=== PATIENT | female | born 1930 | race American Indian/Alaskan Native ===

== ENCOUNTER 2019-04-11 19:35 | Inpatient (IN) | payer MEDICARE ==
--- NOTE | 2019-04-11 20:17 | Event Note ---
ED Screening Note ED Screening Note: pmh copd heart failure htn hpld diverticulosis no strokes psh heart- ppm cc INOCENCIO wears home oxygen she ran out of oxygen earlier today and has been sob This initial assessment/diagnostic orders/clinical plan/treatment(s) is/are subject to change based on patients health status, clinical progression and re- assessment by fellow clinical providers in the ED. Further treatment and workup at subsequent clinical providers discretion. Patient/guardian urged not to elope from the ED as their condition may be serious if not clinically assessed and managed. 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
[2019-04-11 20:50] LABS: Basophils % (Auto) 0.9 % (0.0-1.8); Eosinophils # (Auto) 0.2 K/mm3 (0.0-0.4); Eosinophils % (Auto) 4.8 % (0.0-4.3); Hematocrit 26.9 % (30.3-42.9); Hemoglobin 8.8 gm/dl (10.1-14.3); Lymphocytes # (Auto) 0.5 K/mm3 (1.2-5.4); Lymphocytes % (Auto) 15.5 % (13.4-35.0); Mean Corpuscular HGB Conc 33 % (30-34); Mean Corpuscular Volume 93 fl (79-97); Monocytes # (Auto) 0.4 K/mm3 (0.0-0.8); Monocytes % (Auto) 11.8 % (0.0-7.3); Platelet Count 175 K/mm3 (140-440); Red Cell Distribution Width 17.5 % (13.2-15.2)
--- NOTE | 2019-04-11 21:08 | Emergency Department Report ---
HPI - General Chief Complaint: Dyspnea/Respdistress Time Seen by Provider: 04/11/19 20:14 - [facility] HPI: Room 17 The patient is an 88-year-old female presenting with chief complaint of shortness of breath and chest pain. Patient states her symptoms began last night with intermittent left sided chest pain described as a "hurt." Patient states the pain continued to be intermittent this morning but then resolved. Patient continues complaining of shortness of breath and diaphoresis with her chest pain. Patient denied nausea or vomiting. Patient was occasional cough that is nonproductive. Family states the patient was found to be hypoxic at home at 61% on 2 L nasal cannula. The patient states her last stress test occurred approximately 18 years ago and she's never had a cardiac catheterization Location: Left chest, lungs Duration: [See above] Quality: "Hurt" Severity: Currently 0/10 Modifying factors: [see above] Context: [see above] Mode of transportation: [not driving] ED Past Medical Hx - Past Medical History Previous Medical History?: Yes Hx Diabetes: Yes Hx Arthritis: Yes Hx COPD: Yes Additional medical history: heart failure - Surgical History Past Surgical History?: Yes Additional Surgical History: pacemaker, diverticulitis - Family History Family history: no significant - Social History Smoking Status: Former Smoker (none 30 years) Substance Use Type: None ED Review of Systems ROS: Stated complaint: INOCENCIO LOW OXYGEN LEVEL Other details as noted in HPI Constitutional: diaphoresis Eyes: denies: eye pain ENT: denies: throat pain Respiratory: shortness of breath Cardiovascular: chest pain Endocrine: no symptoms reported Gastrointestinal: denies: nausea, vomiting Genitourinary: denies: dysuria Musculoskeletal: denies: back pain Neurological: denies: headache Physical Exam - Physical Exam Vital Signs: Vital Signs 04/11/19 20:14 Temperature 98.3 F Pulse Rate 65 Respiratory 22 Rate Blood Pressure 179/89 O2 Sat by Pulse 96 Oximetry Physical Exam: GENERAL: The patient is well-developed well-nourished female lying on stretcher not appearing to be in acute distress. [] HEENT: Normocephalic. Atraumatic. Extraocular motions are intact. Patient has moist mucous membranes. NECK: Supple. Trachea midline CHEST/LUNGS: Occasional crackles left base. There is no respiratory distress noted. HEART/CARDIOVASCULAR: Regular. There is no tachycardia. There is no gallop rub or murmur. ABDOMEN: Abdomen is soft, nontender. Patient has normal bowel sounds. There is no abdominal distention. SKIN: There is no rash. There is no edema. There is no diaphoresis. NEURO: The patient is awake, alert, and oriented. The patient is cooperative. The patient has normal speech MUSCULOSKELETAL: There is no evidence of acute injury. ED Course Vital Signs 04/11/19 20:14 Temperature 98.3 F Pulse Rate 65 Respiratory 22 Rate Blood Pressure 179/89 O2 Sat by Pulse 96 Oximetry ED Medical Decision Making - Lab Data Result diagrams: 04/11/19 20:30 04/11/19 20:30 Laboratory Tests 04/11/19 04/11/19 04/11/19 20:30 20:30 20:30 WBC 3.6 L RBC 2.90 L Hgb 8.8 L Hct 26.9 L MCV 93 MCH 30 MCHC 33 RDW 17.5 H Plt Count 175 Lymph % (Auto) 15.5 [place] % (Auto) 11.8 H Eos % (Auto) 4.8 H Baso % (Auto) 0.9 Lymph # 0.5 L [place] # 0.4 Eos # 0.2 Baso # 0.0 Seg Neutrophils % 67.0 Seg Neutrophils # 2.4 Sodium 128 L Potassium 5.0 Chloride 85.4 L Carbon Dioxide 32 H Anion Gap 16 BUN 23 H Creatinine 1.0 Estimated GFR 52 BUN/Creatinine Ratio 23 Glucose 134 H Calcium 9.4 Total Bilirubin 0.30 AST 22 ALT 8 Alkaline Phosphatase 61 Troponin T NT-Pro-B Natriuret Pep 3556 H Total Protein 7.4 Albumin 3.9 Albumin/Globulin Ratio 1.1 04/11/19 22:06 WBC RBC Hgb Hct MCV MCH MCHC RDW Plt Count Lymph % (Auto) [place] % (Auto) Eos % (Auto) Baso % (Auto) Lymph # [place] # Eos # Baso # Seg Neutrophils % Seg Neutrophils # Sodium Potassium Chloride Carbon Dioxide Anion Gap BUN Creatinine Estimated GFR BUN/Creatinine Ratio Glucose Calcium Total Bilirubin AST ALT Alkaline Phosphatase Troponin T < 0.010 NT-Pro-B Natriuret Pep Total Protein Albumin Albumin/Globulin Ratio - EKG Data -: EKG Interpreted by Sc EKG shows normal: sinus rhythm Rate: normal - EKG Data When compared to previous EKG there are: previous EKG unavailable Interpretation: other (left bundle branch block) - Radiology Data Radiology results: report reviewed (chest x-ray, CT chest), image reviewed (chest x-ray, CT chest) interpreted by me: Chest x-ray-no focal infiltrates, no pneumothorax [facility] [address] [place] [address] Cat Scan Report Signed Patient: KESHIA BROWN MR#: [id number] : 1930 Acct:[id number] Age/Sex: 88 / F ADM Date: 04/11/19 Loc: ED Attending Dr: Ordering Physician: SHARDA PORTER MD Date of Service: 04/11/19 Procedure(s): CT angio chest Accession Number(s): [id number] cc: SHARDA PORTER MD PROCEDURE: CT ANGIO CHEST TECHNIQUE: Computerized tomographic angiography of the chest was performed after the IV injection of iodinated nonionic contrast including image processing. The image data was postprocessed using 2-dimensional multiplanar reformatted (MPR) and 3-dimensional (MIP and/or volume rendered) techniques. Automated exposure control, adjustment of mA and/or kV according to patient size, or iterative reconstruction dose optimization techniques were utilized. CT DOSE LENGTH PRODUCT: 543.3 mGycm HISTORY: shortness of breath, left chest pain COMPARISONS: None . FINDINGS: Pulmonary out flow tract, right and left main pulmonary arteries and the approximal branches: Clear, no filling defects seen to suggest pulmonary embolus. Pericardium: No evidence of pericardial effusion. Thoracic aorta: No evidence of aneurysmal dilatation or dissection. Coronary arteries: Partially calcified indicating atherosclerotic disease. Mediastinum and hilar regions: Non specific subcentimeter lymph nodes are visualized. No pathologically enlarged lymph nodes or masses are identified. Lung Baldwin: Small right pleural effusion is visualized. Moderate diffuse emphysematous changes are present. No focal infiltrates or masses are seen. Small amount of linear atelectasis seen in the lung bases. Upper abdomen: Multiple calcified gallstones incidentally noted dependently in the gallbladder. Small amount of ascites appears to be present in the right pericolonic gutter. This is only partially visualized. Mild diffuse body wall edema is visualized. Other: None. IMPRESSION: No evidence of pulmonary embolus. Atherosclerosis coronary arteries. Small right pleural effusion visualized. Moderate diffuse emphysematous changes are present. Cholelithiasis. Small amount of ascites partially visualized upper abdomen. Diffuse body wall edema is visualized. This document is electronically signed by Mulugeta Bosch MD., April 12 2019 01:40:39 AM ET Transcribed By: DFN Dictated By: MULUGETA BOSCH MD Electronically Authenticated By: MULUGETA BOSCH MD Signed Date/Time: 04/[birth year]/1941 DD/ TD/TT: 04/12/197 - Differential Diagnosis COPD exacerbation, CHF exacerbation ACS, pneumonia, bronchitis Critical care attestation.: If time is entered above; I have spent that time in minutes in the direct care of this critically ill patient, excluding procedure time. ED Disposition Clinical Impression: Chest pain, Shortness of breath, Hyponatremia Disposition: OP ADMIT IP TO THIS HOSP Is pt being admited?: Yes Does the pt Need Aspirin: Yes Condition: Fair Instructions: Chest Pain (ED) Time of Disposition: 00:54 (Dr Gates paged)
[2019-04-11 21:33] LABS: Albumin 3.9 g/dL (3.9-5); Calcium 9.4 mg/dL (8.4-10.2)
--- NOTE | 2019-04-11 21:47 | XRay Report ---
PROCEDURE: XR CHEST 1V AP TECHNIQUE: Chest radiograph single view. HISTORY: Dyspnea COMPARISONS: None . FINDINGS: Heart: Appears to be mildly enlarged. Mediastinum/Vessels: Normal. Lungs/Pleural space: Vertical linear lucency seen right lung base laterally. This may be a skinfold artifact. I cannot exclude a small pneumothorax. Recommend repositioning the patient and repeat the c hest x-ray.. Bony thorax: No acute osseous abnormality. Bones are diffusely demineralized suggesting osteoporosis. Life support devices: Dual-chamber pacemaker implanted in the left side of the chest. Cardiac leads v isualized in the right side of the heart.. IMPRESSION: Lucency right lung base laterally oriented vertically as described possibly representing skinfold artifact versus small pneumothorax. Suggest repositioning the patient and repeating the [address] x-ray. Mild cardiomegaly. Dual chamber pacemaker in place. Osteoporosis is suspected.. This document is electronically signed by Mulugeta Hyatt MD., Apr 11 2019 10:45:05 PM ET
--- NOTE | 2019-04-12 00:42 | Cat Scan Report ---
PROCEDURE: CT ANGIO CHEST TECHNIQUE: Computerized tomographic angiography of the chest was performed after the IV injection of iodinated nonionic contrast including image processing. The image data was postprocessed using 2-di mensional multiplanar reformatted (MPR) and 3-dimensional (MIP and/or volume rendered) techniques. Au tomated exposure control, adjustment of mA and/or kV according to patient size, or iterative reconstr uction dose optimization techniques were utilized. CT DOSE LENGTH PRODUCT: 543.3 mGycm HISTORY: shortness of breath, left chest pain COMPARISONS: None . FINDINGS: Pulmonary out flow tract, right and left main pulmonary arteries and the approximal branches: Clear, no filling defects seen to suggest pulmonary embolus. Pericardium: No evidence of pericardial effusion. Thoracic aorta: No evidence of aneurysmal dilatation or dissection. Coronary arteries: Partially calcified indicating atherosclerotic disease. Mediastinum and hilar regions: Non specific subcentimeter lymph nodes are visualized. No pathologica lly enlarged lymph nodes or masses are identified. Lung Baldwin: Small right pleural effusion is visualized. Moderate diffuse emphysematous changes are p resent. No focal infiltrates or masses are seen. Small amount of linear atelectasis seen in the lung bases. Upper abdomen: Multiple calcified gallstones incidentally noted dependently in the gallbladder. Smal l amount of ascites appears to be present in the right pericolonic gutter. This is only partially vis ualized. Mild diffuse body wall edema is visualized. Other: None. IMPRESSION: No evidence of pulmonary embolus. Atherosclerosis coronary arteries. Small right pleural effusion visualized. Moderate diffuse emphysematous changes are present. Cholelithiasis. Small amount of ascites partially visualized upper abdomen. Diffuse body wall edema is visualized. This document is electronically signed by Mulugeta Hyatt MD., April 12 2019 01:40:39 AM ET
[2019-04-12] MEDS ORDERED: ASPIRIN PO ONE (00:54)
[2019-04-12] MEDS ORDERED: TYLENOL PO PRN (01:39)
[2019-04-12 02:20] LABS: Basophils % (Auto) 0.6 % (0.0-1.8); Eosinophils # (Auto) 0.2 K/mm3 (0.0-0.4); Eosinophils % (Auto) 5.9 % (0.0-4.3); Hematocrit 26.3 % (30.3-42.9); Hemoglobin 8.6 gm/dl (10.1-14.3); Lymphocytes # (Auto) 0.8 K/mm3 (1.2-5.4); Mean Corpuscular HGB Conc 33 % (30-34); Mean Corpuscular Volume 92 fl (79-97); Monocytes # (Auto) 0.5 K/mm3 (0.0-0.8); Monocytes % (Auto) 12.9 % (0.0-7.3); Platelet Count 177 K/mm3 (140-440); Red Blood Count 2.88 M/mm3 (3.65-5.03); Red Cell Distribution Width 17.3 % (13.2-15.2)
[2019-04-12] MEDS: APRESOLINE IV PRN ×2 (03:02→21:07)
--- NOTE | 2019-04-12 03:21 | History and Physical Report ---
<PARDEEP ZAPIEN - Last Filed: 04/12/19 03:05> History of Present Illness Date of examination: 04/12/19 Date of admission: 04/12/2019 Chief complaint: Chest pain History of present illness: Patient is an 88-year-old female with PMHx of CHF, A. fib (on Eliquis), hypertension, DM type II, COPD (home O2 dependent) who presents to the ER with complaints of chest pain. Patient's niece at the bedside states that the patient went to see her supervisor dairy sanitation (Dr. Odonnell at [facility]) and her telecommunications clerk today, she was told that everything was fine. Patient's niece also reported that the patient did not use her oxygen all day, she only used it when she got home, she went to bed and woke up in 2 hours complaining of chest pain and shortness of breath. Patient states that the chest pain is located in the left substernal chest area, causing shortness of breath, she denies radiation, she states that she had similar pain before, she had a pacemaker inserted but she never had any stent placement or any other cardiac procedures. Patient's was evaluated in the ER, her EKG showed no STEMI, her cardiac enzymes was negative, BNP was 3556, she had lower extremity edema and mild shortness of breath on exertion, patient will be admitted for further evaluation of her chest pain. Past History Past Medical History: atrial fib, diabetes, hypertension, hyperlipidemia Past Surgical History: Other (pacemaker insertion) Social history: no significant social history, lives with family Family history: no significant family history Medications and Allergies Allergies Allergy/AdvReac Type Severity Reaction Status Date / Time No Known Allergies Allergy Unverified 04/11/19 19:59 Home Medications Medication Instructions Recorded Confirmed Last Taken Type Albuterol Sulfate [Proair 90 mcg IH PRN PRN 04/12/19 04/12/19 Unknown History Respiclick] Apixaban [Eliquis] 2.5 mg PO BID 04/12/19 04/12/19 Unknown History Cholecalciferol Vit D3 [Vitamin D3 1,000 unit PO QDAY 04/12/19 04/12/19 Unknown History 1,000 UNIT TAB] Dorzolamide HCl [Trusopt] 10 ml OU BID 04/12/19 04/12/19 Unknown History Furosemide [Lasix TAB] 80 mg PO BID 04/12/19 04/12/19 Unknown History Lisinopril [Zestril] 40 mg PO QDAY 04/12/19 04/12/19 Unknown History Pravastatin [Pravachol] 20 mg PO DAILY 04/12/19 04/12/19 Unknown History Tiotropium [place] [Spiriva] 18 mcg IH DAILY 04/12/19 04/12/19 Unknown History metFORMIN [Glucophage] 500 mg PO BID 04/12/19 04/12/19 Unknown History Active Meds: Active Medications Acetaminophen (Tylenol) 650 mg PO Q4H PRN PRN Reason: Pain MILD(1-3)/Fever >100.5/BASILIO Aspirin (Ecotrin) 325 mg PO QDAY TANK Hydralazine HCl (Apresoline) 10 mg IV Q6H PRN PRN Reason: FOR SBP > target Last Admin: 04/12/19 03:02 Dose: 10 mg Documented by: Ondansetron HCl (Zofran) 4 mg IV Q8H PRN PRN Reason: Nausea And Vomiting Sodium Chloride (Sodium Chloride Flush Syringe 10 Ml) 10 ml IV BID [facility] Review of Systems Cardiovascular: chest pain Respiratory: shortness of breath Exam - Constitutional Vitals: Temp Pulse Resp BP Pulse Ox 98.3 F 65 27 H 209/111 100 04/11/19 20:14 04/12/19 03:02 04/11/19 23:00 04/12/19 03:02 04/11/19 23:00 General appearance: Present: no acute distress - EENT Eyes: Present: EOM intact ENT: hearing intact - Neck Neck: Present: normal ROM - Respiratory Respiratory effort: normal Respiratory: bilateral: CTA - Cardiovascular Rhythm: regular Heart Sounds: Present: S1 & S2 - Extremities Extremities: no ischemia Peripheral Pulses: within normal limits - Abdominal General gastrointestinal: Present: soft, non-tender, non-distended Female genitourinary: Present: deferred - Rectal Rectal Exam: deferred - Integumentary Integumentary: Present: warm, dry - Musculoskeletal Musculoskeletal: strength equal bilaterally - Psychiatric Psychiatric: cooperative Results - Labs CBC & Chem 7: 04/12/19 02:07 04/11/19 20:30 Labs: Laboratory Last Values WBC 3.8 K/mm3 (4.5-11.0) L 04/12/19 02:07 RBC 2.88 M/mm3 (3.65-5.03) L 04/12/19 02:07 Hgb 8.6 gm/dl (10.1-14.3) L 04/12/19 02:07 Hct 26.3 % (30.3-42.9) L 04/12/19 02:07 MCV 92 fl (79-97) 04/12/19 02:07 MCH 30 pg (28-32) 04/12/19 02:07 MCHC 33 % (30-34) 04/12/19 02:07 RDW 17.3 % (13.2-15.2) H 04/12/19 02:07 Plt Count 177 K/mm3 (140-440) 04/12/19 02:07 Lymph % (Auto) 21.0 % (13.4-35.0) 04/12/19 02:07 [place] % (Auto) 12.9 % (0.0-7.3) H 04/12/19 02:07 Eos % (Auto) 5.9 % (0.0-4.3) H 04/12/19 02:07 Baso % (Auto) 0.6 % (0.0-1.8) 04/12/19 02:07 Lymph # 0.8 K/mm3 (1.2-5.4) L 04/12/19 02:07 [place] # 0.5 K/mm3 (0.0-0.8) 04/12/19 02:07 Eos # 0.2 K/mm3 (0.0-0.4) 04/12/19 02:07 Baso # 0.0 K/mm3 (0.0-0.1) 04/12/19 02:07 Seg Neutrophils % 59.6 % (40.0-70.0) 04/12/19 02:07 Seg Neutrophils # 2.3 K/mm3 (1.8-7.7) 04/12/19 02:07 Sodium 128 mmol/L (137-145) L 04/11/19 20:30 Potassium 5.0 mmol/L (3.6-5.0) 04/11/19 20:30 Chloride 85.4 mmol/L (98-107) L 04/11/19 20:30 Carbon Dioxide 32 mmol/L (22-30) H 04/11/19 20:30 16 mmol/L 04/11/19 20:30 BUN 23 mg/dL (7-17) H 04/11/19 20:30 1.0 mg/dL (0.7-1.2) 04/11/19 20:30 Estimated GFR 52 ml/min 04/11/19 20:30 23 % 04/11/19 20:30 Glucose 134 mg/dL (65-100) H 04/11/19 20:30 Calcium 9.4 mg/dL (8.4-10.2) 04/11/19 20:30 0.30 mg/dL (0.1-1.2) 04/11/19 20:30 AST 22 units/L (5-40) 04/11/19 20:30 ALT 8 units/L (7-56) 04/11/19 20:30 61 units/L (35-129) 04/11/19 20:30 < 0.010 ng/mL (0.00-0.029) 04/11/19 22:06 NT-Pro-B Natriuret Pep 3556 pg/mL (0-900) H 04/11/19 20:30 7.4 g/dL (6.3-8.2) 04/11/19 20:30 3.9 g/dL (3.9-5) 04/11/19 20:30 1.1 % 04/11/19 20:30 Assessment and Plan Assessment and plan: 1. Chest pain rule/out ACS 2. CHF (BNP 3556, echo unknown) 3. A. fib (on Eliquis) 4. Hypertension 5. Hyperlipidemia 6. DM type II 7. COPD (home O2 dependent) 8. History of pacemaker insertion Plan: Patient is admitted to admit for chest pain Consult cardiology for evaluation Continue cardiac enzymes every 6hr x2 Continue O2 at 2 L to keep sats at 93% Continue home meds Accu-Chek ACHS with insulin per sliding scale Continue Eliquis Out of bed to chair daily Further plan per cardiology recommendation Plan of care was d/w pt and niece, who voiced understanding Advance Directives: Yes VTE prophylaxis?: Chemical Plan of care discussed with patient/family: Yes <FRANCO BONILLA - Last Filed: 04/12/19 06:50> History of Present Illness Date of admission: 04/12/19 01:33 Medications and Allergies Active Meds: Active Medications Acetaminophen (Tylenol) 650 mg PO Q4H PRN PRN Reason: Pain MILD(1-3)/Fever >100.5/BASILIO Albuterol (Proventil) 2.5 mg IH Q6HRT PRN PRN Reason: Congestion Aspirin (Ecotrin) 325 mg PO QDAY [facility] Dextrose (D50w (25gm) Syringe) 50 ml IV PRN PRN PRN Reason: Hypoglycemia Furosemide (Lasix) 20 mg IV DAILY TANK Hydralazine HCl (Apresoline) 10 mg IV Q6H PRN PRN Reason: FOR SBP > target Last Admin: 04/12/19 03:02 Dose: 10 mg Documented by: Insulin Human Lispro (Humalog) 0 unit SUB-Q ACHS [facility]; Protocol Ondansetron HCl (Zofran) 4 mg IV Q8H PRN PRN Reason: Nausea And Vomiting Sodium Chloride (Sodium Chloride Flush Syringe 10 Ml) 10 ml IV BID [facility] Exam - Constitutional Vitals: Temp Pulse Resp BP Pulse Ox 98.3 F 65 21 209/111 100 04/11/19 20:14 04/12/19 03:02 04/12/19 03:00 04/12/19 03:02 04/12/19 03:00 Results - Labs CBC & Chem 7: 04/12/19 02:07 04/12/19 02:03 Labs: Laboratory Last Values WBC 3.8 K/mm3 (4.5-11.0) L 04/12/19 02:07 RBC 2.88 M/mm3 (3.65-5.03) L 04/12/19 02:07 Hgb 8.6 gm/dl (10.1-14.3) L 04/12/19 02:07 Hct 26.3 % (30.3-42.9) L 04/12/19 02:07 MCV 92 fl (79-97) 04/12/19 02:07 MCH 30 pg (28-32) 04/12/19 02:07 MCHC 33 % (30-34) 04/12/19 02:07 RDW 17.3 % (13.2-15.2) H 04/12/19 02:07 Plt Count 177 K/mm3 (140-440) 04/12/19 02:07 Lymph % (Auto) 21.0 % (13.4-35.0) 04/12/19 02:07 [place] % (Auto) 12.9 % (0.0-7.3) H 04/12/19 02:07 Eos % (Auto) 5.9 % (0.0-4.3) H 04/12/19 02:07 Baso % (Auto) 0.6 % (0.0-1.8) 04/12/19 02:07 Lymph # 0.8 K/mm3 (1.2-5.4) L 04/12/19 02:07 [place] # 0.5 K/mm3 (0.0-0.8) 04/12/19 02:07 Eos # 0.2 K/mm3 (0.0-0.4) 04/12/19 02:07 Baso # 0.0 K/mm3 (0.0-0.1) 04/12/19 02:07 Seg Neutrophils % 59.6 % (40.0-70.0) 04/12/19 02:07 Seg Neutrophils # 2.3 K/mm3 (1.8-7.7) 04/12/19 02:07 Sodium 128 mmol/L (137-145) L 04/12/19 02:03 Potassium 4.6 mmol/L (3.6-5.0) 04/12/19 02:03 Chloride 85.2 mmol/L (98-107) L 04/12/19 02:03 Carbon Dioxide 30 mmol/L (22-30) 04/12/19 02:03 17 mmol/L 04/12/19 02:03 BUN 24 mg/dL (7-17) H 04/12/19 02:03 1.1 mg/dL (0.7-1.2) 04/12/19 02:03 Estimated GFR 57 ml/min 04/12/19 02:03 22 % 04/12/19 02:03 Glucose 115 mg/dL (65-100) H 04/12/19 02:03 Calcium 9.2 mg/dL (8.4-10.2) 04/12/19 02:03 0.30 mg/dL (0.1-1.2) 04/11/19 20:30 AST 22 units/L (5-40) 04/11/19 20:30 ALT 8 units/L (7-56) 04/11/19 20:30 61 units/L (35-129) 04/11/19 20:30 < 0.010 ng/mL (0.00-0.029) 04/11/19 22:06 NT-Pro-B Natriuret Pep 3556 pg/mL (0-900) H 04/11/19 20:30 7.4 g/dL (6.3-8.2) 04/11/19 20:30 3.9 g/dL (3.9-5) 04/11/19 20:30 1.1 % 04/11/19 20:30 Triglycerides 49 mg/dL (2-149) 04/12/19 02:03 Cholesterol 152 mg/dL (50-199) 04/12/19 02:03 61 mg/dL (50-130) 04/12/19 02:03 84 mg/dL (40-59) H 04/12/19 02:03 1.80 % 04/12/19 02:03 Assessment and Plan Assessment and plan: I personally discussed the patient with the PLANT SENIOR MANAGER-C and I agree with the above assessment and plan
[2019-04-12] MEDS ORDERED: D50W (25GM) Syringe IV PRN (03:40)
[2019-04-12] MEDS ORDERED: PROVENTIL IH PRN (03:42)
[2019-04-12 03:48] LABS: Calcium 9.2 mg/dL (8.4-10.2); Chol/HDL Ratio 1.8 %
[2019-04-12] MEDS ORDERED: NON-FORMULARY (Albuterol Sulfate [Proair Respiclick] 90 MCG) IH PRN (08:02)
[2019-04-12] MEDS: HumaLOG SUB-Q SCH ×4 (08:46→21:07)
[2019-04-12] MEDS ORDERED: LASIX IV SCH ×2 (10:00→15:00)
[2019-04-12] MEDS ORDERED: DORZOLAMIDE HCL OU SCH (10:00)
[2019-04-12] MEDS ORDERED: SODIUM CHLORIDE FLUSH SYRINGE 10 ML IV SCH (10:00)
[2019-04-12] MEDS ORDERED: LASIX PO SCH (10:00)
[2019-04-12] MEDS: TYLENOL PO PRN ×2 (11:02→21:07)
[2019-04-12] MEDS: VITAMIN D3 PO SCH (11:03)
[2019-04-12] MEDS: ELIQUIS PO SCH ×2 (11:04→21:08)
[2019-04-12] MEDS: GLUCOPHAGE PO SCH ×2 (11:04→18:14)
[2019-04-12] MEDS: ZESTRIL PO SCH (11:04)
--- NOTE | 2019-04-12 14:08 | Event Note ---
Date: 04/12/19 Patient seen and evaluated ergonomics consultant Alejo as necessary Echocardiogram ordered
[2019-04-12] MEDS: SPIRIVA IH SCH (14:22)
--- NOTE | 2019-04-12 15:04 | Consultation ---
History of Present Illness Consult date: 04/12/19 Consult reason: congestive heart failure History of present illness: pt known to me, new pt in office recently relocated to [place] Prior history of HFpEF, admitted with persistent edema we tried to increase PO lasix as outpt, but it did not help will start IV regimen Echo ordered Afib, DDD pacemaker HTN Pulm HTN Type 2 DM COPD Plan IV diuresis Echocardiogram Cont eliquis for anticoagulation Past History Past Medical History: atrial fib, diabetes, hypertension, hyperlipidemia Past Surgical History: Other (pacemaker insertion) Social history: no significant social history, lives with family Family history: no significant family history Medications and Allergies Allergies Allergy/AdvReac Type Severity Reaction Status Date / Time No Known Allergies Allergy Unverified 04/11/19 19:59 Home Medications Medication Instructions Recorded Confirmed Last Taken Type Albuterol Sulfate [Proair 90 mcg IH PRN PRN 04/12/19 04/12/19 Unknown History Respiclick] Apixaban [Eliquis] 2.5 mg PO BID 04/12/19 04/12/19 Unknown History Cholecalciferol Vit D3 [Vitamin D3 1,000 unit PO QDAY 04/12/19 04/12/19 Unknown History 1,000 UNIT TAB] Dorzolamide HCl [Trusopt] 10 ml OU BID 04/12/19 04/12/19 Unknown History Furosemide [Lasix TAB] 80 mg PO BID 04/12/19 04/12/19 Unknown History Lisinopril [Zestril] 40 mg PO QDAY 04/12/19 04/12/19 Unknown History Pravastatin [Pravachol] 20 mg PO DAILY 04/12/19 04/12/19 Unknown History Tiotropium [place] [Spiriva] 18 mcg IH DAILY 04/12/19 04/12/19 Unknown History metFORMIN [Glucophage] 500 mg PO BID 04/12/19 04/12/19 Unknown History Active Meds: Active Medications Acetaminophen (Tylenol) 650 mg PO Q4H PRN PRN Reason: Pain MILD(1-3)/Fever >100.5/BASILIO Last Admin: 04/12/19 11:02 Dose: 650 mg Documented by: Albuterol (Proventil) 2.5 mg IH Q6HRT PRN PRN Reason: Congestion Apixaban (Eliquis) 2.5 mg PO BID [facility]; Protocol Last Admin: 04/12/19 11:04 Dose: 2.5 mg Documented by: Aspirin (Ecotrin) 325 mg PO QDAY [facility] Bumetanide (Bumex) 1 mg IV BID@0600,1800 [facility] Cholecalciferol (Vitamin D3) 1,000 unit PO QDAY [facility] Last Admin: 04/12/19 11:03 Dose: 1,000 unit Documented by: Dextrose (D50w (25gm) Syringe) 50 ml IV PRN PRN PRN Reason: Hypoglycemia Hydralazine HCl (Apresoline) 10 mg IV Q6H PRN PRN Reason: FOR SBP > target Last Admin: 04/12/19 03:02 Dose: 10 mg Documented by: Insulin Human Lispro (Humalog) 0 unit SUB-Q [facility]; Protocol Last Admin: 04/12/19 12:55 Dose: 1 unit Documented by: Lisinopril (Zestril) 40 mg PO QDAY [facility] Last Admin: 04/12/19 11:04 Dose: 40 mg Documented by: Metformin HCl (Glucophage) 500 mg PO BIDDIAB [facility] Last Admin: 04/12/19 11:04 Dose: 500 mg Documented by: Miscellaneous Medication (Dorzolamide Hcl [Trusopt]) 10 ml OU BID [facility] Ondansetron HCl (Zofran) 4 mg IV Q8H PRN PRN Reason: Nausea And Vomiting Potassium Chloride (K-Dur) 20 meq PO QDAY [facility] Pravastatin Sodium (Pravachol) 20 mg PO QHS [facility] Sodium Chloride (Sodium Chloride Flush Syringe 10 Ml) 10 ml IV BID [facility] Tiotropium [place] (Spiriva) 1 puff IH DAILY [facility] Last Admin: 04/12/19 14:22 Dose: Not Given Documented by: Review of Systems All systems: negative (stated in HPI) Physical Examination Vital Signs Temp Pulse Resp BP Pulse Ox 98.3 F 65 22 179/89 96 04/11/19 20:14 04/11/19 20:14 04/11/19 20:14 04/11/19 20:14 04/11/19 20:14 General appearance: no acute distress Neck: Positive: neck supple Cardiac: Positive: Reg Rate and Rhythm, S1/S2 Lungs: Positive: clear to auscultation Neuro: Positive: Grossly Intact Abdomen: Positive: Unremarkable Extremities: Present: +2 Edema Results 04/12/19 02:07 04/12/19 02:03 Cardiac Enzymes 04/11/19 Range/Units 20:30 AST 22 (5-40) units/L Lipids 04/12/19 Range/Units 02:03 Triglycerides 49 (2-149) mg/dL Cholesterol 152 (50-199) mg/dL HDL Cholesterol 84 H (40-59) mg/dL Cholesterol/HDL Ratio 1.80 % CBC 04/11/19 04/12/19 Range/Units 20:30 02:07 WBC 3.6 L 3.8 L (4.5-11.0) K/mm3 RBC 2.90 L 2.88 L (3.65-5.03) M/mm3 Hgb 8.8 L 8.6 L (10.1-14.3) gm/dl Hct 26.9 L 26.3 L (30.3-42.9) % Plt Count 175 177 (140-440) K/mm3 Lymph # 0.5 L 0.8 L (1.2-5.4) K/mm3 [place] # 0.4 0.5 (0.0-0.8) K/mm3 Eos # 0.2 0.2 (0.0-0.4) K/mm3 Baso # 0.0 0.0 (0.0-0.1) K/mm3 Comprehensive Metabolic Panel 04/11/19 04/12/19 Range/Units 20:30 02:03 Sodium 128 L 128 L (137-145) mmol/L Potassium 5.0 4.6 (3.6-5.0) mmol/L Chloride 85.4 L 85.2 L (98-107) mmol/L Carbon Dioxide 32 H 30 (22-30) mmol/L BUN 23 H 24 H (7-17) mg/dL Creatinine 1.0 1.1 (0.7-1.2) mg/dL Glucose 134 H 115 H (65-100) mg/dL Calcium 9.4 9.2 (8.4-10.2) mg/dL AST 22 (5-40) units/L ALT 8 (7-56) units/L Alkaline Phosphatase 61 (35-129) units/L Total Protein 7.4 (6.3-8.2) g/dL Albumin 3.9 (3.9-5) g/dL
[2019-04-12] MEDS: K-DUR PO SCH (18:14)
[2019-04-12] MEDS: BUMEX IV SCH (18:14)
[2019-04-12] MEDS: PRAVACHOL PO SCH (21:08)
[2019-04-12] MEDS: SODIUM CHLORIDE FLUSH SYRINGE 10 ML IV SCH (21:08)
[2019-04-13] MEDS: BUMEX IV SCH (05:13)
[2019-04-13] MEDS: TYLENOL PO PRN ×3 (05:24→20:59)
[2019-04-13] MEDS: HumaLOG SUB-Q SCH ×4 (07:55→22:39)
--- NOTE | 2019-04-13 08:41 | Consultation ---
History of Present Illness - Reason for Consult Consult date: 04/13/19 hyponatremia - History of Present Illness The patient is an 88 YO female with history significant for DM type 2, HTN, HFpEF, A. fib (on Eliquis), COPD on home O2 and /Anemia who presented to [facility] ER with complaints of chest pain. Patient was confused to give any history and there was no family member at the bedside. Patient woke from sleep and c/o chest pain and shortness of breath. The pain was located in the left substernal chest area without any radiation. She also reports lower extremity edema and CHAN. Patient was evaluated in the ER, her EKG showed no STEMI, her cardiac enzymes was negative and BNP was 3556. Patient was admitted for further evaluation of her chest pain. Initial BP was around 200/110s. Creatinine was 1 on admission but increased to 1.6 today. Patient received IV contrast 2 days ago. Past History Past Medical History: atrial fib, diabetes, hypertension, hyperlipidemia Past Surgical History: Other (pacemaker insertion) Social history: no significant social history, lives with family Family history: no significant family history Medications and Allergies Allergies Allergy/AdvReac Type Severity Reaction Status Date / Time No Known Allergies Allergy Unverified 04/11/19 19:59 Home Medications Medication Instructions Recorded Confirmed Last Taken Type Albuterol Sulfate [Proair 90 mcg IH PRN PRN 04/12/19 04/12/19 Unknown History Respiclick] Apixaban [Eliquis] 2.5 mg PO BID 04/12/19 04/12/19 Unknown History Cholecalciferol Vit D3 [Vitamin D3 1,000 unit PO QDAY 04/12/19 04/12/19 Unknown History 1,000 UNIT TAB] Dorzolamide HCl [Trusopt] 10 ml OU BID 04/12/19 04/12/19 Unknown History Furosemide [Lasix TAB] 80 mg PO BID 04/12/19 04/12/19 Unknown History Lisinopril [Zestril] 40 mg PO QDAY 04/12/19 04/12/19 Unknown History Pravastatin [Pravachol] 20 mg PO DAILY 04/12/19 04/12/19 Unknown History Tiotropium [place] [Spiriva] 18 mcg IH DAILY 04/12/19 04/12/19 Unknown History metFORMIN [Glucophage] 500 mg PO BID 04/12/19 04/12/19 Unknown History Active Meds: Active Medications Acetaminophen (Tylenol) 650 mg PO Q4H PRN PRN Reason: Pain MILD(1-3)/Fever >100.5/BASILIO Last Admin: 04/12/19 21:07 Dose: 650 mg Documented by: Acetaminophen (Tylenol) 1,000 mg PO Q6H PRN PRN Reason: Pain , Severe (7-10) Last Admin: 04/13/19 05:24 Dose: 1,000 mg Documented by: Albuterol (Proventil) 2.5 mg IH Q6HRT PRN PRN Reason: Congestion Apixaban (Eliquis) 2.5 mg PO BID [facility]; Protocol Last Admin: 04/12/19 21:08 Dose: 2.5 mg Documented by: Aspirin (Ecotrin) 325 mg PO QDAY [facility] Bumetanide (Bumex) 1 mg IV BID@0600,1800 [facility] Last Admin: 04/13/19 05:13 Dose: 1 mg Documented by: Cholecalciferol (Vitamin D3) 1,000 unit PO QDAY [facility] Last Admin: 04/12/19 11:03 Dose: 1,000 unit Documented by: Dextrose (D50w (25gm) Syringe) 50 ml IV PRN PRN PRN Reason: Hypoglycemia Hydralazine HCl (Apresoline) 10 mg IV Q6H PRN PRN Reason: FOR SBP > target Last Admin: 04/12/19 21:07 Dose: 10 mg Documented by: Insulin Human Lispro (Humalog) 0 unit SUB-Q [facility]; Protocol Last Admin: 04/12/19 21:07 Dose: 1 unit Documented by: Lisinopril (Zestril) 40 mg PO QDAY [facility] Last Admin: 04/12/19 11:04 Dose: 40 mg Documented by: Metformin HCl (Glucophage) 500 mg PO BIDDIAB [facility] Last Admin: 04/12/19 18:14 Dose: 500 mg Documented by: Miscellaneous Medication (Dorzolamide Hcl [Trusopt]) 10 ml OU BID [facility] Ondansetron HCl (Zofran) 4 mg IV Q8H PRN PRN Reason: Nausea And Vomiting Potassium Chloride (K-Dur) 20 meq PO QDAY [facility] Last Admin: 04/12/19 18:14 Dose: 20 meq Documented by: Pravastatin Sodium (Pravachol) 20 mg PO QHS [facility] Last Admin: 04/12/19 21:08 Dose: 20 mg Documented by: Sodium Chloride (Sodium Chloride Flush Syringe 10 Ml) 10 ml IV BID [facility] Last Admin: 04/12/19 21:08 Dose: 10 ml Documented by: Tiotropium [place] (Spiriva) 1 puff IH DAILY [facility] Last Admin: 04/12/19 14:22 Dose: Not Given Documented by: Review of Systems ROS unobtainable: due to mental status Exam - Vital Signs Vital signs: Vital Signs Temp Pulse Resp BP Pulse Ox 98.3 F 65 22 179/89 96 04/11/19 20:14 04/11/19 20:14 04/11/19 20:14 04/11/19 20:14 04/11/19 20:14 - General Appearance General appearance: well-developed, well-nourished, appears stated age, other (no distress) EENT: ATNC, PERRL, hearing intact Neck: Present: neck supple, trachea midline, JVD/HJR Respiratory: Rales Heart: regular, S1S2, no murmurs Gastrointestinal: Present: normoactive bowel sounds Integumentary: no rash, warm and dry Neurologic: no focal deficit, no asterixis, confused, disoriented Musculoskeletal: Present: other (1+ edema of both LEs noted) Psychiatric: cooperative Results - Lab Results 04/12/19 02:07 04/13/19 09:42 Most recent lab results Calcium 9.2 mg/dL (8.4-10.2) 04/12/19 02:03 - Image Kidney/bladder ultrasound: other Assessment and Plan 1. Acute kidney injury: JOSE likely from combination of contrast induced injury and vasomotor insult from BP fluctuation. Patient is on Lisinopril. Monitor renal function. Renal prognosis is guarded. Avoid nephrotoxic agents. Meds dosage based on GFR. 2. FEN: Volume overload, monitor. Monitor lytes. 3. HFpEF: Followed by Cards. 4. paroxysmal A.fib. 5. HTN: BP well controlled now. 6. Anemia: POA.
[2019-04-13 10:15] LABS: Calcium 9.4 mg/dL (8.4-10.2); Uric Acid 6.6 mg/dL (3.5-7.6)
[2019-04-13] MEDS: ECOTRIN PO SCH (10:41)
[2019-04-13] MEDS: ZESTRIL PO SCH (10:42)
[2019-04-13] MEDS: K-DUR PO SCH (10:42)
[2019-04-13] MEDS: GLUCOPHAGE PO SCH (10:42)
[2019-04-13] MEDS: ELIQUIS PO SCH ×2 (10:42→22:37)
[2019-04-13] MEDS: VITAMIN D3 PO SCH (10:42)
[2019-04-13 11:40] LABS: Creatinine,Urine 48.1 mg/dL (0.1-20.0)
[2019-04-13 11:41] LABS: Bacteria,Urine 2+ /HPF (Negative); Bilirubin,Urine NEG (Negative); Blood,Urine NEG (Negative); Color,Urine Yellow (Yellow); Mucus,Urine FEW /HPF; Protein,Urine <15 mg/dL mg/dL (Negative); RBC,Urine < 1.0 /HPF (0.0-6.0); Urobilinogen,Urine < 2.0 mg/dL (<2.0)
--- NOTE | 2019-04-13 12:04 | Progress Note ---
Subjective Date of service: 04/13/19 Interval history: Increasing BUN/CR, still with residual peripheral edema No chest pain, orthopnea, or SOB. Impression Prior history of HFpEF, admitted with persistent edema we tried to increase PO lasix as outpt, but it did not help will start IV regimen Echo ordered Afib, DDD pacemaker HTN Pulm HTN Type 2 DM COPD Plan Hold IV diuretics for now worsening pre-renal azotemia, hyponatremia Echocardiogram Cont eliquis for anticoagulation Objective Vital Signs Temp Pulse Pulse Resp BP Pulse Ox 04/13/19 11:44 65 99 04/13/19 10:45 20 04/13/19 10:00 65 04/13/19 08:48 98.4 F 65 16 131/59 100 04/13/19 04:14 97.8 F 65 18 116/59 100 04/12/19 23:27 98.0 F 65 19 115/52 100 04/12/19 22:00 65 04/12/19 19:10 97.7 F 66 18 168/79 100 04/12/19 17:03 98.3 F 65 16 166/76 100 04/12/19 13:44 22 94 04/12/19 13:14 98.2 F 65 16 152/67 100 - Physical Examination General: No Apparent Distress Neck: Positive: neck supple Cardiac: Positive: Reg Rate and Rhythm, S1/S2 Lungs: Positive: Normal Exam Neuro: Positive: Grossly Intact Abdomen: Positive: Unremarkable Extremities: Present: +2 Edema - Labs and Meds Comprehensive Metabolic Panel 04/13/19 Range/Units 09:42 Sodium 128 L (137-145) mmol/L Potassium 4.9 (3.6-5.0) mmol/L Chloride 86.1 L (98-107) mmol/L Carbon Dioxide 28 (22-30) mmol/L BUN 27 H (7-17) mg/dL Creatinine 1.6 H (0.7-1.2) mg/dL Glucose 113 H (65-100) mg/dL Calcium 9.4 (8.4-10.2) mg/dL
[2019-04-13] MEDS: SPIRIVA IH SCH (13:59)
--- NOTE | 2019-04-13 15:29 | Progress Note ---
Assessment and Plan - Patient Problems (1) Acute exacerbation of CHF (congestive heart failure) Current Visit: Yes Status: Acute Qualifiers: Heart failure type: combined systolic and diastolic Qualified Code(s): I50.43 - Acute on chronic combined systolic (congestive) and diastolic (congestive) heart failure Plan to address problem: COnt Lasix Check ECHO Cr High Use lasix judiciously (2) JOSE (acute kidney injury) Current Visit: Yes Status: Acute Plan to address problem: JOSE superimposed on CKD Nephrology consult requested Lasix to be used judiciously (3) Chest pain Current Visit: Yes Status: Acute Qualifiers: Chest pain type: unspecified Qualified Code(s): R07.9 - Chest pain, unspecified Plan to address problem: Atypical Troponins negative Stress test cancelled Patient of AHA AHA following For ECHO (4) Afib Current Visit: Yes Status: Chronic Qualifiers: Atrial fibrillation type: chronic Qualified Code(s): I48.2 - Chronic atrial fibrillation Plan to address problem: On Eliquis (5) HTN (hypertension) Current Visit: Yes Status: Chronic Qualifiers: Hypertension type: essential hypertension Qualified Code(s): I10 - Essential (primary) hypertension Plan to address problem: Cont antihypertensives (6) COPD (chronic obstructive pulmonary disease) Current Visit: Yes Status: Chronic Qualifiers: Chronic bronchitis type: unspecified Plan to address problem: On Duonebs prn (7) Pulmonary HTN Current Visit: Yes Status: Chronic (8) DVT prophylaxis Current Visit: Yes Status: Acute Plan to address problem: On Eliquis Subjective Date of service: 04/13/19 Principal diagnosis: SOB and CP Interval history: Chest pain resolved SOB present Objective - Constitutional Vitals: Vital Signs - 12hr 04/13/19 04/13/19 04/13/19 04:14 08:48 10:00 Temperature 97.8 F 98.4 F Pulse Rate 65 65 65 Pulse Rate [ Right Radial] Respiratory 18 16 Rate Blood Pressure 116/59 131/59 O2 Sat by Pulse 100 100 Oximetry 04/13/19 04/13/19 10:45 11:44 Temperature Pulse Rate Pulse Rate [ 65 Right Radial] Respiratory 20 Rate Blood Pressure O2 Sat by Pulse 99 Oximetry General appearance: Present: no acute distress, well-nourished - EENT Eyes: PERRL, EOM intact ENT: hearing intact, clear oral mucosa Ears: bilateral: normal - Neck Neck: supple, normal ROM - Respiratory Respiratory effort: normal Respiratory: bilateral: CTA - Breasts Breasts: normal - Cardiovascular Heart rate: 78 Rhythm: regular Heart Sounds: Present: S1 & S2. Absent: gallop, rub Extremities: no ischemia, pulses intact, No edema, normal color, Full ROM - Gastrointestinal General gastrointestinal: Present: soft, non-tender, non-distended, normal bowel sounds Rectal Exam: deferred - Genitourinary Female genitourinary: normal - Integumentary Integumentary: clear, warm, dry - Musculoskeletal Musculoskeletal: 1, strength equal bilaterally - Neurologic Neurologic: moves all extremities - Psychiatric Psychiatric: memory intact, appropriate mood/affect, intact judgment & insight - Allied health notes Allied health notes reviewed: nursing, case management - Labs CBC & Chem 7: 04/14/19 05:35 04/15/19 04:34 Labs: Abnormal lab results 04/12/19 04/12/19 04/13/19 Range/Units 16:01 21:03 09:42 Sodium 128 L (137-145) mmol/L Chloride 86.1 L (98-107) mmol/L BUN 27 H (7-17) mg/dL Creatinine 1.6 H (0.7-1.2) mg/dL Glucose 113 H (65-100) mg/dL POC Glucose 211 H 176 H (70-105) Magnesium 1.60 L (1.7-2.3) mg/dL Urine Creatinine (0.1-20.0) mg/dL 04/13/19 04/13/19 Range/Units 11:15 11:32 Sodium (137-145) mmol/L Chloride (98-107) mmol/L BUN (7-17) mg/dL Creatinine (0.7-1.2) mg/dL Glucose (65-100) mg/dL POC Glucose 157 H (70-105) Magnesium (1.7-2.3) mg/dL Urine Creatinine 48.1 H (0.1-20.0) mg/dL CTA chest IMPRESSION: No evidence of pulmonary embolus. Atherosclerosis coronary arteries. Small right pleural effusion visualized. Moderate diffuse emphysematous changes are present. Cholelithiasis. Small amount of ascites partially visualized upper abdomen. Diffuse body wall edema is visualized. This document is electronically signed by Mulugeta
[2019-04-13] MEDS: MAG-OX PO SCH ×2 (18:29→22:36)
[2019-04-13] MEDS: SODIUM CHLORIDE FLUSH SYRINGE 10 ML IV SCH ×2 (22:36→22:40)
[2019-04-13] MEDS: PRAVACHOL PO SCH (22:36)
[2019-04-14 06:12] LABS: Hematocrit 23.9 % (30.3-42.9); Hemoglobin 7.8 gm/dl (10.1-14.3); Mean Corpuscular HGB Conc 33 % (30-34); Mean Corpuscular Volume 92 fl (79-97); Platelet Count 179 K/mm3 (140-440); Red Blood Count 2.59 M/mm3 (3.65-5.03); Red Cell Distribution Width 18.1 % (13.2-15.2)
[2019-04-14 06:34] LABS: Calcium 9.4 mg/dL (8.4-10.2)
[2019-04-14 08:33] LABS: Myelocytes # (Manual) 0.1 K/mm3; Total Cells Counted 100
[2019-04-14] MEDS: HumaLOG SUB-Q SCH ×4 (08:33→22:17)
[2019-04-14 08:35] LABS: Anisocytosis 1+; Ovalocytes Rare; Platelet Estimate Consistent w Auto; Poikilocytosis 1+; Target Cells Few
[2019-04-14] MEDS: SPIRIVA IH SCH (10:01)
[2019-04-14] MEDS ORDERED: D50W (25GM) Syringe IV ONE (10:32)
[2019-04-14] MEDS ORDERED: PROVENTIL IH ONE (10:32)
[2019-04-14] MEDS ORDERED: HumuLIN R IV ONE (10:32)
--- NOTE | 2019-04-14 10:32 | Progress Note ---
Assessment and Plan 1. Acute kidney injury: JOSE likely from combination of contrast induced injury and vasomotor insult from BP fluctuation. Renal function continue to decline. Renal US pending. Monitor renal function. Renal prognosis is guarded. Avoid nephrotoxic agents. Meds dosage based on GFR. 2. FEN: Hyperkalemia, Insulin-Dextrose, Kayexalate, Albuterol and IV Calcium ordered. Hyponatremia, monitor. Volume overload, diuretics as needed. Monitor lytes. 3. HFpEF: Followed by Cards. 4. Paroxysmal A.fib. 5. HTN: BP controlled. 6. Anemia: POA. Subjective Date of service: 04/14/19 Interval history: Patient was seen and examined at the bedside. Doing ok. Objective - Vital Signs Vital signs: Vital Signs - 12hr 04/13/19 04/14/19 04/14/19 23:30 04:13 06:00 Temperature 98.9 F 98.2 F Pulse Rate 65 66 Pulse Rate [ 88 Right Radial] Respiratory 20 18 Rate Blood Pressure 162/70 144/76 O2 Sat by Pulse 99 100 96 Oximetry 04/14/19 04/14/19 08:27 10:06 Temperature 97.8 F Pulse Rate 66 Pulse Rate [ Right Radial] Respiratory 18 Rate Blood Pressure 149/71 O2 Sat by Pulse 100 99 Oximetry - General Appearance General appearance: well-developed, well-nourished, appears stated age, other (no distress) EENT: ATNC, PERRL, hearing intact, vision intact Neck: supple Respiratory: Present: Rales Cardiology: S1S2, no murmurs Gastrointestinal: normoactive bowel sounds, no tenderness, no distended Integumentary: no rash Neurologic: no focal deficit, no asterixis Musculoskeletal: other (1+ edema of both LEs noted) - Lab 04/14/19 05:35 04/16/19 05:46 Most recent lab results Calcium 9.4 mg/dL (8.4-10.2) 04/14/19 05:35 Phosphorus 4.10 mg/dL (2.5-4.5) 04/13/19 09:42 Magnesium 1.70 mg/dL (1.7-2.3) 04/14/19 05:35 48.1 mg/dL (0.1-20.0) H 04/13/19 11:15 13 mmol/L 04/13/19 11:15 Medications & Allergies - Medications Allergies/Adverse Reactions: Allergies No Known Allergies Allergy (Unverified 04/11/19 19:59) Home Medications: Home Medications Medication Instructions Recorded Confirmed Last Taken Type Albuterol Sulfate [Proair 90 mcg IH PRN PRN 04/12/19 04/12/19 Unknown History Respiclick] Apixaban [Eliquis] 2.5 mg PO BID 04/12/19 04/12/19 Unknown History Cholecalciferol Vit D3 [Vitamin D3 1,000 unit PO QDAY 04/12/19 04/12/19 Unknown History 1,000 UNIT TAB] Dorzolamide HCl [Trusopt] 10 ml OU BID 04/12/19 04/12/19 Unknown History Furosemide [Lasix TAB] 80 mg PO BID 04/12/19 04/12/19 Unknown History Lisinopril [Zestril] 40 mg PO QDAY 04/12/19 04/12/19 Unknown History Pravastatin [Pravachol] 20 mg PO DAILY 04/12/19 04/12/19 Unknown History Tiotropium [place] [Spiriva] 18 mcg IH DAILY 04/12/19 04/12/19 Unknown History metFORMIN [Glucophage] 500 mg PO BID 04/12/19 04/12/19 Unknown History Active Medications: Generic Name Dose Route Start Last Admin Trade Name Freq PRN Reason Stop Dose Admin Acetaminophen 650 mg 04/12/19 01:33 04/12/19 21:07 Tylenol PO 650 mg Q4H PRN Administration Pain MILD(1-3)/Fever >100.5/BASILIO Acetaminophen 1,000 mg 04/12/19 23:34 04/13/19 20:59 Tylenol PO 1,000 mg Q6H PRN Administration Pain , Severe (7-10) Albuterol 2.5 mg 04/12/19 03:42 Proventil IH Q6HRT PRN Congestion Apixaban 2.5 mg 04/12/19 10:00 04/13/19 22:37 Eliquis PO 2.5 mg BID [facility] Administration Protocol Aspirin 325 mg 04/13/19 10:00 04/13/19 10:41 Ecotrin PO 325 mg QDAY [facility] Administration Cholecalciferol 1,000 unit 04/12/19 10:00 04/13/19 10:42 Vitamin D3 PO 1,000 unit QDAY [facility] Administration Dextrose 50 ml 04/12/19 03:40 D50w (25gm) Syringe IV PRN PRN Hypoglycemia Hydralazine HCl 10 mg 04/12/19 01:39 04/12/19 21:07 Apresoline IV 10 mg Q6H PRN Administration FOR SBP > target Insulin Human Lispro 0 unit 04/12/19 07:30 04/14/19 08:33 Humalog SUB-Q Not Given [facility] Protocol Lisinopril 40 mg 04/12/19 10:00 04/13/19 10:42 Zestril PO 40 mg QDAY [facility] Administration Magnesium Oxide 400 mg 04/13/19 12:31 04/13/19 22:36 Mag-Ox PO 400 mg BID [facility] Administration Miscellaneous Medication 10 ml 04/12/19 10:00 Dorzolamide Hcl [Trusopt] OU BID [facility] Ondansetron HCl 4 mg 04/12/19 01:33 Zofran IV Q8H PRN Nausea And Vomiting Pravastatin Sodium 20 mg 04/12/19 22:00 04/13/19 22:36 Pravachol PO 20 mg QHS [facility] Administration Sodium Chloride 10 ml 04/12/19 10:00 04/13/19 22:40 Sodium Chloride Flush Syringe 10 Ml IV Not Given BID [facility] Tiotropium [place] 1 puff 04/12/19 10:00 04/14/19 10:01 Spiriva IH 1 puff DAILY [facility] Administration
[2019-04-14] MEDS ORDERED: KIONEX PO ONE (11:00)
[2019-04-14] MEDS ORDERED: CALCIUM GLUCONATE 2,000 MG in NACL 0.9% 100 ML IV ONE (11:00)
[2019-04-14] MEDS: ECOTRIN PO SCH (12:06)
[2019-04-14] MEDS: MAG-OX PO SCH ×2 (12:07→22:08)
[2019-04-14] MEDS: SODIUM CHLORIDE FLUSH SYRINGE 10 ML IV SCH ×3 (12:26→22:08)
[2019-04-14] MEDS: ELIQUIS PO SCH ×2 (12:47→22:08)
--- NOTE | 2019-04-14 12:59 | Progress Note ---
Assessment and Plan Severe Hyponatremia Acute renal failure Anemia Paroxysmal Afib on low dose eliquis Pacemaker present HTN Type 2 DM Echocardiogram for LVEF assessment. Subjective Date of service: 04/14/19 Interval history: Patient is resting in bed comfortably. Still noted with lower extremity edema. Objective Vital Signs Temp Pulse Pulse Resp BP Pulse Ox 04/14/19 10:06 99 04/14/19 10:00 80 04/14/19 08:27 97.8 F 66 18 149/71 100 04/14/19 06:00 88 96 04/14/19 04:13 98.2 F 66 18 144/76 100 04/13/19 23:30 98.9 F 65 20 162/70 99 04/13/19 22:00 68 04/13/19 19:58 98.4 F 66 18 157/79 100 04/13/19 16:55 98.1 F 65 24 177/96 100 - Physical Examination General: No Apparent Distress Neck: Positive: trachea midline Cardiac: Positive: Other (paced) Lungs: Positive: Decreased Breath Sounds Neuro: Positive: Weakness Extremities: Present: +2 Edema - Labs and Meds CBC 04/14/19 Range/Units 05:35 WBC 3.8 L (4.5-11.0) K/mm3 RBC 2.59 L (3.65-5.03) M/mm3 Hgb 7.8 L (10.1-14.3) gm/dl Hct 23.9 L (30.3-42.9) % Plt Count 179 (140-440) K/mm3 Comprehensive Metabolic Panel 04/14/19 Range/Units 05:35 Sodium 127 L (137-145) mmol/L Potassium 6.0 H D (3.6-5.0) mmol/L Chloride 86.1 L (98-107) mmol/L Carbon Dioxide 28 (22-30) mmol/L BUN 30 H (7-17) mg/dL Creatinine 2.3 H (0.7-1.2) mg/dL Glucose 95 (65-100) mg/dL Calcium 9.4 (8.4-10.2) mg/dL
[2019-04-14] MEDS: VITAMIN D3 PO SCH (14:00)
[2019-04-14] MEDS: ZESTRIL PO SCH (19:56)
[2019-04-14] MEDS: APRESOLINE IV PRN (22:08)
[2019-04-14] MEDS: PRAVACHOL PO SCH (22:08)
[2019-04-14] MEDS: TYLENOL PO PRN (22:20)
[2019-04-14] MEDS ORDERED: LASIX IV ONE (23:36)
[2019-04-15 05:10] LABS: Calcium 9.8 mg/dL (8.4-10.2)
[2019-04-15] MEDS: TYLENOL PO PRN ×3 (05:12→19:15)
--- NOTE | 2019-04-15 06:59 | Progress Note ---
Assessment and Plan - Patient Problems (1) Acute exacerbation of CHF (congestive heart failure) Current Visit: Yes Status: Acute Qualifiers: Heart failure type: combined systolic and diastolic Qualified Code(s): I50.43 - Acute on chronic combined systolic (congestive) and diastolic (congestive) heart failure Plan to address problem: COnt Lasix Check ECHO Cr High Use lasix judiciously (2) JOSE (acute kidney injury) Current Visit: Yes Status: Acute Plan to address problem: JOSE superimposed on CKD Nephrology consult requested Lasix to be used judiciously Cr 1.6 to 2.3 (3) Chest pain Current Visit: Yes Status: Acute Qualifiers: Chest pain type: unspecified Qualified Code(s): R07.9 - Chest pain, unspecified Plan to address problem: Atypical Troponins negative Stress test cancelled Patient of AHA AHA following For ECHO (4) Afib Current Visit: Yes Status: Chronic Qualifiers: Atrial fibrillation type: chronic Qualified Code(s): I48.2 - Chronic atrial fibrillation Plan to address problem: On Eliquis (5) HTN (hypertension) Current Visit: Yes Status: Chronic Qualifiers: Hypertension type: essential hypertension Qualified Code(s): I10 - Essential (primary) hypertension Plan to address problem: Cont antihypertensives (6) COPD (chronic obstructive pulmonary disease) Current Visit: Yes Status: Chronic Qualifiers: Chronic bronchitis type: unspecified Plan to address problem: On Duonebs prn (7) Pulmonary HTN Current Visit: Yes Status: Chronic Plan to address problem: Patient is not on any Revatio etc (8) DVT prophylaxis Current Visit: Yes Status: Acute Plan to address problem: On Eliquis Subjective Date of service: 04/14/19 Principal diagnosis: SOB and CP Interval history: Chest pain resolved SOB present Objective - Constitutional Vitals: Vital Signs - 12hr 04/14/19 04/14/19 04/14/19 20:00 20:56 20:57 Temperature 97.4 F L Pulse Rate 65 65 Pulse Rate [ Bilateral Throughout] Respiratory 20 Rate Respiratory Rate [Bilateral Throughout] Blood Pressure 189/93 O2 Sat by Pulse 100 100 100 Oximetry 04/14/19 04/14/19 04/14/19 22:00 23:01 23:33 Temperature Pulse Rate 65 Pulse Rate [ 68 Bilateral Throughout] Respiratory 22 Rate Respiratory 18 Rate [Bilateral Throughout] Blood Pressure O2 Sat by Pulse Oximetry 04/14/19 04/14/19 04/14/19 23:47 23:48 23:49 Temperature 97.3 F L Pulse Rate 66 65 Pulse Rate [ 69 Bilateral Throughout] Respiratory 18 Rate Respiratory 18 Rate [Bilateral Throughout] Blood Pressure 101/53 O2 Sat by Pulse 100 100 Oximetry 04/15/19 03:45 Temperature 98.4 F Pulse Rate 65 Pulse Rate [ Bilateral Throughout] Respiratory 18 Rate Respiratory Rate [Bilateral Throughout] Blood Pressure 121/49 O2 Sat by Pulse 100 Oximetry General appearance: Present: no acute distress, well-nourished - EENT Eyes: PERRL, EOM intact ENT: hearing intact, clear oral mucosa Ears: bilateral: normal - Neck Neck: supple, normal ROM - Respiratory Respiratory effort: normal Respiratory: bilateral: CTA - Breasts Breasts: normal - Cardiovascular Heart rate: 78 Rhythm: irregularly irregular Heart Sounds: Present: S1 & S2. Absent: gallop, rub Extremities: pulses intact, No edema, normal color, Full ROM - Gastrointestinal General gastrointestinal: Present: soft, non-tender, non-distended, normal bowel sounds - Genitourinary Female genitourinary: normal - Integumentary Integumentary: clear, warm, dry - Musculoskeletal Musculoskeletal: 1, strength equal bilaterally - Neurologic Neurologic: moves all extremities - Psychiatric Psychiatric: memory intact, appropriate mood/affect, intact judgment & insight - Labs CBC & Chem 7: 04/14/19 05:35 04/15/19 04:34 Labs: Abnormal lab results 04/14/19 04/14/19 04/14/19 Range/Units 05:35 12:51 16:31 Monocytes % (Manual) 8.0 H (0.0-7.3) % Lymphocytes # (Manual) 0.7 L (1.2-5.4) K/mm3 Sodium (137-145) mmol/L Potassium (3.6-5.0) mmol/L Chloride (98-107) mmol/L BUN (7-17) mg/dL Creatinine (0.7-1.2) mg/dL Glucose (65-100) mg/dL POC Glucose 238 H 55 L (70-105) 04/14/19 04/14/19 04/15/19 Range/Units 17:56 21:19 04:34 Monocytes % (Manual) (0.0-7.3) % Lymphocytes # (Manual) (1.2-5.4) K/mm3 Sodium 125 L (137-145) mmol/L Potassium 5.4 H (3.6-5.0) mmol/L Chloride 84.2 L (98-107) mmol/L BUN 35 H (7-17) mg/dL Creatinine 3.1 H (0.7-1.2) mg/dL Glucose 119 H (65-100) mg/dL POC Glucose 108 H 147 H (70-105) [facility] 04/14/19 04/15/19 17:26 04:34 Sodium 125 L Potassium 5.4 H Chloride 84.2 L Carbon Dioxide 29 BUN 35 H Creatinine 3.1 H Glucose 98 119 H Calcium 9.8
[2019-04-15] MEDS: HumaLOG SUB-Q SCH ×4 (08:00→23:01)
[2019-04-15] MEDS: ECOTRIN PO SCH (09:42)
[2019-04-15] MEDS: VITAMIN D3 PO SCH (09:42)
[2019-04-15] MEDS: ELIQUIS PO SCH ×2 (09:42→22:58)
[2019-04-15] MEDS: MAG-OX PO SCH ×2 (09:43→22:59)
[2019-04-15] MEDS: SODIUM CHLORIDE FLUSH SYRINGE 10 ML IV SCH ×2 (09:43→23:00)
--- NOTE | 2019-04-15 09:44 | Progress Note ---
Assessment and Plan 1. Acute kidney injury: JOSE likely from combination of contrast induced injury and vasomotor insult from BP fluctuation. Renal function continue to decline. Renal US negative for hydro. Monitor renal function. Renal prognosis is guarded. Avoid nephrotoxic agents. Meds dosage based on GFR. 2. FEN: Hyperkalemia, Kayexalate ordered. Hyponatremia, monitor. Volume overload, diuretics as needed. Monitor lytes. 3. HFpEF: Followed by Cards. 4. Paroxysmal A.fib. 5. HTN: BP controlled. 6. Anemia: POA. Subjective Date of service: 04/15/19 Principal diagnosis: SOB and CP Interval history: Patient was seen and examined at the bedside. Doing ok. Objective - Vital Signs Vital signs: Vital Signs - 12hr 04/14/19 04/14/19 04/14/19 22:00 23:01 23:33 Temperature Pulse Rate 65 Pulse Rate [ 68 Bilateral Throughout] Respiratory 22 Rate Respiratory 18 Rate [Bilateral Throughout] Blood Pressure O2 Sat by Pulse Oximetry 04/14/19 04/14/19 04/14/19 23:47 23:48 23:49 Temperature 97.3 F L Pulse Rate 66 65 Pulse Rate [ 69 Bilateral Throughout] Respiratory 18 Rate Respiratory 18 Rate [Bilateral Throughout] Blood Pressure 101/53 O2 Sat by Pulse 100 100 Oximetry 04/15/19 04/15/19 03:45 09:26 Temperature 98.4 F Pulse Rate 65 Pulse Rate [ Bilateral Throughout] Respiratory 18 Rate Respiratory Rate [Bilateral Throughout] Blood Pressure 121/49 O2 Sat by Pulse 100 93 Oximetry - General Appearance General appearance: well-developed, well-nourished, appears stated age, other (no distress) EENT: ATNC, PERRL, hearing intact Neck: supple Respiratory: Present: Rales Cardiology: S1S2, no murmurs Gastrointestinal: normoactive bowel sounds, no tenderness, no distended Integumentary: no rash Neurologic: no focal deficit, no asterixis Musculoskeletal: other (1+ edema of both LEs noted) Psychiatric: cooperative - Lab 04/14/19 05:35 04/16/19 05:46 Most recent lab results Calcium 9.8 mg/dL (8.4-10.2) 04/15/19 04:34 Phosphorus 4.10 mg/dL (2.5-4.5) 04/13/19 09:42 Magnesium 1.70 mg/dL (1.7-2.3) 04/14/19 05:35 48.1 mg/dL (0.1-20.0) H 04/13/19 11:15 13 mmol/L 04/13/19 11:15 Medications & Allergies - Medications Allergies/Adverse Reactions: Allergies No Known Allergies Allergy (Unverified 04/11/19 19:59) Home Medications: Home Medications Medication Instructions Recorded Confirmed Last Taken Type Albuterol Sulfate [Proair 90 mcg IH PRN PRN 04/12/19 04/12/19 Unknown History Respiclick] Apixaban [Eliquis] 2.5 mg PO BID 04/12/19 04/12/19 Unknown History Cholecalciferol Vit D3 [Vitamin D3 1,000 unit PO QDAY 04/12/19 04/12/19 Unknown History 1,000 UNIT TAB] Dorzolamide HCl [Trusopt] 10 ml OU BID 04/12/19 04/12/19 Unknown History Furosemide [Lasix TAB] 80 mg PO BID 04/12/19 04/12/19 Unknown History Lisinopril [Zestril] 40 mg PO QDAY 04/12/19 04/12/19 Unknown History Pravastatin [Pravachol] 20 mg PO DAILY 04/12/19 04/12/19 Unknown History Tiotropium [place] [Spiriva] 18 mcg IH DAILY 04/12/19 04/12/19 Unknown History metFORMIN [Glucophage] 500 mg PO BID 04/12/19 04/12/19 Unknown History Active Medications: Generic Name Dose Route Start Last Admin Trade Name Adq PRN Reason Stop Dose Admin Acetaminophen 650 mg 04/12/19 01:33 04/15/19 05:12 Tylenol PO 650 mg Q4H PRN Administration Pain MILD(1-3)/Fever >100.5/BASILIO Acetaminophen 1,000 mg 04/14/19 22:01 Tylenol PO Q6H PRN Pain , Severe (7-10) Albuterol 2.5 mg 04/12/19 03:42 04/14/19 23:33 Proventil IH 2.5 mg Q6HRT PRN Administration Congestion Apixaban 2.5 mg 04/12/19 10:00 04/15/19 09:42 Eliquis PO 2.5 mg BID TANK Administration Protocol Aspirin 325 mg 04/13/19 10:00 04/15/19 09:42 Ecotrin PO 325 mg QDAY TANK Administration Cholecalciferol 1,000 unit 04/12/19 10:00 04/15/19 09:42 Vitamin D3 PO 1,000 unit QDAY TANK Administration Dextrose 50 ml 04/12/19 03:40 D50w (25gm) Syringe IV PRN PRN Hypoglycemia Hydralazine HCl 10 mg 04/12/19 01:39 04/14/19 22:08 Apresoline IV 10 mg Q6H PRN Administration FOR SBP > target Insulin Human Lispro 0 unit 04/12/19 07:30 04/15/19 08:00 Humalog SUB-Q Not Given ACHS [facility] Protocol Magnesium Oxide 400 mg 04/13/19 12:31 04/15/19 09:43 Mag-Ox PO 400 mg BID TANK Administration Miscellaneous Medication 10 ml 04/12/19 10:00 Dorzolamide Hcl [Trusopt] OU BID TANK Ondansetron HCl 4 mg 04/12/19 01:33 Zofran IV Q8H PRN Nausea And Vomiting Pravastatin Sodium 20 mg 04/12/19 22:00 04/14/19 22:08 Pravachol PO 20 mg QHS TANK Administration Sodium Chloride 10 ml 04/12/19 10:00 04/15/19 09:43 Sodium Chloride Flush Syringe 10 Ml IV 10 ml BID TANK Administration Tiotropium [place] 1 puff 04/12/19 10:00 04/14/19 10:01 Spiriva IH Not Given DAILY [facility]
[2019-04-15] MEDS ORDERED: KIONEX PO NR (10:00)
[2019-04-15] MEDS ORDERED: LASIX PO SCH (10:00)
--- NOTE | 2019-04-15 11:13 | Progress Note ---
Assessment and Plan Severe Hyponatremia Heart failure with a preserved ejection fraction Acute renal failure Anemia Paroxysmal Afib on low dose eliquis Pacemaker present HTN Type 2 DM Echocardiogram done today, report is pending. Subjective Date of service: 04/15/19 Principal diagnosis: SOB and CP Interval history: Patient is resting in bed comfortably. She has no complaints. Echocardiogram completed this morning, results are pending. Objective Vital Signs Temp Pulse Pulse Pulse Resp Resp BP 04/15/19 09:26 04/15/19 03:45 98.4 F 65 18 121/49 04/14/19 23:49 65 04/14/19 23:48 97.3 F L 66 18 101/53 04/14/19 23:47 69 18 04/14/19 23:33 68 18 04/14/19 23:01 22 04/14/19 22:00 65 04/14/19 20:57 65 04/14/19 20:56 97.4 F L 65 20 189/93 04/14/19 20:00 04/14/19 17:50 98.3 F 65 80 18 190/88 Pulse Ox 04/15/19 09:26 93 04/15/19 03:45 100 04/14/19 23:49 100 04/14/19 23:48 100 04/14/19 23:47 04/14/19 23:33 04/14/19 23:01 04/14/19 22:00 04/14/19 20:57 100 04/14/19 20:56 100 04/14/19 20:00 100 04/14/19 17:50 99 - Physical Examination General: No Apparent Distress HEENT: Positive: PERRL Neck: Positive: trachea midline Cardiac: Positive: Other (paced) Lungs: Positive: Decreased Breath Sounds Neuro: Positive: Weakness Extremities: Present: +2 Edema - Labs and Meds Comprehensive Metabolic Panel 04/14/19 04/15/19 Range/Units 17:26 04:34 Sodium 125 L (137-145) mmol/L Potassium 5.4 H (3.6-5.0) mmol/L Chloride 84.2 L (98-107) mmol/L Carbon Dioxide 29 (22-30) mmol/L BUN 35 H (7-17) mg/dL Creatinine 3.1 H (0.7-1.2) mg/dL Glucose 98 119 H (65-100) mg/dL Calcium 9.8 (8.4-10.2) mg/dL
[2019-04-15] MEDS: SPIRIVA IH SCH (12:53)
[2019-04-15] MEDS ORDERED: LASIX IV ONE (14:00)
--- NOTE | 2019-04-15 14:46 | Progress Note ---
Assessment and Plan Assessment and plan: (1) Acute exacerbation of CHF (congestive heart failure) Patient was given lasix on admission. Lasix is held because her creatinine function is getting worse Echo was done and ejection fraction is 50-60% (2) JOSE (acute kidney injury) - Renal function is worsening and nephrology consulted, discussed with Dr. Davis - Considering dialysis. (3) Chest pain - Nephrology consult appreciated (4) Afib - On Eliquis (5) HTN (hypertension) - Cont antihypertensives (6) COPD (chronic obstructive pulmonary disease) - On Duonebs prn (7) Pulmonary HTN - continue to monitor (8) DVT prophylaxis - On Eliquis History Interval history: Patient was seen and divided this morning, patient states she is feeling good Hospitalist Physical - Physical exam Narrative exam: Not in cardiopulmonary distress. The patient appeared well nourished and normally developed. Vital signs as documented. Head exam is unremarkable. No scleral icterus . Neck is without jugular venous distension, thyromegaly, or carotid bruits. Lungs are clear to auscultation. Cardiac exam reveals regular rate and Rhythm. Abdominal exam reveals normal bowel sounds. Extremities are bilateral lower extremity edema. [employer]: Alert and oriented 3. No focal weakness. - Constitutional Vitals: Temp Pulse Resp BP Pulse Ox 98.4 F 65 18 121/49 93 04/15/19 03:45 04/15/19 10:00 04/15/19 03:45 04/15/19 03:45 04/15/19 09:26 General appearance: Present: no acute distress, well-nourished Results - Labs CBC & Chem 7: 04/14/19 05:35 04/16/19 05:46 Labs: Laboratory Last Values WBC 3.8 K/mm3 (4.5-11.0) L 04/14/19 05:35 RBC 2.59 M/mm3 (3.65-5.03) L 04/14/19 05:35 Hgb 7.8 gm/dl (10.1-14.3) L 04/14/19 05:35 Hct 23.9 % (30.3-42.9) L 04/14/19 05:35 MCV 92 fl (79-97) 04/14/19 05:35 MCH 30 pg (28-32) 04/14/19 05:35 MCHC 33 % (30-34) 04/14/19 05:35 RDW 18.1 % (13.2-15.2) H 04/14/19 05:35 Plt Count 179 K/mm3 (140-440) 04/14/19 05:35 Lymph % (Auto) 21.0 % (13.4-35.0) 04/12/19 02:07 Caroline % (Auto) Verify Rep 04/14/19 05:35 Eos % (Auto) 5.9 % (0.0-4.3) H 04/12/19 02:07 Baso % (Auto) 0.6 % (0.0-1.8) 04/12/19 02:07 Lymph # 0.8 K/mm3 (1.2-5.4) L 04/12/19 02:07 Caroline # 0.5 K/mm3 (0.0-0.8) 04/12/19 02:07 Eos # 0.2 K/mm3 (0.0-0.4) 04/12/19 02:07 Baso # 0.0 K/mm3 (0.0-0.1) 04/12/19 02:07 Add Manual Diff Complete 04/14/19 05:35 Total Counted 100 04/14/19 05:35 Seg Neutrophils % 59.6 % (40.0-70.0) 04/12/19 02:07 Seg Neuts % (Manual) 68.0 % (40.0-70.0) 04/14/19 05:35 0 % 04/14/19 05:35 18.0 % (13.4-35.0) 04/14/19 05:35 Reactive Lymphs % (Man) 0 % 04/14/19 05:35 8.0 % (0.0-7.3) H 04/14/19 05:35 3.0 % (0.0-4.3) 04/14/19 05:35 1.0 % (0.0-1.8) 04/14/19 05:35 0 % 04/14/19 05:35 2.0 % 04/14/19 05:35 0 % 04/14/19 05:35 0 % 04/14/19 05:35 Nucleated RBC % Not Reportable 04/14/19 05:35 Seg Neutrophils # 2.3 K/mm3 (1.8-7.7) 04/12/19 02:07 Seg Neutrophils # Man 2.6 K/mm3 (1.8-7.7) 04/14/19 05:35 Band Neutrophils # 0.0 K/mm3 04/14/19 05:35 0.7 K/mm3 (1.2-5.4) L 04/14/19 05:35 Abs React Lymphs (Man) 0.0 K/mm3 04/14/19 05:35 0.3 K/mm3 (0.0-0.8) 04/14/19 05:35 0.1 K/mm3 (0.0-0.4) 04/14/19 05:35 0.0 K/mm3 (0.0-0.1) 04/14/19 05:35 0.0 K/mm3 04/14/19 05:35 0.1 K/mm3 04/14/19 05:35 0.0 K/mm3 04/14/19 05:35 Blast Cells # 0.0 K/mm3 04/14/19 05:35 WBC Morphology Not Reportable 04/14/19 05:35 Hypersegmented Neuts Not Reportable 04/14/19 05:35 Hyposegmented Neuts Not Reportable 04/14/19 05:35 Hypogranular Neuts Not Reportable 04/14/19 05:35 Not Reportable 04/14/19 05:35 Not Reportable 04/14/19 05:35 Not Reportable 04/14/19 05:35 Not Reportable 04/14/19 05:35 Not Reportable 04/14/19 05:35 Not Reportable 04/14/19 05:35 Consistent w auto 04/14/19 05:35 Not Reportable 04/14/19 05:35 Plt Clumps, EDTA Not Reportable 04/14/19 05:35 Not Reportable 04/14/19 05:35 Not Reportable 04/14/19 05:35 Not Reportable 04/14/19 05:35 Plt Morphology Comment Not Reportable 04/14/19 05:35 RBC Morphology Not Reportable 04/14/19 05:35 Dimorphic RBCs Not Reportable 04/14/19 05:35 Not Reportable 04/14/19 05:35 Not Reportable 04/14/19 05:35 1+ 04/14/19 05:35 1+ 04/14/19 05:35 Not Reportable 04/14/19 05:35 Not Reportable 04/14/19 05:35 Not Reportable 04/14/19 05:35 Not Reportable 04/14/19 05:35 Not Reportable 04/14/19 05:35 Few 04/14/19 05:35 Not Reportable 04/14/19 05:35 Rare 04/14/19 05:35 Not Reportable 04/14/19 05:35 Not Reportable 04/14/19 05:35 Not Reportable 04/14/19 05:35 Not Reportable 04/14/19 05:35 Not Reportable 04/14/19 05:35 Not Reportable 04/14/19 05:35 Not Reportable 04/14/19 05:35 Acanthocytes (Spur) Not Reportable 04/14/19 05:35 Rouleaux Not Reportable 04/14/19 05:35 Not Reportable 04/14/19 05:35 Not Reportable 04/14/19 05:35 Not Reportable 04/14/19 05:35 Not Reportable 04/14/19 05:35 Hem Pathologist Commnt No 04/14/19 05:35 Sodium 125 mmol/L (137-145) L 04/15/19 04:34 Potassium 5.4 mmol/L (3.6-5.0) H 04/15/19 04:34 Chloride 84.2 mmol/L (98-107) L 04/15/19 04:34 Carbon Dioxide 29 mmol/L (22-30) 04/15/19 04:34 17 mmol/L 04/15/19 04:34 BUN 35 mg/dL (7-17) H 04/15/19 04:34 3.1 mg/dL (0.7-1.2) H 04/15/19 04:34 Estimated GFR 17 ml/min 04/15/19 04:34 11 % 04/15/19 04:34 Glucose 119 mg/dL (65-100) H 04/15/19 04:34 POC Glucose 136 (70-105) H 04/15/19 07:20 273 Mosm/kg 04/13/19 09:42 6.6 mg/dL (3.5-7.6) 04/13/19 09:42 Calcium 9.8 mg/dL (8.4-10.2) 04/15/19 04:34 Phosphorus 4.10 mg/dL (2.5-4.5) 04/13/19 09:42 Magnesium 1.70 mg/dL (1.7-2.3) 04/14/19 05:35 0.30 mg/dL (0.1-1.2) 04/11/19 20:30 AST 22 units/L (5-40) 04/11/19 20:30 ALT 8 units/L (7-56) 04/11/19 20:30 61 units/L (35-129) 04/11/19 20:30 0.026 ng/mL (0.00-0.029) 04/12/19 12:27 NT-Pro-B Natriuret Pep 3556 pg/mL (0-900) H 04/11/19 20:30 7.4 g/dL (6.3-8.2) 04/11/19 20:30 3.9 g/dL (3.9-5) 04/11/19 20:30 1.1 % 04/11/19 20:30 Triglycerides 49 mg/dL (2-149) 04/12/19 02:03 Cholesterol 152 mg/dL (50-199) 04/12/19 02:03 61 mg/dL (50-130) 04/12/19 02:03 84 mg/dL (40-59) H 04/12/19 02:03 1.80 % 04/12/19 02:03 TSH 1.290 mlU/mL (0.270-4.200) 04/13/19 09:42 Yellow (Yellow) 04/13/19 11:15 Cloudy (Clear) 04/13/19 11:15 5.0 (5.0-7.0) 04/13/19 11:15 Ur Specific [place] 1.014 (1.003-1.030) 04/13/19 11:15 <15 mg/dl mg/dL (Negative) 04/13/19 11:15 Neg mg/dL (Negative) 04/13/19 11:15 Neg mg/dL (Negative) 04/13/19 11:15 Neg (Negative) 04/13/19 11:15 Neg (Negative) 04/13/19 11:15 Neg (Negative) 04/13/19 11:15 < 2.0 mg/dL (<2.0) 04/13/19 11:15 Ur Leukocyte Esterase Neg (Negative) 04/13/19 11:15 1.0 /HPF (0.0-6.0) 04/13/19 11:15 < 1.0 /HPF (0.0-6.0) 04/13/19 11:15 U Epithel Cells (Auto) 3.0 /HPF (0-13.0) 04/13/19 11:15 2+ /HPF (Negative) 04/13/19 11:15 Few /HPF 04/13/19 11:15 235 Mosm/kg 04/12/19 17:38 48.1 mg/dL (0.1-20.0) H 04/13/19 11:15 13 mmol/L 04/13/19 11:15 Active Medications - Current Medications Current Medications: Generic Name Dose Route Start Last Admin Trade Name Freq PRN Reason Stop Dose Admin Acetaminophen 650 mg 04/12/19 01:33 04/15/19 05:12 Tylenol PO 650 mg Q4H PRN Administration Pain MILD(1-3)/Fever >100.5/BASILIO Acetaminophen 1,000 mg 04/14/19 22:01 Tylenol PO Q6H PRN Pain , Severe (7-10) Albuterol 2.5 mg 04/12/19 03:42 04/14/19 23:33 Proventil IH 2.5 mg Q6HRT PRN Administration Congestion Apixaban 2.5 mg 04/12/19 10:00 04/15/19 09:42 Eliquis PO 2.5 mg BID TANK Administration Protocol Aspirin 325 mg 04/13/19 10:00 04/15/19 09:42 Ecotrin PO 325 mg QDAY TANK Administration Cholecalciferol 1,000 unit 04/12/19 10:00 04/15/19 09:42 Vitamin D3 PO 1,000 unit QDAY TANK Administration Dextrose 50 ml 04/12/19 03:40 D50w (25gm) Syringe IV PRN PRN Hypoglycemia Hydralazine HCl 10 mg 04/12/19 01:39 04/14/19 22:08 Apresoline IV 10 mg Q6H PRN Administration FOR SBP > target Insulin Human Lispro 0 unit 04/12/19 07:30 04/15/19 12:50 Humalog SUB-Q 1 unit ACHS TANK Administration Protocol Magnesium Oxide 400 mg 04/13/19 12:31 04/15/19 09:43 Mag-Ox PO 400 mg BID TANK Administration Miscellaneous Medication 10 ml 04/12/19 10:00 Dorzolamide Hcl [Trusopt] OU BID TANK Ondansetron HCl 4 mg 04/12/19 01:33 Zofran IV Q8H PRN Nausea And Vomiting Pravastatin Sodium 20 mg 04/12/19 22:00 04/14/19 22:08 Pravachol PO 20 mg QHS TANK Administration Sodium Chloride 10 ml 04/12/19 10:00 04/15/19 09:43 Sodium Chloride Flush Syringe 10 Ml IV 10 ml BID TANK Administration Tiotropium [place] 1 puff 04/12/19 10:00 04/15/19 12:53 Spiriva IH Not Given DAILY TANK Nutrition/Malnutrition Assess - Dietary Evaluation Nutrition/Malnutrition Findings: Nutrition Notes Start: 04/12/19 15:58 Freq: Status: Active Protocol: Document 04/12/19 15:58 RM (Rec: 04/12/19 15:59 RM [id number]) Nutrition Notes Need for Assessment generated from: MD Order Initial or Follow up Brief Note Labs/Tests BG 115 Subjective/Other Information Consulted for DM diet education. Pt already familiar with diet. Nutrition Intervention Revisit per MD consult or patient Sign Off request:
[2019-04-15 22:48] LABS: Calcium 9.6 mg/dL (8.4-10.2)
[2019-04-15] MEDS: PRAVACHOL PO SCH (22:59)
[2019-04-15] MEDS: APRESOLINE IV PRN (22:59)
[2019-04-15] MEDS ORDERED: SODIUM CHLORIDE PO ONE (23:00)
--- NOTE | 2019-04-16 00:29 | Ultrasound Report ---
PROCEDURE: US RENAL BILAT TECHNIQUE: Real-time sonography in multiple planes of the kidneys, ureters and urinary bladder was p erformed with image documentation. HISTORY: Acute renal failure. COMPARISONS: None . FINDINGS: RIGHT kidney: Parenchymal echotexture is increased. There are no calculi or hydronephrosis.. Length: 10.9: x 3.7 x 4.6 cm. LEFT kidney: Parenchymal echotexture is increased. A small well-defined simple cyst measuring 1.5 cm is noted in the upper pole. There are no calculi or hydronephrosis.. Length: 9.8 x 4.9 x 4.8 cm. Bladder: Normal. No distention or wall thickening. IMPRESSION: Increased renal parenchymal echotexture is consistent with renal disease No obstructive uropathy.. This document is electronically signed by Gage Lackey MD., April 15 2019 10:17:57 PM ET
[2019-04-16] MEDS: TYLENOL PO PRN ×4 (02:25→21:53)
--- NOTE | 2019-04-16 09:40 | Progress Note ---
Assessment and Plan 1. Acute kidney injury: JOSE likely from combination of contrast induced injury and vasomotor insult from BP fluctuation. Renal US negative for hydro. Renal function appears to be plateaued. Monitor renal function. Renal prognosis is guarded. Avoid nephrotoxic agents. Meds dosage based on GFR. D/w her niece over the phone and explained that she may need hemodialysis. 2. FEN: Hyperkalemia, improved. Hyponatremia, monitor. Volume overload, diuretics as needed. Monitor lytes. 3. HFpEF: Followed by Cards. 4. Paroxysmal A.fib. 5. HTN: Monitor BP. 6. Anemia: POA. Subjective Date of service: 04/16/19 Principal diagnosis: SOB and CP Interval history: Patient was seen and examined at the bedside. Doing ok. Objective - Vital Signs Vital signs: Vital Signs - 12hr 04/15/19 04/15/19 04/15/19 22:00 22:59 23:44 Temperature 98.1 F Pulse Rate 65 88 65 Respiratory 22 18 Rate Blood Pressure 166/84 100/52 O2 Sat by Pulse 100 Oximetry 04/16/19 04/16/19 04/16/19 03:45 04:45 08:16 Temperature 98.0 F 97.9 F Pulse Rate 65 65 61 Respiratory 18 18 Rate Blood Pressure 145/70 141/66 O2 Sat by Pulse 100 100 Oximetry - General Appearance General appearance: well-developed, well-nourished, appears stated age, other (no distress) EENT: ATNC, PERRL, mucous membranes moist, hearing intact, vision intact Neck: JVD, supple Respiratory: Present: Rales Cardiology: regular, S1S2, no murmurs Gastrointestinal: normoactive bowel sounds, no tenderness, no distended Integumentary: no rash, warm and dry Neurologic: no focal deficit, no asterixis, confused Musculoskeletal: other (2+ edema of both LEs noted) Psychiatric: cooperative - Lab 04/14/19 05:35 04/16/19 05:46 Most recent lab results Calcium 9.0 mg/dL (8.4-10.2) 04/16/19 05:46 Phosphorus 4.10 mg/dL (2.5-4.5) 04/13/19 09:42 Magnesium 1.70 mg/dL (1.7-2.3) 04/14/19 05:35 48.1 mg/dL (0.1-20.0) H 04/13/19 11:15 13 mmol/L 04/13/19 11:15 Medications & Allergies - Medications Allergies/Adverse Reactions: Allergies No Known Allergies Allergy (Unverified 04/11/19 19:59) Home Medications: Home Medications Medication Instructions Recorded Confirmed Last Taken Type Albuterol Sulfate [Proair 90 mcg IH PRN PRN 04/12/19 04/12/19 Unknown History Respiclick] Apixaban [Eliquis] 2.5 mg PO BID 04/12/19 04/12/19 Unknown History Cholecalciferol Vit D3 [Vitamin D3 1,000 unit PO QDAY 04/12/19 04/12/19 Unknown History 1,000 UNIT TAB] Dorzolamide HCl [Trusopt] 10 ml OU BID 04/12/19 04/12/19 Unknown History Furosemide [Lasix TAB] 80 mg PO BID 04/12/19 04/12/19 Unknown History Lisinopril [Zestril] 40 mg PO QDAY 04/12/19 04/12/19 Unknown History Pravastatin [Pravachol] 20 mg PO DAILY 04/12/19 04/12/19 Unknown History Tiotropium [place] [Spiriva] 18 mcg IH DAILY 04/12/19 04/12/19 Unknown History metFORMIN [Glucophage] 500 mg PO BID 04/12/19 04/12/19 Unknown History Active Medications: Generic Name Dose Route Start Last Admin Trade Name Freq PRN Reason Stop Dose Admin Acetaminophen 650 mg 04/12/19 01:33 04/15/19 15:05 Tylenol PO 650 mg Q4H PRN Administration Pain MILD(1-3)/Fever >100.5/BASILIO Acetaminophen 1,000 mg 04/14/19 22:01 04/16/19 02:25 Tylenol PO 1,000 mg Q6H PRN Administration Pain , Severe (7-10) Albuterol 2.5 mg 04/12/19 03:42 04/14/19 23:33 Proventil IH 2.5 mg Q6HRT PRN Administration Congestion Apixaban 2.5 mg 04/12/19 10:00 04/15/19 22:58 Eliquis PO 2.5 mg BID TANK Administration Protocol Aspirin 325 mg 04/13/19 10:00 04/15/19 09:42 Ecotrin PO 325 mg QDAY TANK Administration Cholecalciferol 1,000 unit 04/12/19 10:00 04/15/19 09:42 Vitamin D3 PO 1,000 unit QDAY TANK Administration Dextrose 50 ml 04/12/19 03:40 D50w (25gm) Syringe IV PRN PRN Hypoglycemia Hydralazine HCl 10 mg 04/12/19 01:39 04/15/19 22:59 Apresoline IV 10 mg Q6H PRN Administration FOR SBP > target Insulin Human Lispro 0 unit 04/12/19 07:30 04/15/19 23:01 Humalog SUB-Q Not Given ACHS [facility] Protocol Magnesium Oxide 400 mg 04/13/19 12:31 04/15/19 22:59 Mag-Ox PO 400 mg BID TANK Administration Miscellaneous Medication 10 ml 04/12/19 10:00 Dorzolamide Hcl [Trusopt] OU BID TANK Ondansetron HCl 4 mg 04/12/19 01:33 Zofran IV Q8H PRN Nausea And Vomiting Pravastatin Sodium 20 mg 04/12/19 22:00 04/15/19 22:59 Pravachol PO 20 mg QHS TANK Administration Sodium Chloride 10 ml 04/12/19 10:00 04/15/19 23:00 Sodium Chloride Flush Syringe 10 Ml IV 10 ml BID TANK Administration Tiotropium [place] 1 puff 04/12/19 10:00 04/15/19 12:53 Spiriva IH Not Given DAILY [facility]
[2019-04-16] MEDS: HumaLOG SUB-Q SCH ×4 (09:57→21:54)
[2019-04-16] MEDS: MAG-OX PO SCH ×2 (09:59→21:42)
[2019-04-16] MEDS: VITAMIN D3 PO SCH (09:59)
[2019-04-16] MEDS: ELIQUIS PO SCH ×2 (09:59→21:42)
[2019-04-16] MEDS: SODIUM CHLORIDE FLUSH SYRINGE 10 ML IV SCH ×2 (10:01→21:42)
[2019-04-16] MEDS: SPIRIVA IH SCH (10:07)
[2019-04-16] MEDS ORDERED: LASIX IV NR (10:30)
--- NOTE | 2019-04-16 10:32 | Progress Note ---
Assessment and Plan Severe Hyponatremia Heart failure with a preserved ejection fraction Acute renal failure Anemia Paroxysmal Afib on low dose eliquis Pacemaker present HTN Type 2 DM Echocardiogram shows normal left ventricular systolic function, ejection fraction 60%. There is enlargement of the right heart chambers, moderate to severe pulmonary hypertension with a pulmonary artery systolic pressure of 66, suggests cor pulmonale. Conservative cardiac management. Subjective Date of service: 04/16/19 Principal diagnosis: SOB and CP Interval history: Patient is resting in bed comfortably. She reports her breathing is better. Still with lower extremity edema. Renal function continues to decline. Objective Vital Signs Temp Pulse Pulse Resp Resp BP BP 04/16/19 10:11 65 16 04/16/19 10:08 65 16 04/16/19 08:16 97.9 F 61 18 141/66 04/16/19 04:45 98.0 F 65 18 145/70 04/16/19 03:45 65 04/15/19 23:44 98.1 F 65 18 100/52 04/15/19 22:59 88 166/84 04/15/19 22:00 65 22 04/15/19 20:06 04/15/19 19:34 97.8 F 65 18 166/84 04/15/19 16:37 65 04/15/19 16:17 66 167/76 Pulse Ox 04/16/19 10:11 96 04/16/19 10:08 04/16/19 08:16 100 04/16/19 04:45 100 04/16/19 03:45 04/15/19 23:44 100 04/15/19 22:59 04/15/19 22:00 04/15/19 20:06 100 04/15/19 19:34 100 04/15/19 16:37 04/15/19 16:17 - Physical Examination General: No Apparent Distress HEENT: Positive: PERRL Neck: Positive: trachea midline Cardiac: Positive: Other (paced) Lungs: Positive: Decreased Breath Sounds Neuro: Positive: Weakness Extremities: Present: +2 Edema - Labs and Meds Comprehensive Metabolic Panel 04/15/19 04/16/19 Range/Units 22:23 05:46 Sodium 125 L 126 L (137-145) mmol/L Potassium 4.9 4.6 (3.6-5.0) mmol/L Chloride 82.2 L 82.1 L (98-107) mmol/L Carbon Dioxide 28 29 (22-30) mmol/L BUN 43 H 43 H (7-17) mg/dL Creatinine 4.1 H 4.2 H (0.7-1.2) mg/dL Glucose 107 H 136 H (65-100) mg/dL Calcium 9.6 9.0 (8.4-10.2) mg/dL
[2019-04-16] MEDS: ECOTRIN PO SCH (13:43)
--- NOTE | 2019-04-16 15:35 | Progress Note ---
Assessment and Plan Assessment and plan: (1) Acute exacerbation of diastolic CHF Patient was given lasix on admission. Lasix is held because her creatinine function is getting worse Echo was done and ejection fraction is 50-60% (2) JOSE (acute kidney injury) - Renal function is worsening and nephrology consulted, discussed with Dr. Davis - Cr jumped to 4.2 - Considering dialysis. Hyponatremia - Slight improvement - Continue to monitor (3) Chest pain - Nephrology consult appreciated (4) Afib - On Eliquis (5) HTN (hypertension) - Cont antihypertensives (6) COPD (chronic obstructive pulmonary disease) - On Duonebs prn (7) Pulmonary HTN - continue to monitor (8) DVT prophylaxis - On Eliquis History Interval history: Patient was seen and divided this morning, patient didn't have any complaints. Hospitalist Physical - Physical exam Narrative exam: Not in cardiopulmonary distress. The patient appeared well nourished and normally developed. Vital signs as documented. Head exam is unremarkable. No scleral icterus . Neck is without jugular venous distension, thyromegaly, or carotid bruits. Lungs are clear to auscultation. Cardiac exam reveals regular rate and Rhythm. Abdominal exam reveals normal bowel sounds. Extremities are bilateral lower extremity edema. PARK RANGER: Alert and oriented 3. No focal weakness. - Constitutional Vitals: Temp Pulse Resp BP Pulse Ox 97.9 F 65 18 166/78 100 04/16/19 11:18 04/16/19 11:18 04/16/19 11:18 04/16/19 11:18 04/16/19 11:18 General appearance: Present: no acute distress, well-nourished Results - Labs CBC & Chem 7: 04/14/19 05:35 04/16/19 05:46 Labs: Laboratory Last Values WBC 3.8 K/mm3 (4.5-11.0) L 04/14/19 05:35 RBC 2.59 M/mm3 (3.65-5.03) L 04/14/19 05:35 Hgb 7.8 gm/dl (10.1-14.3) L 04/14/19 05:35 Hct 23.9 % (30.3-42.9) L 04/14/19 05:35 MCV 92 fl (79-97) 04/14/19 05:35 MCH 30 pg (28-32) 04/14/19 05:35 MCHC 33 % (30-34) 04/14/19 05:35 RDW 18.1 % (13.2-15.2) H 04/14/19 05:35 Plt Count 179 K/mm3 (140-440) 04/14/19 05:35 Lymph % (Auto) 21.0 % (13.4-35.0) 04/12/19 02:07 Pike % (Auto) Deputy Fire Chief 04/14/19 05:35 Eos % (Auto) 5.9 % (0.0-4.3) H 04/12/19 02:07 Baso % (Auto) 0.6 % (0.0-1.8) 04/12/19 02:07 Lymph # 0.8 K/mm3 (1.2-5.4) L 04/12/19 02:07 Pike # 0.5 K/mm3 (0.0-0.8) 04/12/19 02:07 Eos # 0.2 K/mm3 (0.0-0.4) 04/12/19 02:07 Baso # 0.0 K/mm3 (0.0-0.1) 04/12/19 02:07 Add Manual Diff Complete 04/14/19 05:35 Total Counted 100 04/14/19 05:35 Seg Neutrophils % 59.6 % (40.0-70.0) 04/12/19 02:07 Seg Neuts % (Manual) 68.0 % (40.0-70.0) 04/14/19 05:35 0 % 04/14/19 05:35 18.0 % (13.4-35.0) 04/14/19 05:35 Reactive Lymphs % (Man) 0 % 04/14/19 05:35 8.0 % (0.0-7.3) H 04/14/19 05:35 3.0 % (0.0-4.3) 04/14/19 05:35 1.0 % (0.0-1.8) 04/14/19 05:35 0 % 04/14/19 05:35 2.0 % 04/14/19 05:35 0 % 04/14/19 05:35 0 % 04/14/19 05:35 Nucleated RBC % Not Reportable 04/14/19 05:35 Seg Neutrophils # 2.3 K/mm3 (1.8-7.7) 04/12/19 02:07 Seg Neutrophils # Man 2.6 K/mm3 (1.8-7.7) 04/14/19 05:35 Band Neutrophils # 0.0 K/mm3 04/14/19 05:35 0.7 K/mm3 (1.2-5.4) L 04/14/19 05:35 Abs React Lymphs (Man) 0.0 K/mm3 04/14/19 05:35 0.3 K/mm3 (0.0-0.8) 04/14/19 05:35 0.1 K/mm3 (0.0-0.4) 04/14/19 05:35 0.0 K/mm3 (0.0-0.1) 04/14/19 05:35 0.0 K/mm3 04/14/19 05:35 0.1 K/mm3 04/14/19 05:35 0.0 K/mm3 04/14/19 05:35 Blast Cells # 0.0 K/mm3 04/14/19 05:35 WBC Morphology Not Reportable 04/14/19 05:35 Hypersegmented Neuts Not Reportable 04/14/19 05:35 Hyposegmented Neuts Not Reportable 04/14/19 05:35 Hypogranular Neuts Not Reportable 04/14/19 05:35 Not Reportable 04/14/19 05:35 Not Reportable 04/14/19 05:35 Not Reportable 04/14/19 05:35 Not Reportable 04/14/19 05:35 Not Reportable 04/14/19 05:35 Not Reportable 04/14/19 05:35 Consistent w auto 04/14/19 05:35 Not Reportable 04/14/19 05:35 Plt Clumps, EDTA Not Reportable 04/14/19 05:35 Not Reportable 04/14/19 05:35 Not Reportable 04/14/19 05:35 Not Reportable 04/14/19 05:35 Plt Morphology Comment Not Reportable 04/14/19 05:35 RBC Morphology Not Reportable 04/14/19 05:35 Dimorphic RBCs Not Reportable 04/14/19 05:35 Not Reportable 04/14/19 05:35 Not Reportable 04/14/19 05:35 1+ 04/14/19 05:35 1+ 04/14/19 05:35 Not Reportable 04/14/19 05:35 Not Reportable 04/14/19 05:35 Not Reportable 04/14/19 05:35 Not Reportable 04/14/19 05:35 Not Reportable 04/14/19 05:35 Few 04/14/19 05:35 Not Reportable 04/14/19 05:35 Rare 04/14/19 05:35 Not Reportable 04/14/19 05:35 Not Reportable 04/14/19 05:35 Not Reportable 04/14/19 05:35 Not Reportable 04/14/19 05:35 Not Reportable 04/14/19 05:35 Not Reportable 04/14/19 05:35 Not Reportable 04/14/19 05:35 Acanthocytes (Spur) Not Reportable 04/14/19 05:35 Rouleaux Not Reportable 04/14/19 05:35 Not Reportable 04/14/19 05:35 Not Reportable 04/14/19 05:35 Not Reportable 04/14/19 05:35 Not Reportable 04/14/19 05:35 Hem Pathologist Commnt No 04/14/19 05:35 Sodium 126 mmol/L (137-145) L 04/16/19 05:46 Potassium 4.6 mmol/L (3.6-5.0) 04/16/19 05:46 Chloride 82.1 mmol/L (98-107) L 04/16/19 05:46 Carbon Dioxide 29 mmol/L (22-30) 04/16/19 05:46 20 mmol/L 04/16/19 05:46 BUN 43 mg/dL (7-17) H 04/16/19 05:46 4.2 mg/dL (0.7-1.2) H 04/16/19 05:46 Estimated GFR 12 ml/min 04/16/19 05:46 10 % 04/16/19 05:46 Glucose 136 mg/dL (65-100) H 04/16/19 05:46 POC Glucose 206 (70-105) H 04/16/19 11:28 273 Mosm/kg 04/13/19 09:42 6.6 mg/dL (3.5-7.6) 04/13/19 09:42 Calcium 9.0 mg/dL (8.4-10.2) 04/16/19 05:46 Phosphorus 4.10 mg/dL (2.5-4.5) 04/13/19 09:42 Magnesium 1.70 mg/dL (1.7-2.3) 04/14/19 05:35 0.30 mg/dL (0.1-1.2) 04/11/19 20:30 AST 22 units/L (5-40) 04/11/19 20:30 ALT 8 units/L (7-56) 04/11/19 20:30 61 units/L (35-129) 04/11/19 20:30 0.026 ng/mL (0.00-0.029) 04/12/19 12:27 NT-Pro-B Natriuret Pep 3556 pg/mL (0-900) H 04/11/19 20:30 7.4 g/dL (6.3-8.2) 04/11/19 20:30 3.9 g/dL (3.9-5) 04/11/19 20:30 1.1 % 04/11/19 20:30 Triglycerides 49 mg/dL (2-149) 04/12/19 02:03 Cholesterol 152 mg/dL (50-199) 04/12/19 02:03 61 mg/dL (50-130) 04/12/19 02:03 84 mg/dL (40-59) H 04/12/19 02:03 1.80 % 04/12/19 02:03 TSH 1.290 mlU/mL (0.270-4.200) 04/13/19 09:42 Yellow (Yellow) 04/13/19 11:15 Cloudy (Clear) 04/13/19 11:15 5.0 (5.0-7.0) 04/13/19 11:15 Ur Specific [place] 1.014 (1.003-1.030) 04/13/19 11:15 <15 mg/dl mg/dL (Negative) 04/13/19 11:15 Neg mg/dL (Negative) 04/13/19 11:15 Neg mg/dL (Negative) 04/13/19 11:15 Neg (Negative) 04/13/19 11:15 Neg (Negative) 04/13/19 11:15 Neg (Negative) 04/13/19 11:15 < 2.0 mg/dL (<2.0) 04/13/19 11:15 Ur Leukocyte Esterase Neg (Negative) 04/13/19 11:15 1.0 /HPF (0.0-6.0) 04/13/19 11:15 < 1.0 /HPF (0.0-6.0) 04/13/19 11:15 U Epithel Cells (Auto) 3.0 /HPF (0-13.0) 04/13/19 11:15 2+ /HPF (Negative) 04/13/19 11:15 Few /HPF 04/13/19 11:15 235 Mosm/kg 04/12/19 17:38 48.1 mg/dL (0.1-20.0) H 04/13/19 11:15 13 mmol/L 04/13/19 11:15 Active Medications - Current Medications Current Medications: Generic Name Dose Route Start Last Admin Trade Name Freq PRN Reason Stop Dose Admin Acetaminophen 650 mg 04/12/19 01:33 04/16/19 09:59 Tylenol PO 650 mg Q4H PRN Administration Pain MILD(1-3)/Fever >100.5/BASILIO Acetaminophen 1,000 mg 04/14/19 22:01 04/16/19 02:25 Tylenol PO 1,000 mg Q6H PRN Administration Pain , Severe (7-10) Albuterol 2.5 mg 04/12/19 03:42 04/14/19 23:33 Proventil IH 2.5 mg Q6HRT PRN Administration Congestion Apixaban 2.5 mg 04/12/19 10:00 04/16/19 09:59 Eliquis PO 2.5 mg BID TANK Administration Protocol Aspirin 325 mg 04/13/19 10:00 04/16/19 13:43 Ecotrin PO 325 mg QDAY TANK Administration Cholecalciferol 1,000 unit 04/12/19 10:00 04/16/19 09:59 Vitamin D3 PO 1,000 unit QDAY TANK Administration Dextrose 50 ml 04/12/19 03:40 D50w (25gm) Syringe IV PRN PRN Hypoglycemia Hydralazine HCl 10 mg 04/12/19 01:39 06/04/19 22:59 Apresoline IV 10 mg Q6H PRN Administration FOR SBP > target Insulin Human Lispro 0 unit 04/12/19 07:30 04/16/19 13:44 Humalog SUB-Q 2 unit ACHS TANK Administration Protocol Magnesium Oxide 400 mg 04/13/19 12:31 04/16/19 09:59 Mag-Ox PO 400 mg BID TANK Administration Miscellaneous Medication 10 ml 04/12/19 10:00 Dorzolamide Hcl [Trusopt] OU BID TANK Ondansetron HCl 4 mg 04/12/19 01:33 Zofran IV Q8H PRN Nausea And Vomiting Pravastatin Sodium 20 mg 04/12/19 22:00 04/15/19 22:59 Pravachol PO 20 mg QHS TANK Administration Sodium Chloride 10 ml 04/12/19 10:00 04/16/19 10:01 Sodium Chloride Flush Syringe 10 Ml IV 10 ml BID TANK Administration Tiotropium [place] 1 puff 04/12/19 10:00 04/16/19 10:07 Spiriva IH 1 puff DAILY TANK Administration Nutrition/Malnutrition Assess - Dietary Evaluation Nutrition/Malnutrition Findings: Nutrition Notes Start: 04/12/19 15:58 Freq: Status: Active Protocol: Document 04/12/19 15:58 RM (Rec: 04/12/19 15:59 RM [id number]) Nutrition Notes Need for Assessment generated from: MD Order Initial or Follow up Brief Note Labs/Tests BG 115 Subjective/Other Information Consulted for DM diet education. Pt already familiar with diet. Nutrition Intervention Revisit per MD consult or patient Sign Off request:
[2019-04-16] MEDS ORDERED: SODIUM CHLORIDE PO ONE ×2 (21:35→23:32)
[2019-04-16] MEDS: PRAVACHOL PO SCH (21:42)
[2019-04-16] MEDS: ZOFRAN IV PRN (22:07)
[2019-04-17] MEDS: APRESOLINE IV PRN ×2 (05:22→10:33)
[2019-04-17 06:35] LABS: Calcium 8.8 mg/dL (8.4-10.2)
[2019-04-17] MEDS: HumaLOG SUB-Q SCH ×4 (09:35→21:35)
--- NOTE | 2019-04-17 09:44 | Progress Note ---
Assessment and Plan 1. Acute kidney injury: JOSE likely from combination of contrast induced injury and vasomotor insult from BP fluctuation. Renal US negative for hydro. Renal function continue to decline. Likely uremic symptoms. Monitor renal function. Renal prognosis is guarded. Avoid nephrotoxic agents. Meds dosage based on GFR. D/w her niece at the bedside and explained that the patient need hemodialysis due to worsening renal function and uremic symptoms. The indications, benefits and risks involved in hemodialysis were explained. She voived understanding and gave verbal consent. 2. FEN: Hyperkalemia, improved. Hyponatremia, monitor. Volume overload, UF with HD. Monitor lytes. 3. HFpEF: Followed by Cards. 4. Paroxysmal A.fib. 5. HTN: Monitor BP. 6. Anemia: POA. Epogen today. Subjective Date of service: 04/17/19 Principal diagnosis: SOB and CP Interval history: Patient was seen and examined at the bedside. Niece at the bedside. N & V last night. Decreased appetite and sleeping more. Objective - Vital Signs Vital signs: Vital Signs - 12hr 04/17/19 04/17/19 04/17/19 00:44 01:17 03:31 Temperature 97.7 F 97.6 F Pulse Rate 65 65 65 Respiratory 18 24 Rate Blood Pressure 152/75 180/97 O2 Sat by Pulse 100 100 Oximetry 04/17/19 05:22 Temperature Pulse Rate 65 Respiratory Rate Blood Pressure 180/97 O2 Sat by Pulse Oximetry - General Appearance General appearance: well-developed, appears stated age, other (not in distress) EENT: ATNC, PERRL, hearing intact Neck: supple Respiratory: Present: Rales Cardiology: regular, S1S2, no murmurs Gastrointestinal: normoactive bowel sounds, no tenderness, no distended Integumentary: no rash, warm and dry Neurologic: no focal deficit, no asterixis, confused, disoriented Musculoskeletal: other (2+ edema of both LEs noted) - Lab 04/14/19 05:35 04/17/19 05:42 Most recent lab results Calcium 8.8 mg/dL (8.4-10.2) 04/17/19 05:42 Phosphorus 4.10 mg/dL (2.5-4.5) 04/13/19 09:42 Magnesium 1.70 mg/dL (1.7-2.3) 04/14/19 05:35 48.1 mg/dL (0.1-20.0) H 04/13/19 11:15 13 mmol/L 04/13/19 11:15 Medications & Allergies - Medications Allergies/Adverse Reactions: Allergies No Known Allergies Allergy (Unverified 04/11/19 19:59) Home Medications: Home Medications Medication Instructions Recorded Confirmed Last Taken Type Albuterol Sulfate [Proair 90 mcg IH PRN PRN 04/12/19 04/12/19 Unknown History Respiclick] Apixaban [Eliquis] 2.5 mg PO BID 04/12/19 04/12/19 Unknown History Cholecalciferol Vit D3 [Vitamin D3 1,000 unit PO QDAY 04/12/19 04/12/19 Unknown History 1,000 UNIT TAB] Dorzolamide HCl [Trusopt] 10 ml OU BID 04/12/19 04/12/19 Unknown History Furosemide [Lasix TAB] 80 mg PO BID 04/12/19 04/12/19 Unknown History Lisinopril [Zestril] 40 mg PO QDAY 04/12/19 04/12/19 Unknown History Pravastatin [Pravachol] 20 mg PO DAILY 04/12/19 04/12/19 Unknown History Tiotropium [place] [Spiriva] 18 mcg IH DAILY 04/12/19 04/12/19 Unknown History metFORMIN [Glucophage] 500 mg PO BID 04/12/19 04/12/19 Unknown History Active Medications: Generic Name Dose Route Start Last Admin Trade Name Freq PRN Reason Stop Dose Admin Acetaminophen 650 mg 04/12/19 01:33 04/16/19 15:50 Tylenol PO 650 mg Q4H PRN Administration Pain MILD(1-3)/Fever >100.5/BASILIO Acetaminophen 1,000 mg 04/14/19 22:01 04/16/19 21:53 Tylenol PO 1,000 mg Q6H PRN Administration Pain , Severe (7-10) Albuterol 2.5 mg 04/12/19 03:42 04/14/19 23:33 Proventil IH 2.5 mg Q6HRT PRN Administration Congestion Apixaban 2.5 mg 04/12/19 10:00 04/16/19 21:42 Eliquis PO 2.5 mg BID TANK Administration Protocol Aspirin 325 mg 04/13/19 10:00 04/16/19 13:43 Ecotrin PO 325 mg QDAY TANK Administration Cholecalciferol 1,000 unit 04/12/19 10:00 04/16/19 09:59 Vitamin D3 PO 1,000 unit QDAY TANK Administration Dextrose 50 ml 04/12/19 03:40 D50w (25gm) Syringe IV PRN PRN Hypoglycemia Hydralazine HCl 10 mg 04/12/19 01:39 04/17/19 05:22 Apresoline IV 10 mg Q6H PRN Administration FOR SBP > target Insulin Human Lispro 0 unit 04/12/19 07:30 04/17/19 09:35 Humalog SUB-Q Not Given ACHS [facility] Protocol Magnesium Oxide 400 mg 04/13/19 12:31 04/16/19 21:42 Mag-Ox PO 400 mg BID TANK Administration Miscellaneous Medication 10 ml 04/12/19 10:00 Dorzolamide Hcl [Trusopt] OU BID TANK Ondansetron HCl 4 mg 04/12/19 01:33 04/16/19 22:07 Zofran IV 4 mg Q8H PRN Administration Nausea And Vomiting Pravastatin Sodium 20 mg 04/12/19 22:00 04/16/19 21:42 Pravachol PO 20 mg QHS TANK Administration Sodium Chloride 10 ml 04/12/19 10:00 04/16/19 21:42 Sodium Chloride Flush Syringe 10 Ml IV 10 ml BID TANK Administration Tiotropium [place] 1 puff 04/12/19 10:00 04/16/19 10:07 Spiriva IH 1 puff DAILY TANK Administration
[2019-04-17] MEDS: MAG-OX PO SCH ×2 (10:33→21:15)
[2019-04-17] MEDS: VITAMIN D3 PO SCH (10:33)
[2019-04-17] MEDS: SODIUM CHLORIDE FLUSH SYRINGE 10 ML IV SCH ×2 (10:37→21:15)
[2019-04-17] MEDS ORDERED: NACL 0.9% 100 ML IV PRN (11:00)
--- NOTE | 2019-04-17 11:18 | Progress Note ---
Assessment and Plan Severe Hyponatremia Heart failure with a preserved ejection fraction Acute renal failure Anemia Paroxysmal Afib on low dose eliquis Pacemaker present HTN Type 2 DM Echocardiogram shows normal left ventricular systolic function, ejection fraction 60%. There is enlargement of the right heart chambers, moderate to severe pulmonary hypertension with a pulmonary artery systolic pressure of 66, suggests cor pulmonale. Conservative cardiac management. Subjective Date of service: 04/17/19 Principal diagnosis: SOB and CP Interval history: Patient is resting in bed comfortably. Family member is at the bedside. Renal function continues to decline. Now with plans to initiate dialysis. Objective Vital Signs Temp Pulse Resp BP Pulse Ox 04/17/19 05:22 65 180/97 04/17/19 03:31 97.6 F 65 24 180/97 100 04/17/19 01:17 65 04/17/19 00:44 97.7 F 65 18 152/75 100 04/16/19 20:17 97 04/16/19 20:15 65 04/16/19 19:54 65 91 04/16/19 19:46 97.5 F L 65 20 84/44 85 04/16/19 17:08 98.0 F 65 18 165/83 100 04/16/19 11:18 97.9 F 65 18 166/78 100 - Physical Examination General: No Apparent Distress HEENT: Positive: PERRL Neck: Positive: trachea midline Cardiac: Positive: Other (paced) Neuro: Positive: Weakness Extremities: Present: +2 Edema - Labs and Meds Comprehensive Metabolic Panel 04/17/19 Range/Units 05:42 Sodium 128 L (137-145) mmol/L Potassium 4.1 (3.6-5.0) mmol/L Chloride 83.9 L (98-107) mmol/L Carbon Dioxide 26 (22-30) mmol/L BUN 46 H (7-17) mg/dL Creatinine 4.6 H (0.7-1.2) mg/dL Glucose 78 (65-100) mg/dL Calcium 8.8 (8.4-10.2) mg/dL
--- NOTE | 2019-04-17 12:28 | Consultation ---
History of Present Illness - Reason for Consult Consult date: 04/17/19 HD dependence - History of Present Illness 88 year old female with history significant for DM type 2, HTN, HFpEF, A. fib (on Eliquis), COPD on home O2 and /Anemia who presented to [facility] ER with complaints of chest pain. Patient was confused to give any history and there was no family member at the bedside. Patient woke from sleep and c/o chest pain and shortness of breath. The pain was located in the left substernal chest area without any radiation. She also reports lower extremity edema and CHAN. Patient was evaluated in the ER, her EKG showed no STEMI, her cardiac enzymes was negative and BNP was 3556. Patient was admitted for further evaluation of her chest pain. Initial BP was around 200/110s. Creatinine was 1 on admission but increased to 1.6 today. Patient received IV contrast 2 days ago. Nephrology was consulted and her Creatinine continued to rise and now she required HD. Vascular was then consulted. Past History Past Medical History: atrial fib, diabetes, hypertension, hyperlipidemia Past Surgical History: Other (pacemaker insertion) Social history: no significant social history, lives with family Family history: no significant family history Medications and Allergies Allergies Allergy/AdvReac Type Severity Reaction Status Date / Time No Known Allergies Allergy Unverified 04/11/19 19:59 Home Medications Medication Instructions Recorded Confirmed Last Taken Type Albuterol Sulfate [Proair 90 mcg IH PRN PRN 04/12/19 04/12/19 Unknown History Respiclick] Apixaban [Eliquis] 2.5 mg PO BID 04/12/19 04/12/19 Unknown History Cholecalciferol Vit D3 [Vitamin D3 1,000 unit PO QDAY 04/12/19 04/12/19 Unknown History 1,000 UNIT TAB] Dorzolamide HCl [Trusopt] 10 ml OU BID 04/12/19 04/12/19 Unknown History Furosemide [Lasix TAB] 80 mg PO BID 04/12/19 04/12/19 Unknown History Lisinopril [Zestril] 40 mg PO QDAY 04/12/19 04/12/19 Unknown History Pravastatin [Pravachol] 20 mg PO DAILY 04/12/19 04/12/19 Unknown History Tiotropium Leedey [Spiriva] 18 mcg IH DAILY 04/12/19 04/12/19 Unknown History metFORMIN [Glucophage] 500 mg PO BID 04/12/19 04/12/19 Unknown History Active Meds: Active Medications Acetaminophen (Tylenol) 650 mg PO Q4H PRN PRN Reason: Pain MILD(1-3)/Fever >100.5/BASILIO Last Admin: 04/16/19 15:50 Dose: 650 mg Documented by: Acetaminophen (Tylenol) 1,000 mg PO Q6H PRN PRN Reason: Pain , Severe (7-10) Last Admin: 04/16/19 21:53 Dose: 1,000 mg Documented by: Albuterol (Proventil) 2.5 mg IH Q6HRT PRN PRN Reason: Congestion Last Admin: 04/14/19 23:33 Dose: 2.5 mg Documented by: Apixaban (Eliquis) 2.5 mg PO BID [facility]; Protocol Aspirin (Ecotrin) 325 mg PO QDAY [facility] Last Admin: 04/16/19 13:43 Dose: 325 mg Documented by: Cholecalciferol (Vitamin D3) 1,000 unit PO QDAY [facility] Last Admin: 04/17/19 10:33 Dose: 1,000 unit Documented by: Dextrose (D50w (25gm) Syringe) 50 ml IV PRN PRN PRN Reason: Hypoglycemia Epoetin Misael (Procrit) 20,000 unit SUB-Q MARGOT PRN PRN Reason: hemodialysis Hydralazine HCl (Apresoline) 10 mg IV Q6H PRN PRN Reason: FOR SBP > target Last Admin: 04/17/19 10:33 Dose: 10 mg Documented by: Sodium Chloride (Nacl 0.9%) 100 mls @ 999 mls/hr IV MARGOT PRN PRN Reason: Hypotension Insulin Human Lispro (Humalog) 0 unit SUB-Q ACHS [facility]; Protocol Last Admin: 04/17/19 09:35 Dose: Not Given Documented by: Magnesium Oxide (Mag-Ox) 400 mg PO BID [facility] Last Admin: 04/17/19 10:33 Dose: 400 mg Documented by: Miscellaneous Medication (Dorzolamide Hcl [Trusopt]) 10 ml OU BID [facility] Ondansetron HCl (Zofran) 4 mg IV Q8H PRN PRN Reason: Nausea And Vomiting Last Admin: 04/16/19 22:07 Dose: 4 mg Documented by: Pravastatin Sodium (Pravachol) 20 mg PO QHS [facility] Last Admin: 04/16/19 21:42 Dose: 20 mg Documented by: Sodium Chloride (Sodium Chloride Flush Syringe 10 Ml) 10 ml IV BID [facility] Last Admin: 04/17/19 10:37 Dose: 10 ml Documented by: Tiotropium Leedey (Spiriva) 1 puff IH DAILY [facility] Last Admin: 04/16/19 10:07 Dose: 1 puff Documented by: Review of Systems ROS unobtainable: due to mental status (tired) Exam - Constitutional Vitals: Temp Pulse Resp BP Pulse Ox 97.6 F 65 24 180/97 100 04/17/19 03:31 04/17/19 05:22 04/17/19 03:31 04/17/19 05:22 04/17/19 03:31 General appearance: Present: no acute distress - EENT ENT: hearing intact, other (did not open eyes during conversation) - Neck Neck: Present: supple - Respiratory Respiratory effort: normal - Psychiatric Psychiatric: cooperative Results - Labs CBC & Chem 7: 04/14/19 05:35 04/17/19 05:42 Labs: Abnormal lab results 04/16/19 04/16/19 04/16/19 Range/Units 11:28 17:11 21:29 Sodium (137-145) mmol/L Chloride (98-107) mmol/L BUN (7-17) mg/dL Creatinine (0.7-1.2) mg/dL POC Glucose 206 H 137 H 155 H (70-105) 04/17/19 04/17/19 Range/Units 05:42 08:43 Sodium 128 L (137-145) mmol/L Chloride 83.9 L (98-107) mmol/L BUN 46 H (7-17) mg/dL Creatinine 4.6 H (0.7-1.2) mg/dL POC Glucose 117 H (70-105) Assessment and Plan 88 year old female with acute renal failure who progressed to requiring hemodialysis. NPO except meds with sips of water. Holding Eliquis today. Restarted Eliquis tomorrow. Plan for permcath today. May place pressure dressing which can be removed tomorrow. R/B/A discussed with POA and patient.
[2019-04-17] MEDS ORDERED: XYLOCAINE 2% INFILTRATI ONE ×2 (12:55→13:34)
[2019-04-17] MEDS ORDERED: SUBLIMAZE ONE (12:55)
[2019-04-17] MEDS ORDERED: HEPARIN/NS 5000 UNIT/500ML(CATH LAB) 500 ML IR ONE (12:55)
[2019-04-17] MEDS ORDERED: HEPARIN 10,000 UNITS/10 ML ONE (12:55)
[2019-04-17] MEDS ORDERED: VERSED ONE (12:55)
[2019-04-17] MEDS ORDERED: NACL 0.9% 500 ML 500 ML ONE (13:17)
--- NOTE | 2019-04-17 13:57 | Operative Report ---
Operative Report Operative Report: EXAM: 1. Ultrasound-guided puncture of the right internal jugular vein 2. Fluoroscopic-guided placement of a right internal jugular tunneled cuffed hemodialysis catheter. DATE: 04/17/19 INDICATION: Acute renal failure requiring hemodialysis MEDICATIONS: Please see nursing report for full details. DEVICES: 23 cm tip to cuff 15 Fr dual lumen hemodialysis catheter POSTAGE MACHINE OPERATOR: YAMILET GUTIERREZ MD CONTRAST: None PROCEDURE: The risks, benefits, and alternatives were discussed and informed consent was obtained. The patient was transported to the angiography suite in satisfactory/stable condition and was transported onto the angiography table. The patient's right internal jugular vein was assessed with ultrasound and determined to be patent prior to procedure. The patient was prepped and draped in a sterile fashion. The puncture site was anesthetized. Under sonographic guidance, the right internal jugular vein was punctured with a 21-gauge micropuncture needle and a 0.018 inch wire was advanced into the inferior vena cava. The micropuncture needle was exchanged for a transitional dilator and the wire was retracted into the right atrium to daniela intravascular distance. The wire and inner dilator were removed. 0.035 inch wire was advanced through the transitional dilator into the inferior vena cava. A suitable exit site was identified on the patient's chest inferior and lateral to the venotomy. The site was anesthetized with local anesthetic and the track was anesthetized. Dermatotomy was made. The PermCath was attached to the tunneling device and tunneled between the dermatotomy to the venotomy. Over the 0.035 inch wire, serial dilatation was performed with ultimate placement of a peel-away sheath. The catheter was advanced through the peel- away sheath after the wire was removed and positioned centrally under fluoroscopic guidance. The peel-away sheath was removed. 4-0 Vicryl suture was used to close the venotomy and Dermabond was then applied. 2-0 Ethilon suture was used to secure the catheter at the dermatotomy. The catheter was charged with heparin 1000 units/mL space. Sterile dressing applied. The patient was transferred from the angiography suite back to the floor in stable condition. FINDINGS: 1. Excellent flow was obtained through the dialysis catheter with 20 mL syringes. 2. The catheter tip is in the right atrium. IMPRESSION: 1. Successful ultrasound and fluoroscopically guided placement of a right internal jugular tunneled cuffed hemodialysis catheter.
[2019-04-17] MEDS: ECOTRIN PO SCH (16:16)
[2019-04-17] MEDS: SPIRIVA IH SCH (16:16)
[2019-04-17 17:09] LABS: Hepatitis C Virus Antibody Non-Reactive (NonReactive)
--- NOTE | 2019-04-17 17:13 | Progress Note ---
Assessment and Plan Assessment and plan: (1) Acute exacerbation of diastolic CHF Patient was given lasix on admission. Lasix is held because her creatinine function is getting worse Echo was done and ejection fraction is 50-60% (2) JOSE (acute kidney injury) - Renal function is worsening and nephrology consulted, discussed with Dr. Davis - Cr jumped to 4.2 - Patient will have dialysis Hyponatremia - Slight improvement - Continue to monitor (3) Chest pain - Nephrology consult appreciated (4) Afib - On Eliquis (5) HTN (hypertension) - Cont antihypertensives (6) COPD (chronic obstructive pulmonary disease) - On Duonebs prn (7) Pulmonary HTN - continue to monitor (8) DVT prophylaxis - On Eliquis History Interval history: Patient was seen and divided this morning, patient didn't have any complaints. Discussed with her niece and the patient. Hospitalist Physical - Physical exam Narrative exam: Not in cardiopulmonary distress. The patient appeared well nourished and normally developed. Vital signs as documented. Head exam is unremarkable. No scleral icterus . Neck is without jugular venous distension, thyromegaly, or carotid bruits. Lungs are clear to auscultation. Cardiac exam reveals regular rate and Rhythm. Abdominal exam reveals normal bowel sounds. Extremities are bilateral lower extremity edema. SLIVER CUTTER: Alert and oriented 3. No focal weakness. - Constitutional Vitals: Temp Pulse Resp BP Pulse Ox 97.6 F 65 24 180/97 100 04/17/19 03:31 04/17/19 10:12 04/17/19 03:31 04/17/19 05:22 04/17/19 03:31 General appearance: Present: no acute distress Results - Labs CBC & Chem 7: 04/14/19 05:35 04/17/19 05:42 Labs: Laboratory Last Values WBC 3.8 K/mm3 (4.5-11.0) L 04/14/19 05:35 RBC 2.59 M/mm3 (3.65-5.03) L 04/14/19 05:35 Hgb 7.8 gm/dl (10.1-14.3) L 04/14/19 05:35 Hct 23.9 % (30.3-42.9) L 04/14/19 05:35 MCV 92 fl (79-97) 04/14/19 05:35 MCH 30 pg (28-32) 04/14/19 05:35 MCHC 33 % (30-34) 04/14/19 05:35 RDW 18.1 % (13.2-15.2) H 04/14/19 05:35 Plt Count 179 K/mm3 (140-440) 04/14/19 05:35 Lymph % (Auto) 21.0 % (13.4-35.0) 04/12/19 02:07 Gregg % (Auto) Harness Brusher 04/14/19 05:35 Eos % (Auto) 5.9 % (0.0-4.3) H 04/12/19 02:07 Baso % (Auto) 0.6 % (0.0-1.8) 04/12/19 02:07 Lymph # 0.8 K/mm3 (1.2-5.4) L 04/12/19 02:07 Gregg # 0.5 K/mm3 (0.0-0.8) 04/12/19 02:07 Eos # 0.2 K/mm3 (0.0-0.4) 04/12/19 02:07 Baso # 0.0 K/mm3 (0.0-0.1) 04/12/19 02:07 Add Manual Diff Complete 04/14/19 05:35 Total Counted 100 04/14/19 05:35 Seg Neutrophils % 59.6 % (40.0-70.0) 04/12/19 02:07 Seg Neuts % (Manual) 68.0 % (40.0-70.0) 04/14/19 05:35 0 % 04/14/19 05:35 18.0 % (13.4-35.0) 04/14/19 05:35 Reactive Lymphs % (Man) 0 % 04/14/19 05:35 8.0 % (0.0-7.3) H 04/14/19 05:35 3.0 % (0.0-4.3) 04/14/19 05:35 1.0 % (0.0-1.8) 04/14/19 05:35 0 % 04/14/19 05:35 2.0 % 04/14/19 05:35 0 % 04/14/19 05:35 0 % 04/14/19 05:35 Nucleated RBC % Not Reportable 04/14/19 05:35 Seg Neutrophils # 2.3 K/mm3 (1.8-7.7) 04/12/19 02:07 Seg Neutrophils # Man 2.6 K/mm3 (1.8-7.7) 04/14/19 05:35 Band Neutrophils # 0.0 K/mm3 04/14/19 05:35 0.7 K/mm3 (1.2-5.4) L 04/14/19 05:35 Abs React Lymphs (Man) 0.0 K/mm3 04/14/19 05:35 0.3 K/mm3 (0.0-0.8) 04/14/19 05:35 0.1 K/mm3 (0.0-0.4) 04/14/19 05:35 0.0 K/mm3 (0.0-0.1) 04/14/19 05:35 0.0 K/mm3 04/14/19 05:35 0.1 K/mm3 04/14/19 05:35 0.0 K/mm3 04/14/19 05:35 Blast Cells # 0.0 K/mm3 04/14/19 05:35 WBC Morphology Not Reportable 04/14/19 05:35 Hypersegmented Neuts Not Reportable 04/14/19 05:35 Hyposegmented Neuts Not Reportable 04/14/19 05:35 Hypogranular Neuts Not Reportable 04/14/19 05:35 Not Reportable 04/14/19 05:35 Not Reportable 04/14/19 05:35 Not Reportable 04/14/19 05:35 Not Reportable 04/14/19 05:35 Not Reportable 04/14/19 05:35 Not Reportable 04/14/19 05:35 Consistent w auto 04/14/19 05:35 Not Reportable 04/14/19 05:35 Plt Clumps, EDTA Not Reportable 04/14/19 05:35 Not Reportable 04/14/19 05:35 Not Reportable 04/14/19 05:35 Not Reportable 04/14/19 05:35 Plt Morphology Comment Not Reportable 04/14/19 05:35 RBC Morphology Not Reportable 04/14/19 05:35 Dimorphic RBCs Not Reportable 04/14/19 05:35 Not Reportable 04/14/19 05:35 Not Reportable 04/14/19 05:35 1+ 04/14/19 05:35 1+ 04/14/19 05:35 Not Reportable 04/14/19 05:35 Not Reportable 04/14/19 05:35 Not Reportable 04/14/19 05:35 Not Reportable 04/14/19 05:35 Not Reportable 04/14/19 05:35 Few 04/14/19 05:35 Not Reportable 04/14/19 05:35 Rare 04/14/19 05:35 Not Reportable 04/14/19 05:35 Not Reportable 04/14/19 05:35 Not Reportable 04/14/19 05:35 Not Reportable 04/14/19 05:35 Not Reportable 04/14/19 05:35 Not Reportable 04/14/19 05:35 Not Reportable 04/14/19 05:35 Acanthocytes (Spur) Not Reportable 04/14/19 05:35 Rouleaux Not Reportable 04/14/19 05:35 Not Reportable 04/14/19 05:35 Not Reportable 04/14/19 05:35 Not Reportable 04/14/19 05:35 Not Reportable 04/14/19 05:35 Hem Pathologist Commnt No 04/14/19 05:35 Sodium 128 mmol/L (137-145) L 04/17/19 05:42 Potassium 4.1 mmol/L (3.6-5.0) 04/17/19 05:42 Chloride 83.9 mmol/L (98-107) L 04/17/19 05:42 Carbon Dioxide 26 mmol/L (22-30) 04/17/19 05:42 22 mmol/L 04/17/19 05:42 BUN 46 mg/dL (7-17) H 04/17/19 05:42 4.6 mg/dL (0.7-1.2) H 04/17/19 05:42 Estimated GFR 11 ml/min 04/17/19 05:42 10 % 04/17/19 05:42 Glucose 78 mg/dL (65-100) 04/17/19 05:42 POC Glucose 105 (70-105) 04/17/19 12:39 273 Mosm/kg 04/13/19 09:42 6.6 mg/dL (3.5-7.6) 04/13/19 09:42 Calcium 8.8 mg/dL (8.4-10.2) 04/17/19 05:42 Phosphorus 4.10 mg/dL (2.5-4.5) 04/13/19 09:42 Magnesium 1.70 mg/dL (1.7-2.3) 04/14/19 05:35 0.30 mg/dL (0.1-1.2) 04/11/19 20:30 AST 22 units/L (5-40) 04/11/19 20:30 ALT 8 units/L (7-56) 04/11/19 20:30 61 units/L (35-129) 04/11/19 20:30 0.026 ng/mL (0.00-0.029) 04/12/19 12:27 NT-Pro-B Natriuret Pep 3556 pg/mL (0-900) H 04/11/19 20:30 7.4 g/dL (6.3-8.2) 04/11/19 20:30 3.9 g/dL (3.9-5) 04/11/19 20:30 1.1 % 04/11/19 20:30 Triglycerides 49 mg/dL (2-149) 04/12/19 02:03 Cholesterol 152 mg/dL (50-199) 04/12/19 02:03 61 mg/dL (50-130) 04/12/19 02:03 84 mg/dL (40-59) H 04/12/19 02:03 1.80 % 04/12/19 02:03 TSH 1.290 mlU/mL (0.270-4.200) 04/13/19 09:42 Yellow (Yellow) 04/13/19 11:15 Cloudy (Clear) 04/13/19 11:15 5.0 (5.0-7.0) 04/13/19 11:15 Ur Specific [place] 1.014 (1.003-1.030) 04/13/19 11:15 <15 mg/dl mg/dL (Negative) 04/13/19 11:15 Neg mg/dL (Negative) 04/13/19 11:15 Neg mg/dL (Negative) 04/13/19 11:15 Neg (Negative) 04/13/19 11:15 Neg (Negative) 04/13/19 11:15 Neg (Negative) 04/13/19 11:15 < 2.0 mg/dL (<2.0) 04/13/19 11:15 Ur Leukocyte Esterase Neg (Negative) 04/13/19 11:15 1.0 /HPF (0.0-6.0) 04/13/19 11:15 < 1.0 /HPF (0.0-6.0) 04/13/19 11:15 U Epithel Cells (Auto) 3.0 /HPF (0-13.0) 04/13/19 11:15 2+ /HPF (Negative) 04/13/19 11:15 Few /HPF 04/13/19 11:15 235 Mosm/kg 04/12/19 17:38 48.1 mg/dL (0.1-20.0) H 04/13/19 11:15 13 mmol/L 04/13/19 11:15 Hepatitis A IgM Ab Non-reactive (NonReactive) 04/17/19 16:31 Hep B Core IgM Ab Non-reactive (NonReactive) 04/17/19 16:31 Non-reactive (NonReactive) 04/17/19 16:31 Active Medications - Current Medications Current Medications: Generic Name Dose Route Start Last Admin Trade Name Freq PRN Reason Stop Dose Admin Acetaminophen 650 mg 04/12/19 01:33 04/16/19 15:50 Tylenol PO 650 mg Q4H PRN Administration Pain MILD(1-3)/Fever >100.5/BASILIO Acetaminophen 1,000 mg 04/14/19 22:01 04/16/19 21:53 Tylenol PO 1,000 mg Q6H PRN Administration Pain , Severe (7-10) Albuterol 2.5 mg 04/12/19 03:42 04/14/19 23:33 Proventil IH 2.5 mg Q6HRT PRN Administration Congestion Apixaban 2.5 mg 04/19/19 10:00 Eliquis PO BID [facility] Protocol Aspirin 325 mg 04/13/19 10:00 04/17/19 16:16 Ecotrin PO Not Given QDAY TANK Cholecalciferol 1,000 unit 04/12/19 10:00 04/17/19 10:33 Vitamin D3 PO 1,000 unit QDAY [facility] Administration Dextrose 50 ml 04/12/19 03:40 D50w (25gm) Syringe IV PRN PRN Hypoglycemia Epoetin Misael 20,000 unit 04/17/19 11:00 Procrit SUB-Q MARGOT PRN hemodialysis Hydralazine HCl 10 mg 04/12/19 01:39 04/17/19 10:33 Apresoline IV 10 mg Q6H PRN Administration FOR SBP > target Sodium Chloride 100 mls @ 999 mls/hr 04/17/19 11:00 Nacl 0.9% IV MARGOT PRN Hypotension Insulin Human Lispro 0 unit 04/12/19 07:30 04/17/19 16:16 Humalog SUB-Q Not Given ACHS [facility] Protocol Magnesium Oxide 400 mg 04/13/19 12:31 04/17/19 10:33 Mag-Ox PO 400 mg BID [facility] Administration Miscellaneous Medication 10 ml 04/12/19 10:00 Dorzolamide Hcl [Trusopt] OU BID [facility] Ondansetron HCl 4 mg 04/12/19 01:33 04/16/19 22:07 Zofran IV 4 mg Q8H PRN Administration Nausea And Vomiting Pravastatin Sodium 20 mg 04/12/19 22:00 04/16/19 21:42 Pravachol PO 20 mg QHS [facility] Administration Sodium Chloride 10 ml 04/12/19 10:00 04/17/19 10:37 Sodium Chloride Flush Syringe 10 Ml IV 10 ml BID [facility] Administration Tiotropium [place] 1 puff 04/12/19 10:00 04/17/19 16:16 Spiriva IH Not Given DAILY [facility] Nutrition/Malnutrition Assess - Dietary Evaluation Nutrition/Malnutrition Findings: Nutrition Notes Start: 04/12/19 15:58 Freq: Status: Active Protocol: Document 04/12/19 15:58 RM (Rec: 04/12/19 15:59 RM [id number]) Nutrition Notes Need for Assessment generated from: MD Order Initial or Follow up Brief Note Labs/Tests BG 115 Subjective/Other Information Consulted for DM diet education. Pt already familiar with diet. Nutrition Intervention Revisit per MD consult or patient Sign Off request:
[2019-04-17] MEDS ORDERED: NACL 0.9 (PRIMING MACHINE ONLY DIALYSIS) MC ONE (17:30)
[2019-04-17] MEDS: PROCRIT SUB-Q PRN (17:35)
[2019-04-17 17:52] LABS: Hepatitis B Surface Antigen Non-Reactive (Negative)
[2019-04-17] MEDS: TYLENOL PO PRN (21:14)
[2019-04-17] MEDS: PRAVACHOL PO SCH (21:15)
[2019-04-18] MEDS: ZOFRAN IV PRN (01:34)
[2019-04-18] MEDS: TYLENOL PO PRN ×2 (02:49→23:29)
[2019-04-18 06:37] LABS: Hematocrit 25.1 % (30.3-42.9); Hemoglobin 8.1 gm/dl (10.1-14.3); Mean Corpuscular HGB Conc 32 % (30-34); Mean Corpuscular Volume 93 fl (79-97); Platelet Count 187 K/mm3 (140-440); Red Cell Distribution Width 18.4 % (13.2-15.2)
[2019-04-18 07:24] LABS: Calcium 8.5 mg/dL (8.4-10.2)
[2019-04-18 09:23] LABS: Anisocytosis 1+; Poikilocytosis 1+; Total Cells Counted 100
[2019-04-18 09:24] LABS: Ovalocytes Rare; Platelet Estimate Consistent w Auto; Target Cells Few
[2019-04-18] MEDS ORDERED: ELIQUIS PO SCH (10:00)
--- NOTE | 2019-04-18 10:06 | Progress Note ---
Assessment and Plan Severe Hyponatremia Heart failure with a preserved ejection fraction Acute renal failure Anemia Paroxysmal Afib on low dose eliquis Pacemaker present HTN Type 2 DM Echocardiogram shows normal left ventricular systolic function, ejection fraction 60%. There is enlargement of the right heart chambers, moderate to severe pulmonary hypertension with a pulmonary artery systolic pressure of 66, suggests cor pulmonale. Recommendations: Conservative cardiac management. No new recommendations. Subjective Date of service: 04/18/19 Principal diagnosis: SOB and CP Interval history: Patient denies chest pain or shortness of breath No interval changes cardiac guardado Objective Vital Signs Temp Pulse Resp BP Pulse Ox 04/18/19 08:09 98.0 F 65 18 99/43 100 04/18/19 04:25 97.7 F 04/18/19 04:24 65 18 138/58 100 04/18/19 02:49 18 04/17/19 23:44 98.2 F 65 18 136/62 100 04/17/19 20:45 68 04/17/19 20:10 98.3 F 04/17/19 20:09 68 20 131/57 98 04/17/19 18:15 99 04/17/19 18:00 98.0 F 64 18 140/67 04/17/19 17:45 65 131/65 04/17/19 17:30 64 130/65 04/17/19 17:15 64 111/56 04/17/19 17:00 65 123/61 04/17/19 16:45 65 130/60 04/17/19 16:30 64 116/60 04/17/19 16:15 64 121/62 04/17/19 16:00 65 122/66 04/17/19 15:45 64 117/57 04/17/19 15:30 64 116/61 04/17/19 15:15 65 128/65 04/17/19 15:00 65 132/68 04/17/19 14:45 98.0 F 65 18 126/56 04/17/19 10:12 65 - Physical Examination General: No Apparent Distress HEENT: Positive: PERRL Neck: Positive: trachea midline Cardiac: Positive: Reg Rate and Rhythm Lungs: Positive: Normal Exam Neuro: Positive: Weakness Abdomen: Positive: Unremarkable Extremities: Present: +2 Edema - Labs and Meds CBC 04/18/19 Range/Units 05:50 WBC 4.3 L (4.5-11.0) K/mm3 RBC 2.70 L (3.65-5.03) M/mm3 Hgb 8.1 L (10.1-14.3) gm/dl Hct 25.1 L (30.3-42.9) % Plt Count 187 (140-440) K/mm3 Comprehensive Metabolic Panel 04/18/19 Range/Units 05:50 Sodium 137 D (137-145) mmol/L Potassium 4.7 (3.6-5.0) mmol/L Chloride 92.4 L (98-107) mmol/L Carbon Dioxide 25 (22-30) mmol/L BUN 26 H (7-17) mg/dL Creatinine 3.0 H (0.7-1.2) mg/dL Glucose 153 H (65-100) mg/dL Calcium 8.5 (8.4-10.2) mg/dL
[2019-04-18] MEDS: SPIRIVA IH SCH (10:44)
[2019-04-18] MEDS ORDERED: NACL 0.9% 100 ML IV PRN ×2 (11:00)
[2019-04-18] MEDS ORDERED: NACL 0.9 (PRIMING MACHINE ONLY DIALYSIS) MC ONE (12:31)
[2019-04-18] MEDS: PROCRIT SUB-Q PRN (13:00)
--- NOTE | 2019-04-18 14:05 | Progress Note ---
Assessment and Plan 1. Acute kidney injury: JOSE likely from combination of contrast induced injury and vasomotor insult from BP fluctuation. Renal US negative for hydro. Patient was started on hemodialysis yesterday due to significant decline in renal function continue and uremic symptoms. Patient tolerated procedure well. Monitor renal function. Renal prognosis is guarded. Avoid nephrotoxic agents. Next HD today. 2. FEN: Hyperkalemia, improved. Hyponatremia, improved. Volume overload, UF with HD. Monitor lytes. 3. HFpEF: Followed by Cards. 4. Paroxysmal A.fib. 5. HTN: Monitor BP. 6. Anemia: POA. Epogen with HD. Subjective Date of service: 04/18/19 Principal diagnosis: SOB and CP Interval history: Patient was seen and examined at the bedside. Doing ok. Objective - Vital Signs Vital signs: Vital Signs - 12hr 04/18/19 04/18/19 04/18/19 02:49 04:24 04:25 Temperature 97.7 F Pulse Rate 65 Respiratory 18 18 Rate Blood Pressure 138/58 O2 Sat by Pulse 100 Oximetry 04/18/19 04/18/19 04/18/19 08:09 10:00 10:15 Temperature 98.0 F 98.2 F Pulse Rate 65 65 66 Respiratory 18 18 Rate Blood Pressure 99/43 94/57 O2 Sat by Pulse 100 Oximetry 04/18/19 04/18/19 04/18/19 10:30 10:45 11:00 Temperature Pulse Rate 64 64 64 Respiratory Rate Blood Pressure 90/47 95/46 109/60 O2 Sat by Pulse Oximetry 04/18/19 04/18/19 04/18/19 11:15 11:30 11:45 Temperature Pulse Rate 64 64 65 Respiratory Rate Blood Pressure 128/64 126/64 140/70 O2 Sat by Pulse Oximetry 04/18/19 04/18/19 04/18/19 12:00 12:15 12:30 Temperature Pulse Rate 65 64 64 Respiratory Rate Blood Pressure 136/66 143/71 156/74 O2 Sat by Pulse Oximetry - General Appearance General appearance: well-developed, appears stated age, other (not in distress, R IJ tunnel catheter) EENT: ATNC, PERRL, hearing intact, vision intact Neck: supple Respiratory: Present: Rales Cardiology: regular, S1S2, no murmurs Gastrointestinal: normoactive bowel sounds, no tenderness, no distended Integumentary: no rash, warm and dry Neurologic: no focal deficit, no asterixis, confused, disoriented Musculoskeletal: other (2+ edema of both LEs noted) Psychiatric: cooperative - Lab 04/18/19 05:50 04/20/19 05:21 Most recent lab results Calcium 8.5 mg/dL (8.4-10.2) 04/18/19 05:50 Phosphorus 4.10 mg/dL (2.5-4.5) 04/13/19 09:42 Magnesium 2.30 mg/dL (1.7-2.3) 04/18/19 05:50 48.1 mg/dL (0.1-20.0) H 04/13/19 11:15 13 mmol/L 04/13/19 11:15 Medications & Allergies - Medications Allergies/Adverse Reactions: Allergies No Known Allergies Allergy (Unverified 04/11/19 19:59) Home Medications: Home Medications Medication Instructions Recorded Confirmed Last Taken Type Albuterol Sulfate [Proair 90 mcg IH PRN PRN 04/12/19 04/12/19 Unknown History Respiclick] Apixaban [Eliquis] 2.5 mg PO BID 04/12/19 04/12/19 Unknown History Cholecalciferol Vit D3 [Vitamin D3 1,000 unit PO QDAY 04/12/19 04/12/19 Unknown History 1,000 UNIT TAB] Dorzolamide HCl [Trusopt] 10 ml OU BID 04/12/19 04/12/19 Unknown History Furosemide [Lasix TAB] 80 mg PO BID 04/12/19 04/12/19 Unknown History Lisinopril [Zestril] 40 mg PO QDAY 04/12/19 04/12/19 Unknown History Pravastatin [Pravachol] 20 mg PO DAILY 04/12/19 04/12/19 Unknown History Tiotropium [place] [Spiriva] 18 mcg IH DAILY 04/12/19 04/12/19 Unknown History metFORMIN [Glucophage] 500 mg PO BID 04/12/19 04/12/19 Unknown History Active Medications: Generic Name Dose Route Start Last Admin Trade Name Freq PRN Reason Stop Dose Admin Acetaminophen 650 mg 04/12/19 01:33 04/16/19 15:50 Tylenol PO 650 mg Q4H PRN Administration Pain MILD(1-3)/Fever >100.5/BASILIO Acetaminophen 1,000 mg 04/14/19 22:01 04/18/19 02:49 Tylenol PO 1,000 mg Q6H PRN Administration Pain , Severe (7-10) Albuterol 2.5 mg 04/12/19 03:42 04/14/19 23:33 Proventil IH 2.5 mg Q6HRT PRN Administration Congestion Apixaban 2.5 mg 04/19/19 10:00 Eliquis PO BID [facility] Protocol Aspirin 325 mg 04/13/19 10:00 04/17/19 16:16 Ecotrin PO Not Given QDAY [facility] Cholecalciferol 1,000 unit 04/12/19 10:00 04/17/19 10:33 Vitamin D3 PO 1,000 unit QDAY [facility] Administration Dextrose 50 ml 04/12/19 03:40 D50w (25gm) Syringe IV PRN PRN Hypoglycemia Epoetin Misael 20,000 unit 04/17/19 11:00 04/17/19 17:35 Procrit SUB-Q 20,000 unit MARGOT PRN Administration hemodialysis Hydralazine HCl 10 mg 04/12/19 01:39 04/17/19 10:33 Apresoline IV 10 mg Q6H PRN Administration FOR SBP > target Sodium Chloride 100 mls @ 999 mls/hr 04/18/19 11:00 Nacl 0.9% IV MARGOT PRN Hypotension Insulin Human Lispro 0 unit 04/12/19 07:30 04/17/19 21:35 Humalog SUB-Q 5 unit ACHS [facility] Administration Protocol Miscellaneous Medication 10 ml 04/12/19 10:00 Dorzolamide Hcl [Trusopt] OU BID [facility] Ondansetron HCl 4 mg 04/12/19 01:33 04/18/19 01:34 Zofran IV 4 mg Q8H PRN Administration Nausea And Vomiting Pravastatin Sodium 20 mg 04/12/19 22:00 04/17/19 21:15 Pravachol PO 20 mg QHS [facility] Administration Sodium Chloride 10 ml 04/12/19 10:00 04/17/19 21:15 Sodium Chloride Flush Syringe 10 Ml IV 10 ml BID [facility] Administration Tiotropium [place] 1 puff 04/12/19 10:00 04/18/19 10:44 Spiriva IH Not Given DAILY [facility]
[2019-04-18] MEDS: HumaLOG SUB-Q SCH ×3 (14:47→16:54)
--- NOTE | 2019-04-18 16:29 | Progress Note ---
Assessment and Plan Assessment and plan: (1) Acute exacerbation of diastolic CHF Patient was given lasix on admission. Lasix is held because her creatinine function is getting worse Echo was done and ejection fraction is 50-60%, moderate to severe pulmonary hypertension Cardiology recommended conservative cardiac management (2) JOSE (acute kidney injury) - Renal function is worsening and nephrology consulted, discussed with Dr. Davis -Patient started on hemodialysis Hyponatremia - Resolved (3) Chest pain - Cardiology consulted and recommended conservative cardiac management (4) Afib - On Eliquis (5) HTN (hypertension) - Cont antihypertensives (6) COPD (chronic obstructive pulmonary disease) - On Duonebs prn (7) Pulmonary HTN - continue to monitor (8) DVT prophylaxis - On Eliquis History Interval history: Patient was seen and divided this morning, patient didn't have any complaints. Discussed with her niece and the patient. Hospitalist Physical - Physical exam Narrative exam: Not in cardiopulmonary distress. The patient appeared well nourished and normally developed. Vital signs as documented. Head exam is unremarkable. No scleral icterus . Neck is without jugular venous distension, thyromegaly, or carotid bruits. Lungs are clear to auscultation. Cardiac exam reveals regular rate and Rhythm. Abdominal exam reveals normal bowel sounds. Extremities are bilateral lower extremity edema. METHODS TIME ANALYST: Alert and oriented 3. No focal weakness. - Constitutional Vitals: Temp Pulse Resp BP Pulse Ox 98.9 F 65 20 125/53 93 04/18/19 14:59 04/18/19 14:59 04/18/19 14:59 04/18/19 14:59 04/18/19 14:59 General appearance: Present: no acute distress Results - Labs CBC & Chem 7: 04/18/19 05:50 04/18/19 05:50 Labs: Laboratory Last Values WBC 4.3 K/mm3 (4.5-11.0) L 04/18/19 05:50 RBC 2.70 M/mm3 (3.65-5.03) L 04/18/19 05:50 Hgb 8.1 gm/dl (10.1-14.3) L 04/18/19 05:50 Hct 25.1 % (30.3-42.9) L 04/18/19 05:50 MCV 93 fl (79-97) 04/18/19 05:50 MCH 30 pg (28-32) 04/18/19 05:50 MCHC 32 % (30-34) 04/18/19 05:50 RDW 18.4 % (13.2-15.2) H 04/18/19 05:50 Plt Count 187 K/mm3 (140-440) 04/18/19 05:50 Lymph % (Auto) 21.0 % (13.4-35.0) 04/12/19 02:07 Bradley % (Auto) Commercial Coordinator 04/18/19 05:50 Eos % (Auto) 5.9 % (0.0-4.3) H 04/12/19 02:07 Baso % (Auto) 0.6 % (0.0-1.8) 04/12/19 02:07 Lymph # 0.8 K/mm3 (1.2-5.4) L 04/12/19 02:07 Bradley # 0.5 K/mm3 (0.0-0.8) 04/12/19 02:07 Eos # 0.2 K/mm3 (0.0-0.4) 04/12/19 02:07 Baso # 0.0 K/mm3 (0.0-0.1) 04/12/19 02:07 Add Manual Diff Complete 04/18/19 05:50 Total Counted 100 04/18/19 05:50 Seg Neutrophils % 59.6 % (40.0-70.0) 04/12/19 02:07 Seg Neuts % (Manual) 80.0 % (40.0-70.0) H 04/18/19 05:50 0 % 04/18/19 05:50 10.0 % (13.4-35.0) L 04/18/19 05:50 Reactive Lymphs % (Man) 0 % 04/18/19 05:50 8.0 % (0.0-7.3) H 04/18/19 05:50 1.0 % (0.0-4.3) 04/18/19 05:50 1.0 % (0.0-1.8) 04/18/19 05:50 0 % 04/18/19 05:50 0 % 04/18/19 05:50 0 % 04/18/19 05:50 0 % 04/18/19 05:50 Nucleated RBC % Not Reportable 04/18/19 05:50 Seg Neutrophils # 2.3 K/mm3 (1.8-7.7) 04/12/19 02:07 Seg Neutrophils # Man 3.4 K/mm3 (1.8-7.7) 04/18/19 05:50 Band Neutrophils # 0.0 K/mm3 04/18/19 05:50 0.4 K/mm3 (1.2-5.4) L 04/18/19 05:50 Abs React Lymphs (Man) 0.0 K/mm3 04/18/19 05:50 0.3 K/mm3 (0.0-0.8) 04/18/19 05:50 0.0 K/mm3 (0.0-0.4) 04/18/19 05:50 0.0 K/mm3 (0.0-0.1) 04/18/19 05:50 0.0 K/mm3 04/18/19 05:50 0.0 K/mm3 04/18/19 05:50 0.0 K/mm3 04/18/19 05:50 Blast Cells # 0.0 K/mm3 04/18/19 05:50 WBC Morphology Not Reportable 04/18/19 05:50 Hypersegmented Neuts Not Reportable 04/18/19 05:50 Hyposegmented Neuts Not Reportable 04/18/19 05:50 Hypogranular Neuts Not Reportable 04/18/19 05:50 Not Reportable 04/18/19 05:50 Not Reportable 04/18/19 05:50 Not Reportable 04/18/19 05:50 Not Reportable 04/18/19 05:50 Not Reportable 04/18/19 05:50 Not Reportable 04/18/19 05:50 Consistent w auto 04/18/19 05:50 Not Reportable 04/18/19 05:50 Plt Clumps, EDTA Not Reportable 04/18/19 05:50 Not Reportable 04/18/19 05:50 Not Reportable 04/18/19 05:50 Not Reportable 04/18/19 05:50 Plt Morphology Comment Not Reportable 04/18/19 05:50 RBC Morphology Not Reportable 04/18/19 05:50 Dimorphic RBCs Not Reportable 04/18/19 05:50 Not Reportable 04/18/19 05:50 Not Reportable 04/18/19 05:50 1+ 04/18/19 05:50 1+ 04/18/19 05:50 Not Reportable 04/18/19 05:50 Not Reportable 04/18/19 05:50 Not Reportable 04/18/19 05:50 Not Reportable 04/18/19 05:50 Not Reportable 04/18/19 05:50 Few 04/18/19 05:50 Not Reportable 04/18/19 05:50 Rare 04/18/19 05:50 Not Reportable 04/18/19 05:50 Not Reportable 04/18/19 05:50 Not Reportable 04/18/19 05:50 Not Reportable 04/18/19 05:50 Not Reportable 04/18/19 05:50 Not Reportable 04/18/19 05:50 Not Reportable 04/18/19 05:50 Acanthocytes (Spur) Not Reportable 04/18/19 05:50 Rouleaux Not Reportable 04/18/19 05:50 Not Reportable 04/18/19 05:50 Not Reportable 04/18/19 05:50 Not Reportable 04/18/19 05:50 Not Reportable 04/18/19 05:50 Hem Pathologist Commnt No 04/18/19 05:50 Sodium 137 mmol/L (137-145) D 04/18/19 05:50 Potassium 4.7 mmol/L (3.6-5.0) 04/18/19 05:50 Chloride 92.4 mmol/L (98-107) L 04/18/19 05:50 Carbon Dioxide 25 mmol/L (22-30) 04/18/19 05:50 24 mmol/L 04/18/19 05:50 BUN 26 mg/dL (7-17) H 04/18/19 05:50 3.0 mg/dL (0.7-1.2) H 04/18/19 05:50 Estimated GFR 18 ml/min 04/18/19 05:50 9 % 04/18/19 05:50 Glucose 153 mg/dL (65-100) H 04/18/19 05:50 POC Glucose 156 (70-105) H 04/18/19 08:16 273 Mosm/kg 04/13/19 09:42 6.6 mg/dL (3.5-7.6) 04/13/19 09:42 Calcium 8.5 mg/dL (8.4-10.2) 04/18/19 05:50 Phosphorus 4.10 mg/dL (2.5-4.5) 04/13/19 09:42 Magnesium 2.30 mg/dL (1.7-2.3) 04/18/19 05:50 0.30 mg/dL (0.1-1.2) 04/11/19 20:30 AST 22 units/L (5-40) 04/11/19 20:30 ALT 8 units/L (7-56) 04/11/19 20:30 61 units/L (35-129) 04/11/19 20:30 0.026 ng/mL (0.00-0.029) 04/12/19 12:27 NT-Pro-B Natriuret Pep 3556 pg/mL (0-900) H 04/11/19 20:30 7.4 g/dL (6.3-8.2) 04/11/19 20:30 3.9 g/dL (3.9-5) 04/11/19 20:30 1.1 % 04/11/19 20:30 Triglycerides 49 mg/dL (2-149) 04/12/19 02:03 Cholesterol 152 mg/dL (50-199) 04/12/19 02:03 61 mg/dL (50-130) 04/12/19 02:03 84 mg/dL (40-59) H 04/12/19 02:03 1.80 % 04/12/19 02:03 TSH 1.290 mlU/mL (0.270-4.200) 04/13/19 09:42 Yellow (Yellow) 04/13/19 11:15 Cloudy (Clear) 04/13/19 11:15 5.0 (5.0-7.0) 04/13/19 11:15 Ur Specific [place] 1.014 (1.003-1.030) 04/13/19 11:15 <15 mg/dl mg/dL (Negative) 04/13/19 11:15 Neg mg/dL (Negative) 04/13/19 11:15 Neg mg/dL (Negative) 04/13/19 11:15 Neg (Negative) 04/13/19 11:15 Neg (Negative) 04/13/19 11:15 Neg (Negative) 04/13/19 11:15 < 2.0 mg/dL (<2.0) 04/13/19 11:15 Ur Leukocyte Esterase Neg (Negative) 04/13/19 11:15 1.0 /HPF (0.0-6.0) 04/13/19 11:15 < 1.0 /HPF (0.0-6.0) 04/13/19 11:15 U Epithel Cells (Auto) 3.0 /HPF (0-13.0) 04/13/19 11:15 2+ /HPF (Negative) 04/13/19 11:15 Few /HPF 04/13/19 11:15 235 Mosm/kg 04/12/19 17:38 48.1 mg/dL (0.1-20.0) H 04/13/19 11:15 13 mmol/L 04/13/19 11:15 Hepatitis A IgM Ab Non-reactive (NonReactive) 04/17/19 16:31 Hep Bs Antigen Non-reactive (Negative) 04/17/19 16:31 Hep B Core IgM Ab Non-reactive (NonReactive) 04/17/19 16:31 Non-reactive (NonReactive) 04/17/19 16:31 Active Medications - Current Medications Current Medications: Generic Name Dose Route Start Last Admin Trade Name Freq PRN Reason Stop Dose Admin Acetaminophen 650 mg 04/12/19 01:33 04/16/19 15:50 Tylenol PO 650 mg Q4H PRN Administration Pain MILD(1-3)/Fever >100.5/BASILIO Acetaminophen 1,000 mg 04/14/19 22:01 04/18/19 02:49 Tylenol PO 1,000 mg Q6H PRN Administration Pain , Severe (7-10) Albuterol 2.5 mg 04/12/19 03:42 04/14/19 23:33 Proventil IH 2.5 mg Q6HRT PRN Administration Congestion Apixaban 2.5 mg 04/19/19 10:00 Eliquis PO BID [facility] Protocol Aspirin 325 mg 04/13/19 10:00 04/17/19 16:16 Ecotrin PO Not Given QDAY [facility] Cholecalciferol 1,000 unit 04/12/19 10:00 04/17/19 10:33 Vitamin D3 PO 1,000 unit QDAY [facility] Administration Dextrose 50 ml 04/12/19 03:40 D50w (25gm) Syringe IV PRN PRN Hypoglycemia Epoetin [place] 20,000 unit 04/17/19 11:00 04/17/19 17:35 Procrit SUB-Q 20,000 unit MARGOT PRN Administration hemodialysis Hydralazine HCl 10 mg 04/12/19 01:39 04/17/19 10:33 Apresoline IV 10 mg Q6H PRN Administration FOR SBP > target Sodium Chloride 100 mls @ 999 mls/hr 04/18/19 11:00 Nacl 0.9% IV MARGOT PRN Hypotension Insulin Human Lispro 0 unit 04/12/19 07:30 04/18/19 14:47 Humalog SUB-Q Not Given ACHS [facility] Protocol Miscellaneous Medication 10 ml 04/12/19 10:00 Dorzolamide Hcl [Trusopt] OU BID [facility] Ondansetron HCl 4 mg 04/12/19 01:33 04/18/19 01:34 Zofran IV 4 mg Q8H PRN Administration Nausea And Vomiting Pravastatin Sodium 20 mg 04/12/19 22:00 04/17/19 21:15 Pravachol PO 20 mg QHS [facility] Administration Sodium Chloride 10 ml 04/12/19 10:00 04/17/19 21:15 Sodium Chloride Flush Syringe 10 Ml IV 10 ml BID [facility] Administration Tiotropium [place] 1 puff 04/12/19 10:00 04/18/19 10:44 Spiriva IH Not Given DAILY [facility] Nutrition/Malnutrition Assess - Dietary Evaluation Nutrition/Malnutrition Findings: Nutrition Notes Start: 04/12/19 15:58 Freq: Status: Active Protocol: Document 04/12/19 15:58 RM (Rec: 04/12/19 15:59 RM [id number]) Nutrition Notes Need for Assessment generated from: MD Order Initial or Follow up Brief Note Labs/Tests BG 115 Subjective/Other Information Consulted for DM diet education. Pt already familiar with diet. Nutrition Intervention Revisit per MD consult or patient Sign Off request:
[2019-04-18] MEDS: ECOTRIN PO SCH (16:51)
[2019-04-18] MEDS: VITAMIN D3 PO SCH (16:52)
[2019-04-18] MEDS: SODIUM CHLORIDE FLUSH SYRINGE 10 ML IV SCH (16:53)
[2019-04-19 06:09] LABS: Calcium 8.8 mg/dL (8.4-10.2)
[2019-04-19] MEDS: PRAVACHOL PO SCH ×2 (06:26→22:17)
[2019-04-19] MEDS: HumaLOG SUB-Q SCH ×5 (06:26→22:18)
[2019-04-19] MEDS: SODIUM CHLORIDE FLUSH SYRINGE 10 ML IV SCH ×3 (06:27→22:18)
[2019-04-19] MEDS: ELIQUIS PO SCH ×2 (09:33→22:17)
[2019-04-19] MEDS: VITAMIN D3 PO SCH (09:33)
[2019-04-19] MEDS: ECOTRIN PO SCH (09:33)
[2019-04-19] MEDS: TYLENOL PO PRN ×3 (10:09→23:47)
--- NOTE | 2019-04-19 10:18 | Progress Note ---
Assessment and Plan Assessment and plan: Patient is an 88-year-old female with PMHx of CHF, A. fib (on Eliquis), hypertension, DM type II, COPD (home O2 dependent) who presents to the ER with complaints of chest pain. Patient's niece at the bedside states that the patient went to see her final tester (Dr. Odonnell at [facility]) and her biomass technician today, she was told that everything was fine. Patient's niece also reported that the patient did not use her oxygen all day, she only used it when she got home, she went to bed and woke up in 2 hours complaining of chest pain and shortness of breath. Patient states that the chest pain is located in the left substernal chest area, causing shortness of breath, she denies radiation, she states that she had similar pain before, she had a pacemaker inserted but she never had any stent placement or any other cardiac procedures. Patient's was evaluated in the ER, her EKG showed no STEMI, her cardiac enzymes was negative, BNP was 3556, she had lower extremity edema and mild shortness of breath on exertion (1) Acute exacerbation of diastolic CHF Patient was given lasix on admission, but discontinued with worsening of renal function Patient is on dialysis Echo was done and ejection fraction is 50-60%, moderate to severe pulmonary hypertension Cardiology recommended conservative cardiac management (2) JOSE (acute kidney injury) - Renal function is worsening and nephrology consulted, discussed with Dr. Davis - Patient started on hemodialysis - F/u with nephrology Hyponatremia - Resolved (3) Chest pain - Cardiology consulted and recommended conservative cardiac management - resolved (4) Afib - On Eliquis (5) HTN (hypertension) - Cont antihypertensives (6) COPD (chronic obstructive pulmonary disease) - On Duonebs prn (7) Pulmonary HTN - continue to monitor (8) DVT prophylaxis - On Eliquis Disposition; continue inpatient care. will follow recommendation from Nephrology. History Interval history: Patient was seen and evaluated this morning, she was not happy about the transfer to [facility] unit. Hospitalist Physical - Physical exam Narrative exam: Not in cardiopulmonary distress. The patient appeared well nourished and normally developed. Vital signs as documented. Head exam is unremarkable. No scleral icterus . Neck is without jugular venous distension, thyromegaly, or carotid bruits. Lungs are clear to auscultation. Cardiac exam reveals regular rate and Rhythm. Abdominal exam reveals normal bowel sounds. Extremities are bilateral lower extremity edema. 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 No focal weakness. - Constitutional Vitals: Temp Pulse Resp BP Pulse Ox 99.1 F 65 20 146/66 100 04/19/19 07:30 04/19/19 07:30 04/19/19 07:30 04/19/19 07:30 04/19/19 07:30 General appearance: Present: no acute distress Results - Labs CBC & Chem 7: 04/18/19 05:50 04/19/19 05:16 Labs: Laboratory Last Values WBC 4.3 K/mm3 (4.5-11.0) L 04/18/19 05:50 RBC 2.70 M/mm3 (3.65-5.03) L 04/18/19 05:50 Hgb 8.1 gm/dl (10.1-14.3) L 04/18/19 05:50 Hct 25.1 % (30.3-42.9) L 04/18/19 05:50 MCV 93 fl (79-97) 04/18/19 05:50 MCH 30 pg (28-32) 04/18/19 05:50 MCHC 32 % (30-34) 04/18/19 05:50 RDW 18.4 % (13.2-15.2) H 04/18/19 05:50 Plt Count 187 K/mm3 (140-440) 04/18/19 05:50 Lymph % (Auto) 21.0 % (13.4-35.0) 04/12/19 02:07 [place] % (Auto) Customer Associate 04/18/19 05:50 Eos % (Auto) 5.9 % (0.0-4.3) H 04/12/19 02:07 Baso % (Auto) 0.6 % (0.0-1.8) 04/12/19 02:07 Lymph # 0.8 K/mm3 (1.2-5.4) L 04/12/19 02:07 [place] # 0.5 K/mm3 (0.0-0.8) 04/12/19 02:07 Eos # 0.2 K/mm3 (0.0-0.4) 04/12/19 02:07 Baso # 0.0 K/mm3 (0.0-0.1) 04/12/19 02:07 Add Manual Diff Complete 04/18/19 05:50 Total Counted 100 04/18/19 05:50 Seg Neutrophils % 59.6 % (40.0-70.0) 04/12/19 02:07 Seg Neuts % (Manual) 80.0 % (40.0-70.0) H 04/18/19 05:50 0 % 04/18/19 05:50 10.0 % (13.4-35.0) L 04/18/19 05:50 Reactive Lymphs % (Man) 0 % 04/18/19 05:50 8.0 % (0.0-7.3) H 04/18/19 05:50 1.0 % (0.0-4.3) 04/18/19 05:50 1.0 % (0.0-1.8) 04/18/19 05:50 0 % 04/18/19 05:50 0 % 04/18/19 05:50 0 % 04/18/19 05:50 0 % 04/18/19 05:50 Nucleated RBC % Not Reportable 04/18/19 05:50 Seg Neutrophils # 2.3 K/mm3 (1.8-7.7) 04/12/19 02:07 Seg Neutrophils # Man 3.4 K/mm3 (1.8-7.7) 04/18/19 05:50 Band Neutrophils # 0.0 K/mm3 04/18/19 05:50 0.4 K/mm3 (1.2-5.4) L 04/18/19 05:50 Abs React Lymphs (Man) 0.0 K/mm3 04/18/19 05:50 0.3 K/mm3 (0.0-0.8) 04/18/19 05:50 0.0 K/mm3 (0.0-0.4) 04/18/19 05:50 0.0 K/mm3 (0.0-0.1) 04/18/19 05:50 0.0 K/mm3 04/18/19 05:50 0.0 K/mm3 04/18/19 05:50 0.0 K/mm3 04/18/19 05:50 Blast Cells # 0.0 K/mm3 04/18/19 05:50 WBC Morphology Not Reportable 04/18/19 05:50 Hypersegmented Neuts Not Reportable 04/18/19 05:50 Hyposegmented Neuts Not Reportable 04/18/19 05:50 Hypogranular Neuts Not Reportable 04/18/19 05:50 Not Reportable 04/18/19 05:50 Not Reportable 04/18/19 05:50 Not Reportable 04/18/19 05:50 Not Reportable 04/18/19 05:50 Not Reportable 04/18/19 05:50 Not Reportable 04/18/19 05:50 Consistent w auto 04/18/19 05:50 Not Reportable 04/18/19 05:50 Plt Clumps, EDTA Not Reportable 04/18/19 05:50 Not Reportable 04/18/19 05:50 Not Reportable 04/18/19 05:50 Not Reportable 04/18/19 05:50 Plt Morphology Comment Not Reportable 04/18/19 05:50 RBC Morphology Not Reportable 04/18/19 05:50 Dimorphic RBCs Not Reportable 04/18/19 05:50 Not Reportable 04/18/19 05:50 Not Reportable 04/18/19 05:50 1+ 04/18/19 05:50 1+ 04/18/19 05:50 Not Reportable 04/18/19 05:50 Not Reportable 04/18/19 05:50 Not Reportable 04/18/19 05:50 Not Reportable 04/18/19 05:50 Not Reportable 04/18/19 05:50 Few 04/18/19 05:50 Not Reportable 04/18/19 05:50 Rare 04/18/19 05:50 Not Reportable 04/18/19 05:50 Not Reportable 04/18/19 05:50 Not Reportable 04/18/19 05:50 Not Reportable 04/18/19 05:50 Not Reportable 04/18/19 05:50 Not Reportable 04/18/19 05:50 Not Reportable 04/18/19 05:50 Acanthocytes (Spur) Not Reportable 04/18/19 05:50 Rouleaux Not Reportable 04/18/19 05:50 Not Reportable 04/18/19 05:50 Not Reportable 04/18/19 05:50 Not Reportable 04/18/19 05:50 Not Reportable 04/18/19 05:50 Hem Pathologist Commnt No 04/18/19 05:50 Sodium 135 mmol/L (137-145) L 04/19/19 05:16 Potassium 3.9 mmol/L (3.6-5.0) 04/19/19 05:16 Chloride 94.9 mmol/L (98-107) L 04/19/19 05:16 Carbon Dioxide 27 mmol/L (22-30) 04/19/19 05:16 17 mmol/L 04/19/19 05:16 BUN 15 mg/dL (7-17) 04/19/19 05:16 2.3 mg/dL (0.7-1.2) H 04/19/19 05:16 Estimated GFR 24 ml/min 04/19/19 05:16 7 % 04/19/19 05:16 Glucose 89 mg/dL (65-100) 04/19/19 05:16 POC Glucose 85 (70-105) 04/19/19 07:27 273 Mosm/kg 04/13/19 09:42 6.6 mg/dL (3.5-7.6) 04/13/19 09:42 Calcium 8.8 mg/dL (8.4-10.2) 04/19/19 05:16 Phosphorus 4.10 mg/dL (2.5-4.5) 04/13/19 09:42 Magnesium 2.30 mg/dL (1.7-2.3) 04/18/19 05:50 0.30 mg/dL (0.1-1.2) 04/11/19 20:30 AST 22 units/L (5-40) 04/11/19 20:30 ALT 8 units/L (7-56) 04/11/19 20:30 61 units/L (35-129) 04/11/19 20:30 0.026 ng/mL (0.00-0.029) 04/12/19 12:27 NT-Pro-B Natriuret Pep 3556 pg/mL (0-900) H 04/11/19 20:30 7.4 g/dL (6.3-8.2) 04/11/19 20:30 3.9 g/dL (3.9-5) 04/11/19 20:30 1.1 % 04/11/19 20:30 Triglycerides 49 mg/dL (2-149) 04/12/19 02:03 Cholesterol 152 mg/dL (50-199) 04/12/19 02:03 61 mg/dL (50-130) 04/12/19 02:03 84 mg/dL (40-59) H 04/12/19 02:03 1.80 % 04/12/19 02:03 TSH 1.290 mlU/mL (0.270-4.200) 04/13/19 09:42 Yellow (Yellow) 04/13/19 11:15 Cloudy (Clear) 04/13/19 11:15 5.0 (5.0-7.0) 04/13/19 11:15 Ur Specific [place] 1.014 (1.003-1.030) 04/13/19 11:15 <15 mg/dl mg/dL (Negative) 04/13/19 11:15 Neg mg/dL (Negative) 04/13/19 11:15 Neg mg/dL (Negative) 04/13/19 11:15 Neg (Negative) 04/13/19 11:15 Neg (Negative) 04/13/19 11:15 Neg (Negative) 04/13/19 11:15 < 2.0 mg/dL (<2.0) 04/13/19 11:15 Ur Leukocyte Esterase Neg (Negative) 04/13/19 11:15 1.0 /HPF (0.0-6.0) 04/13/19 11:15 < 1.0 /HPF (0.0-6.0) 04/13/19 11:15 U Epithel Cells (Auto) 3.0 /HPF (0-13.0) 04/13/19 11:15 2+ /HPF (Negative) 04/13/19 11:15 Few /HPF 04/13/19 11:15 235 Mosm/kg 04/12/19 17:38 48.1 mg/dL (0.1-20.0) H 04/13/19 11:15 13 mmol/L 04/13/19 11:15 Hepatitis A IgM Ab Non-reactive (NonReactive) 04/17/19 16:31 Hep Bs Antigen Non-reactive (Negative) 04/17/19 16:31 Hep B Core IgM Ab Non-reactive (NonReactive) 04/17/19 16:31 Non-reactive (NonReactive) 04/17/19 16:31 Active Medications - Current Medications Current Medications: Generic Name Dose Route Start Last Admin Trade Name Freq PRN Reason Stop Dose Admin Acetaminophen 650 mg 04/12/19 01:33 04/16/19 15:50 Tylenol PO 650 mg Q4H PRN Administration Pain MILD(1-3)/Fever >100.5/BASILIO Acetaminophen 1,000 mg 04/14/19 22:01 04/19/19 10:09 Tylenol PO 1,000 mg Q6H PRN Administration Pain , Severe (7-10) Albuterol 2.5 mg 04/12/19 03:42 04/14/19 23:33 Proventil IH 2.5 mg Q6HRT PRN Administration Congestion Apixaban 2.5 mg 04/19/19 10:00 04/19/19 09:33 Eliquis PO 2.5 mg BID [facility] Administration Protocol Aspirin 325 mg 04/13/19 10:00 04/19/19 09:33 Ecotrin PO 325 mg QDAY TANK Administration Cholecalciferol 1,000 unit 04/12/19 10:00 04/19/19 09:33 Vitamin D3 PO 1,000 unit QDAY TANK Administration Dextrose 50 ml 04/12/19 03:40 D50w (25gm) Syringe IV PRN PRN Hypoglycemia Epoetin Misael 20,000 unit 04/17/19 11:00 04/18/19 13:00 Procrit SUB-Q 20,000 unit MARGOT PRN Administration hemodialysis Hydralazine HCl 10 mg 04/12/19 01:39 04/17/19 10:33 Apresoline IV 10 mg Q6H PRN Administration FOR SBP > target Sodium Chloride 100 mls @ 999 mls/hr 04/18/19 11:00 Nacl 0.9% IV MAROGT PRN Hypotension Insulin Human Lispro 0 unit 04/12/19 07:30 04/19/19 07:26 Humalog SUB-Q Not Given ACHS [facility] Protocol Miscellaneous Medication 10 ml 04/12/19 10:00 Dorzolamide Hcl [Trusopt] OU BID TANK Ondansetron HCl 4 mg 04/12/19 01:33 04/18/19 01:34 Zofran IV 4 mg Q8H PRN Administration Nausea And Vomiting Pravastatin Sodium 20 mg 04/12/19 22:00 04/19/19 06:26 Pravachol PO Not Given QHS TANK Sodium Chloride 10 ml 04/12/19 10:00 04/19/19 09:34 Sodium Chloride Flush Syringe 10 Ml IV 10 ml BID TANK Administration Tiotropium [place] 1 puff 04/12/19 10:00 04/18/19 10:44 Spiriva IH Not Given DAILY TANK Nutrition/Malnutrition Assess - Dietary Evaluation Nutrition/Malnutrition Findings: Nutrition Notes Start: 04/12/19 15:58 Freq: Status: Active Protocol: Document 04/18/19 16:24 RM (Rec: 04/18/19 16:32 RM [id number]) Nutrition Notes Need for Assessment generated from: LOS Initial or Follow up Assessment Current Diagnosis Acute Kidney Injury,COPD, Diabetes,Hypertension,Heart Failure Current Diet Renal Labs/Tests Reviewed Pertinent Medications Reviewed Height 5 ft 4 in Weight 67.8 kg [place] Body Weight (kg) 54.54 BMI 25.6 Subjective/Other Information Screened for LOS. Pt and pt nurse in room at time of visit. Pt stated that her appetite is poor. However nurse stated that pt has been eating 50 to 100% of her meals . #1 Nutrition Diagnosis Inadequate oral intake Etiology decreased appetite As Evidenced by Signs and Symptoms pt nurse statement that pt eats 50 to 100% of her meals. Is patient on ventilator? No Is Patient Ambulatory and/or Out of Bed No REE-([facility]-confined to bed) 1319.232 Calculation Used for Recommendations [facility] Additional Notes Protein Needs: 68-88g (1-1.3g/ kg) Fluid Needs: 1 ml/kcal Nutrition Intervention Change Diet Order: Continue current Add Supplement/Snack (indicate name/kcal Glucerna 1 daily /protein ) Provides kCal: 220 Provides Protein (gm) 10 Goal #1 Meet at least 75% of calorie and protein needs via PO and ONS intakes Anticipated Discharge Needs: Unable to determine at this time Follow-Up By: 04/23/19 Additional Comments Follow for PO and ONS intakes
[2019-04-19] MEDS: SPIRIVA IH SCH (11:57)
--- NOTE | 2019-04-19 12:08 | Progress Note ---
Assessment and Plan - Patient Problems (1) Shortness of breath Current Visit: Yes Status: Acute Plan to address problem: Shortness of breath has improved. She has a history of heart failure with preserved ejection fraction, currently well compensated. Echocardiogram on this presentation mostly showed evidence of cor pulmonale with dilated right heart chambers and severe pulmonary hypertension with pulmonary artery systolic pressure of 66. Left ventricular chamber size and systolic function were normal with ejection fraction of 60-65%. Subjective Date of service: 04/19/19 Principal diagnosis: SOB and CP Interval history: Patient is comfortable, no new cardiac complaints. Objective Vital Signs Temp Pulse Pulse Resp BP BP Pulse Ox 04/19/19 10:00 64 100 04/19/19 07:30 99.1 F 65 20 146/66 100 04/19/19 03:02 98.0 F 66 18 124/69 94 04/19/19 03:00 65 124/69 96 04/18/19 19:59 98.3 F 65 18 127/56 95 04/18/19 19:44 97 04/18/19 14:59 98.9 F 65 20 125/53 93 04/18/19 13:30 98.4 F 65 18 147/82 04/18/19 13:15 66 150/70 04/18/19 13:00 65 152/71 04/18/19 12:45 65 147/69 04/18/19 12:30 64 156/74 04/18/19 12:15 64 143/71 - Physical Examination General: No Apparent Distress HEENT: Positive: PERRL Neck: Positive: trachea midline Cardiac: Positive: Reg Rate and Rhythm Lungs: Positive: Decreased Breath Sounds Neuro: Positive: Grossly Intact Abdomen: Positive: Soft Skin: Positive: Clear Extremities: Absent: edema - Labs and Meds Comprehensive Metabolic Panel 04/19/19 Range/Units 05:16 Sodium 135 L (137-145) mmol/L Potassium 3.9 (3.6-5.0) mmol/L Chloride 94.9 L (98-107) mmol/L Carbon Dioxide 27 (22-30) mmol/L BUN 15 (7-17) mg/dL Creatinine 2.3 H (0.7-1.2) mg/dL Glucose 89 (65-100) mg/dL Calcium 8.8 (8.4-10.2) mg/dL
[2019-04-19] MEDS ORDERED: NACL 0.9% 100 ML IV PRN (12:30)
--- NOTE | 2019-04-19 16:21 | Progress Note ---
Assessment and Plan 1. Acute kidney injury: JOSE likely from combination of contrast induced injury and vasomotor insult from BP fluctuation. Renal US negative for hydro. Patient was started on hemodialysis on 04/17/2019 due to significant decline in renal function continue and uremic symptoms. Last dialyzed yesterday. Monitor renal function. Renal prognosis is guarded. Avoid nephrotoxic agents. 2. FEN: Hyperkalemia, improved. Hyponatremia, improved. Volume overload, Isolated UF today. Monitor lytes. 3. HFpEF: Followed by Cards. 4. Paroxysmal A.fib. 5. HTN: Monitor BP. 6. Anemia: POA. Epogen with HD. Subjective Date of service: 04/19/19 Principal diagnosis: SOB and CP Interval history: Patient was seen and examined at the bedside. Doing ok. Objective - Vital Signs Vital signs: Vital Signs - 12hr 04/19/19 04/19/19 04/19/19 07:30 10:00 13:00 Temperature 99.1 F 99.1 F Pulse Rate 65 65 Pulse Rate [ 64 Right Radial] Respiratory 20 20 Rate Blood Pressure 146/66 144/72 O2 Sat by Pulse 100 100 Oximetry 04/19/19 04/19/19 04/19/19 13:10 13:30 13:45 Temperature Pulse Rate 65 65 65 Pulse Rate [ Right Radial] Respiratory Rate Blood Pressure 132/72 128/68 110/57 O2 Sat by Pulse Oximetry 04/19/19 04/19/19 04/19/19 14:00 14:15 14:30 Temperature Pulse Rate 65 65 65 Pulse Rate [ Right Radial] Respiratory Rate Blood Pressure 112/62 162/90 167/90 O2 Sat by Pulse Oximetry - General Appearance General appearance: well-developed, well-nourished, appears stated age, other (no distress, R IJ tunnel catheter) EENT: ATNC, PERRL, hearing intact, vision intact Neck: supple Respiratory: Present: Clear to Ascultation Cardiology: S1S2, no murmurs Gastrointestinal: normoactive bowel sounds, no tenderness, no distended Integumentary: no rash, warm and dry Neurologic: no focal deficit, no asterixis, confused, disoriented Musculoskeletal: other (1+ edema of both LEs noted) Psychiatric: cooperative - Lab 04/18/19 05:50 04/20/19 05:21 Most recent lab results Calcium 8.8 mg/dL (8.4-10.2) 04/19/19 05:16 Phosphorus 4.10 mg/dL (2.5-4.5) 04/13/19 09:42 Magnesium 2.30 mg/dL (1.7-2.3) 04/18/19 05:50 48.1 mg/dL (0.1-20.0) H 04/13/19 11:15 13 mmol/L 04/13/19 11:15 Medications & Allergies - Medications Allergies/Adverse Reactions: Allergies No Known Allergies Allergy (Unverified 04/11/19 19:59) Home Medications: Home Medications Medication Instructions Recorded Confirmed Last Taken Type Albuterol Sulfate [Proair 90 mcg IH PRN PRN 04/12/19 04/12/19 Unknown History Respiclick] Apixaban [Eliquis] 2.5 mg PO BID 04/12/19 04/12/19 Unknown History Cholecalciferol Vit D3 [Vitamin D3 1,000 unit PO QDAY 04/12/19 04/12/19 Unknown History 1,000 UNIT TAB] Dorzolamide HCl [Trusopt] 10 ml OU BID 04/12/19 04/12/19 Unknown History Furosemide [Lasix TAB] 80 mg PO BID 04/12/19 04/12/19 Unknown History Lisinopril [Zestril] 40 mg PO QDAY 04/12/19 04/12/19 Unknown History Pravastatin [Pravachol] 20 mg PO DAILY 04/12/19 04/12/19 Unknown History Tiotropium [place] [Spiriva] 18 mcg IH DAILY 04/12/19 04/12/19 Unknown History metFORMIN [Glucophage] 500 mg PO BID 04/12/19 04/12/19 Unknown History Active Medications: Generic Name Dose Route Start Last Admin Trade Name Freq PRN Reason Stop Dose Admin Acetaminophen 650 mg 04/12/19 01:33 04/16/19 15:50 Tylenol PO 650 mg Q4H PRN Administration Pain MILD(1-3)/Fever >100.5/BASILIO Acetaminophen 1,000 mg 04/14/19 22:01 04/19/19 10:09 Tylenol PO 1,000 mg Q6H PRN Administration Pain , Severe (7-10) Albuterol 2.5 mg 04/12/19 03:42 04/14/19 23:33 Proventil IH 2.5 mg Q6HRT PRN Administration Congestion Apixaban 2.5 mg 04/19/19 10:00 04/19/19 09:33 Eliquis PO 2.5 mg BID TANK Administration Protocol Aspirin 325 mg 04/13/19 10:00 04/19/19 09:33 Ecotrin PO 325 mg QDAY TANK Administration Cholecalciferol 1,000 unit 04/12/19 10:00 04/19/19 09:33 Vitamin D3 PO 1,000 unit QDAY TANK Administration Dextrose 50 ml 04/12/19 03:40 D50w (25gm) Syringe IV PRN PRN Hypoglycemia Epoetin [place] 20,000 unit 04/17/19 11:00 04/18/19 13:00 Procrit SUB-Q 20,000 unit MARGOT PRN Administration hemodialysis Hydralazine HCl 10 mg 04/12/19 01:39 04/17/19 10:33 Apresoline IV 10 mg Q6H PRN Administration FOR SBP > target Sodium Chloride 100 mls @ 999 mls/hr 04/18/19 11:00 Nacl 0.9% IV MARGOT PRN Hypotension Sodium Chloride 100 mls @ 999 mls/hr 04/19/19 12:30 Nacl 0.9% IV MARGOT PRN Hypotension Insulin Human Lispro 0 unit 04/12/19 07:30 04/19/19 11:33 Humalog SUB-Q 1 unit ACHS [facility] Administration Protocol Miscellaneous Medication 10 ml 04/12/19 10:00 Dorzolamide Hcl [Trusopt] OU BID TANK Ondansetron HCl 4 mg 04/12/19 01:33 04/18/19 01:34 Zofran IV 4 mg Q8H PRN Administration Nausea And Vomiting Pravastatin Sodium 20 mg 04/12/19 22:00 04/19/19 06:26 Pravachol PO Not Given QHS TANK Sodium Chloride 10 ml 04/12/19 10:00 04/19/19 09:34 Sodium Chloride Flush Syringe 10 Ml IV 10 ml BID TANK Administration Tiotropium [place] 1 puff 04/12/19 10:00 04/19/19 11:57 Spiriva IH Not Given DAILY [facility]
[2019-04-19] MEDS: ZOFRAN IV PRN (23:47)
[2019-04-20 05:57] LABS: Calcium 8.8 mg/dL (8.4-10.2)
--- NOTE | 2019-04-20 07:30 | Progress Note ---
Assessment and Plan Assessment and plan: Patient is an 88-year-old female with PMHx of CHF, A. fib (on Eliquis), hypertension, DM type II, COPD (home O2 dependent) who presents to the ER with complaints of chest pain. Patient's niece at the bedside states that the patient went to see her craft demonstrator (Dr. 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 Patient's niece also reported that the patient did not use her oxygen all day, she only used it when she got home, she went to bed and woke up in 2 hours complaining of chest pain and shortness of breath. Patient states that the chest pain is located in the left substernal chest area, causing shortness of breath, she denies radiation, she states that she had similar pain before, she had a pacemaker inserted but she never had any stent placement or any other cardiac procedures. 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 Davis - Patient started on hemodialysis - F/u with nephrology Hyponatremia - Resolved Chest pain - Cardiology consulted and recommended conservative cardiac management - resolved Afib - On Eliquis HTN (hypertension) - Cont antihypertensives COPD (chronic obstructive pulmonary disease) - On Duonebs prn Pulmonary HTN - continue to monitor DVT prophylaxis - On Eliquis Disposition; continue inpatient care. will follow recommendation from Nephrology. History Interval history: Review of systems Constitutional: No fevers, no malaise, no joint pains CVS: No chest pain, no orthopnea, no dyspnea on exertion, no pedal edema GI: No abdominal pain, no diarrhea, no vomiting, no constipation Respiratory: No shortness of breath, no wheezing, no coughing Hospitalist Physical - Physical exam Narrative exam: General.: Appears well, no distress, nontoxic HEENT: Moist mucous membranes, extraocular muscles intact, no lymphadenopathy Neck: supple Cardiac: S1-S2 heard Lungs: clear to auscultation bilaterally Abdomen: soft , nontender, nondistended, bowel sounds positive Extremities: no edema clubbing or cyanosis Skin: no rash or lesions Neurologic: no gross focal deficits Psych: calm, and cooperative - Constitutional Vitals: Temp Pulse Resp BP Pulse Ox 97.4 F L 65 17 164/75 100 04/20/19 01:47 04/20/19 01:47 04/20/19 01:47 04/20/19 01:47 04/20/19 01:47 General appearance: Present: no acute distress Results - Labs CBC & Chem 7: 04/21/19 03:53 04/22/19 05:43 Labs: Laboratory Last Values WBC 4.3 K/mm3 (4.5-11.0) L 04/18/19 05:50 RBC 2.70 M/mm3 (3.65-5.03) L 04/18/19 05:50 Hgb 8.1 gm/dl (10.1-14.3) L 04/18/19 05:50 Hct 25.1 % (30.3-42.9) L 04/18/19 05:50 MCV 93 fl (79-97) 04/18/19 05:50 MCH 30 pg (28-32) 04/18/19 05:50 MCHC 32 % (30-34) 04/18/19 05:50 RDW 18.4 % (13.2-15.2) H 04/18/19 05:50 Plt Count 187 K/mm3 (140-440) 04/18/19 05:50 Lymph % (Auto) 21.0 % (13.4-35.0) 04/12/19 02:07 [place] % (Auto) Regional Sales Engineer 04/18/19 05:50 Eos % (Auto) 5.9 % (0.0-4.3) H 04/12/19 02:07 Baso % (Auto) 0.6 % (0.0-1.8) 04/12/19 02:07 Lymph # 0.8 K/mm3 (1.2-5.4) L 04/12/19 02:07 [place] # 0.5 K/mm3 (0.0-0.8) 04/12/19 02:07 Eos # 0.2 K/mm3 (0.0-0.4) 04/12/19 02:07 Baso # 0.0 K/mm3 (0.0-0.1) 04/12/19 02:07 Add Manual Diff Complete 04/18/19 05:50 Total Counted 100 04/18/19 05:50 Seg Neutrophils % 59.6 % (40.0-70.0) 04/12/19 02:07 Seg Neuts % (Manual) 80.0 % (40.0-70.0) H 04/18/19 05:50 0 % 04/18/19 05:50 10.0 % (13.4-35.0) L 04/18/19 05:50 Reactive Lymphs % (Man) 0 % 04/18/19 05:50 8.0 % (0.0-7.3) H 04/18/19 05:50 1.0 % (0.0-4.3) 04/18/19 05:50 1.0 % (0.0-1.8) 04/18/19 05:50 0 % 04/18/19 05:50 0 % 04/18/19 05:50 0 % 04/18/19 05:50 0 % 04/18/19 05:50 Nucleated RBC % Not Reportable 04/18/19 05:50 Seg Neutrophils # 2.3 K/mm3 (1.8-7.7) 04/12/19 02:07 Seg Neutrophils # Man 3.4 K/mm3 (1.8-7.7) 04/18/19 05:50 Band Neutrophils # 0.0 K/mm3 04/18/19 05:50 0.4 K/mm3 (1.2-5.4) L 04/18/19 05:50 Abs React Lymphs (Man) 0.0 K/mm3 04/18/19 05:50 0.3 K/mm3 (0.0-0.8) 04/18/19 05:50 0.0 K/mm3 (0.0-0.4) 04/18/19 05:50 0.0 K/mm3 (0.0-0.1) 04/18/19 05:50 0.0 K/mm3 04/18/19 05:50 0.0 K/mm3 04/18/19 05:50 0.0 K/mm3 04/18/19 05:50 Blast Cells # 0.0 K/mm3 04/18/19 05:50 WBC Morphology Not Reportable 04/18/19 05:50 Hypersegmented Neuts Not Reportable 04/18/19 05:50 Hyposegmented Neuts Not Reportable 04/18/19 05:50 Hypogranular Neuts Not Reportable 04/18/19 05:50 Not Reportable 04/18/19 05:50 Not Reportable 04/18/19 05:50 Not Reportable 04/18/19 05:50 Not Reportable 04/18/19 05:50 Not Reportable 04/18/19 05:50 Not Reportable 04/18/19 05:50 Consistent w auto 04/18/19 05:50 Not Reportable 04/18/19 05:50 Plt Clumps, EDTA Not Reportable 04/18/19 05:50 Not Reportable 04/18/19 05:50 Not Reportable 04/18/19 05:50 Not Reportable 04/18/19 05:50 Plt Morphology Comment Not Reportable 04/18/19 05:50 RBC Morphology Not Reportable 04/18/19 05:50 Dimorphic RBCs Not Reportable 04/18/19 05:50 Not Reportable 04/18/19 05:50 Not Reportable 04/18/19 05:50 1+ 04/18/19 05:50 1+ 04/18/19 05:50 Not Reportable 04/18/19 05:50 Not Reportable 04/18/19 05:50 Not Reportable 04/18/19 05:50 Not Reportable 04/18/19 05:50 Not Reportable 04/18/19 05:50 Few 04/18/19 05:50 Not Reportable 04/18/19 05:50 Rare 04/18/19 05:50 Not Reportable 04/18/19 05:50 Not Reportable 04/18/19 05:50 Not Reportable 04/18/19 05:50 Not Reportable 04/18/19 05:50 Not Reportable 04/18/19 05:50 Not Reportable 04/18/19 05:50 Not Reportable 04/18/19 05:50 Acanthocytes (Spur) Not Reportable 04/18/19 05:50 Rouleaux Not Reportable 04/18/19 05:50 Not Reportable 04/18/19 05:50 Not Reportable 04/18/19 05:50 Not Reportable 04/18/19 05:50 Not Reportable 04/18/19 05:50 Hem Pathologist Commnt No 04/18/19 05:50 Sodium 132 mmol/L (137-145) L 04/20/19 05:21 Potassium 4.0 mmol/L (3.6-5.0) 04/20/19 05:21 Chloride 90.0 mmol/L (98-107) L 04/20/19 05:21 Carbon Dioxide 27 mmol/L (22-30) 04/20/19 05:21 19 mmol/L 04/20/19 05:21 BUN 22 mg/dL (7-17) H 04/20/19 05:21 2.5 mg/dL (0.7-1.2) H 04/20/19 05:21 Estimated GFR 22 ml/min 04/20/19 05:21 9 % 04/20/19 05:21 Glucose 153 mg/dL (65-100) H 04/20/19 05:21 POC Glucose 257 (70-105) H 04/19/19 21:33 273 Mosm/kg 04/13/19 09:42 6.6 mg/dL (3.5-7.6) 04/13/19 09:42 Calcium 8.8 mg/dL (8.4-10.2) 04/20/19 05:21 Phosphorus 4.10 mg/dL (2.5-4.5) 04/13/19 09:42 Magnesium 2.30 mg/dL (1.7-2.3) 04/18/19 05:50 0.30 mg/dL (0.1-1.2) 04/11/19 20:30 AST 22 units/L (5-40) 04/11/19 20:30 ALT 8 units/L (7-56) 04/11/19 20:30 61 units/L (35-129) 04/11/19 20:30 0.026 ng/mL (0.00-0.029) 04/12/19 12:27 NT-Pro-B Natriuret Pep 3556 pg/mL (0-900) H 04/11/19 20:30 7.4 g/dL (6.3-8.2) 04/11/19 20:30 3.9 g/dL (3.9-5) 04/11/19 20:30 1.1 % 04/11/19 20:30 Triglycerides 49 mg/dL (2-149) 04/12/19 02:03 Cholesterol 152 mg/dL (50-199) 04/12/19 02:03 61 mg/dL (50-130) 04/12/19 02:03 84 mg/dL (40-59) H 04/12/19 02:03 1.80 % 04/12/19 02:03 TSH 1.290 mlU/mL (0.270-4.200) 04/13/19 09:42 Yellow (Yellow) 04/13/19 11:15 Cloudy (Clear) 04/13/19 11:15 5.0 (5.0-7.0) 04/13/19 11:15 Ur Specific [place] 1.014 (1.003-1.030) 04/13/19 11:15 <15 mg/dl mg/dL (Negative) 04/13/19 11:15 Neg mg/dL (Negative) 04/13/19 11:15 Neg mg/dL (Negative) 04/13/19 11:15 Neg (Negative) 04/13/19 11:15 Neg (Negative) 04/13/19 11:15 Neg (Negative) 04/13/19 11:15 < 2.0 mg/dL (<2.0) 04/13/19 11:15 Ur Leukocyte Esterase Neg (Negative) 04/13/19 11:15 1.0 /HPF (0.0-6.0) 04/13/19 11:15 < 1.0 /HPF (0.0-6.0) 04/13/19 11:15 U Epithel Cells (Auto) 3.0 /HPF (0-13.0) 04/13/19 11:15 2+ /HPF (Negative) 04/13/19 11:15 Few /HPF 04/13/19 11:15 235 Mosm/kg 04/12/19 17:38 48.1 mg/dL (0.1-20.0) H 04/13/19 11:15 13 mmol/L 04/13/19 11:15 Hepatitis A IgM Ab Non-reactive (NonReactive) 04/17/19 16:31 Hep Bs Antigen Non-reactive (Negative) 04/17/19 16:31 Hep B Core IgM Ab Non-reactive (NonReactive) 04/17/19 16:31 Non-reactive (NonReactive) 04/17/19 16:31 Active Medications - Current Medications Current Medications: Generic Name Dose Route Start Last Admin Trade Name Freq PRN Reason Stop Dose Admin Acetaminophen 650 mg 04/12/19 01:33 04/16/19 15:50 Tylenol PO 650 mg Q4H PRN Administration Pain MILD(1-3)/Fever >100.5/BASILIO Acetaminophen 1,000 mg 04/14/19 22:01 04/19/19 23:47 Tylenol PO 1,000 mg Q6H PRN Administration Pain , Severe (7-10) Albuterol 2.5 mg 04/12/19 03:42 04/14/19 23:33 Proventil IH 2.5 mg Q6HRT PRN Administration Congestion Apixaban 2.5 mg 04/19/19 10:00 04/19/19 22:17 Eliquis PO 2.5 mg BID TANK Administration Protocol Aspirin 325 mg 04/13/19 10:00 04/19/19 09:33 Ecotrin PO 325 mg QDAY TANK Administration Cholecalciferol 1,000 unit 04/12/19 10:00 04/19/19 09:33 Vitamin D3 PO 1,000 unit QDAY TANK Administration Dextrose 50 ml 04/12/19 03:40 D50w (25gm) Syringe IV PRN PRN Hypoglycemia Epoetin Misael 20,000 unit 04/17/19 11:00 04/18/19 13:00 Procrit SUB-Q 20,000 unit MARGOT PRN Administration hemodialysis Hydralazine HCl 10 mg 04/12/19 01:39 04/17/19 10:33 Apresoline IV 10 mg Q6H PRN Administration FOR SBP > target Sodium Chloride 100 mls @ 999 mls/hr 04/18/19 11:00 Nacl 0.9% IV MARGOT PRN Hypotension Sodium Chloride 100 mls @ 999 mls/hr 04/19/19 12:30 Nacl 0.9% IV MARGOT PRN Hypotension Insulin Human Lispro 0 unit 04/12/19 07:30 06/08/19 22:18 Humalog SUB-Q 3 unit ACHS TANK Administration Protocol Miscellaneous Medication 10 ml 04/12/19 10:00 Dorzolamide Hcl [Trusopt] OU BID TANK Ondansetron HCl 4 mg 04/12/19 01:33 04/19/19 23:47 Zofran IV 4 mg Q8H PRN Administration Nausea And Vomiting Pravastatin Sodium 20 mg 04/12/19 22:00 04/19/19 22:17 Pravachol PO 20 mg QHS TANK Administration Sodium Chloride 10 ml 04/12/19 10:00 04/19/19 22:18 Sodium Chloride Flush Syringe 10 Ml IV 10 ml BID TANK Administration Tiotropium [place] 1 puff 04/12/19 10:00 04/19/19 11:57 Spiriva IH Not Given DAILY [facility] Nutrition/Malnutrition Assess - Dietary Evaluation Nutrition/Malnutrition Findings: Nutrition Notes Start: 04/12/19 15:58 Freq: Status: Active Protocol: Document 04/18/19 16:24 RM (Rec: 04/18/19 16:32 RM [id number]) Nutrition Notes Need for Assessment generated from: LOS Initial or Follow up Assessment Current Diagnosis Acute Kidney Injury,COPD, Diabetes,Hypertension,Heart Failure Current Diet Renal Labs/Tests Reviewed Pertinent Medications Reviewed Height 5 ft 4 in Weight 67.8 kg [employer] Body Weight (kg) 54.54 BMI 25.6 Subjective/Other Information Screened for LOS. Pt and pt nurse in room at time of visit. Pt stated that her appetite is poor. However nurse stated that pt has been eating 50 to 100% of her meals . #1 Nutrition Diagnosis Inadequate oral intake Etiology decreased appetite As Evidenced by Signs and Symptoms pt nurse statement that pt eats 50 to 100% of her meals. Is patient on ventilator? No Is Patient Ambulatory and/or Out of Bed No REE-([facility]-confined to bed) 1647.263 Calculation Used for Recommendations [facility] Additional Notes Protein Needs: 68-88g (1-1.3g/ kg) Fluid Needs: 1 ml/kcal Nutrition Intervention Change Diet Order: Continue current Add Supplement/Snack (indicate name/kcal Glucerna 1 daily /protein ) Provides kCal: 220 Provides Protein (gm) 10 Goal #1 Meet at least 75% of calorie and protein needs via PO and ONS intakes Anticipated Discharge Needs: Unable to determine at this time Follow-Up By: 04/23/19 Additional Comments Follow for PO and ONS intakes
[2019-04-20] MEDS: HumaLOG SUB-Q SCH ×4 (07:37→21:53)
[2019-04-20] MEDS: SPIRIVA IH SCH (09:28)
[2019-04-20] MEDS: SODIUM CHLORIDE FLUSH SYRINGE 10 ML IV SCH ×2 (09:40→21:53)
[2019-04-20] MEDS: ECOTRIN PO SCH (09:40)
[2019-04-20] MEDS: VITAMIN D3 PO SCH (09:40)
[2019-04-20] MEDS: ELIQUIS PO SCH ×2 (09:40→21:58)
--- NOTE | 2019-04-20 12:36 | Progress Note ---
Assessment and Plan 1. Acute kidney injury: JOSE likely from combination of contrast induced injury and vasomotor insult from BP fluctuation. Renal US negative for hydro. Patient was started on hemodialysis on 04/17/2019 due to significant decline in renal function continue and uremic symptoms. Last dialyzed 2 days ago and received Isolated UF yesterday. Monitor renal function. Renal prognosis is guarded. Avoid nephrotoxic agents. 2. FEN: Hyperkalemia, improved. Hyponatremia, improved. Volume overload, UF with HD. Monitor lytes. 3. HFpEF: Followed by Cards. 4. Paroxysmal A.fib. 5. HTN: Monitor BP. 6. Anemia: POA. Epogen with HD. Subjective Date of service: 04/20/19 Principal diagnosis: SOB and CP Interval history: Patient was seen and examined at the bedside. Doing ok. Objective - Vital Signs Vital signs: Vital Signs - 12hr 04/20/19 04/20/19 04/20/19 00:47 01:47 01:48 Temperature 97.4 F L Pulse Rate 65 65 Pulse Rate [ From Monitor] Respiratory 18 17 Rate Blood Pressure 164/75 Blood Pressure [Left] O2 Sat by Pulse 100 100 Oximetry 04/20/19 04/20/19 04/20/19 07:44 08:38 09:44 Temperature 97.7 F Pulse Rate Pulse Rate [ From Monitor] Respiratory Rate Blood Pressure 206/87 Blood Pressure 171/74 119/53 [Left] O2 Sat by Pulse Oximetry 04/20/19 04/20/19 09:49 10:00 Temperature Pulse Rate Pulse Rate [ 65 From Monitor] Respiratory Rate Blood Pressure Blood Pressure [Left] O2 Sat by Pulse 97 97 Oximetry - General Appearance General appearance: well-developed, well-nourished, appears stated age, other (no distress, R IJ tunnel catheter) EENT: ATNC, PERRL, hearing intact, vision intact Neck: supple Respiratory: Present: Clear to Ascultation Cardiology: regular, S1S2, no murmurs Gastrointestinal: normoactive bowel sounds, no tenderness, no distended Integumentary: no rash, warm and dry Neurologic: no focal deficit, no asterixis, confused, disoriented Musculoskeletal: other (1+ edema of both LEs noted) - Lab 04/18/19 05:50 04/20/19 05:21 Most recent lab results Calcium 8.8 mg/dL (8.4-10.2) 04/20/19 05:21 Phosphorus 4.10 mg/dL (2.5-4.5) 04/13/19 09:42 Magnesium 2.30 mg/dL (1.7-2.3) 04/18/19 05:50 48.1 mg/dL (0.1-20.0) H 04/13/19 11:15 13 mmol/L 04/13/19 11:15 Medications & Allergies - Medications Allergies/Adverse Reactions: Allergies No Known Allergies Allergy (Unverified 04/11/19 19:59) Home Medications: Home Medications Medication Instructions Recorded Confirmed Last Taken Type Albuterol Sulfate [Proair 90 mcg IH PRN PRN 04/12/19 04/12/19 Unknown History Respiclick] Apixaban [Eliquis] 2.5 mg PO BID 04/12/19 04/12/19 Unknown History Cholecalciferol Vit D3 [Vitamin D3 1,000 unit PO QDAY 04/12/19 04/12/19 Unknown History 1,000 UNIT TAB] Dorzolamide HCl [Trusopt] 10 ml OU BID 04/12/19 04/12/19 Unknown History Furosemide [Lasix TAB] 80 mg PO BID 04/12/19 04/12/19 Unknown History Lisinopril [Zestril] 40 mg PO QDAY 04/12/19 04/12/19 Unknown History Pravastatin [Pravachol] 20 mg PO DAILY 04/12/19 04/12/19 Unknown History Tiotropium [place] [Spiriva] 18 mcg IH DAILY 04/12/19 04/12/19 Unknown History metFORMIN [Glucophage] 500 mg PO BID 04/12/19 04/12/19 Unknown History Active Medications: Generic Name Dose Route Start Last Admin Trade Name Freq PRN Reason Stop Dose Admin Acetaminophen 650 mg 04/12/19 01:33 04/16/19 15:50 Tylenol PO 650 mg Q4H PRN Administration Pain MILD(1-3)/Fever >100.5/BASILIO Acetaminophen 1,000 mg 04/14/19 22:01 04/19/19 23:47 Tylenol PO 1,000 mg Q6H PRN Administration Pain , Severe (7-10) Albuterol 2.5 mg 04/12/19 03:42 04/14/19 23:33 Proventil IH 2.5 mg Q6HRT PRN Administration Congestion Apixaban 2.5 mg 04/19/19 10:00 04/20/19 09:40 Eliquis PO 2.5 mg BID TANK Administration Protocol Aspirin 325 mg 04/13/19 10:00 04/20/19 09:40 Ecotrin PO 325 mg QDAY TANK Administration Cholecalciferol 1,000 unit 04/12/19 10:00 04/20/19 09:40 Vitamin D3 PO 1,000 unit QDAY TANK Administration Dextrose 50 ml 04/12/19 03:40 D50w (25gm) Syringe IV PRN PRN Hypoglycemia Epoetin [place] 20,000 unit 04/17/19 11:00 04/18/19 13:00 Procrit SUB-Q 20,000 unit MARGOT PRN Administration hemodialysis Hydralazine HCl 10 mg 04/12/19 01:39 04/17/19 10:33 Apresoline IV 10 mg Q6H PRN Administration FOR SBP > target Sodium Chloride 100 mls @ 999 mls/hr 04/18/19 11:00 Nacl 0.9% IV MARGOT PRN Hypotension Sodium Chloride 100 mls @ 999 mls/hr 04/19/19 12:30 Nacl 0.9% IV MARGOT PRN Hypotension Insulin Human Lispro 0 unit 04/12/19 07:30 04/20/19 11:30 Humalog SUB-Q 2 unit ACHS TANK Administration Protocol Miscellaneous Medication 10 ml 04/12/19 10:00 Dorzolamide Hcl [Trusopt] OU BID TANK Ondansetron HCl 4 mg 04/12/19 01:33 04/19/19 23:47 Zofran IV 4 mg Q8H PRN Administration Nausea And Vomiting Pravastatin Sodium 20 mg 04/12/19 22:00 04/19/19 22:17 Pravachol PO 20 mg QHS TANK Administration Sodium Chloride 10 ml 04/12/19 10:00 04/20/19 09:40 Sodium Chloride Flush Syringe 10 Ml IV 10 ml BID TANK Administration Tiotropium [place] 1 puff 04/12/19 10:00 04/20/19 09:28 Spiriva IH 1 puff DAILY TANK Administration
--- NOTE | 2019-04-20 12:39 | Progress Note ---
Assessment and Plan - Patient Problems (1) Shortness of breath Current Visit: Yes Status: Acute Plan to address problem: Shortness of breath has improved. She has a history of heart failure with preserved ejection fraction, currently well compensated. Echocardiogram on this presentation mostly showed evidence of cor pulmonale with dilated right heart chambers and severe pulmonary hypertension with pulmonary artery systolic pressure of 66. Left ventricular chamber size and systolic function were normal with ejection fraction of 60-65%. Subjective Date of service: 04/20/19 Principal diagnosis: SOB and CP Interval history: Patient is comfortable, no new cardiac complaints. Objective Vital Signs Temp Pulse Pulse Pulse Resp BP BP 04/20/19 10:00 65 04/20/19 09:49 04/20/19 09:44 119/53 04/20/19 08:38 171/74 04/20/19 07:44 97.7 F 206/87 04/20/19 01:48 65 04/20/19 01:47 97.4 F L 65 17 164/75 04/20/19 00:47 18 04/19/19 23:47 18 04/19/19 22:00 64 04/19/19 20:07 97.6 F 64 16 171/79 04/19/19 15:30 99.1 F 65 20 161/91 04/19/19 15:00 65 176/96 04/19/19 14:45 65 176/96 04/19/19 14:30 65 167/90 04/19/19 14:15 65 162/90 04/19/19 14:00 65 112/62 04/19/19 13:45 65 110/57 04/19/19 13:30 65 128/68 04/19/19 13:10 65 132/72 04/19/19 13:00 99.1 F 65 20 144/72 Pulse Ox 04/20/19 10:00 97 04/20/19 09:49 97 04/20/19 09:44 04/20/19 08:38 04/20/19 07:44 04/20/19 01:48 100 04/20/19 01:47 100 04/20/19 00:47 04/19/19 23:47 04/19/19 22:00 100 04/19/19 20:07 91 04/19/19 15:30 04/19/19 15:00 04/19/19 14:45 04/19/19 14:30 04/19/19 14:15 04/19/19 14:00 04/19/19 13:45 04/19/19 13:30 04/19/19 13:10 04/19/19 13:00 - Physical Examination General: No Apparent Distress HEENT: Positive: PERRL Neck: Positive: trachea midline Cardiac: Positive: Reg Rate and Rhythm Lungs: Positive: Decreased Breath Sounds Neuro: Positive: Grossly Intact Abdomen: Positive: Soft Skin: Positive: Clear Extremities: Absent: edema - Labs and Meds Comprehensive Metabolic Panel 04/20/19 Range/Units 05:21 Sodium 132 L (137-145) mmol/L Potassium 4.0 (3.6-5.0) mmol/L Chloride 90.0 L (98-107) mmol/L Carbon Dioxide 27 (22-30) mmol/L BUN 22 H (7-17) mg/dL Creatinine 2.5 H (0.7-1.2) mg/dL Glucose 153 H (65-100) mg/dL Calcium 8.8 (8.4-10.2) mg/dL
[2019-04-20] MEDS: TYLENOL PO PRN ×2 (14:53→22:04)
[2019-04-20] MEDS: PRAVACHOL PO SCH (21:52)
[2019-04-20] MEDS: LANTUS SUB-Q SCH (21:58)
[2019-04-21 05:11] LABS: Hematocrit 24.5 % (30.3-42.9); Hemoglobin 8.1 gm/dl (10.1-14.3); Mean Corpuscular HGB Conc 33 % (30-34); Mean Corpuscular Volume 93 fl (79-97); Platelet Count 161 K/mm3 (140-440); Red Blood Count 2.65 M/mm3 (3.65-5.03); Red Cell Distribution Width 18.2 % (13.2-15.2)
[2019-04-21 05:16] LABS: Calcium 9.1 mg/dL (8.4-10.2)
[2019-04-21 06:00] LABS: Total Cells Counted 100
[2019-04-21 06:01] LABS: RBC Morphology Normal
[2019-04-21] MEDS: SPIRIVA IH SCH ×2 (08:29→09:23)
[2019-04-21] MEDS: ELIQUIS PO SCH ×2 (09:44→22:49)
[2019-04-21] MEDS: SODIUM CHLORIDE FLUSH SYRINGE 10 ML IV SCH ×2 (09:45→22:51)
[2019-04-21] MEDS: ECOTRIN PO SCH (09:45)
[2019-04-21] MEDS: HumaLOG SUB-Q SCH ×4 (09:45→22:51)
[2019-04-21] MEDS: VITAMIN D3 PO SCH (09:45)
--- NOTE | 2019-04-21 09:52 | Progress Note ---
Assessment and Plan Severe Hyponatremia Heart failure with a preserved ejection fraction Acute renal failure initiated on dialysis this admission Anemia Paroxysmal Afib on low dose eliquis Pacemaker present HTN Type 2 DM Echocardiogram shows normal left ventricular systolic function, ejection fraction 60%. There is enlargement of the right heart chambers, moderate to severe pulmonary hypertension with a pulmonary artery systolic pressure of 66, suggests cor pulmonale. Conservative cardiac management. Subjective Date of service: 04/21/19 Principal diagnosis: SOB and CP Interval history: Patient is resting in bed comfortably. She has no complaints. Objective Vital Signs Temp Pulse Pulse Pulse Resp Resp BP 04/21/19 08:32 04/21/19 08:31 65 18 04/21/19 08:29 65 18 04/21/19 02:46 98.6 F 61 16 170/83 04/20/19 23:04 18 04/20/19 22:04 18 04/20/19 22:02 04/20/19 22:00 93 H 04/20/19 20:45 97.4 F L 65 18 04/20/19 20:20 97.4 F L 18 145/72 04/20/19 16:31 98.3 F 65 166/76 04/20/19 10:00 65 BP Pulse Ox 04/21/19 08:32 95 04/21/19 08:31 04/21/19 08:29 04/21/19 02:46 100 04/20/19 23:04 04/20/19 22:04 04/20/19 22:02 100 04/20/19 22:00 97 04/20/19 20:45 145/72 99 04/20/19 20:20 04/20/19 16:31 96 04/20/19 10:00 97 - Physical Examination General: No Apparent Distress HEENT: Positive: PERRL Neck: Positive: trachea midline Cardiac: Positive: Other (paced) Neuro: Positive: Grossly Intact Extremities: Absent: edema - Labs and Meds CBC 04/21/19 Range/Units 03:53 WBC 4.0 L (4.5-11.0) K/mm3 RBC 2.65 L (3.65-5.03) M/mm3 Hgb 8.1 L (10.1-14.3) gm/dl Hct 24.5 L (30.3-42.9) % Plt Count 161 (140-440) K/mm3 Comprehensive Metabolic Panel 04/21/19 Range/Units 03:53 Sodium 132 L (137-145) mmol/L Potassium 4.6 (3.6-5.0) mmol/L Chloride 94.1 L (98-107) mmol/L Carbon Dioxide 28 (22-30) mmol/L BUN 26 H (7-17) mg/dL Creatinine 2.5 H (0.7-1.2) mg/dL Glucose 79 (65-100) mg/dL Calcium 9.1 (8.4-10.2) mg/dL
[2019-04-21] MEDS: TYLENOL PO PRN (11:14)
--- NOTE | 2019-04-21 12:15 | Progress Note ---
Assessment and Plan 1. Acute kidney injury: JOSE likely from combination of contrast induced injury and vasomotor insult from BP fluctuation. Renal US negative for hydro. Patient was started on hemodialysis on 04/17/2019 due to significant decline in renal function continue and uremic symptoms. Last dialyzed on 04/18/19 and received Isolated UF 2 days ago. Monitor renal function. Renal prognosis is guarded. Avoid nephrotoxic agents. 2. FEN: Hyperkalemia, improved. Hyponatremia, monitor. Volume overload, Lasix. Monitor lytes. 3. HFpEF: Followed by Cards. 4. Paroxysmal A.fib. 5. HTN: Monitor BP. 6. Anemia: POA. Subjective Date of service: 04/21/19 Principal diagnosis: SOB and CP Interval history: Patient was seen and examined at the bedside. Doing ok. Objective - Vital Signs Vital signs: Vital Signs - 12hr 04/21/19 04/21/19 04/21/19 02:46 08:29 08:31 Temperature 98.6 F Pulse Rate 61 Pulse Rate [ 65 65 Anterior Bilateral] Pulse Rate [ From Monitor] Respiratory 16 Rate Respiratory 18 18 Rate [Anterior Bilateral] Blood Pressure 170/83 O2 Sat by Pulse 100 Oximetry 04/21/19 04/21/19 08:32 10:00 Temperature Pulse Rate Pulse Rate [ Anterior Bilateral] Pulse Rate [ 61 From Monitor] Respiratory Rate Respiratory Rate [Anterior Bilateral] Blood Pressure O2 Sat by Pulse 95 95 Oximetry - General Appearance General appearance: well-developed, well-nourished, appears stated age, other (no distress, R IJ tunnel catheter) EENT: ATNC, PERRL, mucous membranes moist, hearing intact, vision intact Neck: supple Respiratory: Present: Clear to Ascultation Cardiology: regular, S1S2, no murmurs Gastrointestinal: normoactive bowel sounds, no tenderness, no distended Integumentary: no rash, warm and dry Neurologic: no focal deficit, no asterixis, confused, disoriented Musculoskeletal: other (1 to 2+ edema of both LEs noted) - Lab 04/21/19 03:53 04/21/19 03:53 Most recent lab results Calcium 9.1 mg/dL (8.4-10.2) 04/21/19 03:53 Phosphorus 4.10 mg/dL (2.5-4.5) 04/13/19 09:42 Magnesium 2.30 mg/dL (1.7-2.3) 04/18/19 05:50 48.1 mg/dL (0.1-20.0) H 04/13/19 11:15 13 mmol/L 04/13/19 11:15 Medications & Allergies - Medications Allergies/Adverse Reactions: Allergies No Known Allergies Allergy (Unverified 04/11/19 19:59) Home Medications: Home Medications Medication Instructions Recorded Confirmed Last Taken Type Albuterol Sulfate [Proair 90 mcg IH PRN PRN 04/12/19 04/12/19 Unknown History Respiclick] Apixaban [Eliquis] 2.5 mg PO BID 04/12/19 04/12/19 Unknown History Cholecalciferol Vit D3 [Vitamin D3 1,000 unit PO QDAY 04/12/19 04/12/19 Unknown History 1,000 UNIT TAB] Dorzolamide HCl [Trusopt] 10 ml OU BID 04/12/19 04/12/19 Unknown History Furosemide [Lasix TAB] 80 mg PO BID 04/12/19 04/12/19 Unknown History Lisinopril [Zestril] 40 mg PO QDAY 04/12/19 04/12/19 Unknown History Pravastatin [Pravachol] 20 mg PO DAILY 04/12/19 04/12/19 Unknown History Tiotropium [place] [Spiriva] 18 mcg IH DAILY 04/12/19 04/12/19 Unknown History metFORMIN [Glucophage] 500 mg PO BID 04/12/19 04/12/19 Unknown History Active Medications: Generic Name Dose Route Start Last Admin Trade Name Freq PRN Reason Stop Dose Admin Acetaminophen 650 mg 04/12/19 01:33 04/16/19 15:50 Tylenol PO 650 mg Q4H PRN Administration Pain MILD(1-3)/Fever >100.5/BASILIO Acetaminophen 1,000 mg 04/14/19 22:01 04/21/19 11:14 Tylenol PO 1,000 mg Q6H PRN Administration Pain , Severe (7-10) Albuterol 2.5 mg 04/12/19 03:42 04/14/19 23:33 Proventil IH 2.5 mg Q6HRT PRN Administration Congestion Apixaban 2.5 mg 04/19/19 10:00 04/21/19 09:44 Eliquis PO 2.5 mg BID TANK Administration Protocol Aspirin 325 mg 04/13/19 10:00 04/21/19 09:45 Ecotrin PO 325 mg QDAY TANK Administration Cholecalciferol 1,000 unit 04/12/19 10:00 04/21/19 09:45 Vitamin D3 PO 1,000 unit QDAY TANK Administration Dextrose 50 ml 04/12/19 03:40 D50w (25gm) Syringe IV PRN PRN Hypoglycemia Epoetin Misael 20,000 unit 04/17/19 11:00 04/18/19 13:00 Procrit SUB-Q 20,000 unit MARGOT PRN Administration hemodialysis Hydralazine HCl 10 mg 04/12/19 01:39 04/17/19 10:33 Apresoline IV 10 mg Q6H PRN Administration FOR SBP > target Sodium Chloride 100 mls @ 999 mls/hr 04/18/19 11:00 Nacl 0.9% IV MARGOT PRN Hypotension Sodium Chloride 100 mls @ 999 mls/hr 04/19/19 12:30 Nacl 0.9% IV MARGOT PRN Hypotension Insulin Glargine 5 units 04/20/19 22:00 04/20/19 21:58 Lantus SUB-Q 5 units QHS [facility] Administration Insulin Human Lispro 0 unit 04/12/19 07:30 04/21/19 09:45 Humalog SUB-Q Not Given ACHS [facility] Protocol Miscellaneous Medication 10 ml 04/12/19 10:00 Dorzolamide Hcl [Trusopt] OU BID [facility] Ondansetron HCl 4 mg 04/12/19 01:33 04/19/19 23:47 Zofran IV 4 mg Q8H PRN Administration Nausea And Vomiting Pravastatin Sodium 20 mg 04/12/19 22:00 04/20/19 21:52 Pravachol PO 20 mg QHS [facility] Administration Sodium Chloride 10 ml 04/12/19 10:00 04/21/19 09:45 Sodium Chloride Flush Syringe 10 Ml IV 10 ml BID [facility] Administration Tiotropium [place] 1 puff 04/12/19 10:00 04/21/19 09:23 Spiriva IH Not Given DAILY [facility]
--- NOTE | 2019-04-21 14:13 | Progress Note ---
Assessment and Plan Assessment and plan: Patient is an 88-year-old female with PMHx of CHF, A. fib (on Eliquis), hypertension, DM type II, COPD (home O2 dependent) who presents to the ER with complaints of chest pain. Patient's niece at the bedside states that the patient went to see her magisterial district judge (Dr. Odonnell at [facility]) and her parts sales advisor today, she was told that everything was fine. Patient's niece also reported that the patient did not use her oxygen all day, she only used it when she got home, she went to bed and woke up in 2 hours complaining of chest pain and shortness of breath. Patient states that the chest pain is located in the left substernal chest area, causing shortness of breath, she denies radiation, she states that she had similar pain before, she had a pacemaker inserted but she never had any stent placement or any other cardiac procedures. 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 Davis - Patient started on hemodialysis - F/u with nephrology , italo on hold Hyponatremia - Resolved Chest pain - Cardiology consulted and recommended conservative cardiac management - resolved Afib - On Eliquis HTN (hypertension) - Cont antihypertensives, italo on hold, started norvasc COPD (chronic obstructive pulmonary disease) - On Duonebs prn Pulmonary HTN - continue to monitor DVT prophylaxis - On Eliquis tentative dc tomorrow if cr remains stable History Interval history: Review of systems Constitutional: No fevers, no malaise, no joint pains CVS: No chest pain, no orthopnea, no dyspnea on exertion, no pedal edema GI: No abdominal pain, no diarrhea, no vomiting, no constipation Respiratory: No shortness of breath, no wheezing, no coughing Hospitalist Physical - Physical exam Narrative exam: General.: Appears well, no distress, nontoxic HEENT: Moist mucous membranes, extraocular muscles intact, no lymphadenopathy Neck: supple Cardiac: S1-S2 heard Lungs: clear to auscultation bilaterally Abdomen: soft , nontender, nondistended, bowel sounds positive Extremities: no edema clubbing or cyanosis Skin: no rash or lesions Neurologic: no gross focal deficits Psych: calm, and cooperative - Constitutional Vitals: Temp Pulse Resp BP Pulse Ox 98.6 F 61 18 170/83 95 04/21/19 02:46 04/21/19 10:00 04/21/19 08:31 04/21/19 02:46 04/21/19 10:00 General appearance: Present: no acute distress Results - Labs CBC & Chem 7: 04/21/19 03:53 04/22/19 05:43 Labs: Laboratory Last Values WBC 4.0 K/mm3 (4.5-11.0) L 04/21/19 03:53 RBC 2.65 M/mm3 (3.65-5.03) L 04/21/19 03:53 Hgb 8.1 gm/dl (10.1-14.3) L 04/21/19 03:53 Hct 24.5 % (30.3-42.9) L 04/21/19 03:53 MCV 93 fl (79-97) 04/21/19 03:53 MCH 30 pg (28-32) 04/21/19 03:53 MCHC 33 % (30-34) 04/21/19 03:53 RDW 18.2 % (13.2-15.2) H 04/21/19 03:53 Plt Count 161 K/mm3 (140-440) 04/21/19 03:53 Lymph % (Auto) 21.0 % (13.4-35.0) 04/12/19 02:07 [place] % (Auto) Communications Media Professor 04/21/19 03:53 Eos % (Auto) 5.9 % (0.0-4.3) H 04/12/19 02:07 Baso % (Auto) 0.6 % (0.0-1.8) 04/12/19 02:07 Lymph # 0.8 K/mm3 (1.2-5.4) L 04/12/19 02:07 [place] # 0.5 K/mm3 (0.0-0.8) 04/12/19 02:07 Eos # 0.2 K/mm3 (0.0-0.4) 04/12/19 02:07 Baso # 0.0 K/mm3 (0.0-0.1) 04/12/19 02:07 Add Manual Diff Complete 04/21/19 03:53 Total Counted 100 04/21/19 03:53 Seg Neutrophils % 59.6 % (40.0-70.0) 04/12/19 02:07 Seg Neuts % (Manual) 47.0 % (40.0-70.0) 04/21/19 03:53 0 % 04/21/19 03:53 21.0 % (13.4-35.0) 04/21/19 03:53 Reactive Lymphs % (Man) 0 % 04/21/19 03:53 23.0 % (0.0-7.3) H 04/21/19 03:53 8.0 % (0.0-4.3) H 04/21/19 03:53 1.0 % (0.0-1.8) 04/21/19 03:53 0 % 04/21/19 03:53 0 % 04/21/19 03:53 0 % 04/21/19 03:53 0 % 04/21/19 03:53 Nucleated RBC % Not Reportable 04/21/19 03:53 Seg Neutrophils # 2.3 K/mm3 (1.8-7.7) 04/12/19 02:07 Seg Neutrophils # Man 1.9 K/mm3 (1.8-7.7) 04/21/19 03:53 Band Neutrophils # 0.0 K/mm3 04/21/19 03:53 0.8 K/mm3 (1.2-5.4) L 04/21/19 03:53 Abs React Lymphs (Man) 0.0 K/mm3 04/21/19 03:53 0.9 K/mm3 (0.0-0.8) H 04/21/19 03:53 0.3 K/mm3 (0.0-0.4) 04/21/19 03:53 0.0 K/mm3 (0.0-0.1) 04/21/19 03:53 0.0 K/mm3 04/21/19 03:53 0.0 K/mm3 04/21/19 03:53 0.0 K/mm3 04/21/19 03:53 Blast Cells # 0.0 K/mm3 04/21/19 03:53 WBC Morphology Not Reportable 04/21/19 03:53 Hypersegmented Neuts Not Reportable 04/21/19 03:53 Hyposegmented Neuts Not Reportable 04/21/19 03:53 Hypogranular Neuts Not Reportable 04/21/19 03:53 Not Reportable 04/21/19 03:53 Not Reportable 04/21/19 03:53 Not Reportable 04/21/19 03:53 Not Reportable 04/21/19 03:53 Not Reportable 04/21/19 03:53 Not Reportable 04/21/19 03:53 Not Reportable 04/21/19 03:53 Not Reportable 04/21/19 03:53 Plt Clumps, EDTA Not Reportable 04/21/19 03:53 Not Reportable 04/21/19 03:53 Not Reportable 04/21/19 03:53 Not Reportable 04/21/19 03:53 Plt Morphology Comment Not Reportable 04/21/19 03:53 RBC Morphology Normal 04/21/19 03:53 Dimorphic RBCs Not Reportable 04/21/19 03:53 Not Reportable 04/21/19 03:53 Not Reportable 04/21/19 03:53 Not Reportable 04/21/19 03:53 Not Reportable 04/21/19 03:53 Not Reportable 04/21/19 03:53 Not Reportable 04/21/19 03:53 Not Reportable 04/21/19 03:53 Not Reportable 04/21/19 03:53 Not Reportable 04/21/19 03:53 Not Reportable 04/21/19 03:53 Not Reportable 04/21/19 03:53 Not Reportable 04/21/19 03:53 Not Reportable 04/21/19 03:53 Not Reportable 04/21/19 03:53 Not Reportable 04/21/19 03:53 Not Reportable 04/21/19 03:53 Not Reportable 04/21/19 03:53 Not Reportable 04/21/19 03:53 Not Reportable 04/21/19 03:53 Acanthocytes (Spur) Not Reportable 04/21/19 03:53 Rouleaux Not Reportable 04/21/19 03:53 Not Reportable 04/21/19 03:53 Not Reportable 04/21/19 03:53 Not Reportable 04/21/19 03:53 Not Reportable 04/21/19 03:53 Hem Pathologist Commnt No 04/21/19 03:53 Sodium 132 mmol/L (137-145) L 04/21/19 03:53 Potassium 4.6 mmol/L (3.6-5.0) 04/21/19 03:53 Chloride 94.1 mmol/L (98-107) L 04/21/19 03:53 Carbon Dioxide 28 mmol/L (22-30) 04/21/19 03:53 15 mmol/L 04/21/19 03:53 BUN 26 mg/dL (7-17) H 04/21/19 03:53 2.5 mg/dL (0.7-1.2) H 04/21/19 03:53 Estimated GFR 22 ml/min 04/21/19 03:53 10 % 04/21/19 03:53 Glucose 79 mg/dL (65-100) 04/21/19 03:53 POC Glucose 158 (70-105) H 04/21/19 11:26 273 Mosm/kg 04/13/19 09:42 6.6 mg/dL (3.5-7.6) 04/13/19 09:42 Calcium 9.1 mg/dL (8.4-10.2) 04/21/19 03:53 Phosphorus 4.10 mg/dL (2.5-4.5) 04/13/19 09:42 Magnesium 2.30 mg/dL (1.7-2.3) 04/18/19 05:50 0.30 mg/dL (0.1-1.2) 04/11/19 20:30 AST 22 units/L (5-40) 04/11/19 20:30 ALT 8 units/L (7-56) 04/11/19 20:30 61 units/L (35-129) 04/11/19 20:30 0.026 ng/mL (0.00-0.029) 04/12/19 12:27 NT-Pro-B Natriuret Pep 3556 pg/mL (0-900) H 04/11/19 20:30 7.4 g/dL (6.3-8.2) 04/11/19 20:30 3.9 g/dL (3.9-5) 04/11/19 20:30 1.1 % 04/11/19 20:30 Triglycerides 49 mg/dL (2-149) 04/12/19 02:03 Cholesterol 152 mg/dL (50-199) 04/12/19 02:03 61 mg/dL (50-130) 04/12/19 02:03 84 mg/dL (40-59) H 04/12/19 02:03 1.80 % 04/12/19 02:03 TSH 1.290 mlU/mL (0.270-4.200) 04/13/19 09:42 Yellow (Yellow) 04/13/19 11:15 Cloudy (Clear) 04/13/19 11:15 5.0 (5.0-7.0) 04/13/19 11:15 Ur Specific [place] 1.014 (1.003-1.030) 04/13/19 11:15 <15 mg/dl mg/dL (Negative) 04/13/19 11:15 Neg mg/dL (Negative) 04/13/19 11:15 Neg mg/dL (Negative) 04/13/19 11:15 Neg (Negative) 04/13/19 11:15 Neg (Negative) 04/13/19 11:15 Neg (Negative) 04/13/19 11:15 < 2.0 mg/dL (<2.0) 04/13/19 11:15 Ur Leukocyte Esterase Neg (Negative) 04/13/19 11:15 1.0 /HPF (0.0-6.0) 04/13/19 11:15 < 1.0 /HPF (0.0-6.0) 04/13/19 11:15 U Epithel Cells (Auto) 3.0 /HPF (0-13.0) 04/13/19 11:15 2+ /HPF (Negative) 04/13/19 11:15 Few /HPF 04/13/19 11:15 235 Mosm/kg 04/12/19 17:38 48.1 mg/dL (0.1-20.0) H 04/13/19 11:15 13 mmol/L 04/13/19 11:15 Hepatitis A IgM Ab Non-reactive (NonReactive) 04/17/19 16:31 Hep Bs Antigen Non-reactive (Negative) 04/17/19 16:31 Hep B Core IgM Ab Non-reactive (NonReactive) 04/17/19 16:31 Non-reactive (NonReactive) 04/17/19 16:31 Active Medications - Current Medications Current Medications: Generic Name Dose Route Start Last Admin Trade Name Freq PRN Reason Stop Dose Admin Acetaminophen 650 mg 04/12/19 01:33 04/16/19 15:50 Tylenol PO 650 mg Q4H PRN Administration Pain MILD(1-3)/Fever >100.5/BASILIO Acetaminophen 1,000 mg 04/14/19 22:01 04/21/19 11:14 Tylenol PO 1,000 mg Q6H PRN Administration Pain , Severe (7-10) Albuterol 2.5 mg 04/12/19 03:42 04/14/19 23:33 Proventil IH 2.5 mg Q6HRT PRN Administration Congestion Apixaban 2.5 mg 04/19/19 10:00 04/21/19 09:44 Eliquis PO 2.5 mg BID TANK Administration Protocol Aspirin 325 mg 04/13/19 10:00 04/21/19 09:45 Ecotrin PO 325 mg QDAY [facility] Administration Cholecalciferol 1,000 unit 04/12/19 10:00 04/21/19 09:45 Vitamin D3 PO 1,000 unit QDAY [facility] Administration Dextrose 50 ml 04/12/19 03:40 D50w (25gm) Syringe IV PRN PRN Hypoglycemia Epoetin [place] 20,000 unit 04/17/19 11:00 04/18/19 13:00 Procrit SUB-Q 20,000 unit MARGOT PRN Administration hemodialysis Hydralazine HCl 10 mg 04/12/19 01:39 04/17/19 10:33 Apresoline IV 10 mg Q6H PRN Administration FOR SBP > target Sodium Chloride 100 mls @ 999 mls/hr 04/18/19 11:00 Nacl 0.9% IV MARGOT PRN Hypotension Sodium Chloride 100 mls @ 999 mls/hr 04/19/19 12:30 Nacl 0.9% IV MARGOT PRN Hypotension Insulin Glargine 5 units 04/20/19 22:00 04/20/19 21:58 Lantus SUB-Q 5 units QHS [facility] Administration Insulin Human Lispro 0 unit 04/12/19 07:30 04/21/19 09:45 Humalog SUB-Q Not Given ACHS [facility] Protocol Miscellaneous Medication 10 ml 04/12/19 10:00 Dorzolamide Hcl [Trusopt] OU BID [facility] Ondansetron HCl 4 mg 04/12/19 01:33 04/19/19 23:47 Zofran IV 4 mg Q8H PRN Administration Nausea And Vomiting Pravastatin Sodium 20 mg 04/12/19 22:00 04/20/19 21:52 Pravachol PO 20 mg QHS [facility] Administration Sodium Chloride 10 ml 04/12/19 10:00 04/21/19 09:45 Sodium Chloride Flush Syringe 10 Ml IV 10 ml BID [facility] Administration Tiotropium [place] 1 puff 04/12/19 10:00 04/21/19 09:23 Spiriva IH Not Given DAILY [facility] Nutrition/Malnutrition Assess - Dietary Evaluation Nutrition/Malnutrition Findings: Nutrition Notes Start: 04/12/19 15:58 Freq: Status: Active Protocol: Document 04/18/19 16:24 RM (Rec: 04/18/19 16:32 RM [id number]) Nutrition Notes Need for Assessment generated from: LOS Initial or Follow up Assessment Current Diagnosis Acute Kidney Injury,COPD, Diabetes,Hypertension,Heart Failure Current Diet Renal Labs/Tests Reviewed Pertinent Medications Reviewed Height 5 ft 4 in Weight 67.8 kg Elizabeth Body Weight (kg) 54.54 BMI 25.6 Subjective/Other Information Screened for LOS. Pt and pt nurse in room at time of visit. Pt stated that her appetite is poor. However nurse stated that pt has been eating 50 to 100% of her meals . #1 Nutrition Diagnosis Inadequate oral intake Etiology decreased appetite As Evidenced by Signs and Symptoms pt nurse statement that pt eats 50 to 100% of her meals. Is patient on ventilator? No Is Patient Ambulatory and/or Out of Bed No REE-([facility]-confined to bed) 5414.296 Calculation Used for Recommendations [facility] Additional Notes Protein Needs: 68-88g (1-1.3g/ kg) Fluid Needs: 1 ml/kcal Nutrition Intervention Change Diet Order: Continue current Add Supplement/Snack (indicate name/kcal Glucerna 1 daily /protein ) Provides kCal: 220 Provides Protein (gm) 10 Goal #1 Meet at least 75% of calorie and protein needs via PO and ONS intakes Anticipated Discharge Needs: Unable to determine at this time Follow-Up By: 04/23/19 Additional Comments Follow for PO and ONS intakes
[2019-04-21] MEDS ORDERED: ZESTRIL PO SCH (15:00)
[2019-04-21] MEDS: NORVASC PO SCH (16:32)
[2019-04-21] MEDS: PRAVACHOL PO SCH (22:49)
[2019-04-21] MEDS: LANTUS SUB-Q SCH (22:50)
[2019-04-21] MEDS: LASIX IV SCH (22:54)
[2019-04-22 06:28] LABS: Calcium 8.5 mg/dL (8.4-10.2)
[2019-04-22] MEDS: LASIX IV SCH ×2 (06:36→17:40)
[2019-04-22] MEDS: SPIRIVA IH SCH ×2 (07:30→09:04)
[2019-04-22] MEDS: HumaLOG SUB-Q SCH ×3 (08:27→17:41)
[2019-04-22] MEDS: VITAMIN D3 PO SCH (09:54)
[2019-04-22] MEDS: SODIUM CHLORIDE FLUSH SYRINGE 10 ML IV SCH (09:54)
[2019-04-22] MEDS: ECOTRIN PO SCH (09:54)
[2019-04-22] MEDS: ELIQUIS PO SCH (09:54)
[2019-04-22] MEDS: NORVASC PO SCH (09:55)
--- NOTE | 2019-04-22 10:49 | Progress Note ---
Assessment and Plan 1. Acute kidney injury: JOSE likely from combination of contrast induced injury and vasomotor insult from BP fluctuation. Renal US negative for hydro. Patient was started on hemodialysis on 04/17/2019 due to significant decline in renal function continue and uremic symptoms. Last dialyzed on 04/18/19 and received Isolated UF 3 days ago. Partial renal recovery based on the creatinine level. Monitor renal function. Renal prognosis is guarded. Avoid nephrotoxic agents. Hemodialysis catheter to be removed prior to discharge, d/w Vascular. 2. FEN: Hyperkalemia, improved. Hyponatremia, monitor. Volume overload, Lasix. Monitor lytes. 3. HFpEF: Followed by Cards. 4. Paroxysmal A.fib. 5. HTN: Monitor BP. 6. Anemia: POA. D/w her niece regarding follow up with me in 1 week. Subjective Date of service: 04/22/19 Principal diagnosis: SOB and CP Interval history: Patient was seen and examined at the bedside. Doing ok. Niece at the bedside. Objective - Vital Signs Vital signs: Vital Signs - 12hr 04/22/19 04/22/19 04/22/19 02:57 07:23 07:29 Temperature 97.5 F L 97.7 F Pulse Rate 66 65 Pulse Rate [ Anterior Bilateral] Respiratory 18 18 Rate Respiratory Rate [Anterior Bilateral] Blood Pressure 92/49 98/49 O2 Sat by Pulse 100 100 96 Oximetry 04/22/19 04/22/19 04/22/19 07:30 07:33 09:55 Temperature Pulse Rate 65 Pulse Rate [ 65 65 Anterior Bilateral] Respiratory Rate Respiratory 16 16 Rate [Anterior Bilateral] Blood Pressure 100/50 O2 Sat by Pulse Oximetry - General Appearance General appearance: well-developed, appears stated age, other (not in distress, R IJ tunnel catheter) EENT: ATNC, PERRL Neck: supple Respiratory: Present: Clear to Ascultation Cardiology: regular, S1S2, no murmurs Gastrointestinal: normoactive bowel sounds, no tenderness, no distended Integumentary: no rash, warm and dry Neurologic: no focal deficit, no asterixis, confused, disoriented Musculoskeletal: other (1 to 2+ edema of both LEs noted) - Lab 04/21/19 03:53 04/22/19 05:43 Most recent lab results Calcium 8.5 mg/dL (8.4-10.2) 04/22/19 05:43 Phosphorus 4.10 mg/dL (2.5-4.5) 04/13/19 09:42 Magnesium 2.30 mg/dL (1.7-2.3) 04/18/19 05:50 48.1 mg/dL (0.1-20.0) H 04/13/19 11:15 13 mmol/L 04/13/19 11:15 Medications & Allergies - Medications Allergies/Adverse Reactions: Allergies No Known Allergies Allergy (Unverified 04/11/19 19:59) Home Medications: Home Medications Medication Instructions Recorded Confirmed Last Taken Type Albuterol Sulfate [Proair 90 mcg IH PRN PRN 04/12/19 04/12/19 Unknown History Respiclick] Apixaban [Eliquis] 2.5 mg PO BID 04/12/19 04/12/19 Unknown History Cholecalciferol Vit D3 [Vitamin D3 1,000 unit PO QDAY 04/12/19 04/12/19 Unknown History 1,000 UNIT TAB] Dorzolamide HCl [Trusopt] 10 ml OU BID 04/12/19 04/12/19 Unknown History Pravastatin [Pravachol] 20 mg PO DAILY 04/12/19 04/12/19 Unknown History Tiotropium [place] [Spiriva] 18 mcg IH DAILY 04/12/19 04/12/19 Unknown History Furosemide [Lasix TAB] 40 mg PO BID #60 tablet 04/22/19 Unknown Rx QUEtiapine [SEROquel] 25 mg PO QHS #30 tablet 04/22/19 Unknown Rx amLODIPine [Norvasc] 10 mg PO QDAY #30 tablet 04/22/19 Unknown Rx Active Medications: Generic Name Dose Route Start Last Admin Trade Name Freq PRN Reason Stop Dose Admin Acetaminophen 650 mg 04/12/19 01:33 04/16/19 15:50 Tylenol PO 650 mg Q4H PRN Administration Pain MILD(1-3)/Fever >100.5/BASILIO Acetaminophen 1,000 mg 04/14/19 22:01 04/21/19 11:14 Tylenol PO 1,000 mg Q6H PRN Administration Pain , Severe (7-10) Albuterol 2.5 mg 04/12/19 03:42 04/14/19 23:33 Proventil IH 2.5 mg Q6HRT PRN Administration Congestion Amlodipine Besylate 10 mg 04/21/19 15:00 04/22/19 09:55 Norvasc PO 10 mg QDAY [facility] Administration Apixaban 2.5 mg 04/19/19 10:00 04/22/19 09:54 Eliquis PO 2.5 mg BID [facility] Administration Protocol Aspirin 325 mg 04/13/19 10:00 04/22/19 09:54 Ecotrin PO 325 mg QDAY [facility] Administration Cholecalciferol 1,000 unit 04/12/19 10:00 04/22/19 09:54 Vitamin D3 PO 1,000 unit QDAY [facility] Administration Dextrose 50 ml 04/12/19 03:40 D50w (25gm) Syringe IV PRN PRN Hypoglycemia Epoetin [place] 20,000 unit 04/17/19 11:00 04/18/19 13:00 Procrit SUB-Q 20,000 unit MARGOT PRN Administration hemodialysis Furosemide 40 mg 04/21/19 22:00 04/22/19 06:36 Lasix IV 40 mg 0600,1800 TANK Administration Hydralazine HCl 10 mg 04/12/19 01:39 04/17/19 10:33 Apresoline IV 10 mg Q6H PRN Administration FOR SBP > target Sodium Chloride 100 mls @ 999 mls/hr 04/19/19 12:30 Nacl 0.9% IV MARGOT PRN Hypotension Insulin Glargine 5 units 04/20/19 22:00 04/21/19 22:50 Lantus SUB-Q 5 units QHS [facility] Administration Insulin Human Lispro 0 unit 04/12/19 07:30 04/22/19 08:27 Humalog SUB-Q 1 unit ACHS [facility] Administration Protocol Miscellaneous Medication 10 ml 04/12/19 10:00 Dorzolamide Hcl [Trusopt] OU BID [facility] Ondansetron HCl 4 mg 04/12/19 01:33 04/19/19 23:47 Zofran IV 4 mg Q8H PRN Administration Nausea And Vomiting Pravastatin Sodium 20 mg 04/12/19 22:00 04/21/19 22:49 Pravachol PO 20 mg QHS [facility] Administration Quetiapine Fumarate 50 mg 04/21/19 22:00 04/21/19 22:50 Seroquel PO 50 mg QHS [facility] Administration Sodium Chloride 10 ml 04/12/19 10:00 04/22/19 09:54 Sodium Chloride Flush Syringe 10 Ml IV 10 ml BID [facility] Administration Tiotropium [place] 1 puff 04/12/19 10:00 04/22/19 09:04 Spiriva IH Not Given DAILY [facility]
--- NOTE | 2019-04-22 11:24 | Progress Note ---
Assessment and Plan Severe Hyponatremia Heart failure with a preserved ejection fraction Acute renal failure initiated on dialysis this admission Anemia Paroxysmal Afib on low dose eliquis Pacemaker present HTN Type 2 DM Echocardiogram shows normal left ventricular systolic function, ejection fraction 60%. There is enlargement of the right heart chambers, moderate to severe pulmonary hypertension with a pulmonary artery systolic pressure of 66, suggests cor pulmonale. Conservative cardiac management. Subjective Date of service: 04/22/19 Principal diagnosis: SOB and CP Interval history: Patient is resting in bed comfortably. Objective Vital Signs Temp Pulse Pulse Pulse Resp Resp BP 04/22/19 10:00 65 16 04/22/19 09:55 65 100/50 04/22/19 07:33 65 16 04/22/19 07:30 65 16 04/22/19 07:29 04/22/19 07:23 97.7 F 65 18 98/49 04/22/19 02:57 97.5 F L 66 18 92/49 04/21/19 22:00 66 04/21/19 20:05 99.2 F 66 18 101/56 04/21/19 16:32 66 137/60 04/21/19 13:25 97.5 F L 66 20 137/60 Pulse Ox 04/22/19 10:00 96 04/22/19 09:55 04/22/19 07:33 04/22/19 07:30 04/22/19 07:29 96 04/22/19 07:23 100 04/22/19 02:57 100 04/21/19 22:00 96 04/21/19 20:05 96 04/21/19 16:32 04/21/19 13:25 100 - Physical Examination General: No Apparent Distress HEENT: Positive: PERRL Neck: Positive: trachea midline Cardiac: Positive: Other (paced) Neuro: Positive: Grossly Intact Extremities: Absent: edema - Labs and Meds Comprehensive Metabolic Panel 04/22/19 Range/Units 05:43 Sodium 130 L (137-145) mmol/L Potassium 3.7 (3.6-5.0) mmol/L Chloride 91.9 L (98-107) mmol/L Carbon Dioxide 26 (22-30) mmol/L BUN 34 H (7-17) mg/dL Creatinine 2.4 H (0.7-1.2) mg/dL Glucose 160 H (65-100) mg/dL Calcium 8.5 (8.4-10.2) mg/dL
--- NOTE | 2019-04-22 11:41 | Discharge Summary ---
Providers - Providers Date of Admission: 04/12/19 01:33 Attending physician: RIDDHI MAGANA MD 04/12/19 Consult to Cardiac Rehabilitation [CONS] Routine Reason For Exam: Phase I 04/12/19 03:40 Consult to Dietitian/Nutrition [CONS] Routine Physician Instructions: Reason For Exam: Reason for Consult: Diet education 04/12/19 03:45 Consult to Physician [CONS] Routine Comment: Consulting Provider: CATHY ODONNELL Physician Instructions: Pt's known to you Reason For Exam: chest pain, SOB 04/12/19 14:14 Consult to Physician [CONS] Routine Comment: Consulting Provider: ANDREZ PRABHAKAR Physician Instructions: Reason For Exam: hyponatremia 04/17/19 10:10 Consult to Interventional Radiology [CONS] Routine Consulting Provider: YAMILET ELLISON Reason For Exam: Tunnel Hemodialysis catheter placement. Place consult to:: Dr. Ellison Notified:: Valerie CASTILLO Comment:: Dr. Arenas is aware of consultation per note 04/17/19 @ 1227 04/20/19 16:58 Physical Therapy Evaluation and Treat [CONS] Stat Comment: Reason For Exam: preparation for d/c home. gait strengthening Mode of Transport?: Walker Weight bearing status?: Full wt bearing Assistive devices?: Yes: uses rollator at home 04/20/19 17:02 Occupational Therapy Evaluate and Treat [CONS] Stat Comment: Reason For Exam: needs training for return of independent ADL's Primary care physician: ROSIE HOPKINS DO Hospitalization Condition: Fair Hospital course: Patient is an 88-year-old female with PMHx of CHF, A. fib (on Eliquis), hypertension, DM type II, COPD (home O2 dependent) who presents to the ER with complaints of chest pain. Patient's niece at the bedside states that the patient went to see her ship unloader (Dr. Odonnell at [facility]) and her mobile battery technician today, she was told that everything was fine. Patient's niece also reported that the patient did not use her oxygen all day, she only used it when she got home, she went to bed and woke up in 2 hours complaining of chest pain and shortness of breath. Patient states that the chest pain is located in the left substernal chest area, causing shortness of breath, she denies radiation, she states that she had similar pain before, she had a pacemaker inserted but she never had any stent placement or any other cardiac procedures. Patient's was evaluated in the ER, her EKG showed no STEMI, her cardiac enzymes was negative, BNP was 3556, she had lower extremity edema and mild shortness of breath on exertion Acute exacerbation of diastolic CHF with cor pulmonanale Patient was given lasix on admission, but discontinued with worsening of renal function she was rx with dialysis Echo was done and ejection fraction is 50-60%, moderate to severe pulmonary hypertension Cardiology recommended conservative cardiac management JOSE (acute kidney injury) -she was rx HD and had renal recovery, HD cath was removed Hyponatremia - Resolved Chest pain - Cardiology consulted and recommended conservative cardiac management - resolved Afib - On Eliquis HTN (hypertension) - Cont antihypertensives, started norvasc COPD (chronic obstructive pulmonary disease) - On Duonebs prn Pulmonary HTN - continue to monitor DVT prophylaxis - On Eliquis Disposition: [id number]/TX-06 HOME [facility] Time spent for discharge: 33 mins Core Measure Documentation - Palliative Care Palliative Care/ Comfort Measures: Not Applicable - Core Measures Any of the following diagnoses?: none Exam - Constitutional Vitals: Temp Pulse Resp BP Pulse Ox 97.7 F 65 16 100/50 96 04/22/19 07:23 04/22/19 10:00 04/22/19 10:00 04/22/19 09:55 04/22/19 10:00 General appearance: Present: no acute distress, well-nourished - EENT Eyes: Present: PERRL ENT: hearing intact, clear oral mucosa - Neck Neck: Present: supple, normal ROM - Respiratory Respiratory effort: normal Respiratory: bilateral: CTA - Cardiovascular Heart Sounds: Present: S1 & S2. Absent: rub, click - Extremities Extremities: pulses symmetrical, No edema Peripheral Pulses: within normal limits - Abdominal General gastrointestinal: Present: soft, non-tender, non-distended, normal bowel sounds Female genitourinary: Present: normal - Integumentary Integumentary: Present: clear, warm, dry - Musculoskeletal Musculoskeletal: gait normal, strength equal bilaterally - Psychiatric Psychiatric: no intact judgment & insight, cooperative - Neurologic Neurologic: CNII-XII intact, moves all extremities Plan Follow up with: ROSIE HOPKINS DO [Primary Care Provider] - 3-5 Days Prescriptions: QUEtiapine [SEROquel] 25 mg PO QHS #30 tablet Furosemide [Lasix TAB] 40 mg PO BID #60 tablet amLODIPine [Norvasc] 10 mg PO QDAY #30 tablet
[2019-04-22 14:11] VITALS: BP 98/46
--- NOTE | 2019-04-22 14:58 | Operative Report ---
Operative Report Operative Report: Exam: Tunneled hemodialysis catheter removal Clinical indication: Catheter no longer needed Date: 04/22/2019 Procedure: Following an explanation of the risks, benefits and alternatives; informed consent was obtained. The procedure was performed at bedside in the patient's room. The patient's right neck and chest wall were draped sterilely. The suture the catheter was cut. The catheter would not removed easily and 1% lidocaine was used for anesthesia along the tunnel tract. The catheter cuff was then dissected free and the catheter removed intact. Hemostasis was achieved using manual compression and a sterile compression dressing was applied. The patient tolerated the procedure well. There were no immediate post procedure consultations. Impression: Removal of right IJ tunneled hemodialysis catheter at bedside. Pressure dressing applied for hemostasis following manual compression.
== END 2019-04-22 17:55 | disposition home health service (06) | DRG 286 ==
LOC: ED 19:35 → 4A 04-12 01:33 → 2B-ACE 04-18 17:47
PROVIDERS: ADMIT Internal Medicine; ATTEND Internal Medicine
PROC: 0JH63XZ Insertion of Tunneled Vascular Access Device into Chest Subcutaneous Tissue and Fascia, Percutaneous Approach (ICD-10-PCS; principal; 2019-04-17)
PROC: B2141ZZ Fluoroscopy of Right Heart using Low Osmolar Contrast (ICD-10-PCS; 2019-04-17)
PROC: 02H633Z Insertion of Infusion Device into Right Atrium, Percutaneous Approach (ICD-10-PCS; 2019-04-17)
PROC: B543ZZA Ultrasonography of Right Jugular Veins, Guidance (ICD-10-PCS; 2019-04-17)
PROC: 5A1D70Z Performance of Urinary Filtration, Intermittent, Less than 6 Hours Per Day (ICD-10-PCS; 2019-04-17)
PROC: 5A1D70Z Performance of Urinary Filtration, Intermittent, Less than 6 Hours Per Day (ICD-10-PCS; 2019-04-18)
PROC: 5A1D70Z Performance of Urinary Filtration, Intermittent, Less than 6 Hours Per Day (ICD-10-PCS; 2019-04-19)
PROC: 0JPV3XZ Removal of Tunneled Vascular Access Device from Upper Extremity Subcutaneous Tissue and Fascia, Percutaneous Approach (ICD-10-PCS; 2019-04-22)
PROC: 05PYX3Z Removal of Infusion Device from Upper Vein, External Approach (ICD-10-PCS; 2019-04-22)
DX: I13.0 Hypertensive heart and chronic kidney disease with heart failure and stage 1 through stage 4 chronic kidney disease, or unspecified chronic kidney disease (principal); I50.43 Acute on chronic combined systolic (congestive) and diastolic (congestive) heart failure; N17.9 Acute kidney failure, unspecified; E87.1 Hypo-osmolality and hyponatremia; J44.9 Chronic obstructive pulmonary disease, unspecified; I27.20 Pulmonary hypertension, unspecified; M19.90 Unspecified osteoarthritis, unspecified site; I48.0 Paroxysmal atrial fibrillation; D64.9 Anemia, unspecified; E87.5 Hyperkalemia; E11.22 Type 2 diabetes mellitus with diabetic chronic kidney disease; N18.9 Chronic kidney disease, unspecified; Z79.01 Long term (current) use of anticoagulants; Z99.81 Dependence on supplemental oxygen; Z95.0 Presence of cardiac pacemaker; Z79.899 Other long term (current) drug therapy
CPT/HCPCS: 36415; 36558; 71045; 71275; 76770; 77001; 80048; 80053; 80061; 80074; 81001; 82570; 82947; 82962; 83735; 83880; 83930; 83935; 84100; 84300; 84443; 84484; 84550; 85007; 85025; 93005; 93010; 93306; 94640; 94760; 96374; G0378; A9270-GY; C1750; J0360; J0610; J0885; J1644; J1815; J1940; J2250; J2405; J3010; J7030; J7040; J7050; Q9967

== ENCOUNTER 2019-05-03 13:55 | Inpatient (IN) | payer MEDICARE ==
--- NOTE | 2019-05-03 14:17 | Emergency Department Report ---
Blank Doc - Documentation Documentation: 88 y/o female wit PMH of CHF and COPD on oxygen c/o of weight gain and restles sness. Worried of fluid build up Plan labs and ekg
[2019-05-03 14:39] LABS: Eosinophils # (Auto) 0.2 K/mm3 (0.0-0.4); Eosinophils % (Auto) 3.8 % (0.0-4.3); Hematocrit 25.1 % (30.3-42.9); Lymphocytes # (Auto) 0.6 K/mm3 (1.2-5.4); Lymphocytes % (Auto) 14.8 % (13.4-35.0); Mean Corpuscular HGB Conc 32 % (30-34); Mean Corpuscular Volume 94 fl (79-97); Monocytes # (Auto) 0.6 K/mm3 (0.0-0.8); Monocytes % (Auto) 15.1 % (0.0-7.3); Platelet Count 220 K/mm3 (140-440); Red Blood Count 2.68 M/mm3 (3.65-5.03); Red Cell Distribution Width 18.6 % (13.2-15.2)
[2019-05-03 15:05] LABS: Albumin 3.8 g/dL (3.9-5); Calcium 9.8 mg/dL (8.4-10.2)
[2019-05-03] MEDS ORDERED: DUONEB *Not for PRN Use IH ONE (16:20)
--- NOTE | 2019-05-03 16:29 | XRay Report ---
PROCEDURE: XR CHEST 1V AP TECHNIQUE: Chest radiograph, AP portable upright view. HISTORY: sob COMPARISONS: Chest x-ray April 11, 2019. FINDINGS: Stable cardiomegaly. Aortic calcifications. Cardiac device is intact. There is no effusion. There is no pneumothorax. There is no consolidation. There are no suspicious osseous lesions. IMPRESSION: * No acute cardiopulmonary findings. This document is electronically signed by Reid Mahan MD., May 03 2019 04:27:16 PM ET
--- NOTE | 2019-05-03 16:32 | Emergency Department Report ---
ED Shortness of Breath HPI - General Chief Complaint: Dyspnea/Respdistress Stated Complaint: INOCENCIO Time Seen by Provider: 05/03/19 14:16 Source: patient, old records reviewed Mode of arrival: Wheelchair Limitations: No Limitations - History of Present Illness Initial Comments: 88-year-old female with past medical history of CHF, arthritis, COPD, diabetes, hypertension, pacemaker placement presents to Hospital pain subsequent to breath and cough since yesterday. He sneezed anything dyspnea with exertion. She walks with a walker at her baseline. She has a frequent dry cough with fever. She has worsening bilateral lower extremity edema since discharge on April 22 she was recently admitted April 12 until the for screening shortness of breath. Patient also has had a 7 pound weight gain in a day. As per medical record patient is on home oxygen. She presents satting 95% and greater on room air. Patient presents with her niece. Apparently they called the risk and insurance manager yesterday he was advised to increase her Lasix from 80 mg twice a day to 160 mg twice a day for 3 days. She started this dosing yesterday afternoon. She is also on ELiquis. During admission on 04/11/[address] angiogram chest showed no evidence of pulmonary embolus. Atherosclerosis of the coronary arteries. Small right pleural effusion. Moderate diffuse emphysematous changes. Cholelithiasis. Small amount of ascites in the upper abdomen. Diffuse body while edema. - Related Data Home Medications Medication Instructions Recorded Confirmed Last Taken Albuterol Sulfate [Proair 90 mcg IH PRN PRN 04/12/19 04/12/19 Unknown Respiclick] Apixaban [Eliquis] 2.5 mg PO BID 04/12/19 04/12/19 Unknown Cholecalciferol Vit D3 [Vitamin D3 1,000 unit PO QDAY 04/12/19 04/12/19 Unknown 1,000 UNIT TAB] Dorzolamide HCl [Trusopt] 10 ml OU BID 04/12/19 04/12/19 Unknown Pravastatin [Pravachol] 20 mg PO DAILY 04/12/19 04/12/19 Unknown Tiotropium Loraine [Spiriva] 18 mcg IH DAILY 04/12/19 04/12/19 Unknown Previous Rx's Medication Instructions Recorded Last Taken Type Furosemide [Lasix TAB] 40 mg PO BID #60 tablet 04/22/19 Unknown Rx QUEtiapine [SEROquel] 25 mg PO QHS #30 tablet 04/22/19 Unknown Rx amLODIPine [Norvasc] 10 mg PO QDAY #30 tablet 04/22/19 Unknown Rx Allergies Allergy/AdvReac Type Severity Reaction Status Date / Time No Known Allergies Allergy Verified 05/03/19 13:57 ED Review of Systems ROS: Stated complaint: INOCENCIO Other details as noted in HPI Comment: All other systems reviewed and negative ED Past Medical Hx - Past Medical History Hx Hypertension: Yes Hx Congestive Heart Failure: Yes Hx Diabetes: Yes Hx Arthritis: Yes Hx COPD: Yes Additional medical history: heart failure - Surgical History Hx Pacemaker: Yes Additional Surgical History: pacemaker, diverticulitis - Social History Smoking Status: Former Smoker Substance Use Type: Prescribed - Medications Home Medications: Home Medications Medication Instructions Recorded Confirmed Last Taken Type Albuterol Sulfate [Proair 90 mcg IH PRN PRN 04/12/19 04/12/19 Unknown History Respiclick] Apixaban [Eliquis] 2.5 mg PO BID 04/12/19 04/12/19 Unknown History Cholecalciferol Vit D3 [Vitamin D3 1,000 unit PO QDAY 04/12/19 04/12/19 Unknown History 1,000 UNIT TAB] Dorzolamide HCl [Trusopt] 10 ml OU BID 04/12/19 04/12/19 Unknown History Pravastatin [Pravachol] 20 mg PO DAILY 04/12/19 04/12/19 Unknown History Tiotropium Loraine [Spiriva] 18 mcg IH DAILY 04/12/19 04/12/19 Unknown History Furosemide [Lasix TAB] 40 mg PO BID #60 tablet 04/22/19 Unknown Rx QUEtiapine [SEROquel] 25 mg PO QHS #30 tablet 04/22/19 Unknown Rx amLODIPine [Norvasc] 10 mg PO QDAY #30 tablet 04/22/19 Unknown Rx ED Physical Exam - General Limitations: No Limitations - Other Other exam information: General: No limitations, patient is alert in no acute distress Head exam: Atraumatic, normocephalic Eyes exam: Normal appearance ENT: Moist mucous membrane, normal oropharynx Neck exam: Normal inspection, full range of motion, no meningismus nontender Respiratory exam: Clear to auscultation bilateral, no wheezes, rales, crackles, frequent dry cough Cardiovascular: Normal rate and rhythm Abdomen: Soft, nondistended, and nontender, with normal bowel sounds, no rebound, or guarding Extremity: One to 2+ pitting lower extremity edema equal bilaterally without calf tenderness Back: Normal Inspection, full range of motion, no tenderness Neurologic: Alert, oriented x3, cranial nerves intact, no motor or sensory deficit Psychiatric: normal affect, normal mood Skin: Warm, dry, intact ED Course Vital Signs 05/03/19 05/03/19 05/03/19 14:15 14:55 14:56 Temperature 98.1 F 98.1 F Pulse Rate 65 65 Pulse Rate [ Anterior Bilateral Throughout] Respiratory 18 16 16 Rate Respiratory Rate [Anterior Bilateral Throughout] Blood Pressure 118/50 Blood Pressure 140/68 [Left] O2 Sat by Pulse 98 96 96 Oximetry 05/03/19 05/03/19 05/03/19 15:00 16:16 16:46 Temperature Pulse Rate 68 65 65 Pulse Rate [ Anterior Bilateral Throughout] Respiratory 22 16 21 Rate Respiratory Rate [Anterior Bilateral Throughout] Blood Pressure 140/68 126/60 126/60 Blood Pressure [Left] O2 Sat by Pulse 93 95 94 Oximetry 05/03/19 05/03/19 16:48 17:00 Temperature Pulse Rate Pulse Rate [ 65 72 Anterior Bilateral Throughout] Respiratory Rate Respiratory 22 20 Rate [Anterior Bilateral Throughout] Blood Pressure Blood Pressure [Left] O2 Sat by Pulse Oximetry - Consultations Consultation #1: 05/03/19 17:15 case d/w DR jessica stiles ED Medical Decision Making - Lab Data Result diagrams: 05/03/19 14:23 05/03/19 14:23 Lab Results 05/03/19 05/03/19 05/03/19 Range/Units 14:23 14:23 14:23 WBC 4.2 L (4.5-11.0) K/mm3 RBC 2.68 L (3.65-5.03) M/mm3 Hgb 8.0 L (10.1-14.3) gm/dl Hct 25.1 L (30.3-42.9) % MCV 94 (79-97) fl MCH 30 (28-32) pg MCHC 32 (30-34) % RDW 18.6 H (13.2-15.2) % Plt Count 220 (140-440) K/mm3 Lymph % (Auto) 14.8 (13.4-35.0) % [place] % (Auto) 15.1 H (0.0-7.3) % Eos % (Auto) 3.8 (0.0-4.3) % Baso % (Auto) 1.0 (0.0-1.8) % Lymph # 0.6 L (1.2-5.4) K/mm3 [place] # 0.6 (0.0-0.8) K/mm3 Eos # 0.2 (0.0-0.4) K/mm3 Baso # 0.0 (0.0-0.1) K/mm3 Seg Neutrophils % 65.3 (40.0-70.0) % Seg Neutrophils # 2.8 (1.8-7.7) K/mm3 Sodium 136 L (137-145) mmol/L Potassium 5.0 (3.6-5.0) mmol/L Chloride 93.7 L (98-107) mmol/L Carbon Dioxide 29 (22-30) mmol/L Anion Gap 18 mmol/L BUN 33 H (7-17) mg/dL Creatinine 1.6 H (0.7-1.2) mg/dL Estimated GFR 37 ml/min BUN/Creatinine Ratio 21 % Glucose 115 H (65-100) mg/dL POC Glucose (70-105) Calcium 9.8 (8.4-10.2) mg/dL Total Bilirubin 0.40 (0.1-1.2) mg/dL AST 24 (5-40) units/L ALT 10 (7-56) units/L Alkaline Phosphatase 76 (35-129) units/L Troponin T 0.026 (0.00-0.029) ng/mL NT-Pro-B Natriuret Pep 2770 H (0-900) pg/mL Total Protein 7.4 (6.3-8.2) g/dL Albumin 3.8 L (3.9-5) g/dL Albumin/Globulin Ratio 1.1 % Urine Color (Yellow) Urine Turbidity (Clear) Urine pH (5.0-7.0) Ur Specific [place] (1.003-1.030) Urine Protein (Negative) mg/dL Urine Glucose (UA) (Negative) mg/dL Urine Ketones (Negative) mg/dL Urine Blood (Negative) Urine Nitrite (Negative) Urine Bilirubin (Negative) Urine Urobilinogen (<2.0) mg/dL Ur Leukocyte Esterase (Negative) Urine WBC (Auto) (0.0-6.0) /HPF Urine RBC (Auto) (0.0-6.0) /HPF U Epithel Cells (Auto) (0-13.0) /HPF Urine Mucus /HPF 05/03/19 05/03/19 Range/Units 16:00 16:01 WBC (4.5-11.0) K/mm3 RBC (3.65-5.03) M/mm3 Hgb (10.1-14.3) gm/dl Hct (30.3-42.9) % MCV (79-97) fl MCH (28-32) pg MCHC (30-34) % RDW (13.2-15.2) % Plt Count (140-440) K/mm3 Lymph % (Auto) (13.4-35.0) % [place] % (Auto) (0.0-7.3) % Eos % (Auto) (0.0-4.3) % Baso % (Auto) (0.0-1.8) % Lymph # (1.2-5.4) K/mm3 [place] # (0.0-0.8) K/mm3 Eos # (0.0-0.4) K/mm3 Baso # (0.0-0.1) K/mm3 Seg Neutrophils % (40.0-70.0) % Seg Neutrophils # (1.8-7.7) K/mm3 Sodium (137-145) mmol/L Potassium (3.6-5.0) mmol/L Chloride (98-107) mmol/L Carbon Dioxide (22-30) mmol/L Anion Gap mmol/L BUN (7-17) mg/dL Creatinine (0.7-1.2) mg/dL Estimated GFR ml/min BUN/Creatinine Ratio % Glucose (65-100) mg/dL POC Glucose 127 H (70-105) Calcium (8.4-10.2) mg/dL Total Bilirubin (0.1-1.2) mg/dL AST (5-40) units/L ALT (7-56) units/L Alkaline Phosphatase (35-129) units/L Troponin T (0.00-0.029) ng/mL NT-Pro-B Natriuret Pep (0-900) pg/mL Total Protein (6.3-8.2) g/dL Albumin (3.9-5) g/dL Albumin/Globulin Ratio % Urine Color Straw (Yellow) Urine Turbidity Clear (Clear) Urine pH 7.0 (5.0-7.0) Ur Specific [place] 1.008 (1.003-1.030) Urine Protein <15 mg/dl (Negative) mg/dL Urine Glucose (UA) Neg (Negative) mg/dL Urine Ketones Neg (Negative) mg/dL Urine Blood Neg (Negative) Urine Nitrite Neg (Negative) Urine Bilirubin Neg (Negative) Urine Urobilinogen < 2.0 (<2.0) mg/dL Ur Leukocyte Esterase Tr (Negative) Urine WBC (Auto) 2.0 (0.0-6.0) /HPF Urine RBC (Auto) 1.0 (0.0-6.0) /HPF U Epithel Cells (Auto) 1.0 (0-13.0) /HPF Urine Mucus Few /HPF - EKG Data -: EKG Interpreted by Me (ventricular paced rate 65) EKG shows normal: ST-T waves (no ST elevation IA) - EKG Data When compared to previous EKG there are: no significant change (compared to 04/11) - Radiology Data Radiology results: report reviewed PROCEDURE: XR CHEST 1V AP TECHNIQUE: Chest radiograph, AP portable upright view. HISTORY: sob COMPARISONS: Chest x-ray April 11, 2019. FINDINGS: Stable cardiomegaly. Aortic calcifications. Cardiac device is intact. There is no eff usion. There is no pneumothorax. There is no consolidation. There are no suspicious osseous lesions. IMPRESSION: * No acute cardiopulmonary findings. - Medical Decision Making cxr remarkable for patient exhibiting signs of worsening right heart failure given increased weight, worsening edema, and worsening dyspnea on exertion. Patient failed outpatient Lasix sufficient diuresis. Case discussed with cardiology. Patient be admitted for further monitoring. Patient did see a DuoNeb in the ED for COPD - Differential Diagnosis COPD, IA, CHF Critical Care Time: No Critical care attestation.: If time is entered above; I have spent that time in minutes in the direct care of this critically ill patient, excluding procedure time. ED Disposition Clinical Impression: CHF exacerbation, COPD (chronic obstructive pulmonary disease), Chronic anticoagulation, Failure of outpatient treatment, Pulmonary HTN, Chronic renal insufficiency Disposition: OP ADMIT IP TO THIS HOSP Is pt being admited?: Yes Condition: Stable Time of Disposition: 17:15 (DR hurtado/hosp)
[2019-05-03 16:39] LABS: Bilirubin,Urine NEG (Negative); Blood,Urine NEG (Negative); Color,Urine Straw (Yellow); Mucus,Urine FEW /HPF; Protein,Urine <15 mg/dL mg/dL (Negative); Urobilinogen,Urine < 2.0 mg/dL (<2.0)
[2019-05-03] MEDS ORDERED: TESSALON PERLES PO ONE (16:54)
[2019-05-03] MEDS ORDERED: ZOFRAN IV PRN (19:14)
[2019-05-03] MEDS ORDERED: DILAUDID IV PRN (19:14)
[2019-05-03] MEDS ORDERED: IBUPROFEN PO PRN (19:14)
[2019-05-03] MEDS ORDERED: SODIUM CHLORIDE FLUSH SYRINGE 10 ML IV PRN (19:14)
[2019-05-03] MEDS: K-DUR PO SCH (19:35)
[2019-05-03] MEDS ORDERED: PROVENTIL IH PRN (20:55)
--- NOTE | 2019-05-03 21:00 | History and Physical Report ---
History of Present Illness Date of examination: 05/03/19 Date of admission: 05/03/2019 Chief complaint: Increase bilateral extremity edema, shortness of breath History of present illness: 88-year-old -[place] female with history of CHF, pacemaker in situ, A. fib on Eliquis, COPD on home O2, DM, HTN, chronic anemia, arthritis who presents to start him see ED with complaints of shortness of breath and cough for the past few days. Patient is a poor historian. Her niece is at the bedside and has assisted in history taking. According to patient's needs patient has been experiencing increase bilateral lower extremity edema and has gained 7 pounds in 1 day. She has a nonproductive cough with increase shortness of breath at rest and with activity. At baseline patient is on home O2. Patient was advised yesterday by Dr. Odonnell (structured cabling technician) to increase by mouth Lasix from 80 mg BID to 160 mg BID for x 3days. Even with increase in po Lasix, she continued to experience increased shortness of breath, cough and bilateral lower extremity edema that she started coming for further evaluation. Past History Past Medical History: atrial fib (on Eliquis), anemia (chronic), COPD, diabetes, heart failure (pacemaker in situ), hypertension Past Surgical History: Other (s/p pacemaker, diverticulitis) Social history: lives with family, other (former smoker,) Family history: no significant family history Medications and Allergies Allergies Allergy/AdvReac Type Severity Reaction Status Date / Time No Known Allergies Allergy Verified 05/03/19 13:57 Home Medications Medication Instructions Recorded Confirmed Last Taken Type Albuterol Sulfate [Proair 90 mcg IH PRN PRN 04/12/19 05/03/19 Unknown History Respiclick] Apixaban [Eliquis] 2.5 mg PO BID 04/12/19 05/03/19 Unknown History Cholecalciferol Vit D3 [Vitamin D3 1,000 unit PO QDAY 04/12/19 05/03/19 Unknown History 1,000 UNIT TAB] Pravastatin [Pravachol] 20 mg PO DAILY 04/12/19 05/03/19 Unknown History Tiotropium [place] [Spiriva] 18 mcg IH DAILY 04/12/19 05/03/19 Unknown History QUEtiapine [SEROquel] 25 mg PO QHS #30 tablet 04/22/19 05/03/19 Unknown Rx amLODIPine [Norvasc] 10 mg PO QDAY #30 tablet 04/22/19 05/03/19 Unknown Rx Furosemide [Lasix TAB] 80 mg PO BID 05/03/19 05/03/19 Unknown History Insulin Glargine [Lantus] 10 unit SUB-Q QHS 05/03/19 05/03/19 Unknown History Iron Carb,Gl/FA/B12/C/Docusate 1 each PO QDAY 05/03/19 05/03/19 Unknown History [Ferralet 90 Dual-Iron Tablet] Propylene Glycol [Systane Complete] 10 ml OP BID 05/03/19 05/03/19 Unknown History Active Meds: Active Medications Acetaminophen (Tylenol) 650 mg PO Q4H PRN PRN Reason: Pain MILD(1-3)/Fever >100.5/BASILIO Albuterol (Proventil) 2.5 mg IH Q4HRT PRN PRN Reason: Shortness Of Breath Albuterol/Ipratropium (Duoneb *Not For Prn Use*) 1 ampul IH TIDRT [facility] Amlodipine Besylate (Norvasc) 10 mg PO QDAY [facility] Apixaban (Eliquis) 2.5 mg PO BID [facility]; Protocol Budesonide (Pulmicort) 0.5 mg IH Q12HRT [facility] Cholecalciferol (Vitamin D3) 1,000 unit PO QDAY [facility] Docusate Sodium (Colace) 100 mg PO BID [facility] Famotidine (Pepcid) 20 mg PO BID [facility] Ferrous Sulfate (Feosol) 325 mg PO QDAY [facility] Furosemide (Lasix) 40 mg IV 0600,1800 [facility] Guaifenesin (Mucinex Er) 600 mg PO BID [facility] Hydromorphone HCl (Dilaudid) 0.5 mg IV Q3H PRN PRN Reason: Pain , Severe (7-10) Ibuprofen (Ibuprofen) 600 mg PO Q6H PRN PRN Reason: Pain, Mild (1-3) Ondansetron HCl (Zofran) 4 mg IV Q8H PRN PRN Reason: Nausea And Vomiting Oxycodone/Acetaminophen (Percocet 5/325) 1 tab PO Q6H PRN PRN Reason: Pain, Moderate (4-6) Potassium Chloride (K-Dur) 20 meq PO Q12H [facility] Last Admin: 05/03/19 19:35 Dose: 20 meq Documented by: Pravastatin Sodium (Pravachol) 20 mg PO DAILY [facility] Quetiapine Fumarate (Seroquel) 25 mg PO QHS [facility] Sodium Chloride (Sodium Chloride Flush Syringe 10 Ml) 10 ml IV BID [facility] Sodium Chloride (Sodium Chloride Flush Syringe 10 Ml) 10 ml IV PRN PRN PRN Reason: LINE FLUSH Review of Systems All systems: negative (reviewed and no additional remarkable complaints except as noted below) Cardiovascular: edema, shortness of breath, dyspnea on exertion, leg edema Respiratory: cough, shortness of breath, dyspnea on exertion Exam - Physical Exam Narrative exam: Physical exam General appearance: Present: No acute distress, awake, oriented to self and place, older adult -Burmese female - EENT Eyes: Present: PERRL, EOM intact ENT: Hard of hearing, poor dentition - Neck Neck: Present: supple, normal ROM - Respiratory Respiratory effort: Non-labored Respiratory: bilateral: diminished (bases) - Cardiovascular Heart rate: 65 (bpm) Rhythm: V-paced Heart Sounds: Present: S1 & S2. Absent: rub, click - Extremities Extremities: no ischemia, pulses intact, abnormal (bilateral lower extremity pitting 3+ edema) - Peripheral Assessment Peripheral Pulses: within normal limits - Abdominal General gastrointestinal: soft, non-tender, normal bowel sounds - Integumentary Integumentary: Present: warm, dry - Musculoskeletal Musculoskeletal: generalized weakness - Psychiatric Psychiatric: cooperative - Constitutional Vitals: Temp Pulse Resp BP Pulse Ox 98.1 F 65 22 144/59 96 05/03/19 14:55 05/03/19 18:31 05/03/19 18:31 05/03/19 18:31 05/03/19 18:31 Results - Labs CBC & Chem 7: 05/03/19 14:23 05/03/19 14:23 Labs: Laboratory Last Values WBC 4.2 K/mm3 (4.5-11.0) L 05/03/19 14:23 RBC 2.68 M/mm3 (3.65-5.03) L 05/03/19 14:23 Hgb 8.0 gm/dl (10.1-14.3) L 05/03/19 14:23 Hct 25.1 % (30.3-42.9) L 05/03/19 14:23 MCV 94 fl (79-97) 05/03/19 14:23 MCH 30 pg (28-32) 05/03/19 14:23 MCHC 32 % (30-34) 05/03/19 14:23 RDW 18.6 % (13.2-15.2) H 05/03/19 14:23 Plt Count 220 K/mm3 (140-440) 05/03/19 14:23 Lymph % (Auto) 14.8 % (13.4-35.0) 05/03/19 14:23 [place] % (Auto) 15.1 % (0.0-7.3) H 05/03/19 14:23 Eos % (Auto) 3.8 % (0.0-4.3) 05/03/19 14:23 Baso % (Auto) 1.0 % (0.0-1.8) 05/03/19 14:23 Lymph # 0.6 K/mm3 (1.2-5.4) L 05/03/19 14:23 [place] # 0.6 K/mm3 (0.0-0.8) 05/03/19 14:23 Eos # 0.2 K/mm3 (0.0-0.4) 05/03/19 14:23 Baso # 0.0 K/mm3 (0.0-0.1) 05/03/19 14:23 Seg Neutrophils % 65.3 % (40.0-70.0) 05/03/19 14:23 Seg Neutrophils # 2.8 K/mm3 (1.8-7.7) 05/03/19 14:23 Sodium 136 mmol/L (137-145) L 05/03/19 14:23 Potassium 5.0 mmol/L (3.6-5.0) 05/03/19 14:23 Chloride 93.7 mmol/L (98-107) L 05/03/19 14:23 Carbon Dioxide 29 mmol/L (22-30) 05/03/19 14:23 18 mmol/L 05/03/19 14:23 BUN 33 mg/dL (7-17) H 05/03/19 14:23 1.6 mg/dL (0.7-1.2) H 05/03/19 14:23 Estimated GFR 37 ml/min 05/03/19 14:23 21 % 05/03/19 14:23 Glucose 115 mg/dL (65-100) H 05/03/19 14:23 POC Glucose 127 (70-105) H 05/03/19 16:01 7.7 % (4-6) H 05/03/19 19:23 Calcium 9.8 mg/dL (8.4-10.2) 05/03/19 14:23 0.40 mg/dL (0.1-1.2) 05/03/19 14:23 AST 24 units/L (5-40) 05/03/19 14:23 ALT 10 units/L (7-56) 05/03/19 14:23 76 units/L (35-129) 05/03/19 14:23 0.021 ng/mL (0.00-0.029) 05/03/19 17:13 NT-Pro-B Natriuret Pep 2770 pg/mL (0-900) H 05/03/19 14:23 7.4 g/dL (6.3-8.2) 05/03/19 14:23 3.8 g/dL (3.9-5) L 05/03/19 14:23 1.1 % 05/03/19 14:23 Straw (Yellow) 05/03/19 16:00 Clear (Clear) 05/03/19 16:00 7.0 (5.0-7.0) 05/03/19 16:00 Ur Specific [place] 1.008 (1.003-1.030) 05/03/19 16:00 <15 mg/dl mg/dL (Negative) 05/03/19 16:00 Neg mg/dL (Negative) 05/03/19 16:00 Neg mg/dL (Negative) 05/03/19 16:00 Neg (Negative) 05/03/19 16:00 Neg (Negative) 05/03/19 16:00 Neg (Negative) 05/03/19 16:00 < 2.0 mg/dL (<2.0) 05/03/19 16:00 Ur Leukocyte Esterase Tr (Negative) 05/03/19 16:00 2.0 /HPF (0.0-6.0) 05/03/19 16:00 1.0 /HPF (0.0-6.0) 05/03/19 16:00 U Epithel Cells (Auto) 1.0 /HPF (0-13.0) 05/03/19 16:00 Few /HPF 05/03/19 16:00 - Imaging and Cardiology EKG: image reviewed (V-paced 65bpm) Chest x-ray: report reviewed ( No acute cardiopulmonary findings; exhibit signs of worsening heart failure), image reviewed Assessment and Plan Assessment and plan: 88-year-old -Burmese female with history of CHF, pacemaker in situ, A. fib on Eliquis, COPD on home O2, DM, HTN, chronic anemia, arthritis who presents to start him see ED with complaints of shortness of breath, non productive cough, and worsening BLE pitting edema for the past 4 days. CXR unrevealing fro acute cardiopulmonary abnormalities, but did show signs of worsening right sided HF. Will admit to telemetry. Acute exacerbation of CHF COPD on home O2 DM 2 Hypertension A. fib on Eliquis Pacemaker Chronic anemia Arthritis Plan: Continue support care Continuous telemetry monitoring Cardiology consult pending ([facility]) Echo pending Monitor BP Continue home antihypertensive med: Norvasc 10mg daily IV Lasix 40mg BID POC BG monitoring SSI Coverage Continue Eliquis 2.5mg BID Continue supplemental o2 as needed Scheduled tomorrow and Pulmicort, albuterol when necessary Mucinex Monitor Hgb, transfuse as needed Continue ferrous sulfate 325 mg daily DVT PPX on Eliquis Advance Directives: No VTE prophylaxis?: Chemical Plan of care discussed with patient/family: Yes
[2019-05-03] MEDS ORDERED: D50W (25GM) Syringe IV PRN (21:39)
[2019-05-03] MEDS: MUCINEX ER PO SCH (22:44)
[2019-05-03] MEDS: COLACE PO SCH (22:44)
[2019-05-03] MEDS: ELIQUIS PO SCH (22:44)
[2019-05-03] MEDS: SODIUM CHLORIDE FLUSH SYRINGE 10 ML IV SCH (22:45)
[2019-05-03] MEDS: PEPCID PO SCH (22:45)
[2019-05-03] MEDS ORDERED: PEPCID ONE (22:48)
[2019-05-03] MEDS ORDERED: HumuLIN R ONE (22:57)
[2019-05-03] MEDS: HumaLOG SUB-Q SCH (23:02)
[2019-05-04 05:54] LABS: Hematocrit 23.4 % (30.3-42.9); Hemoglobin 7.4 gm/dl (10.1-14.3); Mean Corpuscular HGB Conc 32 % (30-34); Mean Corpuscular Volume 94 fl (79-97); Platelet Count 219 K/mm3 (140-440); Red Blood Count 2.49 M/mm3 (3.65-5.03); Red Cell Distribution Width 18.8 % (13.2-15.2)
[2019-05-04 06:11] LABS: Albumin 3.2 g/dL (3.9-5); Calcium 8.9 mg/dL (8.4-10.2)
[2019-05-04] MEDS: LASIX IV SCH ×2 (06:32→18:07)
--- NOTE | 2019-05-04 08:18 | Consultation ---
History of Present Illness Consult date: 05/04/19 Consult reason: congestive heart failure History of present illness: 88 year old presenting back to the hospiotal with worsening LE edema despite increasing lasix to 80 mg po bid for the last 2 weeks. Family member states that patient is not compliant with fluid restriction. Patient denies chest pain or shortness of breath. Tele is showing A-sensed and V-paced rhythm. Past History Past Medical History: atrial fib (on Eliquis), anemia (chronic), COPD, diabetes, heart failure (pacemaker in situ), hypertension Past Surgical History: Other (s/p pacemaker, diverticulitis) Social history: lives with family, other (former smoker,) Family history: no significant family history Medications and Allergies Allergies Allergy/AdvReac Type Severity Reaction Status Date / Time No Known Allergies Allergy Verified 05/03/19 13:57 Home Medications Medication Instructions Recorded Confirmed Last Taken Type Albuterol Sulfate [Proair 90 mcg IH PRN PRN 04/12/19 05/03/19 Unknown History Respiclick] Apixaban [Eliquis] 2.5 mg PO BID 04/12/19 05/03/19 Unknown History Cholecalciferol Vit D3 [Vitamin D3 1,000 unit PO QDAY 04/12/19 05/03/19 Unknown History 1,000 UNIT TAB] Pravastatin [Pravachol] 20 mg PO DAILY 04/12/19 05/03/19 Unknown History Tiotropium [place] [Spiriva] 18 mcg IH DAILY 04/12/19 05/03/19 Unknown History QUEtiapine [SEROquel] 25 mg PO QHS #30 tablet 04/22/19 05/03/19 Unknown Rx amLODIPine [Norvasc] 10 mg PO QDAY #30 tablet 04/22/19 05/03/19 Unknown Rx Furosemide [Lasix TAB] 80 mg PO BID 05/03/19 05/03/19 Unknown History Insulin Glargine [Lantus] 10 unit SUB-Q QHS 05/03/19 05/03/19 Unknown History Iron Carb,Gl/FA/B12/C/Docusate 1 each PO QDAY 05/03/19 05/03/19 Unknown History [Ferralet 90 Dual-Iron Tablet] Propylene Glycol [Systane Complete] 10 ml OP BID 05/03/19 05/03/19 Unknown History Active Meds: Active Medications Acetaminophen (Tylenol) 650 mg PO Q4H PRN PRN Reason: Pain MILD(1-3)/Fever >100.5/BASILIO Albuterol (Proventil) 2.5 mg IH Q4HRT PRN PRN Reason: Shortness Of Breath Albuterol/Ipratropium (Duoneb *Not For Prn Use*) 1 ampul IH TIDRT [facility] Amlodipine Besylate (Norvasc) 10 mg PO QDAY [facility] Apixaban (Eliquis) 2.5 mg PO BID [facility]; Protocol Last Admin: 05/03/19 22:44 Dose: 2.5 mg Documented by: Budesonide (Pulmicort) 0.5 mg IH Q12HRT [facility] Cholecalciferol (Vitamin D3) 1,000 unit PO QDAY [facility] Dextrose (D50w (25gm) Syringe) 50 ml IV PRN PRN PRN Reason: Hypoglycemia Docusate Sodium (Colace) 100 mg PO BID [facility] Last Admin: 05/03/19 22:44 Dose: 100 mg Documented by: Famotidine (Pepcid) 20 mg PO BID [facility] Last Admin: 05/03/19 22:45 Dose: 20 mg Documented by: Ferrous Sulfate (Feosol) 325 mg PO QDAY [facility] Furosemide (Lasix) 40 mg IV 0600,1800 [facility] Last Admin: 05/04/19 06:32 Dose: 40 mg Documented by: Guaifenesin (Mucinex Er) 600 mg PO BID [facility] Last Admin: 05/03/19 22:44 Dose: 600 mg Documented by: Hydromorphone HCl (Dilaudid) 0.5 mg IV Q3H PRN PRN Reason: Pain , Severe (7-10) Ibuprofen (Ibuprofen) 600 mg PO Q6H PRN PRN Reason: Pain, Mild (1-3) Insulin Human Lispro (Humalog) 0 unit SUB-Q ACHS [facility]; Protocol Last Admin: 05/03/19 23:02 Dose: 3 unit Documented by: Ondansetron HCl (Zofran) 4 mg IV Q8H PRN PRN Reason: Nausea And Vomiting Oxycodone/Acetaminophen (Percocet 5/325) 1 tab PO Q6H PRN PRN Reason: Pain, Moderate (4-6) Potassium Chloride (K-Dur) 20 meq PO Q12H [facility] Last Admin: 05/03/19 19:35 Dose: 20 meq Documented by: Pravastatin Sodium (Pravachol) 20 mg PO DAILY [facility] Quetiapine Fumarate (Seroquel) 25 mg PO QHS [facility] Last Admin: 05/03/19 22:45 Dose: 25 mg Documented by: Sodium Chloride (Sodium Chloride Flush Syringe 10 Ml) 10 ml IV BID [facility] Last Admin: 05/03/19 22:45 Dose: 10 ml Documented by: Sodium Chloride (Sodium Chloride Flush Syringe 10 Ml) 10 ml IV PRN PRN PRN Reason: LINE FLUSH Review of Systems All systems: negative Physical Examination Vital Signs Temp Pulse Resp BP Pulse Ox 98.1 F 65 18 118/50 98 05/03/19 14:15 05/03/19 14:15 05/03/19 14:15 05/03/19 14:15 05/03/19 14:15 General appearance: no acute distress HEENT: Positive: PERRL Neck: Positive: neck supple, JVD/HJR Cardiac: Positive: Reg Rate and Rhythm Lungs: Positive: Normal Exam Abdomen: Positive: Ascites Extremities: Present: +2 Edema Results 05/04/19 05:25 05/04/19 05:25 Cardiac Enzymes 05/03/19 05/04/19 Range/Units 14:23 05:25 AST 24 19 (5-40) units/L CBC 05/03/19 05/04/19 Range/Units 14:23 05:25 WBC 4.2 L 4.4 L (4.5-11.0) K/mm3 RBC 2.68 L 2.49 L (3.65-5.03) M/mm3 Hgb 8.0 L 7.4 L (10.1-14.3) gm/dl Hct 25.1 L 23.4 L (30.3-42.9) % Plt Count 220 219 (140-440) K/mm3 Lymph # 0.6 L (1.2-5.4) K/mm3 [place] # 0.6 (0.0-0.8) K/mm3 Eos # 0.2 (0.0-0.4) K/mm3 Baso # 0.0 (0.0-0.1) K/mm3 Comprehensive Metabolic Panel 05/03/19 05/04/19 Range/Units 14:23 05:25 Sodium 136 L 137 (137-145) mmol/L Potassium 5.0 3.9 D (3.6-5.0) mmol/L Chloride 93.7 L 92.8 L (98-107) mmol/L Carbon Dioxide 29 31 H (22-30) mmol/L BUN 33 H 32 H (7-17) mg/dL Creatinine 1.6 H 1.6 H (0.7-1.2) mg/dL Glucose 115 H 43 L (65-100) mg/dL Calcium 9.8 8.9 (8.4-10.2) mg/dL AST 24 19 (5-40) units/L ALT 10 8 (7-56) units/L Alkaline Phosphatase 76 54 (35-129) units/L Total Protein 7.4 6.5 (6.3-8.2) g/dL Albumin 3.8 L 3.2 L (3.9-5) g/dL - EKG Interpretation EKG: sinus rhythm EKG interpretations - Telemetry EKG Rhythm: Sinus Rhythm Assessment and Plan Acute on chronic heart failure with a preserved ejection fraction Symptoms are mostly right sided with ascites and LE edema Chronic renal failure required transient HD in the past Anemia Paroxysmal Afib on low dose eliquis Pacemaker present A-sensed and V-paced on tele COPD Essential systemic hypertension Type 2 DM Echocardiogram 04/2019 shows normal left ventricular systolic function, ejection fraction 60%. There is enlargement of the right heart chambers, moderate to s evere pulmonary hypertension with a pulmonary artery systolic pressure of 66, suggests cor pulmonale. Recommendations: Conservative cardiac management. Continue IV lasix Encourage compliance with fluid restriction Monitor H/H while on low dose eliquis
[2019-05-04] MEDS: HumaLOG SUB-Q SCH ×4 (08:49→23:17)
[2019-05-04] MEDS: DUONEB *Not for PRN Use IH SCH ×3 (09:24→20:39)
[2019-05-04] MEDS: PULMICORT IH SCH ×2 (09:24→20:39)
[2019-05-04 09:36] LABS: Total Cells Counted 100
[2019-05-04 09:37] LABS: Anisocytosis 1+; Hypochromasia 2+; Large Platelets Few; Ovalocytes Few; Platelet Estimate Consistent w Auto; Poikilocytosis 1+; Target Cells Few
[2019-05-04] MEDS: FEOSOL PO SCH (11:47)
[2019-05-04] MEDS: MUCINEX ER PO SCH ×2 (11:47→21:42)
[2019-05-04] MEDS: VITAMIN D3 PO SCH (11:48)
[2019-05-04] MEDS: K-DUR PO SCH ×2 (11:48→23:20)
[2019-05-04] MEDS: PEPCID PO SCH ×2 (11:48→21:43)
[2019-05-04] MEDS: ELIQUIS PO SCH ×2 (11:48→21:42)
[2019-05-04] MEDS: PRAVACHOL PO SCH (11:48)
[2019-05-04] MEDS: COLACE PO SCH ×2 (11:48→21:42)
[2019-05-04] MEDS: SODIUM CHLORIDE FLUSH SYRINGE 10 ML IV SCH ×2 (11:50→21:44)
--- NOTE | 2019-05-04 13:41 | Progress Note ---
Assessment and Plan 88-year-old -[place] female with history of CHF, pacemaker in situ, A. fib on Eliquis, COPD on home O2, DM, HTN, chronic anemia, arthritis who presents to start him see ED with complaints of shortness of breath, non productive co ugh, and worsening BLE pitting edema for the past 4 days. CXR unrevealing fro acute cardiopulmonary abnormalities, but did show signs of worsening right sided HF. Will admit to telemetry. Acute exacerbation of CHF COPD on home O2 DM 2 - A1c 7.7% Hypertension A. fib on Eliquis Pacemaker Anemia of chronic disease. Arthritis Plan: Stent implant and outputs, daily weights, Diuresis, beta adan, Acei, echocardiogram Continuous telemetry monitoring Cardiology consulted Bronchodilators, supplemental oxygen. Continue home antihypertensive med: Norvasc 10mg daily SSI Coverage Consistent carbohydrate Continue Eliquis 2.5mg BID Continue supplemental o2 as needed Scheduled tomorrow and Pulmicort, albuterol when necessar Mucinex Monitor Hgb, transfuse as needed Continue ferrous sulfate 325 mg daily DVT PPX on Eliquis Advance Directives: No VTE prophylaxis?: Chemical Plan of care discussed with patient/family: Yes Subjective Date of service: 05/04/19 Principal diagnosis: CHF exacerbation, COPD exacerbation, A. fib, T2DM, HTN Interval history: Laying quietly in bed. Caregiver by bedside. No new complaints. Denies any f ever. No chest pain. Objective - Exam Narrative Exam: Constitutional: Well-nourished well-developed. In no distress Head: Normocephalic atraumatic Eyes: Pupils are equal round and reactive to light Nose: No enlarged turbinates, no septal deviation. Mouth: Moist mucous membranes. Neck: Supple no thyromegaly. No bruit. No JVD Heart: Regular rate and rhythm, S1-S2 normal. No rubs murmurs or gallop Lungs: Clear to auscultation bilaterally. no rales or rhonchi Abdomen: Soft, nontender. Bowel sound are present. Extremities: No edema, no cyanosis, no clubbing. Neuro: Alert oriented Oriented x3. No focal sensory or motor deficit. Skin: No rashes or hyperpigmented spots Musculoskeletal system: No joint pain or swelling Hematological: No petechia or subcutanous hemorrhages. Immunological: No multiple septic spots on the skin Lymphatic: No generalized lymphadenopathy Psychiatry: Euthymic. Calm. - Constitutional Vitals: Vital Signs - 12hr 05/04/19 05/04/19 05/04/19 03:49 09:12 09:25 Temperature 97.9 F 98.2 F Pulse Rate 65 Respiratory 14 18 Rate Blood Pressure 108/52 113/58 O2 Sat by Pulse 96 91 Oximetry - Labs CBC & Chem 7: 05/04/19 05:25 05/04/19 05:25 Labs: Abnormal lab results 05/03/19 05/03/19 05/03/19 Range/Units 14:23 14:23 14:23 WBC 4.2 L (4.5-11.0) K/mm3 RBC 2.68 L (3.65-5.03) M/mm3 Hgb 8.0 L (10.1-14.3) gm/dl Hct 25.1 L (30.3-42.9) % RDW 18.6 H (13.2-15.2) % [place] % (Auto) 15.1 H (0.0-7.3) % Lymph # 0.6 L (1.2-5.4) K/mm3 Monocytes % (Manual) (0.0-7.3) % Eosinophils % (Manual) (0.0-4.3) % Basophils % (Manual) (0.0-1.8) % Lymphocytes # (Manual) (1.2-5.4) K/mm3 Sodium 136 L (137-145) mmol/L Chloride 93.7 L (98-107) mmol/L Carbon Dioxide (22-30) mmol/L BUN 33 H (7-17) mg/dL Creatinine 1.6 H (0.7-1.2) mg/dL Glucose 115 H (65-100) mg/dL POC Glucose (70-105) Hemoglobin A1c (4-6) % NT-Pro-B Natriuret Pep 2770 H (0-900) pg/mL Albumin 3.8 L (3.9-5) g/dL 05/03/19 05/03/19 05/03/19 Range/Units 16:01 19:23 22:57 WBC (4.5-11.0) K/mm3 RBC (3.65-5.03) M/mm3 Hgb (10.1-14.3) gm/dl Hct (30.3-42.9) % RDW (13.2-15.2) % [place] % (Auto) (0.0-7.3) % Lymph # (1.2-5.4) K/mm3 Monocytes % (Manual) (0.0-7.3) % Eosinophils % (Manual) (0.0-4.3) % Basophils % (Manual) (0.0-1.8) % Lymphocytes # (Manual) (1.2-5.4) K/mm3 Sodium (137-145) mmol/L Chloride (98-107) mmol/L Carbon Dioxide (22-30) mmol/L BUN (7-17) mg/dL Creatinine (0.7-1.2) mg/dL Glucose (65-100) mg/dL POC Glucose 127 H 216 H (70-105) Hemoglobin A1c 7.7 H (4-6) % NT-Pro-B Natriuret Pep (0-900) pg/mL Albumin (3.9-5) g/dL 05/04/19 05/04/19 05/04/19 Range/Units 05:25 05:25 11:52 WBC 4.4 L (4.5-11.0) K/mm3 RBC 2.49 L (3.65-5.03) M/mm3 Hgb 7.4 L (10.1-14.3) gm/dl Hct 23.4 L (30.3-42.9) % RDW 18.8 H (13.2-15.2) % [place] % (Auto) (0.0-7.3) % Lymph # (1.2-5.4) K/mm3 Monocytes % (Manual) 14.0 H (0.0-7.3) % Eosinophils % (Manual) 6.0 H (0.0-4.3) % Basophils % (Manual) 2.0 H (0.0-1.8) % Lymphocytes # (Manual) 0.9 L (1.2-5.4) K/mm3 Sodium (137-145) mmol/L Chloride 92.8 L (98-107) mmol/L Carbon Dioxide 31 H (22-30) mmol/L BUN 32 H (7-17) mg/dL Creatinine 1.6 H (0.7-1.2) mg/dL Glucose 43 L (65-100) mg/dL POC Glucose 193 H (70-105) Hemoglobin A1c (4-6) % NT-Pro-B Natriuret Pep (0-900) pg/mL Albumin 3.2 L (3.9-5) g/dL
[2019-05-04] MEDS: NORVASC PO SCH (18:18)
[2019-05-04] MEDS: TYLENOL PO PRN (21:43)
[2019-05-04] MEDS: LANTUS SUB-Q SCH (23:17)
[2019-05-05] MEDS: LASIX IV SCH ×2 (05:32→17:08)
[2019-05-05] MEDS: PERCOCET 5/325 PO PRN (05:39)
[2019-05-05] MEDS: HumaLOG SUB-Q SCH ×4 (07:30→22:11)
[2019-05-05 07:44] LABS: Basophils % (Auto) 0.8 % (0.0-1.8); Eosinophils # (Auto) 0.2 K/mm3 (0.0-0.4); Eosinophils % (Auto) 4.4 % (0.0-4.3); Hematocrit 23.6 % (30.3-42.9); Hemoglobin 7.4 gm/dl (10.1-14.3); Lymphocytes # (Auto) 0.7 K/mm3 (1.2-5.4); Lymphocytes % (Auto) 14.6 % (13.4-35.0); Mean Corpuscular HGB Conc 31 % (30-34); Mean Corpuscular Volume 95 fl (79-97); Monocytes # (Auto) 0.7 K/mm3 (0.0-0.8); Platelet Count 230 K/mm3 (140-440); Red Blood Count 2.48 M/mm3 (3.65-5.03)
[2019-05-05 08:08] LABS: Albumin 3.3 g/dL (3.9-5)
--- NOTE | 2019-05-05 08:23 | Progress Note ---
Assessment and Plan 88-year-old -[place] female with history of CHF, pacemaker in situ, A. fib on Eliquis, COPD on home O2, DM, HTN, chronic anemia, arthritis who presents to start him see ED with complaints of shortness of breath, non productive co ugh, and worsening BLE pitting edema for the past 4 days. CXR unrevealing fro acute cardiopulmonary abnormalities, but did show signs of worsening right sided HF. Will admit to telemetry. Acute exacerbation of CHF COPD on home O2 DM 2 - A1c 7.7% Hypertension A. fib on Eliquis Pacemaker Hyperkalemia Anemia of chronic disease. Arthritis Plan: Strick input and outputs, daily weights, Diuresis, beta adan, Acei, echocardiogram Continuous telemetry monitoring Cardiology consulted Bronchodilators, supplemental oxygen. Continue home antihypertensive med: Norvasc 10mg daily SSI Coverage Consistent carbohydrate Hold Eliquis 2.5mg b/c anemia [place] Blood transfusion Continue supplemental o2 as needed Pulmicort, albuterol when necessar Mucinex Monitor Hgb, transfuse as needed Continue ferrous sulfate 325 mg daily DVT PPX SCD only b/c anemia Advance Directives: No VTE prophylaxis?: Chemical Plan of care discussed with patient/family: Yes Subjective Date of service: 05/05/19 Principal diagnosis: CHF exacerbation, COPD exacerbation, A. fib, T2DM, HTN Interval history: Laying quietly in bed. No new complaints. Denies any fever. No chest pain. Objective - Exam Narrative Exam: Constitutional: Well-nourished well-developed. In no distress Head: Normocephalic atraumatic Eyes: Pupils are equal round and reactive to light Nose: No enlarged turbinates, no septal deviation. Mouth: Moist mucous membranes. Neck: Supple no thyromegaly. No bruit. No JVD Heart: Regular rate and rhythm, S1-S2 normal. No rubs murmurs or gallop Lungs: Clear to auscultation bilaterally. no rales or rhonchi Abdomen: Soft, nontender. Bowel sound are present. Extremities: No edema, no cyanosis, no clubbing. Neuro: Alert oriented Oriented x3. No focal sensory or motor deficit. Skin: No rashes or hyperpigmented spots Musculoskeletal system: No joint pain or swelling Hematological: No petechia or subcutanous hemorrhages. Immunological: No multiple septic spots on the skin Lymphatic: No generalized lymphadenopathy Psychiatry: Euthymic. Calm. - Constitutional Vitals: Vital Signs - 12hr 05/04/19 05/04/19 05/04/19 20:39 20:45 22:00 Temperature Pulse Rate 65 Pulse Rate [ 66 Anterior Bilateral Throughout] Respiratory Rate Respiratory 16 Rate [Anterior Bilateral Throughout] Blood Pressure O2 Sat by Pulse 100 Oximetry 05/04/19 05/05/19 05/05/19 23:59 04:51 07:24 Temperature 97.9 F 97.6 F Pulse Rate 66 66 65 Pulse Rate [ Anterior Bilateral Throughout] Respiratory 20 20 18 Rate Respiratory Rate [Anterior Bilateral Throughout] Blood Pressure 137/59 106/44 127/58 O2 Sat by Pulse 100 99 94 Oximetry - Labs CBC & Chem 7: 05/05/19 07:08 05/05/19 07:08 Labs: Abnormal lab results 05/04/19 05/04/19 05/04/19 Range/Units 05:25 11:52 17:10 RBC (3.65-5.03) M/mm3 Hgb (10.1-14.3) gm/dl Hct (30.3-42.9) % RDW (13.2-15.2) % [place] % (Auto) (0.0-7.3) % Eos % (Auto) (0.0-4.3) % Lymph # (1.2-5.4) K/mm3 Monocytes % (Manual) 14.0 H (0.0-7.3) % Eosinophils % (Manual) 6.0 H (0.0-4.3) % Basophils % (Manual) 2.0 H (0.0-1.8) % Lymphocytes # (Manual) 0.9 L (1.2-5.4) K/mm3 Chloride (98-107) mmol/L BUN (7-17) mg/dL Creatinine (0.7-1.2) mg/dL Glucose (65-100) mg/dL POC Glucose 193 H 139 H (70-105) Albumin (3.9-5) g/dL 05/04/19 05/05/19 05/05/19 Range/Units 22:23 07:08 07:08 RBC 2.48 L (3.65-5.03) M/mm3 Hgb 7.4 L (10.1-14.3) gm/dl Hct 23.6 L (30.3-42.9) % RDW 19.0 H (13.2-15.2) % [place] % (Auto) 15.0 H (0.0-7.3) % Eos % (Auto) 4.4 H (0.0-4.3) % Lymph # 0.7 L (1.2-5.4) K/mm3 Monocytes % (Manual) (0.0-7.3) % Eosinophils % (Manual) (0.0-4.3) % Basophils % (Manual) (0.0-1.8) % Lymphocytes # (Manual) (1.2-5.4) K/mm3 Chloride 95.2 L (98-107) mmol/L BUN 31 H (7-17) mg/dL Creatinine 1.6 H (0.7-1.2) mg/dL Glucose 64 L (65-100) mg/dL POC Glucose 324 H (70-105) Albumin 3.3 L (3.9-5) g/dL 05/05/19 Range/Units 07:31 RBC (3.65-5.03) M/mm3 Hgb (10.1-14.3) gm/dl Hct (30.3-42.9) % RDW (13.2-15.2) % [place] % (Auto) (0.0-7.3) % Eos % (Auto) (0.0-4.3) % Lymph # (1.2-5.4) K/mm3 Monocytes % (Manual) (0.0-7.3) % Eosinophils % (Manual) (0.0-4.3) % Basophils % (Manual) (0.0-1.8) % Lymphocytes # (Manual) (1.2-5.4) K/mm3 Chloride (98-107) mmol/L BUN (7-17) mg/dL Creatinine (0.7-1.2) mg/dL Glucose (65-100) mg/dL POC Glucose 67 L (70-105) Albumin (3.9-5) g/dL
[2019-05-05] MEDS ORDERED: NACL 0.9% 500 ML 500 ML IV NR (09:00)
[2019-05-05] MEDS: PULMICORT IH SCH ×2 (09:03→19:54)
[2019-05-05] MEDS: DUONEB *Not for PRN Use IH SCH ×3 (09:03→19:54)
[2019-05-05] MEDS: MUCINEX ER PO SCH ×2 (09:47→22:09)
[2019-05-05] MEDS: COLACE PO SCH ×2 (09:47→22:10)
[2019-05-05] MEDS: NORVASC PO SCH (09:47)
[2019-05-05] MEDS: PRAVACHOL PO SCH (09:47)
[2019-05-05] MEDS: PEPCID PO SCH ×2 (09:47→22:10)
[2019-05-05] MEDS: VITAMIN D3 PO SCH (09:47)
[2019-05-05] MEDS: FEOSOL PO SCH (09:47)
[2019-05-05] MEDS ORDERED: KIONEX PO ONE (10:00)
--- NOTE | 2019-05-05 11:10 | Gastroenterology Consultation ---
History of Present Illness - Reason for Consult Consult date: 05/05/19 GI bleed Requesting physician: WALLY REYES - History of Present Illness Patient is a 88 y/o female with PMH of CHF, pacemaker in situ, Afib, Chronic renal failure (required transient HD in the past), chronic anemia (on daily iron supplement), COPD, HTN, arthritis, and DM who presented to ED with c/o SOB, cough, and increase valente lower extremity edema. She was admitted and currently being treated for acute on chronic heart failure. GI has been consulted for evaluation of GI bleed due to anemia prior to resuming Eliquis. This morning patient was resting in bed w/o acute distress. Currently w/o GI complaints. Denies CP, wt loss, abd pain, N/V, hematemesis, melena, dysphagia, diarrhea, constipation, or hematochezia. Last colonoscopy was many years ago per patient report (unable to given exact timing of last colonoscopy but states is has been >5 years; noted to be poor historian). Unsure if she has ever underwent EGD. No hx of prior GI bleeding or PUD per pt. No known Fhx of GI cancers. Past History Past Medical History: other (as per HPI) Past Surgical History: Other (s/p pacemaker, diverticulitis) Social history: lives with family, other (former smoker,). denies: alcohol abuse Family history: no significant family history Medications and Allergies Allergies Allergy/AdvReac Type Severity Reaction Status Date / Time No Known Allergies Allergy Verified 05/03/19 13:57 Home Medications Medication Instructions Recorded Confirmed Last Taken Type Albuterol Sulfate [Proair 90 mcg IH PRN PRN 04/12/19 05/03/19 Unknown History Respiclick] Apixaban [Eliquis] 2.5 mg PO BID 04/12/19 05/03/19 Unknown History Cholecalciferol Vit D3 [Vitamin D3 1,000 unit PO QDAY 04/12/19 05/03/19 Unknown History 1,000 UNIT TAB] Pravastatin [Pravachol] 20 mg PO DAILY 04/12/19 05/03/19 Unknown History Tiotropium [place] [Spiriva] 18 mcg IH DAILY 04/12/19 05/03/19 Unknown History QUEtiapine [SEROquel] 25 mg PO QHS #30 tablet 04/22/19 05/03/19 Unknown Rx amLODIPine [Norvasc] 10 mg PO QDAY #30 tablet 04/22/19 05/03/19 Unknown Rx Furosemide [Lasix TAB] 80 mg PO BID 05/03/19 05/03/19 Unknown History Insulin Glargine [Lantus] 10 unit SUB-Q QHS 05/03/19 05/03/19 Unknown History Iron Carb,Gl/FA/B12/C/Docusate 1 each PO QDAY 05/03/19 05/03/19 Unknown History [Ferralet 90 Dual-Iron Tablet] Propylene Glycol [Systane Complete] 10 ml OP BID 05/03/19 05/03/19 Unknown History Active Meds: Active Medications Acetaminophen (Tylenol) 650 mg PO Q4H PRN PRN Reason: Pain MILD(1-3)/Fever >100.5/BASILIO Last Admin: 05/04/19 21:43 Dose: 650 mg Documented by: Albuterol (Proventil) 2.5 mg IH Q4HRT PRN PRN Reason: Shortness Of Breath Albuterol/Ipratropium (Duoneb *Not For Prn Use*) 1 ampul IH TIDRT [facility] Last Admin: 05/05/19 09:03 Dose: 1 ampul Documented by: Amlodipine Besylate (Norvasc) 10 mg PO QDAY [facility] Last Admin: 05/05/19 09:47 Dose: 10 mg Documented by: Budesonide (Pulmicort) 0.5 mg IH Q12HRT [facility] Last Admin: 05/05/19 09:03 Dose: 0.5 mg Documented by: Cholecalciferol (Vitamin D3) 1,000 unit PO QDAY [facility] Last Admin: 05/05/19 09:47 Dose: 1,000 unit Documented by: Dextrose (D50w (25gm) Syringe) 50 ml IV PRN PRN PRN Reason: Hypoglycemia Docusate Sodium (Colace) 100 mg PO BID [facility] Last Admin: 05/05/19 09:47 Dose: 100 mg Documented by: Famotidine (Pepcid) 20 mg PO BID [facility] Last Admin: 05/05/19 09:47 Dose: 20 mg Documented by: Ferrous Sulfate (Feosol) 325 mg PO QDAY [facility] Last Admin: 05/05/19 09:47 Dose: 325 mg Documented by: Furosemide (Lasix) 40 mg IV 0600,1800 [facility] Last Admin: 05/05/19 05:32 Dose: 40 mg Documented by: Guaifenesin (Mucinex Er) 600 mg PO BID [facility] Last Admin: 05/05/19 09:47 Dose: 600 mg Documented by: Hydromorphone HCl (Dilaudid) 0.5 mg IV Q3H PRN PRN Reason: Pain , Severe (7-10) Sodium Chloride (Nacl 0.9% 500 Ml) 500 mls @ 0 mls/hr IV ONCE NR Stop: 05/05/19 19:00 Ibuprofen (Ibuprofen) 600 mg PO Q6H PRN PRN Reason: Pain, Mild (1-3) Insulin Glargine (Lantus) 10 units SUB-Q QHS [facility] Last Admin: 05/04/19 23:17 Dose: 10 units Documented by: Insulin Human Lispro (Humalog) 0 unit SUB-Q [facility]; Protocol Last Admin: 05/04/19 23:17 Dose: 8 unit Documented by: Ondansetron HCl (Zofran) 4 mg IV Q8H PRN PRN Reason: Nausea And Vomiting Oxycodone/Acetaminophen (Percocet 5/325) 1 tab PO Q6H PRN PRN Reason: Pain, Moderate (4-6) Last Admin: 05/05/19 05:39 Dose: 1 tab Documented by: Potassium Chloride (K-Dur) 20 meq PO Q12H [facility] Last Admin: 05/04/19 23:20 Dose: 20 meq Documented by: Pravastatin Sodium (Pravachol) 20 mg PO DAILY [facility] Last Admin: 05/05/19 09:47 Dose: 20 mg Documented by: Quetiapine Fumarate (Seroquel) 25 mg PO QHS [facility] Last Admin: 05/04/19 21:42 Dose: 25 mg Documented by: Sodium Chloride (Sodium Chloride Flush Syringe 10 Ml) 10 ml IV BID [facility] Last Admin: 05/04/19 21:44 Dose: 10 ml Documented by: Sodium Chloride (Sodium Chloride Flush Syringe 10 Ml) 10 ml IV PRN PRN PRN Reason: LINE FLUSH medications reviewed/updated as required Review of Systems - Review of Systems All systems: negative Gastrointestinal: other (anemia), no abdominal pain, no nausea, no vomiting, no hematemesis, no melena, no hematochezia Exam - Constitutional Vital Signs: Temp Pulse Resp BP Pulse Ox 97.6 F 65 18 127/58 100 05/05/19 07:24 05/05/19 09:25 05/05/19 09:25 05/05/19 07:24 05/05/19 09:03 General appearance: no acute distress - Respiratory Respiratory effort: normal - Cardiovascular Rhythm: regular - Gastrointestinal General gastrointestinal: Present: soft, non-tender, non-distended, normal bowel sounds - Labs CBC & Chem 7: 05/05/19 07:08 05/05/19 07:08 Lab Results: Laboratory Results - last 24 hr 05/04/19 05/04/19 05/04/19 11:52 17:10 22:23 WBC RBC Hgb Hct MCV MCH MCHC RDW Plt Count Lymph % (Auto) [place] % (Auto) Eos % (Auto) Baso % (Auto) Lymph # [place] # Eos # Baso # Seg Neutrophils % Seg Neutrophils # Sodium Potassium Chloride Carbon Dioxide Anion Gap BUN Creatinine Estimated GFR BUN/Creatinine Ratio Glucose POC Glucose 193 H 139 H 324 H Calcium Phosphorus Magnesium Total Bilirubin AST ALT Alkaline Phosphatase Total Protein Albumin Albumin/Globulin Ratio 05/05/19 05/05/19 05/05/19 07:08 07:08 07:31 WBC 4.9 RBC 2.48 L Hgb 7.4 L Hct 23.6 L MCV 95 MCH 30 MCHC 31 RDW 19.0 H Plt Count 230 Lymph % (Auto) 14.6 [place] % (Auto) 15.0 H Eos % (Auto) 4.4 H Baso % (Auto) 0.8 Lymph # 0.7 L [place] # 0.7 Eos # 0.2 Baso # 0.0 Seg Neutrophils % 65.2 Seg Neutrophils # 3.2 Sodium 138 Potassium 5.6 H D Chloride 95.2 L Carbon Dioxide 30 Anion Gap 18 BUN 31 H Creatinine 1.6 H Estimated GFR 37 BUN/Creatinine Ratio 19 Glucose 64 L POC Glucose 67 L Calcium 9.0 Phosphorus 4.30 Magnesium 2.00 Total Bilirubin 0.40 AST 36 ALT 10 Alkaline Phosphatase 60 Total Protein 7.0 Albumin 3.3 L Albumin/Globulin Ratio 0.9 Assessment and Plan 1.GI bleed? 2.chronic anemia -H/H 7.4/23.2-trending down -continue to monitor H/H and transfuse as needed -no active signs of bleeding -etiology-likely multifactorial -will schedule for EGD/colonoscopy tomorrow for further evaluation given need for longterm anticoagulation -stool occult -clear liquids today, then NPO after MN -INR in am -continue PPI, iron supplement, and supportive care -will follow
--- NOTE | 2019-05-05 12:00 | Progress Note ---
Assessment and Plan Acute on chronic heart failure with a preserved ejection fraction Chronic renal failure required transient HD in the past Anemia Paroxysmal Afib low dose eliquis held due to anemia Pacemaker present COPD Essential systemic hypertension Type 2 DM Echocardiogram 04/2019 shows normal left ventricular systolic function, ejection fraction 60%. There is enlargement of the right heart chambers, moderate to severe pulmonary hypertension with a pulmonary artery systolic pressure of 66, suggests cor pulmonale. Recommendations: Continue diuretics. Fluid restriction. Conservative cardiac management. Subjective Date of service: 05/05/19 Principal diagnosis: CHF exacerbation, COPD exacerbation, A. fib, T2DM, HTN Interval history: Patient is sitting up in bed and has no complaints. She reports her breathing is better. Still with lower extremity edema. HCT trended downwards. Eliquis has been held. GI has been consulted with plans for EGD/colonoscopy before discharge. Objective Vital Signs Temp Pulse Pulse Resp Resp BP Pulse Ox 05/05/19 09:25 65 18 05/05/19 09:03 65 18 100 05/05/19 07:24 97.6 F 65 18 127/58 94 05/05/19 04:51 97.9 F 66 20 106/44 99 05/04/19 23:59 66 20 137/59 100 05/04/19 22:00 65 05/04/19 20:45 100 05/04/19 20:39 66 16 05/04/19 19:21 66 20 157/69 98 05/04/19 17:57 98.2 F 70 18 162/116 96 - Physical Examination General: No Apparent Distress HEENT: Positive: PERRL Neck: Positive: trachea midline Cardiac: Positive: Other (paced) Lungs: Positive: Decreased Breath Sounds Neuro: Positive: Weakness Extremities: Present: +2 Edema - Labs and Meds Cardiac Enzymes 05/05/19 Range/Units 07:08 AST 36 (5-40) units/L CBC 05/05/19 Range/Units 07:08 WBC 4.9 (4.5-11.0) K/mm3 RBC 2.48 L (3.65-5.03) M/mm3 Hgb 7.4 L (10.1-14.3) gm/dl Hct 23.6 L (30.3-42.9) % Plt Count 230 (140-440) K/mm3 Lymph # 0.7 L (1.2-5.4) K/mm3 [place] # 0.7 (0.0-0.8) K/mm3 Eos # 0.2 (0.0-0.4) K/mm3 Baso # 0.0 (0.0-0.1) K/mm3 Comprehensive Metabolic Panel 05/05/19 Range/Units 07:08 Sodium 138 (137-145) mmol/L Potassium 5.6 H D (3.6-5.0) mmol/L Chloride 95.2 L (98-107) mmol/L Carbon Dioxide 30 (22-30) mmol/L BUN 31 H (7-17) mg/dL Creatinine 1.6 H (0.7-1.2) mg/dL Glucose 64 L (65-100) mg/dL Calcium 9.0 (8.4-10.2) mg/dL AST 36 (5-40) units/L ALT 10 (7-56) units/L Alkaline Phosphatase 60 (35-129) units/L Total Protein 7.0 (6.3-8.2) g/dL Albumin 3.3 L (3.9-5) g/dL
[2019-05-05] MEDS ORDERED: GOLYTELY PO ONE (16:00)
[2019-05-05] MEDS: SODIUM CHLORIDE FLUSH SYRINGE 10 ML IV SCH ×2 (17:08→22:12)
[2019-05-05] MEDS: LANTUS SUB-Q SCH (22:11)
[2019-05-06 03:29] LABS: Basophils # (Auto) 0.1 K/mm3 (0.0-0.1); Basophils % (Auto) 0.9 % (0.0-1.8); Eosinophils # (Auto) 0.2 K/mm3 (0.0-0.4); Eosinophils % (Auto) 3.4 % (0.0-4.3); Hematocrit 26.8 % (30.3-42.9); Hemoglobin 8.4 gm/dl (10.1-14.3); Lymphocytes # (Auto) 0.9 K/mm3 (1.2-5.4); Lymphocytes % (Auto) 16.1 % (13.4-35.0); Mean Corpuscular HGB Conc 32 % (30-34); Mean Corpuscular Volume 94 fl (79-97); Monocytes # (Auto) 0.8 K/mm3 (0.0-0.8); Monocytes % (Auto) 13.7 % (0.0-7.3); Platelet Count 208 K/mm3 (140-440); Red Blood Count 2.84 M/mm3 (3.65-5.03); Red Cell Distribution Width 19.2 % (13.2-15.2)
[2019-05-06 03:47] LABS: INR 1.31 (0.87-1.13)
[2019-05-06 03:52] LABS: Albumin 3.4 g/dL (3.9-5); Calcium 9.4 mg/dL (8.4-10.2)
[2019-05-06] MEDS: LASIX IV SCH ×2 (05:26→18:24)
[2019-05-06] MEDS: DUONEB *Not for PRN Use IH SCH ×3 (07:51→20:29)
[2019-05-06] MEDS: PULMICORT IH SCH ×2 (07:51→20:29)
[2019-05-06] MEDS: HumaLOG SUB-Q SCH ×4 (08:00→21:54)
--- NOTE | 2019-05-06 10:46 | Gastroenterology Progress Note ---
Assessment and Plan 1.GI bleed? 2.chronic anemia -H/H stable -continue to monitor H/H and transfuse as needed -no active signs of bleeding -etiology-likely multifactorial -will schedule for EGD/colonoscopy tomorrow for further evaluation given need for alf anticoagulation if she takes prep (will convert to miralax) -also discussed at length with family the possibility of conservative versus aggressive care given the patient's age and comorbids; the niece is considering conservative care if she refuses bowel prep for a second time Subjective Date of service: 05/06/19 Principal diagnosis: Anemia Interval history: The patient adamantly refused all of her prep. She still says she wants to do the colonoscopy but without the prep and "maybe next week." I also discussed with the niece who was present in the room. She is not the POA but signs the paperwork and takes care of her aunt's affairs. I explained the process again, and offered both conservative and aggressive care. Objective - Constitutional Vitals: Temp Pulse Resp BP Pulse Ox 98.4 F 65 16 134/71 100 05/06/19 04:25 05/06/19 08:03 05/06/19 08:03 05/06/19 04:25 05/06/19 07:50 General appearance: no acute distress - Respiratory Respiratory effort: normal Respiratory: bilateral: CTA - Cardiovascular Rhythm: regular Heart Sounds: Present: S1 & S2 - Gastrointestinal General gastrointestinal: Present: soft, non-tender, non-distended - Labs CBC & Chem 7: 05/06/19 03:25 05/06/19 03:25 Labs: Laboratory Results - last 24 hr 05/05/19 05/05/19 05/05/19 10:09 12:17 16:44 WBC RBC Hgb Hct MCV MCH MCHC RDW Plt Count Lymph % (Auto) [place] % (Auto) Eos % (Auto) Baso % (Auto) Lymph # [place] # Eos # Baso # Seg Neutrophils % Seg Neutrophils # PT INR Sodium Potassium Chloride Carbon Dioxide Anion Gap BUN Creatinine Estimated GFR BUN/Creatinine Ratio Glucose POC Glucose 144 H 233 H Calcium Total Bilirubin AST ALT Alkaline Phosphatase Total Protein Albumin Albumin/Globulin Ratio Blood Type O POSITIVE Antibody Screen Negative Crossmatch See Detail 05/05/19 05/06/19 05/06/19 21:46 03:05 03:25 WBC 5.7 RBC 2.84 L Hgb 8.4 L Hct 26.8 L MCV 94 MCH 30 MCHC 32 RDW 19.2 H Plt Count 208 Lymph % (Auto) 16.1 [place] % (Auto) 13.7 H Eos % (Auto) 3.4 Baso % (Auto) 0.9 Lymph # 0.9 L [place] # 0.8 Eos # 0.2 Baso # 0.1 Seg Neutrophils % 65.9 Seg Neutrophils # 3.7 PT INR Sodium Potassium Chloride Carbon Dioxide Anion Gap BUN Creatinine Estimated GFR BUN/Creatinine Ratio Glucose POC Glucose 360 H 53 L Calcium Total Bilirubin AST ALT Alkaline Phosphatase Total Protein Albumin Albumin/Globulin Ratio Blood Type Antibody Screen Crossmatch 05/06/19 05/06/19 05/06/19 03:25 03:25 03:35 WBC RBC Hgb Hct MCV MCH MCHC RDW Plt Count Lymph % (Auto) [place] % (Auto) Eos % (Auto) Baso % (Auto) Lymph # [place] # Eos # Baso # Seg Neutrophils % Seg Neutrophils # PT 16.0 H INR 1.31 H Sodium 138 Potassium 4.1 D Chloride 95.4 L Carbon Dioxide 32 H Anion Gap 15 BUN 36 H Creatinine 1.7 H Estimated GFR 34 BUN/Creatinine Ratio 21 Glucose 50 L POC Glucose 73 Calcium 9.4 Total Bilirubin 0.60 AST 17 ALT 8 Alkaline Phosphatase 63 Total Protein 6.9 Albumin 3.4 L Albumin/Globulin Ratio 1.0 Blood Type Antibody Screen Crossmatch 05/06/19 07:50 WBC RBC Hgb Hct MCV MCH MCHC RDW Plt Count Lymph % (Auto) [place] % (Auto) Eos % (Auto) Baso % (Auto) Lymph # [place] # Eos # Baso # Seg Neutrophils % Seg Neutrophils # PT INR Sodium Potassium Chloride Carbon Dioxide Anion Gap BUN Creatinine Estimated GFR BUN/Creatinine Ratio Glucose POC Glucose 72 Calcium Total Bilirubin AST ALT Alkaline Phosphatase Total Protein Albumin Albumin/Globulin Ratio Blood Type Antibody Screen Crossmatch
--- NOTE | 2019-05-06 11:11 | Progress Note ---
Assessment and Plan Acute on chronic heart failure with a preserved ejection fraction Cor Pulmonale Chronic renal failure required transient HD in the past Anemia s/p PRBCs Paroxysmal Afib low dose eliquis held due to anemia Pacemaker present COPD Essential systemic hypertension Type 2 DM Echocardiogram 04/2019 shows normal left ventricular systolic function, ejection fraction 60%. There is enlargement of the right heart chambers, moderate to severe pulmonary hypertension with a pulmonary artery systolic pressure of 66, suggests cor pulmonale. Recommendations: Continue diuretics Fluid restriction. Further evaluation of cor pulmonale by her primary outpatient pharmacy tech customer service. Otherwise, conservative cardiac management. Subjective Date of service: 05/06/19 Principal diagnosis: Anemia Interval history: Patient is resting in bed comfortably. Family member is at the bedside. Objective Vital Signs Temp Pulse Pulse Resp Resp BP Pulse Ox 05/06/19 08:03 65 16 05/06/19 07:51 65 16 05/06/19 07:50 100 05/06/19 04:25 98.4 F 60 20 134/71 100 05/06/19 03:00 65 05/05/19 23:48 98.5 F 66 20 121/62 100 05/05/19 20:22 65 100 05/05/19 20:14 98.7 F 64 20 140/70 05/05/19 19:59 99 05/05/19 19:57 66 20 05/05/19 19:46 98.4 F 66 22 136/67 100 05/05/19 19:44 98.4 F 66 22 138/56 05/05/19 19:16 98.0 F 58 L 18 138/75 92 05/05/19 19:14 98.4 F 66 22 05/05/19 18:44 98.1 F 68 18 138/56 05/05/19 18:14 98.1 F 68 18 138/56 05/05/19 17:44 98.1 F 68 18 138/56 05/05/19 17:29 98.1 F 65 20 139/57 05/05/19 16:37 98.1 F 65 18 139/57 93 05/05/19 14:27 63 18 05/05/19 13:56 68 18 - Physical Examination General: No Apparent Distress HEENT: Positive: PERRL Neck: Positive: trachea midline Cardiac: Positive: Other (paced) Lungs: Positive: Decreased Breath Sounds Neuro: Positive: Weakness Extremities: Present: +2 Edema - Labs and Meds Cardiac Enzymes 05/06/19 Range/Units 03:25 AST 17 (5-40) units/L Coagulation 05/06/19 Range/Units 03:25 PT 16.0 H (12.2-14.9) Sec. INR 1.31 H (0.87-1.13) CBC 05/06/19 Range/Units 03:25 WBC 5.7 (4.5-11.0) K/mm3 RBC 2.84 L (3.65-5.03) M/mm3 Hgb 8.4 L (10.1-14.3) gm/dl Hct 26.8 L (30.3-42.9) % Plt Count 208 (140-440) K/mm3 Lymph # 0.9 L (1.2-5.4) K/mm3 [place] # 0.8 (0.0-0.8) K/mm3 Eos # 0.2 (0.0-0.4) K/mm3 Baso # 0.1 (0.0-0.1) K/mm3 Comprehensive Metabolic Panel 05/06/19 Range/Units 03:25 Sodium 138 (137-145) mmol/L Potassium 4.1 D (3.6-5.0) mmol/L Chloride 95.4 L (98-107) mmol/L Carbon Dioxide 32 H (22-30) mmol/L BUN 36 H (7-17) mg/dL Creatinine 1.7 H (0.7-1.2) mg/dL Glucose 50 L (65-100) mg/dL Calcium 9.4 (8.4-10.2) mg/dL AST 17 (5-40) units/L ALT 8 (7-56) units/L Alkaline Phosphatase 63 (35-129) units/L Total Protein 6.9 (6.3-8.2) g/dL Albumin 3.4 L (3.9-5) g/dL
[2019-05-06] MEDS: FEOSOL PO SCH (11:45)
[2019-05-06] MEDS: VITAMIN D3 PO SCH (11:45)
[2019-05-06] MEDS: COLACE PO SCH ×2 (11:46→21:50)
[2019-05-06] MEDS: NORVASC PO SCH (11:46)
[2019-05-06] MEDS: PEPCID PO SCH (11:46)
[2019-05-06] MEDS: PRAVACHOL PO SCH (11:46)
[2019-05-06] MEDS: SODIUM CHLORIDE FLUSH SYRINGE 10 ML IV SCH ×2 (11:47→21:54)
[2019-05-06] MEDS: MUCINEX ER PO SCH ×2 (11:47→21:51)
[2019-05-06] MEDS: MIRALAX 3350 PO SCH ×6 (12:07→21:51)
[2019-05-06] MEDS: PERCOCET 5/325 PO PRN (21:51)
[2019-05-06] MEDS: LANTUS SUB-Q SCH (21:54)
[2019-05-07 05:00] LABS: Basophils % (Auto) 0.6 % (0.0-1.8); Eosinophils # (Auto) 0.3 K/mm3 (0.0-0.4); Eosinophils % (Auto) 4.9 % (0.0-4.3); Hematocrit 25.8 % (30.3-42.9); Hemoglobin 8.3 gm/dl (10.1-14.3); Lymphocytes # (Auto) 0.7 K/mm3 (1.2-5.4); Lymphocytes % (Auto) 10.7 % (13.4-35.0); Mean Corpuscular HGB Conc 32 % (30-34); Mean Corpuscular Volume 94 fl (79-97); Monocytes # (Auto) 0.9 K/mm3 (0.0-0.8); Monocytes % (Auto) 14.5 % (0.0-7.3); Platelet Count 202 K/mm3 (140-440); Red Blood Count 2.75 M/mm3 (3.65-5.03); Red Cell Distribution Width 18.7 % (13.2-15.2)
[2019-05-07 05:20] LABS: Albumin 3.2 g/dL (3.9-5); Calcium 9.2 mg/dL (8.4-10.2)
[2019-05-07] MEDS: LASIX IV SCH (06:19)
[2019-05-07] MEDS: HumaLOG SUB-Q SCH ×4 (07:30→22:10)
[2019-05-07] MEDS ORDERED: WATER FOR IRRIG STERILE ONE (07:34)
[2019-05-07] MEDS ORDERED: WATER FOR IRRIG STERILE IR ONE (07:36)
--- NOTE | 2019-05-07 07:42 | Anesthesia Consultation ---
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
--- NOTE | 2019-05-07 07:45 | Anesthesia Day of Surgery ---
Anesthesia Day of Surgery - Day of Surgery Patient Examined: Yes Patient H&P Reviewed: Yes Patient is NPO: Yes
[2019-05-07] MEDS ORDERED: NACL 0.9% 1000 ML 1,000 ML IV SCH (08:00)
[2019-05-07] MEDS: PULMICORT IH SCH ×2 (08:29→20:25)
[2019-05-07] MEDS: DUONEB *Not for PRN Use IH SCH ×3 (08:29→20:25)
[2019-05-07] MEDS ORDERED: SUBLIMAZE ONE (09:22)
[2019-05-07] MEDS ORDERED: DIPRIVAN 10 MG/ML IV ONE ×2 (09:22)
--- NOTE | 2019-05-07 09:57 | Post Operative Note ---
Pre-op diagnosis: Iron Def Anemia Post-op diagnosis: other (Gastropathy, Hiatal Hernia, Prior Colon Surgery, Poor Prep, Hemorrhoids) Findings: 1. Poor prep but liquid green stool in colon with no evidence of upper or lower GI bleeding 2. 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 Small Hiatal Hernia 4. Grade III Hemorrhoids 5. Visualization of colon mucosa severely impaired due to poor prep 6. 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 Fundus/body of stomach, gastropathy) Specimen disposition: to lab Condition: stable Disposition: floor (Recs: 1. Resume diet, MVI, and daily iron. 2. No active bleeding from stomach lesions, but on Eliquis, could be a source of chronic anemia. 3. Continue daily protonix, and I would restart low-dose Eliquis and observe x 24 hours. 4. If no active bleeding, the patient may be d/c home. 5. Would have discussion with Cardiology about utility of Eliquis given advanced age and comorbids. 6. Will sign off and patient may f/u in the clinic; please call with questions.)
[2019-05-07] MEDS: SODIUM CHLORIDE FLUSH SYRINGE 10 ML IV SCH ×2 (10:00→22:09)
--- NOTE | 2019-05-07 12:34 | Progress Note ---
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 There is enlargement of the right heart chambers, moderate to severe pulmonary hypertension with a pulmonary artery systolic pressure of 66, suggests cor pulmonale. Recommendations: Continue diuretics Fluid restriction. Otherwise, conservative cardiac management. Subjective Date of service: 05/07/19 Principal diagnosis: Anemia Interval history: Patient is resting in bed comfortably. Patient reports she is diuresing well. Family member is at the bedside. Objective Vital Signs Temp Pulse Pulse Resp Resp BP Pulse Ox 05/07/19 11:59 98 05/07/19 10:44 65 24 140/68 100 05/07/19 10:37 65 24 142/72 100 05/07/19 10:28 65 16 141/70 100 05/07/19 10:17 65 20 150/72 100 05/07/19 10:06 97.6 F 65 12 127/58 100 05/07/19 08:40 99.4 F 65 17 150/74 100 05/07/19 08:38 99.4 F 65 17 150/74 100 05/07/19 07:31 99.0 F 18 132/67 05/07/19 03:26 98.2 F 65 20 118/62 100 05/06/19 23:44 98.4 F 66 18 125/62 98 05/06/19 20:57 79 18 05/06/19 20:30 100 05/06/19 20:00 72 18 05/06/19 19:55 99.0 F 65 18 153/70 100 05/06/19 19:00 65 05/06/19 16:54 98.6 F 65 18 140/71 100 05/06/19 13:27 65 16 05/06/19 13:18 65 16 - Physical Examination General: No Apparent Distress HEENT: Positive: PERRL Neck: Positive: trachea midline Cardiac: Positive: Reg Rate and Rhythm Lungs: Positive: Decreased Breath Sounds Neuro: Positive: Weakness Extremities: Present: +1 Edema - Labs and Meds Cardiac Enzymes 05/07/19 Range/Units 04:26 AST 16 (5-40) units/L CBC 05/07/19 Range/Units 04:26 WBC 6.3 (4.5-11.0) K/mm3 RBC 2.75 L (3.65-5.03) M/mm3 Hgb 8.3 L (10.1-14.3) gm/dl Hct 25.8 L (30.3-42.9) % Plt Count 202 (140-440) K/mm3 Lymph # 0.7 L (1.2-5.4) K/mm3 [place] # 0.9 H (0.0-0.8) K/mm3 Eos # 0.3 (0.0-0.4) K/mm3 Baso # 0.0 (0.0-0.1) K/mm3 Comprehensive Metabolic Panel 05/07/19 Range/Units 04:26 Sodium 138 (137-145) mmol/L Potassium 4.3 (3.6-5.0) mmol/L Chloride 94.5 L (98-107) mmol/L Carbon Dioxide 31 H (22-30) mmol/L BUN 30 H (7-17) mg/dL Creatinine 1.4 H (0.7-1.2) mg/dL Glucose 109 H (65-100) mg/dL Calcium 9.2 (8.4-10.2) mg/dL AST 16 (5-40) units/L ALT 6 L (7-56) units/L Alkaline Phosphatase 56 (35-129) units/L Total Protein 6.4 (6.3-8.2) g/dL Albumin 3.2 L (3.9-5) g/dL <RUTHANN GONZALEZ - Last Filed: 05/07/19 13:05> Assessment and Plan I've seen and evaluated the patient agree with the assessment and plan. Patient is a history of acute on chronic heart failure with preserved ejection fraction, cor pulmonale, chronic renal failure, and paroxysmal atrial fibrillation. At this time continue current medical therapy. Continue gentle diuresis as needed and fluid restriction. Keep ins and outs negative. Objective Vital Signs Temp Pulse Pulse Resp Resp BP Pulse Ox 05/07/19 11:59 98 05/07/19 10:44 65 24 140/68 100 05/07/19 10:37 65 24 142/72 100 06/26/19 10:28 65 16 141/70 100 05/07/19 10:17 65 20 150/72 100 05/07/19 10:06 97.6 F 65 12 127/58 100 05/07/19 08:40 99.4 F 65 17 150/74 100 05/07/19 08:38 99.4 F 65 17 150/74 100 05/07/19 07:31 99.0 F 18 132/67 05/07/19 03:26 98.2 F 65 20 118/62 100 05/06/19 23:44 98.4 F 66 18 125/62 98 05/06/19 20:57 79 18 05/06/19 20:30 100 05/06/19 20:00 72 18 05/06/19 19:55 99.0 F 65 18 153/70 100 05/06/19 19:00 65 05/06/19 16:54 98.6 F 65 18 140/71 100 05/06/19 13:27 65 16 05/06/19 13:18 65 16 - Labs and Meds Cardiac Enzymes 05/07/19 Range/Units 04:26 AST 16 (5-40) units/L CBC 05/07/19 Range/Units 04:26 WBC 6.3 (4.5-11.0) K/mm3 RBC 2.75 L (3.65-5.03) M/mm3 Hgb 8.3 L (10.1-14.3) gm/dl Hct 25.8 L (30.3-42.9) % Plt Count 202 (140-440) K/mm3 Lymph # 0.7 L (1.2-5.4) K/mm3 [place]yman # 0.9 H (0.0-0.8) K/mm3 Eos # 0.3 (0.0-0.4) K/mm3 Baso # 0.0 (0.0-0.1) K/mm3 Comprehensive Metabolic Panel 05/07/19 Range/Units 04:26 Sodium 138 (137-145) mmol/L Potassium 4.3 (3.6-5.0) mmol/L Chloride 94.5 L (98-107) mmol/L Carbon Dioxide 31 H (22-30) mmol/L BUN 30 H (7-17) mg/dL Creatinine 1.4 H (0.7-1.2) mg/dL Glucose 109 H (65-100) mg/dL Calcium 9.2 (8.4-10.2) mg/dL AST 16 (5-40) units/L ALT 6 L (7-56) units/L Alkaline Phosphatase 56 (35-129) units/L Total Protein 6.4 (6.3-8.2) g/dL Albumin 3.2 L (3.9-5) g/dL
--- NOTE | 2019-05-07 14:24 | Operative Report ---
PROCEDURE PERFORMED: Esophagogastroduodenoscopy with cold biopsy as well as colonoscopy. PREOPERATIVE DIAGNOSIS: Cryptogenic iron deficiency anemia. POSTOPERATIVE DIAGNOSES: Gastropathy, hiatal hernia, hemorrhoids, poor preparation, prior colon surgery. ENDOSCOPIST: Austin Shah M.D. INSTRUMENT: Olympus video endoscope. MEDICATIONS: MAC anesthesia by [facility]. COMPLICATIONS: No apparent complications. ESTIMATED BLOOD LOSS: Minimal. SPECIMENS: Fundus/body of the stomach, gastropathy, rule out GAVE. IMPLANTS: None. ASSISTANTS: None. CONDITION AT COMPLETION: Stable. TECHNIQUE: The patient was informed of the risks and benefits of the procedure. Her niece signed the informed consent to proceed due to the patient's chronic dementia. After informed consent was obtained, the patient was placed in left lateral decubitus position. The above sedative medications were given. Her vital signs remained stable throughout the procedure. The instrument was advanced from the mouth to the second portion of the duodenum under direct visualization. At that point, the bowel was insufflated and the endoscope was slowly withdrawn. The bed was then rotated and the colonoscope was advanced from the anus to the cecum under direct visualization. The cecum was identified by the appendiceal orifice and the ileocecal valve. The bowel was then insufflated and the endoscope was slowly withdrawn. The quality of preparation was poor with large amounts of semi-liquid green stool throughout, but no evidence of blood or blood clots; the cecum was identified well; however, with good visualization of the appendix and the ileocecal valve. FINDINGS: 1. Poor preparation with copious amounts of semi-solid and semi-liquid green stool in the colon, but no evidence of upper or lower gastrointestinal bleeding. 2. Erythematous changes in the body and the fundus of the stomach that were not typical for arteriovenous malformations; they could be atypical GAVE. A. Cold biopsies were taken, but there was no evidence of active bleeding. 3. Small hiatal hernia. 4. Otherwise, normal upper gastrointestinal tract. 5. Grade 3 internal hemorrhoids. 6. Visualization of the colon mucosa was severely impaired due to poor preparation which could not be completely lavaged. 7. Evidence of a prior sigmoid colon resection with an end-to-end anastomosis. 8. There were a few residual diverticula in the left colon. RECOMMENDATIONS: 1. Resume regular diet, multivitamin and daily iron therapy. 2. There was no active bleeding from the stomach lesions/gastropathy, put on Eliquis. This could be a source of chronic anemia. 3. I would have a discussion with Cardiology about the utility of Eliquis given her advanced age and comorbidities. 4. Continue daily Protonix and I would restart the low dose Eliquis today and observe for another 24 hours. 5. If there is no evidence of active bleeding, the patient may be discharged home. 6. We will sign off and the patient may follow up in clinic; please call with questions. JOB# [id number] TORY/NTS
[2019-05-07] MEDS: MUCINEX ER PO SCH ×2 (17:46→22:08)
[2019-05-07] MEDS: FEOSOL PO SCH (17:46)
[2019-05-07] MEDS: PROTONIX PO SCH (17:47)
[2019-05-07] MEDS: NORVASC PO SCH (17:47)
[2019-05-07] MEDS: THERAGRAN-M Tab PO SCH (17:47)
[2019-05-07] MEDS: PRAVACHOL PO SCH (17:47)
[2019-05-07] MEDS: PEPCID PO SCH (17:47)
[2019-05-07] MEDS: VITAMIN D3 PO SCH (17:48)
--- NOTE | 2019-05-07 18:36 | Progress Note ---
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 There is enlargement of the right heart chambers, moderate to severe pulmonary hypertension with a pulmonary artery systolic pressure of 66, suggests cor pulmonale. Plan Continue diuretics Fluid restriction. Otherwise, conservative cardiac management. Discussed at length with family the possibility of conservative versus aggressive care given the patient's age and comorbids; the niece is considering conservative care if she refuses bowel prep for a second time Subjective Date of service: 05/06/19 Principal diagnosis: Anemia Interval history: Symptomatically better Objective - Constitutional Vitals: Vital Signs - 12hr 05/07/19 05/07/19 05/07/19 07:31 08:38 08:40 Temperature 99.0 F 99.4 F 99.4 F Pulse Rate 65 65 Pulse Rate [ Anterior Bilateral Throughout] Respiratory 18 17 17 Rate Respiratory Rate [Anterior Bilateral Throughout] Respiratory Rate [ Generalized] Blood Pressure 132/67 150/74 150/74 O2 Sat by Pulse 100 100 Oximetry 05/07/19 05/07/19 05/07/19 10:06 10:17 10:28 Temperature 97.6 F Pulse Rate 65 65 65 Pulse Rate [ Anterior Bilateral Throughout] Respiratory 12 20 16 Rate Respiratory Rate [Anterior Bilateral Throughout] Respiratory Rate [ Generalized] Blood Pressure 127/58 150/72 141/70 O2 Sat by Pulse 100 100 100 Oximetry 05/07/19 05/07/19 05/07/19 10:37 10:44 11:59 Temperature Pulse Rate 65 65 Pulse Rate [ Anterior Bilateral Throughout] Respiratory 24 24 Rate Respiratory Rate [Anterior Bilateral Throughout] Respiratory Rate [ Generalized] Blood Pressure 142/72 140/68 O2 Sat by Pulse 100 100 98 Oximetry 05/07/19 05/07/19 05/07/19 12:00 14:40 14:53 Temperature Pulse Rate Pulse Rate [ 65 66 Anterior Bilateral Throughout] Respiratory Rate Respiratory 96 H 16 Rate [Anterior Bilateral Throughout] Respiratory 20 Rate [ Generalized] Blood Pressure O2 Sat by Pulse Oximetry General appearance: Present: no acute distress, well-nourished - EENT Eyes: PERRL, EOM intact ENT: hearing intact, clear oral mucosa Ears: bilateral: normal - Neck Neck: supple, normal ROM - Respiratory Respiratory effort: normal Respiratory: bilateral: CTA - Breasts Breasts: normal - Cardiovascular Heart rate: 78 Rhythm: regular Heart Sounds: Present: S1 & S2. Absent: gallop, rub Extremities: pulses intact, No edema, normal color, Full ROM - Gastrointestinal General gastrointestinal: Present: soft, non-tender, non-distended, normal bowel sounds Rectal Exam: deferred - Genitourinary Female genitourinary: normal - Integumentary Integumentary: clear, warm, dry - Musculoskeletal Musculoskeletal: 1, strength equal bilaterally - Neurologic Neurologic: moves all extremities - Psychiatric Psychiatric: memory intact, appropriate mood/affect, intact judgment & insight - Labs CBC & Chem 7: 05/07/19 04:26 05/07/19 04:26 Labs: Abnormal lab results 05/06/19 05/07/19 05/07/19 Range/Units 20:55 02:31 04:26 RBC 2.75 L (3.65-5.03) M/mm3 Hgb 8.3 L (10.1-14.3) gm/dl Hct 25.8 L (30.3-42.9) % RDW 18.7 H (13.2-15.2) % Lymph % (Auto) 10.7 L (13.4-35.0) % [place] % (Auto) 14.5 H (0.0-7.3) % Eos % (Auto) 4.9 H (0.0-4.3) % Lymph # 0.7 L (1.2-5.4) K/mm3 [place] # 0.9 H (0.0-0.8) K/mm3 Chloride (98-107) mmol/L Carbon Dioxide (22-30) mmol/L BUN (7-17) mg/dL Creatinine (0.7-1.2) mg/dL Glucose (65-100) mg/dL POC Glucose 191 H 143 H (70-105) ALT (7-56) units/L Albumin (3.9-5) g/dL 05/07/19 05/07/19 05/07/19 Range/Units 04:26 13:19 16:58 RBC (3.65-5.03) M/mm3 Hgb (10.1-14.3) gm/dl Hct (30.3-42.9) % RDW (13.2-15.2) % Lymph % (Auto) (13.4-35.0) % [place] % (Auto) (0.0-7.3) % Eos % (Auto) (0.0-4.3) % Lymph # (1.2-5.4) K/mm3 [place] # (0.0-0.8) K/mm3 Chloride 94.5 L (98-107) mmol/L Carbon Dioxide 31 H (22-30) mmol/L BUN 30 H (7-17) mg/dL Creatinine 1.4 H (0.7-1.2) mg/dL Glucose 109 H (65-100) mg/dL POC Glucose 106 H 152 H (70-105) ALT 6 L (7-56) units/L Albumin 3.2 L (3.9-5) g/dL
--- NOTE | 2019-05-07 18:45 | Progress Note ---
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 .chronic anemia -H/H stable -continue to monitor H/H and transfuse as needed -no active signs of bleeding Had EGD/colonoscopy - "1. Poor prep but liquid green stool in colon with no evidence of upper or lower GI bleeding 2. 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 Small Hiatal Hernia 4. Grade III Hemorrhoids 5. Visualization of colon mucosa severely impaired due to poor prep 6. Evidence of prior sigmoid colon resection with end-to-end anastamosis Echocardiogram 04/2019 shows normal left ventricular systolic function, ejection fraction 60%. There is enlargement of the right heart chambers, moderate to severe pulmonary hypertension with a pulmonary artery systolic pressure of 66, suggests cor pulmonale. " Plan Continue diuretics Fluid restriction. Otherwise, conservative cardiac management. Discussed at length with family the possibility of conservative versus aggressive care given the patient's age and comorbids Possible D/c tomorrow Subjective Date of service: 05/07/19 Principal diagnosis: Anemia,CHF exacerbation Interval history: Symptomatically better had EGD today Objective - Constitutional Vitals: Vital Signs - 12hr 05/07/19 05/07/19 05/07/19 07:31 08:38 08:40 Temperature 99.0 F 99.4 F 99.4 F Pulse Rate 65 65 Pulse Rate [ Anterior Bilateral Throughout] Respiratory 18 17 17 Rate Respiratory Rate [Anterior Bilateral Throughout] Respiratory Rate [ Generalized] Blood Pressure 132/67 150/74 150/74 O2 Sat by Pulse 100 100 Oximetry 05/07/19 05/07/19 05/07/19 10:06 10:17 10:28 Temperature 97.6 F Pulse Rate 65 65 65 Pulse Rate [ Anterior Bilateral Throughout] Respiratory 12 20 16 Rate Respiratory Rate [Anterior Bilateral Throughout] Respiratory Rate [ Generalized] Blood Pressure 127/58 150/72 141/70 O2 Sat by Pulse 100 100 100 Oximetry 05/07/19 05/07/19 05/07/19 10:37 10:44 11:59 Temperature Pulse Rate 65 65 Pulse Rate [ Anterior Bilateral Throughout] Respiratory 24 24 Rate Respiratory Rate [Anterior Bilateral Throughout] Respiratory Rate [ Generalized] Blood Pressure 142/72 140/68 O2 Sat by Pulse 100 100 98 Oximetry 05/07/19 05/07/19 05/07/19 12:00 14:40 14:53 Temperature Pulse Rate Pulse Rate [ 65 66 Anterior Bilateral Throughout] Respiratory Rate Respiratory 96 H 16 Rate [Anterior Bilateral Throughout] Respiratory 20 Rate [ Generalized] Blood Pressure O2 Sat by Pulse Oximetry General appearance: Present: no acute distress, well-nourished - EENT Eyes: PERRL, EOM intact ENT: hearing intact, clear oral mucosa Ears: bilateral: normal - Neck Neck: supple, normal ROM - Respiratory Respiratory effort: normal Respiratory: bilateral: CTA - Breasts Breasts: normal - Cardiovascular Heart rate: 88 Rhythm: regular Heart Sounds: Present: S1 & S2. Absent: gallop, rub Extremities: no ischemia, pulses intact, No edema, normal color, Full ROM - Gastrointestinal General gastrointestinal: Present: soft, non-tender, non-distended, normal bowel sounds - Genitourinary Female genitourinary: normal - Integumentary Integumentary: clear, warm, dry - Musculoskeletal Musculoskeletal: 1, strength equal bilaterally - Neurologic Neurologic: moves all extremities - Psychiatric Psychiatric: memory intact, appropriate mood/affect, intact judgment & insight - Labs CBC & Chem 7: 05/07/19 04:26 05/07/19 04:26 Labs: Abnormal lab results 05/06/19 05/07/19 05/07/19 Range/Units 20:55 02:31 04:26 RBC 2.75 L (3.65-5.03) M/mm3 Hgb 8.3 L (10.1-14.3) gm/dl Hct 25.8 L (30.3-42.9) % RDW 18.7 H (13.2-15.2) % Lymph % (Auto) 10.7 L (13.4-35.0) % [place] % (Auto) 14.5 H (0.0-7.3) % Eos % (Auto) 4.9 H (0.0-4.3) % Lymph # 0.7 L (1.2-5.4) K/mm3 [place] # 0.9 H (0.0-0.8) K/mm3 Chloride (98-107) mmol/L Carbon Dioxide (22-30) mmol/L BUN (7-17) mg/dL Creatinine (0.7-1.2) mg/dL Glucose (65-100) mg/dL POC Glucose 191 H 143 H (70-105) ALT (7-56) units/L Albumin (3.9-5) g/dL 05/07/19 05/07/19 05/07/19 Range/Units 04:26 13:19 16:58 RBC (3.65-5.03) M/mm3 Hgb (10.1-14.3) gm/dl Hct (30.3-42.9) % RDW (13.2-15.2) % Lymph % (Auto) (13.4-35.0) % [place] % (Auto) (0.0-7.3) % Eos % (Auto) (0.0-4.3) % Lymph # (1.2-5.4) K/mm3 [place] # (0.0-0.8) K/mm3 Chloride 94.5 L (98-107) mmol/L Carbon Dioxide 31 H (22-30) mmol/L BUN 30 H (7-17) mg/dL Creatinine 1.4 H (0.7-1.2) mg/dL Glucose 109 H (65-100) mg/dL POC Glucose 106 H 152 H (70-105) ALT 6 L (7-56) units/L Albumin 3.2 L (3.9-5) g/dL
[2019-05-07] MEDS ORDERED: SENOKOT S PO SCH (22:00)
[2019-05-07] MEDS: LANTUS SUB-Q SCH (22:09)
[2019-05-08 06:20] LABS: Albumin 3.1 g/dL (3.9-5); Calcium 8.8 mg/dL (8.4-10.2)
[2019-05-08] MEDS: LASIX IV SCH (06:32)
[2019-05-08] MEDS: TYLENOL PO PRN (08:51)
--- NOTE | 2019-05-08 09:28 | Progress Note ---
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 Continue daily protonix, and restart low-dose Eliquis per GI Paroxysmal Afib low dose eliquis held due to anemia Pacemaker present COPD Essential systemic hypertension Type 2 DM Echocardiogram 04/2019 shows normal left ventricular systolic function, ejection fraction 60%. There is enlargement of the right heart chambers, moderate to severe pulmonary hypertension with a pulmonary artery systolic pressure of 66, suggests cor pulmonale. Recommendations: Continue diuretics Fluid restriction. No active bleeding per GI with recommendation to restart Eliquis at low-dose. Otherwise, conservative cardiac management. Subjective Date of service: 05/08/19 Principal diagnosis: Anemia,CHF exacerbation Interval history: Patient is resting in bed comfortably. She has no complaints. Objective Vital Signs Temp Pulse Pulse Pulse Resp Resp Resp 05/08/19 07:18 98.4 F 65 18 05/08/19 03:26 98.2 F 66 20 05/07/19 23:34 99.2 F 65 20 05/07/19 22:00 65 65 18 05/07/19 20:30 68 20 05/07/19 20:27 05/07/19 20:26 66 20 05/07/19 19:48 99.0 F 65 24 05/07/19 16:35 97.2 F L 18 05/07/19 14:53 66 16 05/07/19 14:40 65 96 H 05/07/19 13:14 98.0 F 18 05/07/19 12:00 20 05/07/19 11:59 05/07/19 10:44 65 24 05/07/19 10:37 65 24 05/07/19 10:28 65 16 05/07/19 10:17 65 20 05/07/19 10:06 97.6 F 65 12 BP Pulse Ox 05/08/19 07:18 123/64 100 05/08/19 03:26 119/55 100 05/07/19 23:34 103/38 98 05/07/19 22:00 99 05/07/19 20:30 05/07/19 20:27 99 05/07/19 20:26 05/07/19 19:48 164/82 99 05/07/19 16:35 135/62 05/07/19 14:53 05/07/19 14:40 05/07/19 13:14 127/58 05/07/19 12:00 05/07/19 11:59 98 05/07/19 10:44 140/68 100 05/07/19 10:37 142/72 100 05/07/19 10:28 141/70 100 05/07/19 10:17 150/72 100 05/07/19 10:06 127/58 100 - Physical Examination General: No Apparent Distress HEENT: Positive: PERRL Neck: Positive: trachea midline Cardiac: Positive: Other (paced) Lungs: Positive: Decreased Breath Sounds Neuro: Positive: Weakness Extremities: Present: +1 Edema - Labs and Meds Cardiac Enzymes 05/08/19 Range/Units 05:28 AST 19 (5-40) units/L Comprehensive Metabolic Panel 05/08/19 Range/Units 05:28 Sodium 138 (137-145) mmol/L Potassium 4.0 (3.6-5.0) mmol/L Chloride 96.0 L (98-107) mmol/L Carbon Dioxide 32 H (22-30) mmol/L BUN 31 H (7-17) mg/dL Creatinine 1.4 H (0.7-1.2) mg/dL Glucose 43 L (65-100) mg/dL Calcium 8.8 (8.4-10.2) mg/dL AST 19 (5-40) units/L ALT 7 (7-56) units/L Alkaline Phosphatase 60 (35-129) units/L Total Protein 6.5 (6.3-8.2) g/dL Albumin 3.1 L (3.9-5) g/dL
[2019-05-08] MEDS: PRAVACHOL PO SCH (10:33)
[2019-05-08] MEDS: PEPCID PO SCH (10:33)
[2019-05-08] MEDS: NORVASC PO SCH (10:33)
[2019-05-08] MEDS: THERAGRAN-M Tab PO SCH (10:33)
[2019-05-08] MEDS: FEOSOL PO SCH (10:33)
[2019-05-08] MEDS: MUCINEX ER PO SCH (10:33)
[2019-05-08] MEDS: VITAMIN D3 PO SCH (10:33)
[2019-05-08] MEDS: PROTONIX PO SCH (10:33)
[2019-05-08] MEDS: HumaLOG SUB-Q SCH ×2 (10:34→12:00)
[2019-05-08] MEDS: SODIUM CHLORIDE FLUSH SYRINGE 10 ML IV SCH (10:35)
[2019-05-08 16:05] VITALS: BP 164/74
--- NOTE | 2019-05-08 17:10 | Discharge Summary ---
Providers - Providers Date of Admission: 05/03/19 18:05 Date of discharge: 05/08/19 Attending physician: TAHMINA VALENCIA 05/03/19 19:14 Consult to Physician [CONS] Routine Comment: Consulting Provider: TERELL MARIE Physician Instructions: Reason For Exam: CHF exacerbation 05/05/19 08:26 Consult to Physician [CONS] Routine Comment: Consulting Provider: NEWTON JENSEN Physician Instructions: Reason For Exam: GI BLEED Primary care physician: ROSIE HOPKINS DO Hospitalization Condition: Stable Pertinent studies: IMPRESSION: * No acute cardiopulmonary findings. 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 Continue daily protonix, and restart low-dose Eliquis per GI Paroxysmal Afib low dose eliquis held due to anemia Pacemaker present COPD Essential systemic hypertension Type 2 DM Echocardiogram 04/2019 shows normal left ventricular systolic function, ejection fraction 60%. There is enlargement of the right heart chambers, moderate to severe pulmonary hypertension with a pulmonary artery systolic pressure of 66, suggests cor pulmonale. Recommendations: Continue diuretics Fluid restriction. No active bleeding per GI with recommendation to restart Eliquis at low-dose. Otherwise, conservative cardiac management. Disposition: - TO HOME OR SELFCARE Core Measure Documentation - Palliative Care Palliative Care/ Comfort Measures: Not Applicable - Core Measures Any of the following diagnoses?: heart failure - Heart Failure Discharge Requirements GUILLERMO/ARB for LVSD if EF <40%: Yes Beta adan at discharge: Yes Exam - Constitutional Vitals: Temp Pulse Resp BP Pulse Ox 97.6 F 65 18 164/74 98 05/08/19 16:00 05/08/19 16:00 05/08/19 16:00 05/08/19 16:00 05/08/19 16:00 General appearance: Present: no acute distress, well-nourished - EENT Eyes: Present: PERRL ENT: hearing intact, clear oral mucosa - Neck Neck: Present: supple, normal ROM - Respiratory Respiratory effort: normal Respiratory: bilateral: CTA - Cardiovascular Heart Sounds: Present: S1 & S2. Absent: rub, click - Extremities Extremities: no ischemia, pulses symmetrical, No edema Peripheral Pulses: within normal limits - Abdominal General gastrointestinal: Present: soft, non-tender, non-distended, normal bowel sounds Female genitourinary: Present: normal - Rectal Rectal Exam: deferred - Integumentary Integumentary: Present: clear, warm, dry - Musculoskeletal Musculoskeletal: gait normal, strength equal bilaterally - Psychiatric Psychiatric: appropriate mood/affect, intact judgment & insight - Neurologic Neurologic: CNII-XII intact, moves all extremities - Allied Health Allied health notes reviewed: nursing, case management Plan Activity: no restrictions Diet: low fat, low cholesterol, low salt Follow up with: ROSIE HOPKINS DO [Primary Care Provider] - 3-5 Days TERELL MARIE MD [Staff Physician] - 7 Days
[2019-05-08] MEDS ORDERED: ELIQUIS PO SCH (22:00)
== END 2019-05-08 18:19 | disposition home health service (06) | DRG 291 ==
LOC: ED 13:55 → 4A 18:05
PROVIDERS: ADMIT Internal Medicine; ATTEND Internal Medicine
PROC: 30233N1 Transfusion of Nonautologous Red Blood Cells into Peripheral Vein, Percutaneous Approach (ICD-10-PCS; principal; 2019-05-05)
PROC: 0DB68ZX Excision of Stomach, Via Natural or Artificial Opening Endoscopic, Diagnostic (ICD-10-PCS; 2019-05-07)
PROC: 0DB78ZX Excision of Stomach, Pylorus, Via Natural or Artificial Opening Endoscopic, Diagnostic (ICD-10-PCS; 2019-05-07)
PROC: 0DJD8ZZ Inspection of Lower Intestinal Tract, Via Natural or Artificial Opening Endoscopic (ICD-10-PCS; 2019-05-07)
DX: I13.0 Hypertensive heart and chronic kidney disease with heart failure and stage 1 through stage 4 chronic kidney disease, or unspecified chronic kidney disease (principal); I50.33 Acute on chronic diastolic (congestive) heart failure; R18.8 Other ascites; I27.20 Pulmonary hypertension, unspecified; N18.9 Chronic kidney disease, unspecified; J44.9 Chronic obstructive pulmonary disease, unspecified; M19.90 Unspecified osteoarthritis, unspecified site; I25.10 Atherosclerotic heart disease of native coronary artery without angina pectoris; K80.20 Calculus of gallbladder without cholecystitis without obstruction; E11.22 Type 2 diabetes mellitus with diabetic chronic kidney disease; I48.0 Paroxysmal atrial fibrillation; D63.8 Anemia in other chronic diseases classified elsewhere; E87.5 Hyperkalemia; I27.81 Cor pulmonale (chronic); K44.9 Diaphragmatic hernia without obstruction or gangrene; K31.9 Disease of stomach and duodenum, unspecified; F03.90 Unspecified dementia, unspecified severity, without behavioral disturbance, psychotic disturbance, mood disturbance, and anxiety; K64.2 Third degree hemorrhoids; Z79.01 Long term (current) use of anticoagulants; Z87.891 Personal history of nicotine dependence; Z79.4 Long term (current) use of insulin; Z95.0 Presence of cardiac pacemaker
CPT/HCPCS: 36415; 71045; 80053; 81001; 82962; 83036; 83735; 83880; 84100; 84484; 85007; 85025; 85610; 86850; 86900; 86901; 86920; 88305; 88342; 93005; 93010; 94640; 94760; G0378; A9270-GY; J1815; J1940; J2704; J3010; J7030; J7040; P9016

== ENCOUNTER 2019-05-14 09:27 | Inpatient (IN) | payer MEDICARE ==
[2019-05-14 10:21] LABS: Mean Corpuscular HGB Conc 31 % (30-34); Mean Corpuscular Volume 97 fl (79-97); Platelet Count 225 K/mm3 (140-440); Red Blood Count 2.99 M/mm3 (3.65-5.03)
[2019-05-14 10:22] LABS: Red Cell Distribution Width 20.6 % (13.2-15.2)
[2019-05-14 10:29] LABS: INR 1.62 (0.87-1.13)
[2019-05-14 10:30] LABS: Partial Thromboplastin Time 38.8 Sec. (24.2-36.6)
[2019-05-14 10:37] LABS: Calcium 9.5 mg/dL (8.4-10.2)
--- NOTE | 2019-05-14 10:38 | XRay Report ---
CHEST 1 VIEW 10:04 AM INDICATION / CLINICAL INFORMATION: Chest Pain. COMPARISON: 05/03/2019. FINDINGS: SUPPORT DEVICES: The position of the dual chamber left subclavian transvenous pacemaker has not ayala ed. HEART / MEDIASTINUM: Mild cardiomegaly is stable. There is no evidence of aortic aneurysm. LUNGS / PLEURA: Mild right basilar pleuroparenchymal opacity has developed. The left lung is clear. N o pneumothorax. ADDITIONAL FINDINGS: No significant additional findings. IMPRESSION: New mild right basilar pleuroparenchymal opacity. The findings are likely related to a co mbination of atelectasis or consolidation with a small associated pleural effusion. Signer Name: Leeroy Cullen MD Signed: 05/14/2019 9:34 AM Workstation Name: [id number]
[2019-05-14] MEDS ORDERED: LASIX IV ONE ×2 (10:44→10:47)
[2019-05-14] MEDS ORDERED: DUONEB *Not for PRN Use IH ONE (10:52)
--- NOTE | 2019-05-14 10:53 | Emergency Department Report ---
ED Shortness of Breath HPI - General Chief Complaint: Dyspnea/Respdistress Stated Complaint: CHEST PAIN/INOCENCIO Time Seen by Provider: 05/14/19 10:30 Source: family, old records reviewed Mode of arrival: Wheelchair Limitations: No Limitations - History of Present Illness Initial Comments: 88-year-old female with past medical history of atrial fibrillation on Eliquis, CHF, cor pulmonale, COPD, diabetes, hypertension, chronic renal insufficiency, and pacemaker placement presents to the hospital with complaints of shortness of breath this morning. Patient's niece is at the bedside. States that after walking to the car on way to a doctor's appointment patient became short of breat with associated nausea h. She also complained of left chest pain at the area of her pacemaker which has since resolved. Patient has chronic lower extremity edema which may be slightly worse than baseline. She is compliant with her medications. Niece reports a 6 pound weight gain in one day. Patient was recently admitted here May 03 until May 08 for acute on chronic heart failure, cor pulmonale, and anemia requiring a blood transfusion. - Related Data Home Medications Medication Instructions Recorded Confirmed Last Taken Cholecalciferol Vit D3 [Vitamin D3 1,000 unit PO QDAY 04/12/19 05/14/19 Unknown 1,000 UNIT TAB] Iron Carb,Gl/FA/B12/C/Docusate 1 each PO QDAY 05/03/19 05/14/19 Unknown [Ferralet 90 Tablet] Previous Rx's Medication Instructions Recorded Last Taken Type Albuterol Sulfate [Proair 90 mcg IH PRN PRN #1 aer.pow.ba 05/08/19 Unknown Rx Respiclick] Apixaban [Eliquis] 2.5 mg PO Q12HR #60 tablet 05/08/19 Unknown Rx Famotidine [Pepcid] 20 mg PO DAILY #30 tablet 05/08/19 Unknown Rx Furosemide [Lasix TAB] 80 mg PO BID #60 tablet 05/08/19 Unknown Rx Insulin Glargine [Lantus VIAL] 15 units SUB-Q QHS #5 pen 05/08/19 Unknown Rx Ipratropium/Albuterol Sulfate 1 ampul IH TIDRT #50 ampul.neb 05/08/19 Unknown Rx [DUONEB *Not for PRN Use*] Lispro Insulin [HumaLOG] 5 unit SUB-Q ACHS #5 pen 05/08/19 Unknown Rx Potassium Chloride [K-Dur] 20 meq PO BID #60 tab 05/08/19 Unknown Rx Pravastatin [Pravachol] 20 mg PO DAILY #30 tablet 05/08/19 Unknown Rx QUEtiapine [SEROquel] 25 mg PO QHS #30 tablet 05/08/19 Unknown Rx Tiotropium [place] [Spiriva] 18 mcg IH DAILY #1 cap.w.dev 05/08/19 Unknown Rx amLODIPine [Norvasc] 10 mg PO DAILY #30 tab 05/08/19 Unknown Rx Allergies Allergy/AdvReac Type Severity Reaction Status Date / Time No Known Allergies Allergy Verified 05/14/19 09:46 ED Review of Systems ROS: Stated complaint: CHEST PAIN/INOCENCIO Other details as noted in HPI Comment: All other systems reviewed and negative ED Past Medical Hx - Past Medical History Previous Medical History?: Yes Hx Hypertension: Yes Hx Congestive Heart Failure: Yes Hx Diabetes: Yes Hx Renal Disease: Yes (Chronic renal disease, required HD in past) Hx Arthritis: Yes Hx COPD: Yes Additional medical history: heart failure - Surgical History Past Surgical History?: Yes Hx Pacemaker: Yes Additional Surgical History: pacemaker, diverticulitis - Social History Smoking Status: Former Smoker Substance Use Type: None - Medications Home Medications: Home Medications Medication Instructions Recorded Confirmed Last Taken Type Cholecalciferol Vit D3 [Vitamin D3 1,000 unit PO QDAY 04/12/19 05/14/19 Unknown History 1,000 UNIT TAB] Iron Carb,Gl/FA/B12/C/Docusate 1 each PO QDAY 05/03/19 05/14/19 Unknown History [Ferralet 90 Tablet] Albuterol Sulfate [Proair 90 mcg IH PRN PRN #1 aer.pow.ba 05/08/19 05/14/19 Unknown Rx Respiclick] Apixaban [Eliquis] 2.5 mg PO Q12HR #60 tablet 05/08/19 05/14/19 Unknown Rx Famotidine [Pepcid] 20 mg PO DAILY #30 tablet 05/08/19 05/14/19 Unknown Rx Furosemide [Lasix TAB] 80 mg PO BID #60 tablet 05/08/19 05/14/19 Unknown Rx Insulin Glargine [Lantus VIAL] 15 units SUB-Q QHS #5 pen 05/08/19 05/14/19 Unknown Rx Ipratropium/Albuterol Sulfate 1 ampul IH TIDRT #50 ampul.neb 05/08/19 05/14/19 Unknown Rx [DUONEB *Not for PRN Use*] Lispro Insulin [HumaLOG] 5 unit SUB-Q ACHS #5 pen 05/08/19 05/14/19 Unknown Rx Potassium Chloride [K-Dur] 20 meq PO BID #60 tab 05/08/19 05/14/19 Unknown Rx Pravastatin [Pravachol] 20 mg PO DAILY #30 tablet 05/08/19 05/14/19 Unknown Rx QUEtiapine [SEROquel] 25 mg PO QHS #30 tablet 05/08/19 05/14/19 Unknown Rx Tiotropium [place] [Spiriva] 18 mcg IH DAILY #1 cap.w.dev 05/08/19 05/14/19 Unknown Rx amLODIPine [Norvasc] 10 mg PO DAILY #30 tab 05/08/19 05/14/19 Unknown Rx ED Physical Exam - General Limitations: No Limitations - Other Other exam information: General: No limitations, patient is alert in no acute distress Head exam: Atraumatic, normocephalic Eyes exam: Normal appearance ENT: Moist mucous membrane, normal oropharynx Neck exam: Normal inspection, full range of motion, no meningismus nontender Respiratory exam: Bibasilar crackles, no tachypnea or accessory muscle use Cardiovascular: Normal rate and rhythm Abdomen: Soft, nondistended, and nontender, with normal bowel sounds, no rebound, or guarding Extremity: Full range of motion normal inspection no deformity, 2+ pitting edema bilateral lower extremities, no calf tenderness Back: Normal Inspection, full range of motion, no tenderness Neurologic: Alert, oriented x3, cranial nerves intact, no motor or sensory deficit Psychiatric: normal affect, normal mood Skin: Warm, dry, intact ED Course Vital Signs 05/14/19 05/14/19 05/14/19 09:43 10:30 10:31 Temperature 98.4 F Pulse Rate 65 65 Pulse Rate [ Anterior Bilateral Throughout] Respiratory 20 15 16 Rate Respiratory Rate [Anterior Bilateral Throughout] Blood Pressure Blood Pressure 131/56 [Right] O2 Sat by Pulse 96 100 100 Oximetry 05/14/19 05/14/19 05/14/19 10:46 11:00 11:09 Temperature Pulse Rate 65 65 Pulse Rate [ 65 Anterior Bilateral Throughout] Respiratory 16 25 H Rate Respiratory 16 Rate [Anterior Bilateral Throughout] Blood Pressure 129/63 120/61 Blood Pressure [Right] O2 Sat by Pulse 97 98 Oximetry 05/14/19 05/14/19 05/14/19 11:16 11:17 11:18 Temperature Pulse Rate 65 65 65 Pulse Rate [ Anterior Bilateral Throughout] Respiratory 21 21 25 H Rate Respiratory Rate [Anterior Bilateral Throughout] Blood Pressure 120/61 120/61 120/61 Blood Pressure [Right] O2 Sat by Pulse Oximetry 05/14/19 05/14/19 05/14/19 11:20 11:22 11:24 Temperature Pulse Rate 65 65 65 Pulse Rate [ 69 Anterior Bilateral Throughout] Respiratory 18 21 20 Rate Respiratory 18 Rate [Anterior Bilateral Throughout] Blood Pressure 120/61 120/61 120/61 Blood Pressure [Right] O2 Sat by Pulse Oximetry 05/14/19 05/14/19 05/14/19 11:26 11:28 11:30 Temperature Pulse Rate 65 65 65 Pulse Rate [ Anterior Bilateral Throughout] Respiratory 19 24 20 Rate Respiratory Rate [Anterior Bilateral Throughout] Blood Pressure 120/61 120/61 120/61 Blood Pressure [Right] O2 Sat by Pulse Oximetry 05/14/19 05/14/19 05/14/19 11:32 11:34 11:36 Temperature Pulse Rate 65 65 65 Pulse Rate [ Anterior Bilateral Throughout] Respiratory 20 16 28 H Rate Respiratory Rate [Anterior Bilateral Throughout] Blood Pressure 120/61 120/61 120/61 Blood Pressure [Right] O2 Sat by Pulse 91 Oximetry 05/14/19 05/14/19 05/14/19 11:38 11:40 11:41 Temperature Pulse Rate 65 65 65 Pulse Rate [ Anterior Bilateral Throughout] Respiratory 19 24 18 Rate Respiratory Rate [Anterior Bilateral Throughout] Blood Pressure 120/61 120/61 140/68 Blood Pressure [Right] O2 Sat by Pulse Oximetry 05/14/19 05/14/19 11:42 11:50 Temperature Pulse Rate 65 Pulse Rate [ Anterior Bilateral Throughout] Respiratory 14 16 Rate Respiratory Rate [Anterior Bilateral Throughout] Blood Pressure 140/68 Blood Pressure [Right] O2 Sat by Pulse 94 Oximetry - Consultations Consultation #1: 05/14/19 13:[address] Chan evaluated pt and wants her admitted fro stress test. ED Medical Decision Making - Lab Data Result diagrams: 05/14/19 09:53 05/14/19 09:53 Lab Results 05/14/19 05/14/19 05/14/19 Range/Units 09:53 09:53 09:53 WBC 4.5 (4.5-11.0) K/mm3 RBC 2.99 L (3.65-5.03) M/mm3 Hgb 9.0 L (10.1-14.3) gm/dl Hct 29.0 L (30.3-42.9) % MCV 97 (79-97) fl MCH 30 (28-32) pg MCHC 31 (30-34) % RDW 20.6 H (13.2-15.2) % Plt Count 225 (140-440) K/mm3 [place] % (Auto) Residential Property Tax Appraiser Baso % (Auto) Residential Property Tax Appraiser Add Manual Diff Complete Total Counted 100 Seg Neuts % (Manual) 58.0 (40.0-70.0) % Band Neutrophils % 1.0 % Lymphocytes % (Manual) 20.0 (13.4-35.0) % Reactive Lymphs % (Man) 0 % Monocytes % (Manual) 5.0 (0.0-7.3) % Eosinophils % (Manual) 13.0 H (0.0-4.3) % Basophils % (Manual) 0 (0.0-1.8) % Metamyelocytes % 3.0 % Myelocytes % 0 % Promyelocytes % 0 % Blast Cells % 0 % Nucleated RBC % Not Reportable Seg Neutrophils # Man 2.6 (1.8-7.7) K/mm3 Band Neutrophils # 0.0 K/mm3 Lymphocytes # (Manual) 0.9 L (1.2-5.4) K/mm3 Abs React Lymphs (Man) 0.0 K/mm3 Monocytes # (Manual) 0.2 (0.0-0.8) K/mm3 Eosinophils # (Manual) 0.6 H (0.0-0.4) K/mm3 Basophils # (Manual) 0.0 (0.0-0.1) K/mm3 Metamyelocytes # 0.1 K/mm3 Myelocytes # 0.0 K/mm3 Promyelocytes # 0.0 K/mm3 Blast Cells # 0.0 K/mm3 WBC Morphology Not Reportable Hypersegmented Neuts Not Reportable Hyposegmented Neuts Not Reportable Hypogranular Neuts Not Reportable Smudge Cells Not Reportable Toxic Granulation Not Reportable Toxic Vacuolation Not Reportable Dohle Bodies Not Reportable Pelger-Huet Anomaly Not Reportable Kimberly Rods Not Reportable Platelet Estimate Consistent w auto Clumped Platelets Not Reportable Plt Clumps, EDTA Not Reportable Large Platelets Not Reportable Giant Platelets Not Reportable Platelet Satelliting Not Reportable Plt Morphology Comment Not Reportable RBC Morphology Not Reportable Dimorphic RBCs Not Reportable Polychromasia Not Reportable Hypochromasia Not Reportable Poikilocytosis Few Anisocytosis Few Microcytosis Not Reportable Macrocytosis Not Reportable Spherocytes Not Reportable Pappenheimer Bodies Not Reportable Sickle Cells Not Reportable Target Cells Few Tear Drop Cells Not Reportable Ovalocytes Rare Helmet Cells Not Reportable Tadeo-Dickinson Bodies Not Reportable [place] Rings Not Reportable [place] Cells Not Reportable Bite Cells Not Reportable Crenated Cell Not Reportable Elliptocytes Rare Acanthocytes (Spur) Not Reportable Rouleaux Not Reportable Hemoglobin C Crystals Not Reportable Schistocytes Not Reportable Malaria parasites Not Reportable Festus Bodies Not Reportable Hem Pathologist Commnt No PT 18.9 H (12.2-14.9) Sec. INR 1.62 H (0.87-1.13) APTT 38.8 H (24.2-36.6) Sec. Sodium 137 (137-145) mmol/L Potassium 4.7 (3.6-5.0) mmol/L Chloride 95.5 L (98-107) mmol/L Carbon Dioxide 30 (22-30) mmol/L Anion Gap 16 mmol/L BUN 25 H (7-17) mg/dL Creatinine 1.5 H (0.7-1.2) mg/dL Estimated GFR 40 ml/min BUN/Creatinine Ratio 17 % Glucose 144 H (65-100) mg/dL Calcium 9.5 (8.4-10.2) mg/dL Troponin T 0.027 (0.00-0.029) ng/mL - EKG Data -: EKG Interpreted by Me (v paced rhythm) EKG shows normal: axis (qrsd -89), QRS complexes (qrsd 137) - EKG Data When compared to previous EKG there are: no significant change - Radiology Data Radiology results: report reviewed CHEST 1 VIEW 10:04 AM INDICATION / CLINICAL INFORMATION: Chest Pain. COMPARISON: 05/03/2019. FINDINGS: SUPPORT DEVICES: The position of the dual chamber left subclavian transvenous pacemaker has not changed. HEART / MEDIASTINUM: Mild cardiomegaly is stable. There is no evidence of aortic aneurysm. LUNGS / PLEURA: Mild right basilar pleuroparenchymal opacity has developed. The left lung is clear. No pneumothorax. ADDITIONAL FINDINGS: No significant additional findings. IMPRESSION: New mild right basilar pleuroparenchymal opacity. The findings are likely related to a combination of atelectasis or consolidation with a small associated pleural effusion. - Medical Decision Making + chf exacerbation with history of COPD with cor pulmonale Patient treated with Lasix in the ED and duoneb Patient is chronically on a Eliquis Evaluated by reconciliation accountant who recommended admission for stress test Hospitalist informed - Differential Diagnosis mi, copd, chf, unstable angina, atypical cp, pe Critical Care Time: No Critical care attestation.: If time is entered above; I have spent that time in minutes in the direct care of this critically ill patient, excluding procedure time. ED Disposition Clinical Impression: Chest pain, Chronic anticoagulation, COPD (chronic obstructive pulmonary disease), Acute exacerbation of CHF (congestive heart failure), CRI (chronic renal insufficiency) Disposition: 09 OP ADMIT IP TO THIS HOSP Is pt being admited?: Yes Condition: Stable Time of Disposition: 13:06 (Dr Roper/hosp)
[2019-05-14 11:43] LABS: Basophils % (Manual) 0 % (0.0-1.8); Total Cells Counted 100
[2019-05-14 11:44] LABS: Anisocytosis Few; Ovalocytes Rare; Platelet Estimate Consistent w Auto; Poikilocytosis Few; Target Cells Few
--- NOTE | 2019-05-14 13:20 | Consultation ---
<MICHAEL UGALDE - Last Filed: 05/14/19 13:15> History of Present Illness Consult date: 05/14/19 Consult reason: chest pain, shortness of breath History of present illness: This is an frail, 88-year old woman with chronic pulmonary disease, cor pulmonale. She has a history of paroxysmal atrial fibrillation and takes low dose Eliquis for oral anticoagulation. Patient also has a pacemaker implant. Co- morbidities includes hypertension, diabetes, chronic renal failure and anemia. Patient presents to the emergency department with shortness of breath and chest pain. Patient associates chest pain with nausea and vomiting. There are no reports of palpitations. There is no lower extremity edema. Chest x-ray reports mild right basilar opacity. Her ECG is a ventricular paced rhythm. A cardiac consultation has been requested for further recommendations. Medications and Allergies Allergies Allergy/AdvReac Type Severity Reaction Status Date / Time No Known Allergies Allergy Verified 05/14/19 09:46 Home Medications Medication Instructions Recorded Confirmed Last Taken Type Cholecalciferol Vit D3 [Vitamin D3 1,000 unit PO QDAY 04/12/19 05/14/19 Unknown History 1,000 UNIT TAB] Iron Carb,Gl/FA/B12/C/Docusate 1 each PO QDAY 05/03/19 05/14/19 Unknown History [Ferralet 90 Tablet] Albuterol Sulfate [Proair 90 mcg IH PRN PRN #1 aer.pow.ba 05/08/19 05/14/19 Unknown Rx Respiclick] Apixaban [Eliquis] 2.5 mg PO Q12HR #60 tablet 05/08/19 05/14/19 Unknown Rx Famotidine [Pepcid] 20 mg PO DAILY #30 tablet 05/08/19 05/14/19 Unknown Rx Furosemide [Lasix TAB] 80 mg PO BID #60 tablet 05/08/19 05/14/19 Unknown Rx Insulin Glargine [Lantus VIAL] 15 units SUB-Q QHS #5 pen 05/08/19 05/14/19 Unknown Rx Ipratropium/Albuterol Sulfate 1 ampul IH TIDRT #50 ampul.neb 05/08/19 05/14/19 Unknown Rx [DUONEB *Not for PRN Use*] Lispro Insulin [HumaLOG] 5 unit SUB-Q ACHS #5 pen 05/08/19 05/14/19 Unknown Rx Potassium Chloride [K-Dur] 20 meq PO BID #60 tab 05/08/19 05/14/19 Unknown Rx Pravastatin [Pravachol] 20 mg PO DAILY #30 tablet 05/08/19 05/14/19 Unknown Rx QUEtiapine [SEROquel] 25 mg PO QHS #30 tablet 05/08/19 05/14/19 Unknown Rx Tiotropium [place] [Spiriva] 18 mcg IH DAILY #1 cap.w.dev 05/08/19 05/14/19 Unknown Rx amLODIPine [Norvasc] 10 mg PO DAILY #30 tab 05/08/19 05/14/19 Unknown Rx Physical Examination Vital Signs Temp Pulse Resp BP Pulse Ox 98.4 F 65 20 131/56 96 05/14/19 09:43 05/14/19 09:43 05/14/19 09:43 05/14/19 09:43 05/14/19 09:43 General appearance: no acute distress HEENT: Positive: PERRL Neck: Positive: trachea midline Cardiac: Positive: Other (paced) Lungs: Positive: Decreased Breath Sounds Neuro: Positive: Weakness Extremities: Absent: edema Results 05/14/19 09:53 05/14/19 09:53 Coagulation 05/14/19 Range/Units 09:53 PT 18.9 H (12.2-14.9) Sec. INR 1.62 H (0.87-1.13) APTT 38.8 H (24.2-36.6) Sec. CBC 05/14/19 Range/Units 09:53 WBC 4.5 (4.5-11.0) K/mm3 RBC 2.99 L (3.65-5.03) M/mm3 Hgb 9.0 L (10.1-14.3) gm/dl Hct 29.0 L (30.3-42.9) % Plt Count 225 (140-440) K/mm3 Comprehensive Metabolic Panel 05/14/19 Range/Units 09:53 Sodium 137 (137-145) mmol/L Potassium 4.7 (3.6-5.0) mmol/L Chloride 95.5 L (98-107) mmol/L Carbon Dioxide 30 (22-30) mmol/L BUN 25 H (7-17) mg/dL Creatinine 1.5 H (0.7-1.2) mg/dL Glucose 144 H (65-100) mg/dL Calcium 9.5 (8.4-10.2) mg/dL Assessment and Plan Chest pain Cor pulmonale Chronic renal failure required transient HD in the past Anemia Paroxysmal Afib low dose eliquis held due to anemia Pacemaker present COPD Essential systemic hypertension Type 2 DM Echocardiogram 04/2019 shows normal left ventricular systolic function, ejection fraction 60%. There is enlargement of the right heart chambers, moderate to severe pulmonary hypertension with a pulmonary artery systolic pressure of 66, suggests cor pulmonale. Recommendations: Medical therapy for paroxysmal atrial fibrillation. Pre-discharge presantine thallium stress test. <RUTHANN GONZALEZ - Last Filed: 05/14/19 23:39> Medications and Allergies Active Meds: Active Medications Acetaminophen (Tylenol) 650 mg PO Q4H PRN PRN Reason: Pain MILD(1-3)/Fever >100.5/BASILIO Albuterol (Proventil) 2.5 mg IH Q4HRT PRN PRN Reason: Shortness Of Breath Albuterol/Ipratropium (Duoneb *Not For Prn Use*) 1 ampul IH TIDRT [facility] Last Admin: 05/14/19 20:41 Dose: Not Given Documented by: Amlodipine Besylate (Norvasc) 10 mg PO DAILY [facility] Last Admin: 05/14/19 21:53 Dose: 10 mg Documented by: Apixaban (Eliquis) 2.5 mg PO Q12HR [facility]; Protocol Last Admin: 05/14/19 21:54 Dose: 2.5 mg Documented by: Cholecalciferol (Vitamin D3) 1,000 unit PO QDAY [facility] Famotidine (Pepcid) 10 mg PO DAILY [facility] Furosemide (Lasix) 40 mg IV 0600,1800 [facility] Hydromorphone HCl (Dilaudid) 0.5 mg IV Q3H PRN PRN Reason: Pain , Severe (7-10) Insulin Glargine (Lantus) 15 units SUB-Q QHS [facility] Last Admin: 05/14/19 21:59 Dose: 15 units Documented by: Insulin Human Lispro (Humalog) 5 unit SUB-Q ACHS [facility] Last Admin: 05/14/19 21:54 Dose: 5 unit Documented by: Miscellaneous Medication (Iron Carb,Gl/Fa/B12/C/Docusate [Ferralet 90 Tablet]) 1 each PO QDAY [facility] Ondansetron HCl (Zofran) 4 mg IV Q8H PRN PRN Reason: Nausea And Vomiting Oxycodone/Acetaminophen (Percocet 5/325) 1 tab PO Q6H PRN PRN Reason: Pain, Moderate (4-6) Potassium Chloride (K-Dur) 20 meq PO BID [facility] Last Admin: 05/14/19 21:53 Dose: 20 meq Documented by: Pravastatin Sodium (Pravachol) 20 mg PO DAILY [facility] Quetiapine Fumarate (Seroquel) 25 mg PO QHS [facility] Last Admin: 05/14/19 21:54 Dose: 25 mg Documented by: Sodium Chloride (Sodium Chloride Flush Syringe 10 Ml) 10 ml IV BID [facility] Last Admin: 05/14/19 21:55 Dose: 10 ml Documented by: Sodium Chloride (Sodium Chloride Flush Syringe 10 Ml) 10 ml IV PRN PRN PRN Reason: LINE FLUSH Tiotropium Rawson (Spiriva) 1 puff IH DAILY [facility] Last Admin: 05/14/19 20:41 Dose: Not Given Documented by: Physical Examination Vital Signs Temp Pulse Resp BP Pulse Ox 98.4 F 65 20 131/56 96 05/14/19 09:43 05/14/19 09:43 05/14/19 09:43 05/14/19 09:43 05/14/19 09:43 Results 05/14/19 09:53 05/14/19 09:53 Coagulation 05/14/19 Range/Units 09:53 PT 18.9 H (12.2-14.9) Sec. INR 1.62 H (0.87-1.13) APTT 38.8 H (24.2-36.6) Sec. CBC 05/14/19 Range/Units 09:53 WBC 4.5 (4.5-11.0) K/mm3 RBC 2.99 L (3.65-5.03) M/mm3 Hgb 9.0 L (10.1-14.3) gm/dl Hct 29.0 L (30.3-42.9) % Plt Count 225 (140-440) K/mm3 Comprehensive Metabolic Panel 05/14/19 Range/Units 09:53 Sodium 137 (137-145) mmol/L Potassium 4.7 (3.6-5.0) mmol/L Chloride 95.5 L (98-107) mmol/L Carbon Dioxide 30 (22-30) mmol/L BUN 25 H (7-17) mg/dL Creatinine 1.5 H (0.7-1.2) mg/dL Glucose 144 H (65-100) mg/dL Calcium 9.5 (8.4-10.2) mg/dL Assessment and Plan Chest pain - plan for stress test for ischemic evaluation prior to stress test Cor pulmonale - continue current medical therapy Chronic renal failure - required transient HD in the past. Management per primary Paroxysmal Afib - continue low dose eliquis held due to anemia. rate control s trategy Pacemaker present COPD Essential systemic hypertension - maximize medical therapy as blood pressure tolerates Type 2 DM - management per primary Echocardiogram 04/2019 shows normal left ventricular systolic function, ejection fraction 60%. There is enlargement of the right heart chambers, moderate to severe pulmonary hypertension with a pulmonary artery systolic pressure of 66, suggests cor pulmonale.
[2019-05-14] MEDS ORDERED: NON-FORMULARY (Albuterol Sulfate [Proair Respiclick] 90 MCG) IH PRN (19:35)
--- NOTE | 2019-05-14 19:35 | History and Physical Report ---
History of Present Illness Date of examination: 05/14/19 Date of admission: 05/14/19 13:07 Chief complaint: Shortness of breath since AM Chest pain since a.m. History of present illness: 88-year-old -[place] female with multiple medical problems including CHF atrial fibrillation COPD diabetes hypertension chronic kidney disease and pacemaker status counseled the hospital for shortness of breath since morning. Patient was taken care by me in the last admission. Patient had echocardiogram in April 2019 with ejection fraction of 60% and pulmonary hypertension. Patient coming in for shortness of breath on very minimal exertion and orthopnea present. Patient has class IV NYHA symptoms. Patient was discharged on Lasix twice a day. Patient also has chest pain since a.m. Chest pain resolved while in the emergency room. Chest pain the pacemaker location. Dull in character. No radiation. No palpitations or diaphoresis. No exacerbating or precipitating factors except exertion. Patient had a blood transfusion in the last admission. Previous discharge summary from 05/08/2019 Acute on chronic heart failure with a preserved ejection fraction Cor Pulmonale Chronic renal failure required transient HD in the past Anemia s/p PRBCs s/p EGD: No active bleeding from stomach lesions, but on Eliquis, could be a source of chronic anemia. Continue daily protonix, and restart low-dose Eliquis per GI Paroxysmal Afib low dose eliquis held due to anemia Pacemaker present COPD Essential systemic hypertension Type 2 DM Echocardiogram 04/2019 shows normal left ventricular systolic function, ejection fraction 60%. There is enlargement of the right heart chambers, moderate to severe pulmonary hypertension with a pulmonary artery systolic pressure of 66, suggests cor pulmonale. Recommendations: Continue diuretics Fluid restriction. No active bleeding per GI with recommendation to restart Eliquis at low-dose. Otherwise, conservative cardiac management. Past Medical History Previous Medical History?: Yes Hypertension: Yes Congestive Heart Failure: Yes Diabetes: Yes Renal Disease: Yes (Chronic renal disease, required HD in past) Arthritis: Yes COPD: Yes Additional medical history: heart failure - Surgical History Past Surgical History?: Yes Pacemaker: Yes Additional Surgical History: pacemaker, diverticulitis Social History Smoking Status: Former Smoker Substance Use Type: None Family history HTN Review of Systems ROS: Stated complaint: CHEST PAIN/INOCENCIO Other details as noted in HPI Comment: All other systems reviewed and negative 14 point review of systems done and otherwise negative Medications and Allergies Allergies Allergy/AdvReac Type Severity Reaction Status Date / Time No Known Allergies Allergy Verified 05/14/19 09:46 Home Medications Medication Instructions Recorded Confirmed Last Taken Type Cholecalciferol Vit D3 [Vitamin D3 1,000 unit PO QDAY 04/12/19 05/14/19 Unknown History 1,000 UNIT TAB] Iron Carb,Gl/FA/B12/C/Docusate 1 each PO QDAY 05/03/19 05/14/19 Unknown History [Ferralet 90 Tablet] Albuterol Sulfate [Proair 90 mcg IH PRN PRN #1 [email or web address] 05/08/19 05/14/19 Unknown Rx Respiclick] Apixaban [Eliquis] 2.5 mg PO Q12HR #60 tablet 05/08/19 05/14/19 Unknown Rx Famotidine [Pepcid] 20 mg PO DAILY #30 tablet 05/08/19 05/14/19 Unknown Rx Furosemide [Lasix TAB] 80 mg PO BID #60 tablet 05/08/19 05/14/19 Unknown Rx Insulin Glargine [Lantus VIAL] 15 units SUB-Q QHS #5 pen 05/08/19 05/14/19 Unknown Rx Ipratropium/Albuterol Sulfate 1 ampul IH TIDRT #50 ampul.neb 05/08/19 05/14/19 Unknown Rx [DUONEB *Not for PRN Use*] Lispro Insulin [HumaLOG] 5 unit SUB-Q ACHS #5 pen 05/08/19 05/14/19 Unknown Rx Potassium Chloride [K-Dur] 20 meq PO BID #60 tab 05/08/19 05/14/19 Unknown Rx Pravastatin [Pravachol] 20 mg PO DAILY #30 tablet 05/08/19 05/14/19 Unknown Rx QUEtiapine [SEROquel] 25 mg PO QHS #30 tablet 05/08/19 05/14/19 Unknown Rx Tiotropium [place] [Spiriva] 18 mcg IH DAILY #1 cap.w.dev 05/08/19 05/14/19 Unknown Rx amLODIPine [Norvasc] 10 mg PO DAILY #30 tab 05/08/19 05/14/19 Unknown Rx Exam - Constitutional Vitals: Temp Pulse Resp BP Pulse Ox 98.0 F 65 18 144/74 94 05/14/19 16:42 05/14/19 18:47 05/14/19 16:42 05/14/19 16:42 05/14/19 11:50 General appearance: Present: mild distress, well-nourished - EENT Eyes: Present: PERRL ENT: hearing intact, clear oral mucosa - Neck Neck: Present: supple, normal ROM - Respiratory Respiratory effort: normal Respiratory: bilateral: rales - Cardiovascular Heart rate: 65 Rhythm: irregularly irregular Heart Sounds: Present: S1 & S2. Absent: rub, click - Extremities Extremities: no ischemia, pulses intact, pulses symmetrical, No edema Extremity abnormal: edema (4+) Peripheral Pulses: within normal limits - Abdominal General gastrointestinal: Present: soft, non-tender, non-distended, normal bowel sounds Female genitourinary: Present: normal - Rectal Rectal Exam: deferred - Integumentary Integumentary: Present: clear, warm, dry - Musculoskeletal Musculoskeletal: gait normal, strength equal bilaterally - Psychiatric Psychiatric: appropriate mood/affect, intact judgment & insight - Neurologic Neurologic: CNII-XII intact, moves all extremities - Allied Health Allied health notes reviewed: nursing, case management Results - Labs CBC & Chem 7: 05/14/19 09:53 05/14/19 09:53 Labs: Laboratory Last Values WBC 4.5 K/mm3 (4.5-11.0) 05/14/19 09:53 RBC 2.99 M/mm3 (3.65-5.03) L 05/14/19 09:53 Hgb 9.0 gm/dl (10.1-14.3) L 05/14/19 09:53 Hct 29.0 % (30.3-42.9) L 05/14/19 09:53 MCV 97 fl (79-97) 05/14/19 09:53 MCH 30 pg (28-32) 05/14/19 09:53 MCHC 31 % (30-34) 05/14/19 09:53 RDW 20.6 % (13.2-15.2) H 05/14/19 09:53 Plt Count 225 K/mm3 (140-440) 05/14/19 09:53 [place] % (Auto) Executive Producer 05/14/19 09:53 Baso % (Auto) Executive Producer 05/14/19 09:53 Add Manual Diff Complete 05/14/19 09:53 Total Counted 100 05/14/19 09:53 Seg Neuts % (Manual) 58.0 % (40.0-70.0) 05/14/19 09:53 1.0 % 05/14/19 09:53 20.0 % (13.4-35.0) 05/14/19 09:53 Reactive Lymphs % (Man) 0 % 05/14/19 09:53 5.0 % (0.0-7.3) 05/14/19 09:53 13.0 % (0.0-4.3) H 05/14/19 09:53 0 % (0.0-1.8) 05/14/19 09:53 3.0 % 05/14/19 09:53 0 % 05/14/19 09:53 0 % 05/14/19 09:53 0 % 05/14/19 09:53 Nucleated RBC % Not Reportable 05/14/19 09:53 Seg Neutrophils # Man 2.6 K/mm3 (1.8-7.7) 05/14/19 09:53 Band Neutrophils # 0.0 K/mm3 05/14/19 09:53 0.9 K/mm3 (1.2-5.4) L 05/14/19 09:53 Abs React Lymphs (Man) 0.0 K/mm3 05/14/19 09:53 0.2 K/mm3 (0.0-0.8) 05/14/19 09:53 0.6 K/mm3 (0.0-0.4) H 05/14/19 09:53 0.0 K/mm3 (0.0-0.1) 05/14/19 09:53 0.1 K/mm3 05/14/19 09:53 0.0 K/mm3 05/14/19 09:53 0.0 K/mm3 05/14/19 09:53 Blast Cells # 0.0 K/mm3 05/14/19 09:53 WBC Morphology Not Reportable 05/14/19 09:53 Hypersegmented Neuts Not Reportable 05/14/19 09:53 Hyposegmented Neuts Not Reportable 05/14/19 09:53 Hypogranular Neuts Not Reportable 05/14/19 09:53 Not Reportable 05/14/19 09:53 Not Reportable 05/14/19 09:53 Not Reportable 05/14/19 09:53 Not Reportable 05/14/19 09:53 Not Reportable 05/14/19 09:53 Not Reportable 05/14/19 09:53 Consistent w auto 05/14/19 09:53 Not Reportable 05/14/19 09:53 Plt Clumps, EDTA Not Reportable 05/14/19 09:53 Not Reportable 05/14/19 09:53 Not Reportable 05/14/19 09:53 Not Reportable 05/14/19 09:53 Plt Morphology Comment Not Reportable 05/14/19 09:53 RBC Morphology Not Reportable 05/14/19 09:53 Dimorphic RBCs Not Reportable 05/14/19 09:53 Not Reportable 05/14/19 09:53 Not Reportable 05/14/19 09:53 Few 05/14/19 09:53 Few 05/14/19 09:53 Not Reportable 05/14/19 09:53 Not Reportable 05/14/19 09:53 Not Reportable 05/14/19 09:53 Not Reportable 05/14/19 09:53 Not Reportable 05/14/19 09:53 Few 05/14/19 09:53 Not Reportable 05/14/19 09:53 Rare 05/14/19 09:53 Not Reportable 05/14/19 09:53 Not Reportable 05/14/19 09:53 Not Reportable 05/14/19 09:53 Not Reportable 05/14/19 09:53 Not Reportable 05/14/19 09:53 Not Reportable 05/14/19 09:53 Rare 05/14/19 09:53 Acanthocytes (Spur) Not Reportable 05/14/19 09:53 Rouleaux Not Reportable 05/14/19 09:53 Not Reportable 05/14/19 09:53 Not Reportable 05/14/19 09:53 Not Reportable 05/14/19 09:53 Not Reportable 05/14/19 09:53 Hem Pathologist Commnt No 05/14/19 09:53 PT 18.9 Sec. (12.2-14.9) H 05/14/19 09:53 INR 1.62 (0.87-1.13) H 05/14/19 09:53 APTT 38.8 Sec. (24.2-36.6) H 05/14/19 09:53 Sodium 137 mmol/L (137-145) 05/14/19 09:53 Potassium 4.7 mmol/L (3.6-5.0) 05/14/19 09:53 Chloride 95.5 mmol/L (98-107) L 05/14/19 09:53 Carbon Dioxide 30 mmol/L (22-30) 05/14/19 09:53 16 mmol/L 05/14/19 09:53 BUN 25 mg/dL (7-17) H 05/14/19 09:53 1.5 mg/dL (0.7-1.2) H 05/14/19 09:53 Estimated GFR 40 ml/min 05/14/19 09:53 17 % 05/14/19 09:53 Glucose 144 mg/dL (65-100) H 05/14/19 09:53 Calcium 9.5 mg/dL (8.4-10.2) 05/14/19 09:53 0.018 ng/mL (0.00-0.029) 05/14/19 13:00 Short CBC 05/14/19 Range/Units 09:53 WBC 4.5 (4.5-11.0) K/mm3 Hgb 9.0 L (10.1-14.3) gm/dl Hct 29.0 L (30.3-42.9) % Plt Count 225 (140-440) K/mm3 BMP 05/14/19 09:53 Sodium 137 Potassium 4.7 Chloride 95.5 L Carbon Dioxide 30 BUN 25 H Creatinine 1.5 H Glucose 144 H Calcium 9.5 Cardiac Enzymes 05/14/19 05/14/19 Range/Units 09:53 13:00 Troponin T 0.027 0.018 (0.00-0.029) ng/mL - Imaging and Cardiology EKG: report reviewed (ventricular paced rhythm ,heart rate of 60 regular minute) Chest x-ray: report reviewed Imaging and Cardiology: Chest x-ray IMPRESSION: New mild right basilar pleuroparenchymal opacity. The findings are likely related to a combination of atelectasis or consolidation with a small associated pleural effusion. Assessment and Plan Advance Directives: Yes (full code) VTE prophylaxis?: Chemical Plan of care discussed with patient/family: Yes - Patient Problems (1) Acute exacerbation of CHF (congestive heart failure) Current Visit: Yes Status: Acute Qualifiers: Heart failure type: diastolic Qualified Code(s): I50.33 - Acute on chronic diastolic (congestive) heart failure Plan to address problem: Diastolic heart failure secondary to pulmonary hypertension. IV Lasix initiated twice a day Daily weights Daily intake and output Cardiology consult requested Patient had echocardiogram recently in April 2019--hence no new echocardiogram (2) Chest pain Current Visit: Yes Status: Acute (3) Chest pain Current Visit: Yes Status: Acute Qualifiers: Plan to address problem: Patient for Lexiscan in the morning Serial troponins (4) Pulmonary HTN Current Visit: No Status: Chronic Plan to address problem: We will defer to cardiology (5) COPD (chronic obstructive pulmonary disease) Current Visit: Yes Status: Chronic (6) JOSE (acute kidney injury) Current Visit: No Status: Acute Plan to address problem: We will get a nephrology consult Lasix may worsen the JOSE (7) HTN (hypertension) Current Visit: No Status: Chronic Qualifiers: Hypertension type: essential hypertension Qualified Code(s): I10 - Essential (primary) hypertension Plan to address problem: Continue antihypertensives (8) Paroxysmal atrial fibrillation Current Visit: Yes Status: Chronic Plan to address problem: Patient had a recent GI bleed Was cleared by GI to continue ELIQUIS (9) Insulin dependent diabetes mellitus Current Visit: Yes Status: Chronic Plan to address problem: Check hemoglobin A1c Continue home insulin and coverage with moderate dose sliding scale protocol (10) Hyperlipidemia Current Visit: Yes Status: Chronic Qualifiers: Hyperlipidemia type: mixed hyperlipidemia Qualified Code(s): E78.2 - Mixed hyperlipidemia Plan to address problem: Continue statins (11) Bipolar disorder Current Visit: Yes Status: Chronic Qualifiers: Active/Remission status: remission status unspecified Qualified Code(s): F31.9 - Bipolar disorder, unspecified Plan to address problem: Continue Seroquel (12) Anemia Current Visit: Yes Status: Chronic Qualifiers: Anemia type: iron deficiency Plan to address problem: Continue iron supplements (13) DVT prophylaxis Current Visit: No Status: Acute Plan to address problem: On ELIQUIS and GI prophylaxis
[2019-05-14] MEDS ORDERED: SODIUM CHLORIDE FLUSH SYRINGE 10 ML IV PRN (19:55)
[2019-05-14] MEDS ORDERED: ZOFRAN IV PRN (19:55)
[2019-05-14] MEDS ORDERED: DILAUDID IV PRN (19:55)
[2019-05-14] MEDS ORDERED: TYLENOL PO PRN (19:55)
[2019-05-14] MEDS ORDERED: PERCOCET 5/325 PO PRN (19:55)
[2019-05-14] MEDS ORDERED: PROVENTIL IH PRN (20:31)
[2019-05-14] MEDS: DUONEB *Not for PRN Use IH SCH (20:41)
[2019-05-14] MEDS: SPIRIVA IH SCH (20:41)
[2019-05-14] MEDS: NORVASC PO SCH (21:53)
[2019-05-14] MEDS: K-DUR PO SCH (21:53)
[2019-05-14] MEDS: ELIQUIS PO SCH (21:54)
[2019-05-14] MEDS: HumaLOG SUB-Q SCH (21:54)
[2019-05-14] MEDS: SODIUM CHLORIDE FLUSH SYRINGE 10 ML IV SCH (21:55)
[2019-05-14] MEDS ORDERED: LANTUS SUB-Q SCH (22:00)
[2019-05-15] MEDS: D50W (25GM) Syringe IV PRN (05:02)
[2019-05-15 05:57] LABS: Hematocrit 26.9 % (30.3-42.9); Hemoglobin 8.5 gm/dl (10.1-14.3); Mean Corpuscular HGB Conc 32 % (30-34); Mean Corpuscular Volume 96 fl (79-97); Platelet Count 220 K/mm3 (140-440); Red Blood Count 2.81 M/mm3 (3.65-5.03)
[2019-05-15 06:00] LABS: Red Cell Distribution Width 20.1 % (13.2-15.2)
[2019-05-15 06:24] LABS: Albumin 3.4 g/dL (3.9-5); Calcium 9.4 mg/dL (8.4-10.2)
[2019-05-15] MEDS: LASIX IV SCH ×2 (06:25→17:26)
[2019-05-15] MEDS: DUONEB *Not for PRN Use IH SCH ×2 (07:20→14:02)
[2019-05-15 07:35] LABS: Anisocytosis 1+; Basophils % (Manual) 0 % (0.0-1.8); Hypochromasia Few; Poikilocytosis Few; Rouleaux Few; Total Cells Counted 100
[2019-05-15] MEDS ORDERED: LEXISCAN IV ONE (07:50)
[2019-05-15] MEDS: SPIRIVA IH SCH (09:04)
[2019-05-15] MEDS ORDERED: [UNRECOGNIZED DRUG - OTHER] PO SCH (10:00)
[2019-05-15] MEDS ORDERED: B12 PO SCH (10:00)
[2019-05-15] MEDS ORDERED: IRON CARB GL PO SCH (10:00)
[2019-05-15] MEDS ORDERED: DOCUSATE PO SCH (10:00)
--- NOTE | 2019-05-15 10:27 | Progress Note ---
Assessment and Plan 1. Chest pain rule out ischemic coronary artery disease 2. Paroxysmal atrial fibrillation 3. Essential hypertension 4. Type 2 diabetes mellitus 5. Chronic kidney disease unspecified 6. Presence of cardiac pacemaker Plan. Patient is stable cardiac troponin levels including vocal slight elevation nonspecific in the setting of chronic Renal disease. Stress MPI scheduled for today Subjective Date of service: 05/15/19 Interval history: No cardiac complains Objective Vital Signs Temp Pulse Pulse Pulse Resp Resp BP 05/15/19 10:03 91/44 05/15/19 10:02 95/43 05/15/19 10:01 97/45 05/15/19 10:00 99/47 05/15/19 09:58 92/50 05/15/19 09:57 111/52 05/15/19 09:56 112/53 05/15/19 09:51 112/55 05/15/19 09:45 109/54 05/15/19 07:35 69 18 05/15/19 07:21 68 19 05/15/19 07:13 98.3 F 63 18 122/66 05/15/19 04:44 98.0 F 65 18 121/61 05/15/19 00:05 98.1 F 65 18 138/65 05/14/19 22:15 65 18 05/14/19 21:53 65 144/74 05/14/19 19:41 98.4 F 65 18 144/74 05/14/19 19:10 65 05/14/19 18:47 65 05/14/19 16:42 98.0 F 18 144/74 05/14/19 15:00 65 23 139/72 05/14/19 14:00 65 18 132/66 05/14/19 13:00 65 17 150/66 05/14/19 12:00 65 21 141/64 05/14/19 11:50 16 05/14/19 11:42 65 14 140/68 05/14/19 11:41 65 18 140/68 05/14/19 11:40 65 24 120/61 05/14/19 11:38 65 19 120/61 05/14/19 11:36 65 28 H 120/61 05/14/19 11:34 65 16 120/61 05/14/19 11:32 65 20 120/61 05/14/19 11:30 65 20 120/61 05/14/19 11:28 65 24 120/61 05/14/19 11:26 65 19 120/61 05/14/19 11:24 65 69 20 18 120/61 05/14/19 11:22 65 21 120/61 05/14/19 11:20 65 18 120/61 05/14/19 11:18 65 25 H 120/61 05/14/19 11:17 65 21 120/61 05/14/19 11:16 65 21 120/61 05/14/19 11:09 65 16 05/14/19 11:00 65 25 H 120/61 05/14/19 10:46 65 16 129/63 05/14/19 10:31 16 05/14/19 10:30 65 15 Pulse Ox 05/15/19 10:03 05/15/19 10:02 05/15/19 10:01 05/15/19 10:00 05/15/19 09:58 05/15/19 09:57 05/15/19 09:56 05/15/19 09:51 05/15/19 09:45 05/15/19 07:35 05/15/19 07:21 05/15/19 07:13 91 05/15/19 04:44 100 05/15/19 00:05 100 05/14/19 22:15 98 05/14/19 21:53 05/14/19 19:41 98 05/14/19 19:10 05/14/19 18:47 05/14/19 16:42 05/14/19 15:00 05/14/19 14:00 05/14/19 13:00 05/14/19 12:00 05/14/19 11:50 94 05/14/19 11:42 05/14/19 11:41 05/14/19 11:40 05/14/19 11:38 05/14/19 11:36 05/14/19 11:34 91 05/14/19 11:32 05/14/19 11:30 05/14/19 11:28 05/14/19 11:26 05/14/19 11:24 05/14/19 11:22 05/14/19 11:20 05/14/19 11:18 05/14/19 11:17 05/14/19 11:16 05/14/19 11:09 05/14/19 11:00 98 05/14/19 10:46 97 05/14/19 10:31 100 05/14/19 10:30 100 - Physical Examination General: Appears Well HEENT: Positive: PERRL Neck: Positive: trachea midline. Negative: JVD/HJR Cardiac: Positive: Reg Rate and Rhythm, S1/S2, PMI, Laterally Displaced Lungs: Positive: clear to auscultation, No Wheeze, Rales, Rhonchi Neuro: Positive: Grossly Intact, Weakness Abdomen: Positive: Unremarkable, Active Bowel Sounds Extremities: Absent: edema - Labs and Meds Cardiac Enzymes 05/15/19 Range/Units 05:08 AST 16 (5-40) units/L Coagulation 05/14/19 Range/Units 09:53 PT 18.9 H (12.2-14.9) Sec. INR 1.62 H (0.87-1.13) APTT 38.8 H (24.2-36.6) Sec. CBC 05/14/19 05/15/19 Range/Units 09:53 05:08 WBC 4.5 4.3 L (4.5-11.0) K/mm3 RBC 2.99 L 2.81 L (3.65-5.03) M/mm3 Hgb 9.0 L 8.5 L (10.1-14.3) gm/dl Hct 29.0 L 26.9 L (30.3-42.9) % Plt Count 225 220 (140-440) K/mm3 Comprehensive Metabolic Panel 05/14/19 05/15/19 Range/Units 09:53 05:08 Sodium 137 139 (137-145) mmol/L Potassium 4.7 4.2 (3.6-5.0) mmol/L Chloride 95.5 L 98.7 (98-107) mmol/L Carbon Dioxide 30 29 (22-30) mmol/L BUN 25 H 27 H (7-17) mg/dL Creatinine 1.5 H 1.4 H (0.7-1.2) mg/dL Glucose 144 H 35 L* (65-100) mg/dL Calcium 9.5 9.4 (8.4-10.2) mg/dL AST 16 (5-40) units/L ALT 7 (7-56) units/L Alkaline Phosphatase 61 (35-129) units/L Total Protein 6.2 L (6.3-8.2) g/dL Albumin 3.4 L (3.9-5) g/dL - Imaging and Cardiology EKG: report reviewed (ventricular paced rhythm ,heart rate of 60 regular minute)
[2019-05-15] MEDS: HumaLOG SUB-Q SCH ×2 (10:51→14:47)
[2019-05-15] MEDS: VITAMIN D3 PO SCH (10:53)
[2019-05-15] MEDS: PEPCID PO SCH (10:53)
[2019-05-15] MEDS: K-DUR PO SCH ×2 (10:53→21:38)
[2019-05-15] MEDS: PRAVACHOL PO SCH (10:53)
[2019-05-15] MEDS: ELIQUIS PO SCH ×2 (10:53→21:38)
[2019-05-15] MEDS: NORVASC PO SCH (10:54)
[2019-05-15] MEDS: SODIUM CHLORIDE FLUSH SYRINGE 10 ML IV SCH ×2 (10:55→21:38)
--- NOTE | 2019-05-15 16:20 | Progress Note ---
Assessment and Plan Assessment and plan: Acute on chronic resp failure Continue supplemental Oxygen Acute on chronic diastolic CHF lasix iv Chest pain Stress test neg Diabetes melolitus type 2 fingerstick q ac and hs COPD PAF Continue Eliquis Hypertension Monitor BP Bipolar disorder Full code status History Interval history: Chest pain Shortness of breath Hospitalist Physical - Physical exam Narrative exam: Gen: Not in acute distress, lying in bed,obese HEENT: Normocephalic, atraumatic Neck: supple, no JVD Heart: S1 and S2 reg, no murmurs, rubs or gallop Lungs: Bilateral basal crackles, no wheeze Abd: soft, non tender, non distended, normal BS Ext: No edema, no clubbing, no cyanosis, Neuro: Awake,alert, moves all ext, non focal - Constitutional Vitals: Temp Pulse Resp BP Pulse Ox 98.3 F 66 18 122/66 98 05/15/19 07:13 05/15/19 14:03 05/15/19 14:03 05/15/19 10:54 05/15/19 14:05 Results - Labs CBC & Chem 7: 05/16/19 05:19 05/16/19 13:49 Labs: Laboratory Last Values WBC 4.3 K/mm3 (4.5-11.0) L 05/15/19 05:08 RBC 2.81 M/mm3 (3.65-5.03) L 05/15/19 05:08 Hgb 8.5 gm/dl (10.1-14.3) L 05/15/19 05:08 Hct 26.9 % (30.3-42.9) L 05/15/19 05:08 MCV 96 fl (79-97) 05/15/19 05:08 MCH 30 pg (28-32) 05/15/19 05:08 MCHC 32 % (30-34) 05/15/19 05:08 RDW 20.1 % (13.2-15.2) H 05/15/19 05:08 Plt Count 220 K/mm3 (140-440) 05/15/19 05:08 [place] % (Auto) Dba Developer 05/15/19 05:08 Baso % (Auto) Dba Developer 05/14/19 09:53 Add Manual Diff Complete 05/15/19 05:08 Total Counted 100 05/15/19 05:08 Seg Neuts % (Manual) 74.0 % (40.0-70.0) H 05/15/19 05:08 0 % 05/15/19 05:08 9.0 % (13.4-35.0) L 05/15/19 05:08 Reactive Lymphs % (Man) 0 % 05/15/19 05:08 13.0 % (0.0-7.3) H 05/15/19 05:08 4.0 % (0.0-4.3) 05/15/19 05:08 0 % (0.0-1.8) 05/15/19 05:08 0 % 05/15/19 05:08 0 % 05/15/19 05:08 0 % 05/15/19 05:08 0 % 05/15/19 05:08 Nucleated RBC % Not Reportable 05/15/19 05:08 Seg Neutrophils # Man 3.2 K/mm3 (1.8-7.7) 05/15/19 05:08 Band Neutrophils # 0.0 K/mm3 05/15/19 05:08 0.4 K/mm3 (1.2-5.4) L 05/15/19 05:08 Abs React Lymphs (Man) 0.0 K/mm3 05/15/19 05:08 0.6 K/mm3 (0.0-0.8) 05/15/19 05:08 0.2 K/mm3 (0.0-0.4) 05/15/19 05:08 0.0 K/mm3 (0.0-0.1) 05/15/19 05:08 0.0 K/mm3 05/15/19 05:08 0.0 K/mm3 05/15/19 05:08 0.0 K/mm3 05/15/19 05:08 Blast Cells # 0.0 K/mm3 05/15/19 05:08 WBC Morphology Not Reportable 05/15/19 05:08 Hypersegmented Neuts Not Reportable 05/15/19 05:08 Hyposegmented Neuts Not Reportable 05/15/19 05:08 Hypogranular Neuts Not Reportable 05/15/19 05:08 Not Reportable 05/15/19 05:08 Not Reportable 05/15/19 05:08 Not Reportable 05/15/19 05:08 Not Reportable 05/15/19 05:08 Not Reportable 05/15/19 05:08 Not Reportable 05/15/19 05:08 Appears normal 05/15/19 05:08 Not Reportable 05/15/19 05:08 Plt Clumps, EDTA Not Reportable 05/15/19 05:08 Not Reportable 05/15/19 05:08 Not Reportable 05/15/19 05:08 Not Reportable 05/15/19 05:08 Plt Morphology Comment Not Reportable 05/15/19 05:08 RBC Morphology Not Reportable 05/15/19 05:08 Dimorphic RBCs Not Reportable 05/15/19 05:08 Not Reportable 05/15/19 05:08 Few 05/15/19 05:08 Few 05/15/19 05:08 1+ 05/15/19 05:08 Not Reportable 05/15/19 05:08 Not Reportable 05/15/19 05:08 Not Reportable 05/15/19 05:08 Not Reportable 05/15/19 05:08 Not Reportable 05/15/19 05:08 Not Reportable 05/15/19 05:08 Not Reportable 05/15/19 05:08 Not Reportable 05/15/19 05:08 Not Reportable 05/15/19 05:08 Not Reportable 05/15/19 05:08 Not Reportable 05/15/19 05:08 Not Reportable 05/15/19 05:08 Not Reportable 05/15/19 05:08 Not Reportable 05/15/19 05:08 Not Reportable 05/15/19 05:08 Acanthocytes (Spur) Not Reportable 05/15/19 05:08 Rouleaux Few 05/15/19 05:08 Not Reportable 05/15/19 05:08 Not Reportable 05/15/19 05:08 Not Reportable 05/15/19 05:08 Not Reportable 05/15/19 05:08 Hem Pathologist Commnt No 05/15/19 05:08 PT 18.9 Sec. (12.2-14.9) H 05/14/19 09:53 INR 1.62 (0.87-1.13) H 05/14/19 09:53 APTT 38.8 Sec. (24.2-36.6) H 05/14/19 09:53 Sodium 139 mmol/L (137-145) 05/15/19 05:08 Potassium 4.2 mmol/L (3.6-5.0) 05/15/19 05:08 Chloride 98.7 mmol/L (98-107) 05/15/19 05:08 Carbon Dioxide 29 mmol/L (22-30) 05/15/19 05:08 16 mmol/L 05/15/19 05:08 BUN 27 mg/dL (7-17) H 05/15/19 05:08 1.4 mg/dL (0.7-1.2) H 05/15/19 05:08 Estimated GFR 43 ml/min 05/15/19 05:08 19 % 05/15/19 05:08 Glucose 35 mg/dL (65-100) L* 05/15/19 05:08 POC Glucose 93 (70-105) 05/15/19 12:00 6.2 % (4-6) H 05/14/19 20:15 Calcium 9.4 mg/dL (8.4-10.2) 05/15/19 05:08 0.40 mg/dL (0.1-1.2) 05/15/19 05:08 AST 16 units/L (5-40) 05/15/19 05:08 ALT 7 units/L (7-56) 05/15/19 05:08 61 units/L (35-129) 05/15/19 05:08 0.013 ng/mL (0.00-0.029) 05/14/19 20:15 6.2 g/dL (6.3-8.2) L 05/15/19 05:08 3.4 g/dL (3.9-5) L 05/15/19 05:08 1.2 % 05/15/19 05:08 Active Medications - Current Medications Current Medications: Generic Name Dose Route Start Last Admin Trade Name Freq PRN Reason Stop Dose Admin Acetaminophen 650 mg 05/14/19 19:55 05/15/19 15:47 Tylenol PO 650 mg Q4H PRN Administration Pain MILD(1-3)/Fever >100.5/BASILIO Albuterol 2.5 mg 05/14/19 20:31 Proventil IH Q4HRT PRN Shortness Of Breath Albuterol/Ipratropium 1 ampul 05/14/19 20:00 05/15/19 14:02 Duoneb *Not For Prn Use* IH 1 ampul TIDRT TANK Administration Amlodipine Besylate 10 mg 05/14/19 20:00 05/15/19 10:54 Norvasc PO 10 mg DAILY TANK Administration Apixaban 2.5 mg 05/14/19 22:00 05/15/19 10:53 Eliquis PO 2.5 mg Q12HR TANK Administration Protocol Cholecalciferol 1,000 unit 05/15/19 10:00 05/15/19 10:53 Vitamin D3 PO 1,000 unit QDAY TANK Administration Dextrose 50 ml 05/15/19 04:57 05/15/19 05:02 D50w (25gm) Syringe IV 50 ml PRN PRN Administration Hypoglycemia Famotidine 10 mg 05/15/19 10:00 05/15/19 10:53 Pepcid PO 10 mg DAILY TANK Administration Furosemide 40 mg 05/15/19 06:00 05/15/19 06:25 Lasix IV 40 mg 0600,1800 TANK Administration Hydromorphone HCl 0.5 mg 05/14/19 19:55 Dilaudid IV Q3H PRN Pain , Severe (7-10) Insulin Glargine 15 units 05/14/19 22:00 05/14/19 21:59 Lantus SUB-Q 15 units QHS TANK Administration Insulin Human Lispro 5 unit 05/14/19 22:00 05/15/19 14:47 Humalog SUB-Q Not Given ACHS [facility] Miscellaneous Medication 1 each 05/15/19 10:00 Iron Carb,Gl/Fa/B12/C/Docusate [Ferralet 90 Tablet] PO QDAY TANK Ondansetron HCl 4 mg 05/14/19 19:55 05/15/19 15:23 Zofran IV 4 mg Q8H PRN Administration Nausea And Vomiting Oxycodone/Acetaminophen 1 tab 05/14/19 19:55 Percocet 5/325 PO Q6H PRN Pain, Moderate (4-6) Potassium Chloride 20 meq 05/14/19 22:00 05/15/19 10:53 K-Dur PO 20 meq BID ATNK Administration Pravastatin Sodium 20 mg 05/15/19 10:00 05/15/19 10:53 Pravachol PO 20 mg DAILY TANK Administration Quetiapine Fumarate 25 mg 05/14/19 22:00 05/14/19 21:54 Seroquel PO 25 mg QHS TANK Administration Sodium Chloride 10 ml 05/14/19 22:00 05/15/19 10:55 Sodium Chloride Flush Syringe 10 Ml IV 10 ml BID TANK Administration Sodium Chloride 10 ml 05/14/19 19:55 Sodium Chloride Flush Syringe 10 Ml IV PRN PRN LINE FLUSH Tiotropium [place] 1 puff 05/14/19 19:45 05/15/19 09:04 Spiriva IH Not Given DAILY TANK
[2019-05-15] MEDS: XANAX PO PRN (17:30)
[2019-05-15] MEDS ORDERED: ROBITUSSIN PO PRN (20:09)
[2019-05-15] MEDS ORDERED: HumuLIN R SUB-Q ONE (23:44)
[2019-05-16] MEDS: XANAX PO PRN (00:20)
[2019-05-16 06:33] LABS: Hematocrit 27.1 % (30.3-42.9); Hemoglobin 8.5 gm/dl (10.1-14.3); Mean Corpuscular HGB Conc 31 % (30-34); Mean Corpuscular Volume 99 fl (79-97); Platelet Count 207 K/mm3 (140-440); Red Blood Count 2.74 M/mm3 (3.65-5.03)
[2019-05-16 06:46] LABS: Red Cell Distribution Width 20.4 % (13.2-15.2)
[2019-05-16] MEDS: LASIX IV SCH (07:00)
[2019-05-16 07:09] LABS: Calcium 9.3 mg/dL (8.4-10.2)
[2019-05-16] MEDS ORDERED: HumuLIN R IV STA (07:54)
[2019-05-16] MEDS ORDERED: D50W (25GM) Vial IV STA (07:55)
[2019-05-16] MEDS ORDERED: KIONEX PO NR (08:00)
[2019-05-16] MEDS: DUONEB *Not for PRN Use IH SCH ×3 (08:24→14:10)
[2019-05-16] MEDS ORDERED: CALCIUM GLUCONATE 1,000 MG in NACL 0.9% 100 ML IV ONE (08:30)
[2019-05-16] MEDS: NORVASC PO SCH (09:35)
[2019-05-16] MEDS: PEPCID PO SCH (09:36)
[2019-05-16] MEDS: PRAVACHOL PO SCH (09:36)
[2019-05-16] MEDS: ELIQUIS PO SCH (09:36)
[2019-05-16] MEDS: SODIUM CHLORIDE FLUSH SYRINGE 10 ML IV SCH (09:38)
[2019-05-16] MEDS: VITAMIN D3 PO SCH (09:54)
[2019-05-16] MEDS: SPIRIVA IH SCH (09:54)
--- NOTE | 2019-05-16 10:11 | Progress Note ---
Assessment and Plan Chest pain No ischemia on MPI this admission Cor pulmonale Echocardiogram 04/2019 shows normal left ventricular systolic function, ejection fraction 60%. There is enlargement of the right heart chambers, moderate to severe pulmonary hypertension with a pulmonary artery systolic pressure of 66, suggests cor pulmonale. Chronic renal failure Required transient HD in the past. Management per primary Paroxysmal Afib Continue low dose eliquis held due to anemia. Rate control strategy Pacemaker present COPD Essential systemic hypertension Maximize medical therapy as blood pressure tolerates Type 2 DM Management per primary Recommendations: No further cardiac work-up is needed Switch to po lasix upon discharge Subjective Date of service: 05/16/19 Principal diagnosis: Chest pain Interval history: Patient lying in bed Patient has no CV complaints Tele showing atrial flutter with V-paced rhythm Objective Vital Signs Temp Pulse Pulse Pulse Pulse Resp Resp 05/16/19 09:35 65 05/16/19 08:24 65 20 05/16/19 07:45 98.0 F 65 18 05/16/19 05:03 97.5 F L 05/16/19 05:02 65 18 05/16/19 00:04 98.5 F 05/16/19 00:03 65 20 05/15/19 22:25 65 65 18 05/15/19 22:00 05/15/19 20:06 97.6 F 05/15/19 20:05 65 20 05/15/19 19:34 65 05/15/19 16:50 98.0 F 65 16 05/15/19 14:05 05/15/19 14:03 66 18 05/15/19 13:50 66 18 05/15/19 12:40 97.5 F L 66 20 05/15/19 10:54 BP Pulse Ox 05/16/19 09:35 134/68 05/16/19 08:24 100 05/16/19 07:45 134/68 100 05/16/19 05:03 05/16/19 05:02 130/70 100 05/16/19 00:04 05/16/19 00:03 134/62 100 05/15/19 22:25 99 05/15/19 22:00 96 05/15/19 20:06 05/15/19 20:05 144/73 99 05/15/19 19:34 05/15/19 16:50 172/79 92 05/15/19 14:05 98 05/15/19 14:03 05/15/19 13:50 05/15/19 12:40 160/72 96 05/15/19 10:54 122/66 - Physical Examination General: Appears Well HEENT: Positive: PERRL Neck: Positive: trachea midline. Negative: JVD/HJR Cardiac: Positive: Reg Rate and Rhythm Lungs: Positive: Normal Exam Neuro: Positive: Grossly Intact, Weakness Abdomen: Positive: Unremarkable, Active Bowel Sounds Extremities: Absent: edema - Labs and Meds CBC 05/16/19 Range/Units 05:19 WBC 4.1 L (4.5-11.0) K/mm3 RBC 2.74 L (3.65-5.03) M/mm3 Hgb 8.5 L (10.1-14.3) gm/dl Hct 27.1 L (30.3-42.9) % Plt Count 207 (140-440) K/mm3 Comprehensive Metabolic Panel 05/16/19 Range/Units 05:19 Sodium 137 (137-145) mmol/L Potassium 5.7 H D (3.6-5.0) mmol/L Chloride 97.8 L (98-107) mmol/L Carbon Dioxide 31 H (22-30) mmol/L BUN 27 H (7-17) mg/dL Creatinine 1.5 H (0.7-1.2) mg/dL Glucose 93 (65-100) mg/dL Calcium 9.3 (8.4-10.2) mg/dL - Imaging and Cardiology EKG: report reviewed (ventricular paced rhythm ,heart rate of 60 regular minute)
--- NOTE | 2019-05-16 13:51 | Treadmill Report ---
ORDERING PHYSICIAN: Dr. Collins Chan. FINDINGS: There is no scintigraphic evidence of myocardial ischemia. The left ventricle is normal in size and systolic function. The left ventricular ejection fraction is measured at 73%. Normal wall motion and wall thickening is noted on gated imaging. CONCLUSION: Normal perfusion scan. JOB# [id number] AKJesus Manuel/NTS
[2019-05-16 14:48] LABS: Calcium 9.8 mg/dL (8.4-10.2)
[2019-05-16] MEDS: D50W (25GM) Syringe IV PRN (15:07)
--- NOTE | 2019-05-16 15:44 | Discharge Summary ---
Providers - Providers Date of Admission: 05/14/19 13:07 Date of discharge: 05/16/19 Attending physician: RUTHANN PEÑA 05/14/19 Consult to Case Management [CONS] Routine Services Needed at Discharge: Home Health Services Notified:: CASE MANAGEMENT 05/14/19 10:54 Consult to Physician [CONS] Urgent Comment: DR HENRI TORRES W/NANCYJENARO @[id number] Consulting Provider: RUTHANN GONZALEZ Physician Instructions: Reason For Exam: sob, chf Primary care physician: JACQUELYN CARRINGTON Hospitalization Condition: Fair Hospital course: Patient is 88-year-old -[place] female with multiple medical problems including CHF, atrial fibrillation, COPD ,diabetes, hypertension, chronic kidney disease and s/p pacemaker status presentsted to Emergency room for shortness of breath and chest pain. She was seen and evaluated in Emergency Department and admitted. She was diagnosed with acute on chronic diastolic CHF, started on Lasix iv. She was evaluated by Cardiology. Patient improved over few days, shortness of breath resolved and she was discharged home on 05/16/19. Total time spent on discharge, 33 mins Disposition: [id number] HOME UNDER HOME HLTH - Discharge Diagnoses (1) Afib Status: Chronic Qualifiers: Atrial fibrillation type: chronic Qualified Code(s): I48.2 - Chronic atrial fibrillation (2) Bipolar disorder Status: Chronic Qualifiers: Active/Remission status: remission status unspecified Qualified Code(s): F31.9 - Bipolar disorder, unspecified (3) COPD (chronic obstructive pulmonary disease) Status: Chronic (4) HTN (hypertension) Status: Chronic Qualifiers: Hypertension type: essential hypertension Qualified Code(s): I10 - Essential (primary) hypertension (5) Hyperlipidemia Status: Chronic Qualifiers: Hyperlipidemia type: mixed hyperlipidemia Qualified Code(s): E78.2 - Mixed hyperlipidemia (6) Insulin dependent diabetes mellitus Status: Chronic (7) Paroxysmal atrial fibrillation Status: Chronic (8) Pulmonary HTN Status: Chronic (9) Acute on chronic diastolic (congestive) heart failure Status: Acute Core Measure Documentation - Palliative Care Palliative Care/ Comfort Measures: Not Applicable - Core Measures Any of the following diagnoses?: heart failure - Heart Failure Discharge Requirements GUILLERMO/ARB for LVSD if EF <40%: Yes Beta adan at discharge: Yes Exam - Constitutional Vitals: Temp Pulse Resp BP Pulse Ox 98.0 F 63 18 134/67 100 05/16/19 11:06 05/16/19 14:20 05/16/19 14:20 05/16/19 11:06 05/16/19 11:06 Plan Activity: advance as tolerated Diet: low fat, low cholesterol, low salt, diabetic Special Instructions: home oxygen via ([place]), home health RN Additional Instructions: 1.Follow up with PCP in 1 week. 2.Follow up with Cardiology in 1 week. 3.Continue home Oxygen continuous Follow up with: JACQUELYN CARRINGTON MD [Primary Care Provider] - 3-5 Days Prescriptions: Insulin Glargine [Lantus] 10 unit SUB-Q QHS #1 vial Furosemide [Lasix TAB] 80 mg PO BID #60 tablet
[2019-05-16 16:33] VITALS: BP 152/82
== END 2019-05-16 17:58 | disposition home health service (06) | DRG 291 ==
LOC: ED 09:27 → 4A 13:07
PROVIDERS: ADMIT Internal Medicine; ATTEND Internal Medicine
DX: I13.0 Hypertensive heart and chronic kidney disease with heart failure and stage 1 through stage 4 chronic kidney disease, or unspecified chronic kidney disease (principal); J96.20 Acute and chronic respiratory failure, unspecified whether with hypoxia or hypercapnia; I50.33 Acute on chronic diastolic (congestive) heart failure; N17.9 Acute kidney failure, unspecified; E78.2 Mixed hyperlipidemia; F31.9 Bipolar disorder, unspecified; D50.9 Iron deficiency anemia, unspecified; N18.9 Chronic kidney disease, unspecified; I27.20 Pulmonary hypertension, unspecified; J44.9 Chronic obstructive pulmonary disease, unspecified; E11.22 Type 2 diabetes mellitus with diabetic chronic kidney disease; I48.0 Paroxysmal atrial fibrillation; Z95.0 Presence of cardiac pacemaker; Z87.891 Personal history of nicotine dependence; Z82.49 Family history of ischemic heart disease and other diseases of the circulatory system; Z79.01 Long term (current) use of anticoagulants; Z79.4 Long term (current) use of insulin
CPT/HCPCS: 36415; 71045; 78452; 80048; 80053; 82962; 83036; 84484; 85007; 85025; 85027; 85610; 85730; 87116; 93005; 93010; 93017; 94640; 94760; 99285; G0378; A9270-GY; A9502; J0610; J1815; J1940; J2405; J2785

== ENCOUNTER 2019-05-30 14:22 | Observation (INO) | payer MEDICARE ==
[2019-05-30] MEDS ORDERED: ASPIRIN PO ONE (14:40)
[2019-05-30 15:42] LABS: Basophils % (Auto) 0.3 % (0.0-1.8); Eosinophils # (Auto) 0.6 K/mm3 (0.0-0.4); Eosinophils % (Auto) 11.8 % (0.0-4.3); Hematocrit 26.6 % (30.3-42.9); Hemoglobin 8.5 gm/dl (10.1-14.3); Lymphocytes # (Auto) 0.5 K/mm3 (1.2-5.4); Lymphocytes % (Auto) 9.7 % (13.4-35.0); Mean Corpuscular HGB Conc 32 % (30-34); Mean Corpuscular Volume 95 fl (79-97); Monocytes # (Auto) 0.7 K/mm3 (0.0-0.8); Monocytes % (Auto) 14.2 % (0.0-7.3); Platelet Count 160 K/mm3 (140-440)
--- NOTE | 2019-05-30 15:53 | XRay Report ---
CHEST 1 VIEW INDICATION: Chest Pain. COMPARISON: 05/14/2019 FINDINGS: Support devices: 2-lead pacemaker device remains in the same position. Heart: Mild cardiomegaly is stable Lungs/Pleura: There are chronic interstitial changes throughout both lungs. No evidence for infiltrat e, pleural effusion or pneumothorax. Additional findings: None. IMPRESSION: No acute findings. Signer Name: Angel Gonzalez Jr, MD Signed: 05/30/2019 3:48 PM Workstation Name: [id number]
[2019-05-30 16:00] LABS: Calcium 9.3 mg/dL (8.4-10.2)
--- NOTE | 2019-05-30 16:21 | Emergency Department Report ---
ED Shortness of Breath HPI - General Chief Complaint: Dyspnea/Respdistress Stated Complaint: SOB Time Seen by Provider: 05/30/19 16:18 Source: patient, family Mode of arrival: Wheelchair Limitations: Physical Limitation - History of Present Illness Initial Comments: Patient is an 88-year-old female that presented to emergency room with complaints of shortness of breath and chest pain that started yesterday. Patient states her symptoms are worsening. Patient states she is on 2 L of home O2. Patient is also complaining of bilateral lower extremity swelling. Patient states the chest pain as a 9 out of 10. Patient states her symptoms are worse with exertion and better with rest. Patient denies fever and chills. Patient denies calf pain and tenderness. MD Complaint: shortness of breath, chest pain -: Sudden Severity: moderate Pain Scale: 5 Consistency: constant Improves With: rest Worsens With: exertion Known History Of: congestive heart failure Associated Symptoms: chest pain Treatments Prior to Arrival: oxygen - Related Data Home Oxygen Therapy: Yes Home Oxygen Amount: 2 Liters Home Medications Medication Instructions Recorded Confirmed Last Taken Cholecalciferol Vit D3 [Vitamin D3 1,000 unit PO QDAY 04/12/19 05/14/19 Unknown 1,000 UNIT TAB] Iron Carb,Gl/FA/B12/C/Docusate 1 each PO QDAY 05/03/19 05/14/19 Unknown [Ferralet 90 Tablet] Previous Rx's Medication Instructions Recorded Last Taken Type Albuterol Sulfate [Proair 90 mcg IH PRN PRN #1 aer.pow.ba 05/08/19 Unknown Rx Respiclick] Apixaban [Eliquis] 2.5 mg PO Q12HR #60 tablet 05/08/19 Unknown Rx Famotidine [Pepcid] 20 mg PO DAILY #30 tablet 05/08/19 Unknown Rx Ipratropium/Albuterol Sulfate 1 ampul IH TIDRT #50 ampul.neb 05/08/19 Unknown Rx [DUONEB *Not for PRN Use*] Pravastatin [Pravachol] 20 mg PO DAILY #30 tablet 05/08/19 Unknown Rx QUEtiapine [SEROquel] 25 mg PO QHS #30 tablet 05/08/19 Unknown Rx Tiotropium [place] [Spiriva] 18 mcg IH DAILY #1 cap.w.dev 05/08/19 Unknown Rx amLODIPine [Norvasc] 10 mg PO DAILY #30 tab 05/08/19 Unknown Rx Furosemide [Lasix TAB] 80 mg PO BID #60 tablet 05/16/19 Unknown Rx Insulin Glargine [Lantus] 10 unit SUB-Q QHS #1 vial 05/16/19 Unknown Rx Allergies Allergy/AdvReac Type Severity Reaction Status Date / Time No Known Allergies Allergy Verified 05/30/19 16:29 ED Review of Systems ROS: Stated complaint: SOB Other details as noted in HPI Constitutional: denies: chills, fever Eyes: denies: eye pain, eye discharge, vision change ENT: denies: ear pain, throat pain Respiratory: shortness of breath. denies: cough, wheezing Cardiovascular: chest pain, edema. denies: palpitations Endocrine: no symptoms reported Gastrointestinal: denies: abdominal pain, nausea, diarrhea Genitourinary: denies: urgency, dysuria, discharge Musculoskeletal: denies: back pain, joint swelling, arthralgia Skin: denies: rash, lesions Neurological: denies: headache, weakness, paresthesias Psychiatric: denies: anxiety, depression Hematological/Lymphatic: denies: easy bleeding, easy bruising ED Past Medical Hx - Past Medical History Previous Medical History?: Yes Hx Hypertension: Yes Hx Congestive Heart Failure: Yes Hx Diabetes: Yes Hx Renal Disease: Yes (Chronic renal disease, required HD in past) Hx Arthritis: Yes Hx COPD: Yes Additional medical history: heart failure - Surgical History Past Surgical History?: Yes Hx Pacemaker: Yes Additional Surgical History: pacemaker, diverticulitis - Family History Family history: no significant - Social History Smoking Status: Former Smoker Substance Use Type: None - Medications Home Medications: Home Medications Medication Instructions Recorded Confirmed Last Taken Type Cholecalciferol Vit D3 [Vitamin D3 1,000 unit PO QDAY 04/12/19 05/14/19 Unknown History 1,000 UNIT TAB] Iron Carb,Gl/FA/B12/C/Docusate 1 each PO QDAY 05/03/19 05/14/19 Unknown History [Ferralet 90 Tablet] Albuterol Sulfate [Proair 90 mcg IH PRN PRN #1 aer.pow.ba 05/08/19 05/14/19 Unknown Rx Respiclick] Apixaban [Eliquis] 2.5 mg PO Q12HR #60 tablet 05/08/19 05/14/19 Unknown Rx Famotidine [Pepcid] 20 mg PO DAILY #30 tablet 05/08/19 05/14/19 Unknown Rx Ipratropium/Albuterol Sulfate 1 ampul IH TIDRT #50 ampul.neb 05/08/19 05/14/19 Unknown Rx [DUONEB *Not for PRN Use*] Pravastatin [Pravachol] 20 mg PO DAILY #30 tablet 05/08/19 05/14/19 Unknown Rx QUEtiapine [SEROquel] 25 mg PO QHS #30 tablet 05/08/19 05/14/19 Unknown Rx Tiotropium [place] [Spiriva] 18 mcg IH DAILY #1 cap.w.dev 05/08/19 05/14/19 Unknown Rx amLODIPine [Norvasc] 10 mg PO DAILY #30 tab 05/08/19 05/14/19 Unknown Rx Furosemide [Lasix TAB] 80 mg PO BID #60 tablet 05/16/19 Unknown Rx Insulin Glargine [Lantus] 10 unit SUB-Q QHS #1 vial 05/16/19 Unknown Rx ED Physical Exam - General Limitations: Physical Limitation General appearance: alert, in no apparent distress - Head Head exam: Present: atraumatic, normocephalic - Eye Eye exam: Present: normal appearance, PERRL Pupils: Present: normal accommodation - ENT ENT exam: Present: mucous membranes moist - Neck Neck exam: Present: normal inspection - Respiratory Respiratory exam: Present: normal lung sounds bilaterally. Absent: respiratory distress - Cardiovascular Cardiovascular Exam: Present: regular rate, normal rhythm. Absent: systolic murmur, diastolic murmur, rubs, gallop - GI/Abdominal GI/Abdominal exam: Present: soft, normal bowel sounds - Rectal Rectal exam: Present: deferred - Extremities Exam Extremities exam: Present: full ROM, normal capillary refill, pedal edema (bilat eral lower extremity edema). Absent: tenderness, joint swelling, calf tenderness - Back Exam Back exam: Present: normal inspection - Neurological Exam Neurological exam: Present: alert, altered (oriented X 2) - Psychiatric Psychiatric exam: Present: normal affect, normal mood - Skin Skin exam: Present: warm, dry, intact, normal color. Absent: rash ED Course Vital Signs 05/30/19 14:37 Temperature 98.2 F Pulse Rate 64 Respiratory 16 Rate Blood Pressure 137/95 [Left] O2 Sat by Pulse 96 Oximetry - Reevaluation(s) Reevaluation #1: I discussed all results with patient. Patient will be admitted to the hospitalist service. Patient agrees with plan of care. 05/30/19 18:35 - Consultations Consultation #1: Hospitalist consult for admission. Hospitalist to admit patient and assume care of patient. Bridge orders placed 05/30/19 18:35 ED Medical Decision Making - Lab Data Result diagrams: 05/30/19 15:24 05/30/19 15:22 - EKG Data -: EKG Interpreted by Me EKG shows normal: intervals, QRS complexes, ST-T waves Rate: normal - EKG Data Interpretation: other (afib, axis deviation. paced rhythm) - Radiology Data Radiology results: report reviewed, image reviewed CHEST 1 VIEW INDICATION: Chest Pain. COMPARISON: 05/14/2019 FINDINGS: Support devices: 2-lead pacemaker device remains in the same position. Heart: Mild cardiomegaly is stable Lungs/Pleura: There are chronic interstitial changes throughout both lungs. No evidence for infiltrate, pleural effusion or pneumothorax. Additional findings: None. IMPRESSION: No acute findings. - Medical Decision Making Patient is an 88-year-old female that presents emergency room with complaints chest pain shortness of breath and lower extremity edema. Patient found to have a CHF exacerbation. Patient was admitted to the hospitalist service. Patient will also require rule out ACS. Patient's chest x-ray negative. EKG unchanged. Labs consistent with chronic kidney disease. - Differential Diagnosis chest pain. Shortness of breath. ACS. CHF. Critical Care Time: Yes Critical care attestation.: If time is entered above; I have spent that time in minutes in the direct care of this critically ill patient, excluding procedure time. Critical Care Time: 35 minutes ED Disposition Clinical Impression: Shortness of breath, Hyponatremia, Acute on chronic diastolic (congestive) heart failure, Lower extremity edema Chest pain Qualifiers: Chest pain type: unspecified Qualified Code(s): R07.9 - Chest pain, unspecified Afib Qualifiers: Atrial fibrillation type: chronic Qualified Code(s): I48.2 - Chronic atrial fibrillation Chronic renal insufficiency Qualifiers: Chronic kidney disease stage: unspecified stage Qualified Code(s): N18.9 - Chronic kidney disease, unspecified Anemia Qualifiers: Anemia type: unspecified type Qualified Code(s): D64.9 - Anemia, unspecified Disposition: 09 OP ADMIT IP TO THIS HOSP Is pt being admited?: Yes Does the pt Need Aspirin: No Condition: Critical Instructions: Chest Pain (ED) Time of Disposition: 18:26
[2019-05-30] MEDS ORDERED: ASPIRIN ONE (18:18)
--- NOTE | 2019-05-31 00:04 | History and Physical Report ---
History of Present Illness Date of examination: 05/30/19 Date of admission: 05/30/19 18:35 Chief complaint: Shortness of breath for 1 week Chest pain for 1 week History of present illness: Patient is an 88-year-old female that presented to emergency room with complai nts of shortness of breath and chest pain that started yesterday. Patient states her symptoms are worsening. Patient states she is on 2 L of home O2. Patient is also complaining of bilateral lower extremity swelling. Patient states the chest pain as a 9 out of 10. Patient states her symptoms are worse with exertion and better with rest. Patient denies fever and chills. Patient denies calf pain and tenderness. Patient is orthopneic Has class IV NYHA symptoms. Chest pain is not radiating. No diaphoresis no palpitations Past Medical History Previous Medical History?: Yes Hypertension: Yes Congestive Heart Failure: Yes Diabetes: Yes Renal Disease: Yes (Chronic renal disease, required HD in past) Arthritis: Yes COPD: Yes Additional medical history: heart failure Surgical History Past Surgical History?: Yes Hx Pacemaker: Yes Additional Surgical History: pacemaker, diverticulitis Family History Family history: no significant Social History Smoking Status: Former Smoker Substance Use Type: None Medications Home Medications: Home Medications Medication Instructions Recorded Confirmed Last Taken Type Cholecalciferol Vit D3 [Vitamin D3 1,000 unit PO QDAY 04/12/19 05/14/19 Unknown History 1,000 UNIT TAB] Iron Carb,Gl/FA/B12/C/Docusate 1 each PO QDAY 05/03/19 05/14/19 Unknown History [Ferralet 90 Tablet] Albuterol Sulfate [Proair 90 mcg IH PRN PRN #1 aer.pow.ba 05/08/19 05/14/19 Unknown Rx Respiclick] Apixaban [Eliquis] 2.5 mg PO Q12HR #60 tablet 05/08/19 05/14/19 Unknown Rx Famotidine [Pepcid] 20 mg PO DAILY #30 tablet 05/08/19 05/14/19 Unknown Rx Ipratropium/Albuterol Sulfate 1 ampul IH TIDRT #50 ampul.neb 05/08/19 05/14/19 Unknown Rx [DUONEB *Not for PRN Use*] Pravastatin [Pravachol] 20 mg PO DAILY #30 tablet 05/08/19 05/14/19 Unknown Rx QUEtiapine [SEROquel] 25 mg PO QHS #30 tablet 05/08/19 05/14/19 Unknown Rx Tiotropium [place] [Spiriva] 18 mcg IH DAILY #1 cap.w.dev 05/08/19 05/14/19 Unknown Rx amLODIPine [Norvasc] 10 mg PO DAILY #30 tab 05/08/19 05/14/19 Unknown Rx Furosemide [Lasix TAB] 80 mg PO BID #60 tablet 05/16/19 Unknown Rx Insulin Glargine [Lantus] 10 unit SUB-Q QHS #1 vial 05/16/19 Unknown Rx Review of Systems ROS: Stated complaint: SOB Other details as noted in HPI Constitutional: denies: chills, fever Eyes: denies: eye pain, eye discharge, vision change ENT: denies: ear pain, throat pain Respiratory: shortness of breath. denies: cough, wheezing Cardiovascular: chest pain, edema. denies: palpitations Endocrine: no symptoms reported Gastrointestinal: denies: abdominal pain, nausea, diarrhea Genitourinary: denies: urgency, dysuria, discharge Musculoskeletal: denies: back pain, joint swelling, arthralgia Skin: denies: rash, lesions Neurological: denies: headache, weakness, paresthesias Psychiatric: denies: anxiety, depression Hematological/Lymphatic: denies: easy bleeding, easy bruising Medications and Allergies Allergies Allergy/AdvReac Type Severity Reaction Status Date / Time No Known Allergies Allergy Verified 05/30/19 16:29 Home Medications Medication Instructions Recorded Confirmed Last Taken Type Cholecalciferol Vit D3 [Vitamin D3 1,000 unit PO QDAY 04/12/19 05/30/19 Unknown History 1,000 UNIT TAB] Iron Carb,Gl/FA/B12/C/Docusate 1 each PO QDAY 05/03/19 05/30/19 Unknown History [Ferralet 90 Tablet] Albuterol Sulfate [Proair 90 mcg IH PRN PRN #1 aer.pow.ba 05/08/19 05/30/19 Unknown Rx Respiclick] Apixaban [Eliquis] 2.5 mg PO Q12HR #60 tablet 05/08/19 05/30/19 Unknown Rx Pravastatin [Pravachol] 20 mg PO DAILY #30 tablet 05/08/19 05/30/19 Unknown Rx amLODIPine [Norvasc] 10 mg PO DAILY #30 tab 05/08/19 05/30/19 Unknown Rx Furosemide [Lasix TAB] 80 mg PO BID #60 tablet 05/16/19 05/30/19 Unknown Rx Exam - Constitutional Vitals: Temp Pulse Resp BP Pulse Ox 98.2 F 65 17 147/78 91 05/30/19 14:37 05/30/19 20:00 05/30/19 20:00 05/30/19 20:00 05/30/19 20:00 General appearance: Present: mild distress, well-nourished - EENT Eyes: Present: PERRL ENT: hearing intact, clear oral mucosa - Neck Neck: Present: supple, normal ROM - Respiratory Respiratory effort: normal Respiratory: bilateral: rales, rhonchi, wheezing - Cardiovascular Heart rate: 80 Rhythm: regular Heart Sounds: Present: S1 & S2. Absent: rub, click - Extremities Extremities: no ischemia, pulses intact, pulses symmetrical, No edema Peripheral Pulses: within normal limits - Abdominal General gastrointestinal: Present: soft, non-tender, non-distended, normal bowel sounds Female genitourinary: Present: normal - Rectal Rectal Exam: deferred - Integumentary Integumentary: Present: clear, warm, dry - Musculoskeletal Musculoskeletal: gait normal, strength equal bilaterally - Psychiatric Psychiatric: appropriate mood/affect, intact judgment & insight - Neurologic Neurologic: CNII-XII intact, moves all extremities Results - Labs CBC & Chem 7: 05/30/19 15:24 05/30/19 15:22 Labs: Laboratory Last Values WBC 4.9 K/mm3 (4.5-11.0) 05/30/19 15:24 RBC 2.80 M/mm3 (3.65-5.03) L 05/30/19 15:24 Hgb 8.5 gm/dl (10.1-14.3) L 05/30/19 15:24 Hct 26.6 % (30.3-42.9) L 05/30/19 15:24 MCV 95 fl (79-97) 05/30/19 15:24 MCH 30 pg (28-32) 05/30/19 15:24 MCHC 32 % (30-34) 05/30/19 15:24 RDW 20.0 % (13.2-15.2) H 05/30/19 15:24 Plt Count 160 K/mm3 (140-440) 05/30/19 15:24 Lymph % (Auto) 9.7 % (13.4-35.0) L 05/30/19 15:24 [place] % (Auto) 14.2 % (0.0-7.3) H 05/30/19 15:24 Eos % (Auto) 11.8 % (0.0-4.3) H 05/30/19 15:24 Baso % (Auto) 0.3 % (0.0-1.8) 05/30/19 15:24 Lymph # 0.5 K/mm3 (1.2-5.4) L 05/30/19 15:24 [place] # 0.7 K/mm3 (0.0-0.8) 05/30/19 15:24 Eos # 0.6 K/mm3 (0.0-0.4) H 05/30/19 15:24 Baso # 0.0 K/mm3 (0.0-0.1) 05/30/19 15:24 Seg Neutrophils % 64.0 % (40.0-70.0) 05/30/19 15:24 Seg Neutrophils # 3.1 K/mm3 (1.8-7.7) 05/30/19 15:24 Sodium 130 mmol/L (137-145) L 05/30/19 15:22 Potassium 5.0 mmol/L (3.6-5.0) 05/30/19 15:22 Chloride 87.2 mmol/L (98-107) L 05/30/19 15:22 Carbon Dioxide 34 mmol/L (22-30) H 05/30/19 15:22 14 mmol/L 05/30/19 15:22 BUN 26 mg/dL (7-17) H 05/30/19 15:22 1.3 mg/dL (0.7-1.2) H 05/30/19 15:22 Estimated GFR 47 ml/min 05/30/19 15:22 20 % 05/30/19 15:22 Glucose 145 mg/dL (65-100) H 05/30/19 15:22 Calcium 9.3 mg/dL (8.4-10.2) 05/30/19 15:22 0.019 ng/mL (0.00-0.029) 05/30/19 19:10 NT-Pro-B Natriuret Pep 2571 pg/mL (0-900) H 05/30/19 19:17 - Imaging and Cardiology EKG: report reviewed (atrial fibrillation and ventricular paced rhythm) Chest x-ray: report reviewed (no acute findings) Assessment and Plan Advance Directives: Yes (full code) VTE prophylaxis?: Chemical (full code) Plan of care discussed with patient/family: Yes - Patient Problems (1) Acute on chronic diastolic (congestive) heart failure Current Visit: Yes Status: Acute Plan to address problem: IV Lasix for now Echocardiogram for ejection fraction Cardiology consult (2) Chest pain Current Visit: Yes Status: Acute Qualifiers: Chest pain type: unspecified Qualified Code(s): R07.9 - Chest pain, unspecified Plan to address problem: Chest pain protocol Lexiscan in the morning Serial troponins (3) COPD (chronic obstructive pulmonary disease) Current Visit: Yes Status: Chronic Qualifiers: Emphysema type: unspecified Plan to address problem: Continue nebulizer treatments (4) Hypertension Current Visit: Yes Status: Chronic Qualifiers: Hypertension type: unspecified Qualified Code(s): I10 - Essential (primary) hypertension Plan to address problem: Continue antihypertensives (5) Type 2 diabetes mellitus Current Visit: Yes Status: Chronic Qualifiers: Diabetes mellitus longterm insulin use: without manager terminal use Plan to address problem: Continue coverage Check hemoglobin A1c (6) JOSE (acute kidney injury) Current Visit: Yes Status: Acute Plan to address problem: Patient on Lasix Will defer to nephrology (7) DVT prophylaxis Current Visit: Yes Status: Acute Plan to address problem: On Lovenox and GI prophylaxis
[2019-05-31] MEDS ORDERED: DILAUDID IV PRN (00:19)
[2019-05-31] MEDS ORDERED: ZOFRAN IV PRN (00:19)
[2019-05-31] MEDS ORDERED: SODIUM CHLORIDE FLUSH SYRINGE 10 ML IV PRN (00:19)
[2019-05-31] MEDS ORDERED: TYLENOL PO PRN (00:19)
[2019-05-31] MEDS ORDERED: PERCOCET 5/325 PO PRN (00:19)
[2019-05-31] MEDS: ELIQUIS PO SCH ×3 (01:07→21:49)
[2019-05-31] MEDS: LASIX IV SCH ×2 (05:25→17:39)
[2019-05-31] MEDS ORDERED: LASIX PO SCH (06:00)
[2019-05-31] MEDS: HumaLOG SUB-Q SCH ×3 (09:04→17:39)
[2019-05-31] MEDS: PRAVACHOL PO SCH (09:05)
[2019-05-31] MEDS: VITAMIN D3 PO SCH (09:05)
[2019-05-31] MEDS: PEPCID PO SCH ×2 (09:05→21:49)
[2019-05-31] MEDS: K-DUR PO SCH ×2 (09:05→21:49)
[2019-05-31] MEDS: NORVASC PO SCH (09:05)
[2019-05-31] MEDS: SODIUM CHLORIDE FLUSH SYRINGE 10 ML IV SCH ×2 (09:06→21:49)
[2019-05-31] MEDS ORDERED: B12 PO SCH (10:00)
[2019-05-31] MEDS ORDERED: [UNRECOGNIZED DRUG - OTHER] PO SCH (10:00)
[2019-05-31] MEDS ORDERED: PEPCID PO SCH (10:00)
[2019-05-31] MEDS ORDERED: DOCUSATE PO SCH (10:00)
[2019-05-31] MEDS ORDERED: IRON CARB GL PO SCH (10:00)
--- NOTE | 2019-05-31 11:25 | Consultation ---
History of Present Illness - Reason for Consult Consult date: 05/31/19 acute renal failure, other (volume overload) - History of Present Illness The patient is an 88 Yo female, who is well known to our service, with history significant for Hypertension, DM type 2, Anemia, CKD, Cor pulmonale, Pulmonary HTN and Paroxysmal A.fib and Cognitive decline who presented with chest pain and worsening shortness of breath for about 2 days. Patient is a poor historian. She also complaining of orthopnea and bilateral lower extremity swelling. Her symptoms are worse with exertion and better with rest. Patient denies fever, chills, leg pain or hemoptysis. Creatinine was 1.3 yesterday. Nephrology was consulted for further evaluation. Past History Past Medical History: atrial fib, anemia, diabetes, hypertension, hyperlipidemia, renal failure Medications and Allergies Allergies Allergy/AdvReac Type Severity Reaction Status Date / Time No Known Allergies Allergy Verified 05/30/19 16:29 Home Medications Medication Instructions Recorded Confirmed Last Taken Type Cholecalciferol Vit D3 [Vitamin D3 1,000 unit PO QDAY 04/12/19 05/30/19 Unknown History 1,000 UNIT TAB] Iron Carb,Gl/FA/B12/C/Docusate 1 each PO QDAY 05/03/19 05/30/19 Unknown History [Ferralet 90 Tablet] Albuterol Sulfate [Proair 90 mcg IH PRN PRN #1 aer.pow.ba 05/08/19 05/30/19 Unknown Rx Respiclick] Apixaban [Eliquis] 2.5 mg PO Q12HR #60 tablet 05/08/19 05/30/19 Unknown Rx Pravastatin [Pravachol] 20 mg PO DAILY #30 tablet 05/08/19 05/30/19 Unknown Rx amLODIPine [Norvasc] 10 mg PO DAILY #30 tab 05/08/19 05/30/19 Unknown Rx Furosemide [Lasix TAB] 80 mg PO BID #60 tablet 05/16/19 05/30/19 Unknown Rx Active Meds: Active Medications Acetaminophen (Tylenol) 650 mg PO Q4H PRN PRN Reason: Pain MILD(1-3)/Fever >100.5/BASILIO Albuterol/Ipratropium (Duoneb *Not For Prn Use*) 1 ampul IH QIDRT [facility] Amlodipine Besylate (Norvasc) 10 mg PO DAILY [facility] Last Admin: 05/31/19 09:05 Dose: 10 mg Documented by: Apixaban (Eliquis) 2.5 mg PO Q12HR [facility]; Protocol Last Admin: 05/31/19 09:12 Dose: 2.5 mg Documented by: Cholecalciferol (Vitamin D3) 1,000 unit PO QDAY [facility] Last Admin: 05/31/19 09:05 Dose: 1,000 unit Documented by: Famotidine (Pepcid) 10 mg PO BID [facility] Last Admin: 05/31/19 09:05 Dose: 10 mg Documented by: Furosemide (Lasix) 40 mg IV 0600,1800 [facility] Last Admin: 05/31/19 05:25 Dose: 40 mg Documented by: Hydromorphone HCl (Dilaudid) 0.5 mg IV Q3H PRN PRN Reason: Pain , Severe (7-10) Insulin Human Lispro (Humalog) 0 unit SUB-Q ACHS [facility]; Protocol Last Admin: 05/31/19 09:04 Dose: 2 unit Documented by: Miscellaneous Medication (Iron Carb,Gl/Fa/B12/C/Docusate [Ferralet 90 Tablet]) 1 each PO QDAY [facility] Ondansetron HCl (Zofran) 4 mg IV Q8H PRN PRN Reason: Nausea And Vomiting Oxycodone/Acetaminophen (Percocet 5/325) 1 tab PO Q6H PRN PRN Reason: Pain, Moderate (4-6) Potassium Chloride (K-Dur) 20 meq PO BID [facility] Last Admin: 05/31/19 09:05 Dose: 20 meq Documented by: Pravastatin Sodium (Pravachol) 20 mg PO DAILY [facility] Last Admin: 05/31/19 09:05 Dose: 20 mg Documented by: Sodium Chloride (Sodium Chloride Flush Syringe 10 Ml) 10 ml IV BID [facility] Last Admin: 05/31/19 09:06 Dose: 10 ml Documented by: Sodium Chloride (Sodium Chloride Flush Syringe 10 Ml) 10 ml IV PRN PRN PRN Reason: LINE FLUSH Review of Systems ROS unobtainable: due to mental status Exam - Vital Signs Vital signs: Vital Signs Temp Pulse Resp BP Pulse Ox 98.2 F 64 16 137/95 96 05/30/19 14:37 05/30/19 14:37 05/30/19 14:37 05/30/19 14:37 05/30/19 14:37 - General Appearance General appearance: well-developed, well-nourished, appears stated age, other (no distress) EENT: ATNC, PERRL, mucous membranes moist, vision intact, hearing diminished Neck: Present: neck supple, trachea midline Respiratory: Rales Heart: regular, S1S2, no murmurs Gastrointestinal: Present: normoactive bowel sounds. Absent: tenderness, distended Integumentary: no rash, warm and dry Neurologic: no focal deficit, no asterixis, confused, disoriented Musculoskeletal: Present: other (1+ edema of LEs noted) Psychiatric: cooperative Results - Lab Results 05/30/19 15:24 05/30/19 15:22 Most recent lab results Calcium 9.3 mg/dL (8.4-10.2) 05/30/19 15:22 Assessment and Plan 1. Acute kidney injury: Patient sustained JOSE during prior admission. She was on hemodialysis briefly. Her renal function continue to improve. Monitor renal function. Avoid nephrotoxic agents. Meds dosage based on GFR. 2. FEN: Volume overload, On IV Lasix. Metabolic alkalosis, Diamox. Monitor lytes. 3. Shortness of breath: Suspect 2/2 chronic lung disease. Acute on chronic respiratory failure. 4. HFpEF: Followed by Cards. 5. Paroxysmal A.fib: On Eliquis. 6. HTN: Monitor BP. 7. Anemia: POA.
--- NOTE | 2019-05-31 11:54 | Consultation ---
History of Present Illness Consult date: 05/31/19 Consult reason: shortness of breath, other (edema) History of present illness: The patient is a frail, elderly 88-year-old woman with multiple comorbidities. She has chronic atrial flutter and fibrillation, on oral anticoagulation with low dose Eliquis. She has COPD on ambulatory oxygen and chronic cor pulmonale. Just last month, echocardiogram reported severe debilitation of the right heart chambers, with severe pulmonary hypertension, pulmonary artery systolic pressure of 66. There was marked dilatation of both atria are included in the left atrium, but left ventricular chamber size and systolic function within normal, ejection fraction 60-65%. Also reported was mild calcific aortic stenosis. Less than 2 weeks ago, a myocardial perfusion stress test was normal. The patient presents to the hospital at this time with shortness of breath and bilateral lower extremity edema. There is 2+ bilateral edema. There was no chest pain, no palpitations, no orthopnea no syncope. ECG is a ventricle pacemaker on demand, with atrial flutter. Chest x-ray shows cardiomegaly, but no interstitial edema or heart failure. A dual-chamber pacemaker is in situ. Past History Past Medical History: atrial fib, COPD, other (cor pulmonale) Medications and Allergies Allergies Allergy/AdvReac Type Severity Reaction Status Date / Time No Known Allergies Allergy Verified 05/30/19 16:29 Home Medications Medication Instructions Recorded Confirmed Last Taken Type Cholecalciferol Vit D3 [Vitamin D3 1,000 unit PO QDAY 04/12/19 05/30/19 Unknown History 1,000 UNIT TAB] Iron Carb,Gl/FA/B12/C/Docusate 1 each PO QDAY 05/03/19 05/30/19 Unknown History [Ferralet 90 Tablet] Albuterol Sulfate [Proair 90 mcg IH PRN PRN #1 aer.pow.ba 05/08/19 05/30/19 Unknown Rx Respiclick] Apixaban [Eliquis] 2.5 mg PO Q12HR #60 tablet 05/08/19 05/30/19 Unknown Rx Pravastatin [Pravachol] 20 mg PO DAILY #30 tablet 05/08/19 05/30/19 Unknown Rx amLODIPine [Norvasc] 10 mg PO DAILY #30 tab 05/08/19 05/30/19 Unknown Rx Furosemide [Lasix TAB] 80 mg PO BID #60 tablet 05/16/19 05/30/19 Unknown Rx Active Meds: Active Medications Acetaminophen (Tylenol) 650 mg PO Q4H PRN PRN Reason: Pain MILD(1-3)/Fever >100.5/BASILIO Albuterol/Ipratropium (Duoneb *Not For Prn Use*) 1 ampul IH QIDRT [facility] Amlodipine Besylate (Norvasc) 10 mg PO DAILY [facility] Last Admin: 05/31/19 09:05 Dose: 10 mg Documented by: Apixaban (Eliquis) 2.5 mg PO Q12HR [facility]; Protocol Last Admin: 05/31/19 09:12 Dose: 2.5 mg Documented by: Cholecalciferol (Vitamin D3) 1,000 unit PO QDAY [facility] Last Admin: 05/31/19 09:05 Dose: 1,000 unit Documented by: Famotidine (Pepcid) 10 mg PO BID [facility] Last Admin: 05/31/19 09:05 Dose: 10 mg Documented by: Furosemide (Lasix) 40 mg IV 0600,1800 [facility] Last Admin: 05/31/19 05:25 Dose: 40 mg Documented by: Hydromorphone HCl (Dilaudid) 0.5 mg IV Q3H PRN PRN Reason: Pain , Severe (7-10) Insulin Human Lispro (Humalog) 0 unit SUB-Q ACHS [facility]; Protocol Last Admin: 05/31/19 09:04 Dose: 2 unit Documented by: Miscellaneous Medication (Iron Carb,Gl/Fa/B12/C/Docusate [Ferralet 90 Tablet]) 1 each PO QDAY [facility] Ondansetron HCl (Zofran) 4 mg IV Q8H PRN PRN Reason: Nausea And Vomiting Oxycodone/Acetaminophen (Percocet 5/325) 1 tab PO Q6H PRN PRN Reason: Pain, Moderate (4-6) Potassium Chloride (K-Dur) 20 meq PO BID [facility] Last Admin: 05/31/19 09:05 Dose: 20 meq Documented by: Pravastatin Sodium (Pravachol) 20 mg PO DAILY [facility] Last Admin: 05/31/19 09:05 Dose: 20 mg Documented by: Sodium Chloride (Sodium Chloride Flush Syringe 10 Ml) 10 ml IV BID [facility] Last Admin: 05/31/19 09:06 Dose: 10 ml Documented by: Sodium Chloride (Sodium Chloride Flush Syringe 10 Ml) 10 ml IV PRN PRN PRN Reason: LINE FLUSH Review of Systems ROS unobtainable: due to mental status Physical Examination Vital Signs Temp Pulse Resp BP Pulse Ox 98.2 F 64 16 137/95 96 05/30/19 14:37 05/30/19 14:37 05/30/19 14:37 05/30/19 14:37 05/30/19 14:37 General appearance: no acute distress HEENT: Positive: PERRL Neck: Positive: neck supple Cardiac: Positive: Irregularly Regular Lungs: Positive: Decreased Breath Sounds Neuro: Positive: Grossly Intact Abdomen: Positive: Soft Female genitourinary: deferred Skin: Positive: Clear Extremities: Present: +2 Edema Results 05/30/19 15:24 05/30/19 15:22 CBC 05/30/19 Range/Units 15:24 WBC 4.9 (4.5-11.0) K/mm3 RBC 2.80 L (3.65-5.03) M/mm3 Hgb 8.5 L (10.1-14.3) gm/dl Hct 26.6 L (30.3-42.9) % Plt Count 160 (140-440) K/mm3 Lymph # 0.5 L (1.2-5.4) K/mm3 [place]bot # 0.7 (0.0-0.8) K/mm3 Eos # 0.6 H (0.0-0.4) K/mm3 Baso # 0.0 (0.0-0.1) K/mm3 Comprehensive Metabolic Panel 05/30/19 Range/Units 15:22 Sodium 130 L (137-145) mmol/L Potassium 5.0 (3.6-5.0) mmol/L Chloride 87.2 L (98-107) mmol/L Carbon Dioxide 34 H (22-30) mmol/L BUN 26 H (7-17) mg/dL Creatinine 1.3 H (0.7-1.2) mg/dL Glucose 145 H (65-100) mg/dL Calcium 9.3 (8.4-10.2) mg/dL EKG interpretations - Telemetry EKG Rhythm: Paced Assessment and Plan - Patient Problems (1) COPD exacerbation Current Visit: Yes Status: Acute Plan to address problem: Patient's shortness of breath is likely due to COPD exacerbation, if indicated, recommend pulmonary consultation. There is no evidence of left-sided heart failure. (2) Cor pulmonale Current Visit: Yes Status: Acute Plan to address problem: Patient has right heart dilatation and pulmonary hypertension with cor pulmonale resulting from chronic lung disease. This is the likely etiology of her chronic lower extremity edema. We will treat with optimal diuretics, patient may also benefit from a chronic use of compression stockings. (3) Chronic atrial flutter Current Visit: Yes Status: Acute Plan to address problem: Continue rate control agents and low dose oral anticoagulation.
[2019-05-31] MEDS ORDERED: DIAMOX IV ONE (12:14)
[2019-05-31] MEDS: DUONEB *Not for PRN Use IH SCH ×4 (13:34→19:55)
--- NOTE | 2019-05-31 16:24 | Discharge Summary ---
Providers - Providers Date of Admission: 05/30/19 18:35 Date of discharge: 05/31/19 Attending physician: DEE AGOSTO 05/31/19 00:19 Consult to Physician [CONS] Routine Comment: Consulting Provider: CATHY EWING Physician Instructions: Reason For Exam: CHF exacerbation 05/31/19 00:26 Consult to Physician [CONS] Routine Comment: Consulting Provider: ANDREZ PRABHAKAR Physician Instructions: Reason For Exam: JOSE [facility] Condition: Critical Exam - Constitutional Vitals: Temp Pulse Resp BP Pulse Ox 98.3 F 65 20 124/64 95 05/31/19 08:27 05/31/19 13:30 05/31/19 13:30 05/31/19 13:30 05/31/19 13:30 Plan
--- NOTE | 2019-05-31 16:25 | Progress Note ---
Assessment and Plan Assessment and plan: (1) Acute on chronic diastolic (congestive) heart failure Current Visit: Yes Status: Acute Plan to address problem: IV Lasix for now, input output monitoring recent echocardiogram findings reviewed Cardiology evaluated the patient today Optimize medications (2) Chest pain Current Visit: Yes Status: Acute Qualifiers: Chest pain type: unspecified Qualified Code(s): R07.9 - Chest pain, unspecified Plan to address problem: Atypical chest pain, patient had a recent stress test 05/15/2019 Continue medical management (3) COPD (chronic obstructive pulmonary disease) Current Visit: Yes Status: Chronic Qualifiers: Emphysema type: unspecified Plan to address problem: Continue nebulizer treatments, oxygen titrate O2 sats to more than 90% (4) Hypertension Current Visit: Yes Status: Chronic Qualifiers: Hypertension type: unspecified Qualified Code(s): I10 - Essential (primary) hypertension Plan to address problem: moderate control ,Continue antihypertensives (5) Type 2 diabetes mellitus Current Visit: Yes Status: Chronic Qualifiers: Diabetes mellitus long-term insulin use: without buttermaker continuous churn use Plan to address problem: Accu-Chek sliding scale coverage and ADA diet and insulin as needed HbA1c 6.8 (6) JOSE (acute kidney injury) Current Visit: Yes Status: Acute Plan to address problem: Patient on Lasix,avoid nephrotoxins Monitor renal function,nephrology following (7) DVT prophylaxis Current Visit: Yes Status: Acute Plan to address problem: On Lovenox and GI prophylaxis Possible discharge home tomorrow if stable History Interval history: Patient seen and examined medical records reviewed Patient was admitted chest pain and shortness of breath Cardiology evaluated the patient, cleared for discharge Initially planning to discharge the patient However patient complains of shortness of breath And generalized weakness, vague chest pain Alert awake oriented Vital signs reviewed Hospitalist Physical - Constitutional Vitals: Temp Pulse Resp BP Pulse Ox 98.3 F 65 20 124/64 95 05/31/19 08:27 05/31/19 13:30 05/31/19 13:30 05/31/19 13:30 05/31/19 13:30 General appearance: Present: no acute distress, well-nourished - EENT Eyes: Present: PERRL, EOM intact - Neck Neck: Present: supple, normal ROM - Respiratory Respiratory effort: normal Respiratory: bilateral: diminished, rales, negative: rhonchi, wheezing - Cardiovascular Rhythm: regular Heart Sounds: Present: S1 & S2 - Extremities Extremities: no ischemia Extremity abnormal: edema - Abdominal General gastrointestinal: soft, non-tender, non-distended, normal bowel sounds - Integumentary Integumentary: Present: clear, warm - Psychiatric Psychiatric: appropriate mood/affect, cooperative - Neurologic Neurologic: moves all extremities Results - Labs CBC & Chem 7: 05/30/19 15:24 05/30/19 15:22 Labs: Laboratory Last Values WBC 4.9 K/mm3 (4.5-11.0) 05/30/19 15:24 RBC 2.80 M/mm3 (3.65-5.03) L 05/30/19 15:24 Hgb 8.5 gm/dl (10.1-14.3) L 05/30/19 15:24 Hct 26.6 % (30.3-42.9) L 05/30/19 15:24 MCV 95 fl (79-97) 05/30/19 15:24 MCH 30 pg (28-32) 05/30/19 15:24 MCHC 32 % (30-34) 05/30/19 15:24 RDW 20.0 % (13.2-15.2) H 05/30/19 15:24 Plt Count 160 K/mm3 (140-440) 05/30/19 15:24 Lymph % (Auto) 9.7 % (13.4-35.0) L 05/30/19 15:24 Walker % (Auto) 14.2 % (0.0-7.3) H 05/30/19 15:24 Eos % (Auto) 11.8 % (0.0-4.3) H 05/30/19 15:24 Baso % (Auto) 0.3 % (0.0-1.8) 05/30/19 15:24 Lymph # 0.5 K/mm3 (1.2-5.4) L 05/30/19 15:24 Walker # 0.7 K/mm3 (0.0-0.8) 05/30/19 15:24 Eos # 0.6 K/mm3 (0.0-0.4) H 05/30/19 15:24 Baso # 0.0 K/mm3 (0.0-0.1) 05/30/19 15:24 Seg Neutrophils % 64.0 % (40.0-70.0) 05/30/19 15:24 Seg Neutrophils # 3.1 K/mm3 (1.8-7.7) 05/30/19 15:24 Sodium 130 mmol/L (137-145) L 05/30/19 15:22 Potassium 5.0 mmol/L (3.6-5.0) 05/30/19 15:22 Chloride 87.2 mmol/L (98-107) L 05/30/19 15:22 Carbon Dioxide 34 mmol/L (22-30) H 05/30/19 15:22 14 mmol/L 05/30/19 15:22 BUN 26 mg/dL (7-17) H 05/30/19 15:22 1.3 mg/dL (0.7-1.2) H 05/30/19 15:22 Estimated GFR 47 ml/min 05/30/19 15:22 20 % 05/30/19 15:22 Glucose 145 mg/dL (65-100) H 05/30/19 15:22 POC Glucose 198 (70-105) H 05/31/19 13:14 6.8 % (4-6) H 05/31/19 00:24 Calcium 9.3 mg/dL (8.4-10.2) 05/30/19 15:22 0.012 ng/mL (0.00-0.029) 05/31/19 08:48 NT-Pro-B Natriuret Pep 2571 pg/mL (0-900) H 05/30/19 19:17 Active Medications - Current Medications Current Medications: Generic Name Dose Route Start Last Admin Trade Name Freq PRN Reason Stop Dose Admin Acetaminophen 650 mg 05/31/19 00:19 Tylenol PO Q4H PRN Pain MILD(1-3)/Fever >100.5/BASILIO Albuterol/Ipratropium 1 ampul 05/31/19 08:00 05/31/19 13:35 Duoneb *Not For Prn Use* IH Not Given QIDRT [facility] Amlodipine Besylate 10 mg 05/31/19 10:00 05/31/19 09:05 Norvasc PO 10 mg DAILY [facility] Administration Apixaban 2.5 mg 05/31/19 01:00 05/31/19 09:12 Eliquis PO 2.5 mg Q12HR [facility] Administration Protocol Cholecalciferol 1,000 unit 05/31/19 10:00 05/31/19 09:05 Vitamin D3 PO 1,000 unit QDAY [facility] Administration Famotidine 10 mg 05/31/19 10:00 05/31/19 09:05 Pepcid PO 10 mg BID [facility] Administration Furosemide 40 mg 05/31/19 06:00 05/31/19 05:25 Lasix IV 40 mg 0600,1800 [facility] Administration Hydromorphone HCl 0.5 mg 05/31/19 00:19 Dilaudid IV Q3H PRN Pain , Severe (7-10) Insulin Human Lispro 0 unit 05/31/19 07:30 05/31/19 14:03 Humalog SUB-Q 2 unit ACHS [facility] Administration Protocol Miscellaneous Medication 1 each 05/31/19 10:00 Iron Carb,Gl/Fa/B12/C/Docusate [Ferralet 90 Tablet] PO QDAY [facility] Ondansetron HCl 4 mg 05/31/19 00:19 Zofran IV Q8H PRN Nausea And Vomiting Oxycodone/Acetaminophen 1 tab 05/31/19 00:19 Percocet 5/325 PO Q6H PRN Pain, Moderate (4-6) Potassium Chloride 20 meq 05/31/19 10:00 05/31/19 09:05 K-Dur PO 20 meq BID [facility] Administration Pravastatin Sodium 20 mg 05/31/19 10:00 05/31/19 09:05 Pravachol PO 20 mg DAILY [facility] Administration Sodium Chloride 10 ml 05/31/19 10:00 05/31/19 09:06 Sodium Chloride Flush Syringe 10 Ml IV 10 ml BID [facility] Administration Sodium Chloride 10 ml 05/31/19 00:19 Sodium Chloride Flush Syringe 10 Ml IV PRN PRN LINE FLUSH
[2019-06-01] MEDS: HumaLOG SUB-Q SCH ×3 (00:52→12:32)
[2019-06-01] MEDS: LASIX IV SCH (05:56)
[2019-06-01 06:54] LABS: Hematocrit 28.7 % (30.3-42.9); Hemoglobin 8.9 gm/dl (10.1-14.3); Mean Corpuscular HGB Conc 31 % (30-34); Mean Corpuscular Volume 98 fl (79-97); Platelet Count 155 K/mm3 (140-440); Red Blood Count 2.93 M/mm3 (3.65-5.03)
[2019-06-01 06:56] LABS: Red Cell Distribution Width 20.1 % (13.2-15.2)
[2019-06-01 06:57] LABS: Albumin 3.3 g/dL (3.9-5); Calcium 9.1 mg/dL (8.4-10.2)
[2019-06-01 08:33] VITALS: BP 148/71
[2019-06-01] MEDS: DUONEB *Not for PRN Use IH SCH ×2 (09:11→13:38)
[2019-06-01] MEDS: ELIQUIS PO SCH (09:30)
[2019-06-01] MEDS: PRAVACHOL PO SCH (09:30)
[2019-06-01] MEDS: VITAMIN D3 PO SCH (09:30)
[2019-06-01] MEDS: PEPCID PO SCH (09:31)
[2019-06-01] MEDS: K-DUR PO SCH (09:31)
[2019-06-01] MEDS: SODIUM CHLORIDE FLUSH SYRINGE 10 ML IV SCH (09:31)
[2019-06-01] MEDS: NORVASC PO SCH (09:32)
[2019-06-01 09:41] LABS: Band Neutrophils # (Manual) 3.1 K/mm3; Basophils % (Manual) 0 % (0.0-1.8); Monocytes % (Manual) 0 % (0.0-7.3); Total Cells Counted 100
[2019-06-01 09:44] LABS: Hypochromasia Few; Platelet Estimate Consistent w Auto; Target Cells Few
--- NOTE | 2019-06-01 10:22 | Progress Note ---
Assessment and Plan 1. Acute kidney injury: Patient sustained JOSE during prior admission. She was on hemodialysis briefly. Her renal function continue to improve. Monitor renal function. Avoid nephrotoxic agents. Meds dosage based on GFR. 2. FEN: Volume overload, On IV Lasix. Metabolic alkalosis, Diamox. Monitor lytes. 3. Shortness of breath: Suspect 2/2 chronic lung disease. Acute on chronic respiratory failure. 4. HFpEF: Followed by Cards. 5. Paroxysmal A.fib: On Eliquis. 6. HTN: Monitor BP. 7. Anemia: POA. Subjective Date of service: 06/01/19 Interval history: Patient was seen and examined at the bedside. Feeling better today. Objective - Vital Signs Vital signs: Vital Signs - 12hr 06/01/19 06/01/19 06/01/19 00:35 04:39 07:55 Temperature 98.2 F 98.1 F 98.7 F Pulse Rate 65 65 Respiratory 18 18 18 Rate Blood Pressure 133/63 127/87 148/71 O2 Sat by Pulse 100 100 Oximetry 06/01/19 09:32 Temperature Pulse Rate 66 Respiratory Rate Blood Pressure 148/71 O2 Sat by Pulse Oximetry - General Appearance General appearance: well-developed, well-nourished, appears stated age, other (no distress) EENT: ATNC, PERRL, mucous membranes moist, vision intact, hearing diminished Neck: supple Respiratory: Present: Rales Cardiology: regular, S1S2, no murmurs Gastrointestinal: normoactive bowel sounds, no tenderness, no distended Integumentary: no rash, warm and dry Neurologic: no focal deficit, no asterixis, confused, disoriented Musculoskeletal: other (1+ edema of LEs noted) Psychiatric: cooperative - Lab 06/01/19 06:03 06/01/19 06:03 Most recent lab results Calcium 9.1 mg/dL (8.4-10.2) 06/01/19 06:03 Magnesium 2.00 mg/dL (1.7-2.3) 06/01/19 06:03 Medications & Allergies - Medications Allergies/Adverse Reactions: Allergies No Known Allergies Allergy (Verified 05/30/19 16:29) Home Medications: Home Medications Medication Instructions Recorded Confirmed Last Taken Type Cholecalciferol Vit D3 [Vitamin D3 1,000 unit PO QDAY 04/12/19 05/30/19 Unknown History 1,000 UNIT TAB] Iron Carb,Gl/FA/B12/C/Docusate 1 each PO QDAY 05/03/19 05/30/19 Unknown History [Ferralet 90 Tablet] Albuterol Sulfate [Proair 90 mcg IH PRN PRN #1 aer.pow.ba 05/08/19 05/30/19 Unknown Rx Respiclick] Apixaban [Eliquis] 2.5 mg PO Q12HR #60 tablet 05/08/19 05/30/19 Unknown Rx Pravastatin [Pravachol] 20 mg PO DAILY #30 tablet 05/08/19 05/30/19 Unknown Rx amLODIPine [Norvasc] 10 mg PO DAILY #30 tab 05/08/19 05/30/19 Unknown Rx Furosemide [Lasix TAB] 80 mg PO BID #60 tablet 05/16/19 05/30/19 Unknown Rx Active Medications: Generic Name Dose Route Start Last Admin Trade Name Freq PRN Reason Stop Dose Admin Acetaminophen 650 mg 05/31/19 00:19 Tylenol PO Q4H PRN Pain MILD(1-3)/Fever >100.5/BASILIO Albuterol/Ipratropium 1 ampul 05/31/19 08:00 06/01/19 09:11 Duoneb *Not For Prn Use* IH 1 ampul QIDRT [facility] Administration Amlodipine Besylate 10 mg 05/31/19 10:00 06/01/19 09:32 Norvasc PO 10 mg DAILY [facility] Administration Apixaban 2.5 mg 05/31/19 01:00 06/01/19 09:30 Eliquis PO 2.5 mg Q12HR [facility] Administration Protocol Cholecalciferol 1,000 unit 05/31/19 10:00 06/01/19 09:30 Vitamin D3 PO 1,000 unit QDAY [facility] Administration Famotidine 10 mg 05/31/19 10:00 06/01/19 09:31 Pepcid PO 10 mg BID [facility] Administration Furosemide 40 mg 05/31/19 06:00 06/01/19 05:56 Lasix IV 40 mg 0600,1800 [facility] Administration Hydromorphone HCl 0.5 mg 05/31/19 00:19 Dilaudid IV Q3H PRN Pain , Severe (7-10) Insulin Human Lispro 0 unit 05/31/19 07:30 06/01/19 07:57 Humalog SUB-Q Not Given ACHS [facility] Protocol Miscellaneous Medication 1 each 05/31/19 10:00 Iron Carb,Gl/Fa/B12/C/Docusate [Ferralet 90 Tablet] PO QDAY [facility] Ondansetron HCl 4 mg 05/31/19 00:19 Zofran IV Q8H PRN Nausea And Vomiting Oxycodone/Acetaminophen 1 tab 05/31/19 00:19 05/31/19 17:43 Percocet 5/325 PO 1 tab Q6H PRN Administration Pain, Moderate (4-6) Potassium Chloride 20 meq 05/31/19 10:00 06/01/19 09:31 K-Dur PO 20 meq BID [facility] Administration Pravastatin Sodium 20 mg 05/31/19 10:00 06/01/19 09:30 Pravachol PO 20 mg DAILY [facility] Administration Sodium Chloride 10 ml 05/31/19 10:00 06/01/19 09:31 Sodium Chloride Flush Syringe 10 Ml IV 10 ml BID [facility] Administration Sodium Chloride 10 ml 05/31/19 00:19 Sodium Chloride Flush Syringe 10 Ml IV PRN PRN LINE FLUSH
--- NOTE | 2019-06-01 11:39 | Discharge Summary ---
Providers - Providers Date of Admission: 05/30/19 18:35 Date of discharge: 06/01/19 Attending physician: DEE AGOSTO 05/31/19 00:19 Consult to Physician [CONS] Routine Comment: Consulting Provider: CATHY EWING Physician Instructions: Reason For Exam: CHF exacerbation 05/31/19 00:26 Consult to Physician [CONS] Routine Comment: Consulting Provider: ANDREZ PRABHAKAR Physician Instructions: Reason For Exam: JOSE [facility] Condition: Fair Disposition: DC-01 TO HOME OR SELFCARE Time spent for discharge: 32 min Core Measure Documentation - Palliative Care Palliative Care/ Comfort Measures: Not Applicable - Core Measures Any of the following diagnoses?: none Exam - Constitutional Vitals: Temp Pulse Resp BP Pulse Ox 98.7 F 66 18 148/71 100 06/01/19 07:55 06/01/19 09:32 06/01/19 07:55 06/01/19 09:32 06/01/19 04:39 General appearance: Present: no acute distress, well-nourished - EENT Eyes: Present: PERRL, EOM intact - Neck Neck: Present: supple, normal ROM - Respiratory Respiratory effort: normal Respiratory: bilateral: diminished, rales, negative: rhonchi, wheezing - Cardiovascular Rhythm: regular Heart Sounds: Present: S1 & S2 - Extremities Extremities: no ischemia Extremity abnormal: edema - Abdominal General gastrointestinal: Present: soft, non-tender, non-distended, normal bowel sounds - Integumentary Integumentary: Present: clear, warm - Musculoskeletal Musculoskeletal: strength equal bilaterally, generalized weakness - Psychiatric Psychiatric: appropriate mood/affect, cooperative - Neurologic Neurologic: moves all extremities Plan Activity: advance as tolerated, fall precautions Diet: low salt, other (cardiac diet) Additional Instructions: Restrict fluid intake. Elevate the legs and feet while resting/sleeping[ use 2-3 pillows]. Continue home oxygen as before Follow up with: KAYLA RUSH MD [Primary Care Provider] - 7 Days TERELL MARIE MD [Staff Physician] - 7 Days ANDREZ PRABHAKAR MD [Staff Physician] - 7 Days
[2019-06-01] MEDS ORDERED: DIAMOX IV ONE (12:00)
[2019-06-01] MEDS ORDERED: WATER FOR INJ Sterile (PF) IV ONE (12:00)
--- NOTE | 2019-06-01 15:31 | Progress Note ---
Assessment and Plan - Patient Problems (1) COPD exacerbation Status: Acute Plan to address problem: Patient's shortness of breath is likely due to COPD exacerbation, if indicated, recommend pulmonary consultation. There is no evidence of left-sided heart failure. (2) Cor pulmonale Status: Acute Plan to address problem: Patient has right heart dilatation and pulmonary hypertension with cor pulmonale resulting from chronic lung disease. This is the likely etiology of her chronic lower extremity edema. We will treat with optimal diuretics, patient may also benefit from a chronic use of compression stockings. (3) Chronic atrial flutter Status: Acute Plan to address problem: Continue rate control agents and low dose oral anticoagulation. Subjective Date of service: 06/01/19 Interval history: Patient is comfortable, no new cardiac complaints. She still has at least 1-2+ lower extremity edema. Objective Vital Signs Temp Pulse Pulse Resp Resp BP Pulse Ox 06/01/19 10:00 65 06/01/19 09:32 66 148/71 06/01/19 07:55 98.7 F 18 148/71 06/01/19 04:39 98.1 F 65 18 127/87 100 06/01/19 00:35 98.2 F 65 18 133/63 100 05/31/19 22:00 65 05/31/19 20:01 99 05/31/19 19:55 67 18 05/31/19 19:29 97.9 F 65 18 131/64 100 05/31/19 16:46 98.2 F 65 18 151/73 100 - Physical Examination General: No Apparent Distress HEENT: Positive: PERRL Neck: Positive: neck supple, trachea midline Cardiac: Positive: Reg Rate and Rhythm Lungs: Positive: Decreased Breath Sounds Neuro: Positive: Grossly Intact Abdomen: Positive: Soft Skin: Positive: Clear Extremities: Present: +2 Edema - Labs and Meds Cardiac Enzymes 06/01/19 Range/Units 06:03 AST 25 (5-40) units/L CBC 06/01/19 Range/Units 06:03 WBC 4.7 (4.5-11.0) K/mm3 RBC 2.93 L (3.65-5.03) M/mm3 Hgb 8.9 L (10.1-14.3) gm/dl Hct 28.7 L (30.3-42.9) % Plt Count 155 (140-440) K/mm3 Lymph # At Risk Specialist [place] # At Risk Specialist Eos # At Risk Specialist Baso # At Risk Specialist Comprehensive Metabolic Panel 06/01/19 Range/Units 06:03 Sodium 133 L (137-145) mmol/L Potassium 4.5 (3.6-5.0) mmol/L Chloride 90.7 L (98-107) mmol/L Carbon Dioxide 31 H (22-30) mmol/L BUN 24 H (7-17) mg/dL Creatinine 1.2 (0.7-1.2) mg/dL Glucose 143 H (65-100) mg/dL Calcium 9.1 (8.4-10.2) mg/dL AST 25 (5-40) units/L ALT 8 (7-56) units/L Alkaline Phosphatase 69 (35-129) units/L Total Protein 7.0 (6.3-8.2) g/dL Albumin 3.3 L (3.9-5) g/dL - Imaging and Cardiology EKG: report reviewed (atrial fibrillation and ventricular paced rhythm)
== END 2019-06-01 15:25 | disposition home or self-care (01) ==
LOC: ED 14:22 → 4A 18:35
PROVIDERS: ADMIT Internal Medicine; ATTEND Internal Medicine
DX: R07.89 Other chest pain (principal); I50.33 Acute on chronic diastolic (congestive) heart failure; I12.9 Hypertensive chronic kidney disease with stage 1 through stage 4 chronic kidney disease, or unspecified chronic kidney disease; N18.9 Chronic kidney disease, unspecified; J44.1 Chronic obstructive pulmonary disease with (acute) exacerbation; E11.9 Type 2 diabetes mellitus without complications; N17.9 Acute kidney failure, unspecified; M19.90 Unspecified osteoarthritis, unspecified site; D64.9 Anemia, unspecified; I48.0 Paroxysmal atrial fibrillation; Z79.899 Other long term (current) drug therapy; Z87.891 Personal history of nicotine dependence
CPT/HCPCS: 36415; 71045; 80048; 80053; 82962; 83036; 83735; 83880; 84484; 85007; 85025; 93005; 93010; 94640; 94760; 96372; 96374; 96375; 96376; 99291; A9270; G0378; J1120; J1940; J2405; J1815

== ENCOUNTER 2019-06-07 00:29 | Inpatient (IN) | payer MEDICARE ==
[2019-06-07] MEDS ORDERED: ASPIRIN PO ONE (01:00)
--- NOTE | 2019-06-07 01:23 | Emergency Department Report ---
ED Chest Pain HPI - General Chief Complaint: Chest Pain Stated Complaint: CHEST PAIN/SOB Time Seen by Provider: 06/07/19 01:12 Source: patient Mode of arrival: Ambulatory Limitations: Physical Limitation - History of Present Illness Initial Comments: Patient is a 28 years old female with history of hypertension, diabetes, congestive heart failure, COPD and chronic kidney disease requiring dialysis in the past. Patient presented to the ER complaining of left sided chest pain, sharp in nature with no radiation. Patient stated that pain started yesterday. Patient also complaining of cough and mild shortness of breath. She denied any fever or chills. MD Complaint: chest pain -: This morning Onset: during rest Pain Location: left chest Severity: moderate Quality: sharp Consistency: intermittent Other Symptoms: cough - Related Data Home Medications Medication Instructions Recorded Confirmed Last Taken Cholecalciferol Vit D3 [Vitamin D3 1,000 unit PO QDAY 04/12/19 05/30/19 Unknown 1,000 UNIT TAB] Iron Carb,Gl/FA/B12/C/Docusate 1 each PO QDAY 05/03/19 05/30/19 Unknown [Ferralet 90 Tablet] Previous Rx's Medication Instructions Recorded Last Taken Type Albuterol Sulfate [Proair 90 mcg IH PRN PRN #1 aer.pow.ba 05/08/19 Unknown Rx Respiclick] Apixaban [Eliquis] 2.5 mg PO Q12HR #60 tablet 05/08/19 Unknown Rx Pravastatin [Pravachol] 20 mg PO DAILY #30 tablet 05/08/19 Unknown Rx amLODIPine [Norvasc] 10 mg PO DAILY #30 tab 05/08/19 Unknown Rx Famotidine [Pepcid] 10 mg PO BID #30 tablet 06/01/19 Unknown Rx Furosemide [Lasix TAB] 80 mg PO DAILY #30 tablet 06/01/19 Unknown Rx Potassium Chloride [K-Dur] 10 meq PO QDAY #30 tablet 06/01/19 Unknown Rx Allergies Allergy/AdvReac Type Severity Reaction Status Date / Time No Known Allergies Allergy Verified 05/30/19 16:29 Heart Score - HEART Score History: Moderately suspicious EKG: Non-specific Age: > 65 Risk factors: > 3 risk factors or hx of atherosclerotic disease Troponin: < normal limit HEART Score: 6 - Critical Actions Critical Actions: 4-6 pts:12-16.6% risk of adverse cardiac event. Should be admitted ED Review of Systems ROS: Stated complaint: CHEST PAIN/SOB Other details as noted in HPI Comment: All other systems reviewed and negative Constitutional: denies: chills, fever Respiratory: cough, shortness of breath Cardiovascular: chest pain. denies: palpitations Gastrointestinal: denies: abdominal pain, nausea, vomiting, diarrhea, constipa tion, hematemesis, melena, hematochezia Musculoskeletal: denies: back pain ED Past Medical Hx - Past Medical History Hx Hypertension: Yes Hx Congestive Heart Failure: Yes Hx Diabetes: Yes Hx Renal Disease: Yes (Chronic renal disease, required HD in past) Hx Arthritis: Yes Hx COPD: Yes Additional medical history: heart failure - Surgical History Past Surgical History?: Yes Hx Pacemaker: Yes Additional Surgical History: pacemaker, diverticulitis - Social History Smoking Status: Former Smoker Substance Use Type: None - Medications Home Medications: Home Medications Medication Instructions Recorded Confirmed Last Taken Type Cholecalciferol Vit D3 [Vitamin D3 1,000 unit PO QDAY 04/12/19 05/30/19 Unknown History 1,000 UNIT TAB] Iron Carb,Gl/FA/B12/C/Docusate 1 each PO QDAY 05/03/19 05/30/19 Unknown History [Ferralet 90 Tablet] Albuterol Sulfate [Proair 90 mcg IH PRN PRN #1 aer.pow.ba 05/08/19 05/30/19 Unknown Rx Respiclick] Apixaban [Eliquis] 2.5 mg PO Q12HR #60 tablet 05/08/19 05/30/19 Unknown Rx Pravastatin [Pravachol] 20 mg PO DAILY #30 tablet 05/08/19 05/30/19 Unknown Rx amLODIPine [Norvasc] 10 mg PO DAILY #30 tab 05/08/19 05/30/19 Unknown Rx Famotidine [Pepcid] 10 mg PO BID #30 tablet 06/01/19 Unknown Rx Furosemide [Lasix TAB] 80 mg PO DAILY #30 tablet 06/01/19 Unknown Rx Potassium Chloride [K-Dur] 10 meq PO QDAY #30 tablet 06/01/19 Unknown Rx ED Physical Exam - General Limitations: Physical Limitation General appearance: alert, in no apparent distress - Head Head exam: Present: atraumatic, normocephalic, normal inspection - Eye Eye exam: Present: normal appearance, PERRL - ENT ENT exam: Present: normal exam, normal orophraynx, mucous membranes moist - Neck Neck exam: Present: normal inspection, full ROM. Absent: tenderness, meningismus, lymphadenopathy, thyromegaly - Respiratory Respiratory exam: Present: rales. Absent: respiratory distress, wheezes, rhonchi, decreased breath sounds, prolonged expiratory - Cardiovascular Cardiovascular Exam: Present: regular rate, normal rhythm, normal heart sounds - GI/Abdominal GI/Abdominal exam: Present: soft, normal bowel sounds. Absent: distended, tenderness, guarding, rebound, rigid, organomegaly, mass, bruit, pulsatile mass - Extremities Exam Extremities exam: Present: normal inspection, full ROM, normal capillary refill, pedal edema - Back Exam Back exam: Present: normal inspection, full ROM - Neurological Exam Neurological exam: Present: alert, oriented X3, CN II-XII intact - Skin Skin exam: Present: warm, intact, normal color ED Course Vital Signs 06/07/19 06/07/19 06/07/19 00:55 01:14 01:16 Temperature 98.2 F Pulse Rate 63 65 65 Respiratory 22 27 H 20 Rate Blood Pressure 131/62 O2 Sat by Pulse 90 Oximetry 06/07/19 06/07/19 06/07/19 01:30 01:34 01:45 Temperature Pulse Rate 65 65 Respiratory 19 11 L 15 Rate Blood Pressure 132/64 116/65 O2 Sat by Pulse 94 99 Oximetry 06/07/19 06/07/19 06/07/19 02:00 02:15 02:30 Temperature Pulse Rate 65 65 65 Respiratory 26 H 23 23 Rate Blood Pressure 116/65 130/67 130/67 O2 Sat by Pulse 99 97 99 Oximetry 06/07/19 06/07/19 06/07/19 02:46 03:00 03:15 Temperature Pulse Rate 65 65 65 Respiratory 25 H 27 H 19 Rate Blood Pressure 134/64 126/62 121/62 O2 Sat by Pulse 100 97 99 Oximetry 06/07/19 06/07/19 06/07/19 03:30 03:46 04:00 Temperature Pulse Rate 65 65 65 Respiratory 19 20 16 Rate Blood Pressure 121/56 134/74 132/75 O2 Sat by Pulse Oximetry 06/07/19 04:16 Temperature Pulse Rate 65 Respiratory 13 Rate Blood Pressure 116/90 O2 Sat by Pulse Oximetry ED Medical Decision Making - Lab Data Result diagrams: 06/07/19 01:37 06/07/19 01:37 - EKG Data -: EKG Interpreted by Me EKG shows normal: sinus rhythm Rate: normal - EKG Data Interpretation: no acute changes - Radiology Data Radiology results: report reviewed - Medical Decision Making Patient is a 28 years old female with history of hypertension, diabetes, congestive heart failure, COPD and chronic kidney disease requiring dialysis in the past. Patient presented to the ER complaining of left sided chest pain, sharp in nature with no radiation. Patient stated that pain started yesterday. Patient also complaining of cough and mild shortness of breath. She denied any fever or chills. Patient found to be in acute CHF exacerbation. Patient receives Lasix 40 mg IV. I discussed the patient with Dr. Amanda Jacobsen, should return to the patient to medical service for further management. Critical care attestation.: If time is entered above; I have spent that time in minutes in the direct care of this critically ill patient, excluding procedure time. ED Disposition Clinical Impression: Chest pain Qualifiers: Chest pain type: unspecified Qualified Code(s): R07.9 - Chest pain, unspecified CHF exacerbation Qualifiers: Heart failure type: diastolic Qualified Code(s): I50.33 - Acute on chronic diastolic (congestive) heart failure Disposition: OP ADMIT IP TO THIS HOSP Is pt being admited?: Yes Condition: Stable
--- NOTE | 2019-06-07 01:25 | XRay Report ---
CHEST 1 VIEW INDICATION / CLINICAL INFORMATION: Chest Pain. COMPARISON: 05/30/2019 FINDINGS: SUPPORT DEVICES: Left-sided pacemaker HEART / MEDIASTINUM: Cardiomegaly LUNGS / PLEURA: Small right pleural effusion No pneumothorax. ADDITIONAL FINDINGS: No significant additional findings. IMPRESSION: A small right pleural effusion has developed since 05/30/2019. No other interval change. Signer Name: Kaiser Awad MD FACPrince Signed: 06/07/2019 1:20 AM Workstation Name: [email or web address]
[2019-06-07 02:12] LABS: Hematocrit 24.9 % (30.3-42.9); Hemoglobin 8.1 gm/dl (10.1-14.3); Mean Corpuscular HGB Conc 33 % (30-34); Mean Corpuscular Volume 96 fl (79-97); Platelet Count 190 K/mm3 (140-440)
[2019-06-07 02:26] LABS: Calcium 8.9 mg/dL (8.4-10.2)
[2019-06-07 02:29] LABS: Albumin 3.7 g/dL (3.9-5); Bilirubin,Direct 0.3 mg/dL (0-0.2); Red Cell Distribution Width 20.7 % (13.2-15.2)
[2019-06-07] MEDS ORDERED: LASIX IV ONE (02:53)
[2019-06-07] MEDS ORDERED: ZOFRAN IV PRN (03:26)
[2019-06-07] MEDS ORDERED: SODIUM CHLORIDE FLUSH SYRINGE 10 ML IV PRN (03:26)
[2019-06-07] MEDS ORDERED: D50W (25GM) Syringe IV PRN (03:26)
--- NOTE | 2019-06-07 03:33 | History and Physical Report ---
History of Present Illness Date of examination: 06/07/19 History of present illness: 37 year-old woman with a history of hypertension, DM, afib, CHF, COPD, CKD was brought to the emergency room with complaints of chest pain in the left chest, hurting pain, constant, intensity 7/10, no radiation. Has a dry cough which has not changed, also complained of shorttness of breath, nausea, no diaphoresis, palpitation. She was discharged from the hospital on June 01, treated for CHf exacerbation. She had a stress test on May 15, normal Review of systems Constitutional: no weight loss Ears, eyes, nose, mouth and throat: no nasal congestion, no nasal discharge, no sinus pressure, no vision change, no red eye. Neck: No neck pain or rigidity. Cardiovascular: no palpitations Respiratory: no cough Gastrointestinal: no hematochezia, abdominal pain Genitourinary : no frequency , no hematuria Musculoskeletal: no joint swelling or muscle ache Integumentary: no rash, no pruritis Neurological: + parathesias, + focal weakness Endocrine: no cold or heat intolerance, no polyuria or polydipsia Hematologic/Lymphatic: no easy bruising, no easy bleeding, no gland swelling Allergic/Immunologic: no urticaria, no angioedema. PAST MEDICAL HISTORY:hypertension, diabetes, obesity PAST SURGICAL HISTORY: Pacemaker SOCIAL HISTORY: No alcohol,tobacco, no drug use FAMILY HISTORY: Hypertension Medications and Allergies Allergies Allergy/AdvReac Type Severity Reaction Status Date / Time No Known Allergies Allergy Verified 05/30/19 16:29 Home Medications Medication Instructions Recorded Confirmed Last Taken Type Cholecalciferol Vit D3 [Vitamin D3 1,000 unit PO QDAY 04/12/19 06/07/19 Unknown History 1,000 UNIT TAB] Iron Carb,Gl/FA/B12/C/Docusate 1 each PO QDAY 05/03/19 06/07/19 Unknown History [Ferralet 90 Tablet] Albuterol Sulfate [Proair 90 mcg IH PRN PRN #1 aer.pow.ba 05/08/19 06/07/19 Unknown Rx Respiclick] Apixaban [Eliquis] 2.5 mg PO Q12HR #60 tablet 05/08/19 06/07/19 Unknown Rx amLODIPine [Norvasc] 10 mg PO DAILY #30 tab 05/08/19 06/07/19 Unknown Rx Furosemide [Lasix TAB] 80 mg PO DAILY #30 tablet 06/01/19 06/07/19 Unknown Rx Famotidine [Pepcid] 20 mg PO BID #60 tablet 06/09/19 Unknown Rx Potassium Chloride [K-Dur] 20 meq PO QDAY #30 tablet 06/09/19 Unknown Rx Pravastatin [Pravachol] 20 mg PO DAILY tablet 06/09/19 Unknown Rx Exam - Physical Exam Narrative exam: Gen. appearance: Patient lying in bed, no apparent distress HEENT: Normocephalic, atraumatic, pupils equally round and reactive to light, extraocular movement intact, and no sclericterus,. No JVD or thyromegaly or nodule,neck supple, no carotid bruit ,mucous membranes moist, no exudate or erythema Heart: S1, S2, regular rate and rhythm Lungs: Clear to auscultation bilaterally, breathing comfortable Abdomen: Positive bowel sounds, nontender, nondistended, no organomegaly Extremity:+ edema, no cyanosis, clubbing Skin: No rash, nodules, warm, dry Neuro: Oriented 3, cranial nerves II-12 intact, speech/motor fluent - Constitutional Vitals: Temp Pulse Resp BP Pulse Ox 98.2 F 65 19 121/62 99 06/07/19 00:55 06/07/19 03:15 06/07/19 03:15 06/07/19 03:15 06/07/19 03:15 General appearance: Present: no acute distress Results - Labs CBC & Chem 7: 06/09/19 04:58 06/09/19 04:58 Labs: Abnormal lab results 06/07/19 06/07/19 06/07/19 Range/Units 01:37 01:37 01:37 WBC 4.4 L (4.5-11.0) K/mm3 RBC 2.60 L (3.65-5.03) M/mm3 Hgb 8.1 L (10.1-14.3) gm/dl Hct 24.9 L (30.3-42.9) % RDW 20.7 H (13.2-15.2) % Sodium 126 L (137-145) mmol/L Chloride 87.1 L (98-107) mmol/L BUN 32 H (7-17) mg/dL Creatinine 1.6 H (0.7-1.2) mg/dL Glucose 228 H (65-100) mg/dL Direct Bilirubin 0.3 H (0-0.2) mg/dL NT-Pro-B Natriuret Pep (0-900) pg/mL Albumin 3.7 L (3.9-5) g/dL 06/07/19 Range/Units 01:37 WBC (4.5-11.0) K/mm3 RBC (3.65-5.03) M/mm3 Hgb (10.1-14.3) gm/dl Hct (30.3-42.9) % RDW (13.2-15.2) % Sodium (137-145) mmol/L Chloride (98-107) mmol/L BUN (7-17) mg/dL Creatinine (0.7-1.2) mg/dL Glucose (65-100) mg/dL Direct Bilirubin (0-0.2) mg/dL NT-Pro-B Natriuret Pep 3079 H (0-900) pg/mL Albumin (3.9-5) g/dL - Imaging and Cardiology EKG: image reviewed Chest x-ray: image reviewed Assessment and Plan Assessment Chest pain Acute renal insufficency CHF, stable COPD DM 2 Hypertension A. fib Chronic anemia Plan Admit to medicine check cardiac enzymes, consult cardiology Hold lasix for now, consult renal Check fingersticks, start sliding scale Continue appropiate ooutpatient medications
[2019-06-07 04:56] LABS: Anisocytosis 1+; Band Neutrophils # (Manual) 0.1 K/mm3; Basophils % (Manual) 0 % (0.0-1.8); Hypochromasia 1+; Total Cells Counted 100
[2019-06-07 06:50] LABS: Chol/HDL Ratio 1.81 %
[2019-06-07 08:11] LABS: Creatine Kinase MB 3.7 ng/mL (0.0-4.0)
[2019-06-07] MEDS: HumaLOG SUB-Q SCH ×4 (08:15→21:00)
[2019-06-07] MEDS ORDERED: LOVENOX SUB-Q SCH (10:00)
--- NOTE | 2019-06-07 10:11 | Consultation ---
History of Present Illness Consult date: 06/07/19 Consult reason: chest pain, shortness of breath History of present illness: 88 year old female with recurrrent admission for chest pain and shortness of breath presenting this time with pain around her pacemaker and shortness of breath. No family at the bedside and patient is a very poor historian. Past History Past Medical History: atrial fib, anemia, COPD, diabetes, heart failure, hypertension, renal failure Medications and Allergies Allergies Allergy/AdvReac Type Severity Reaction Status Date / Time No Known Allergies Allergy Verified 05/30/19 16:29 Home Medications Medication Instructions Recorded Confirmed Last Taken Type Cholecalciferol Vit D3 [Vitamin D3 1,000 unit PO QDAY 04/12/19 06/07/19 Unknown History 1,000 UNIT TAB] Iron Carb,Gl/FA/B12/C/Docusate 1 each PO QDAY 05/03/19 06/07/19 Unknown History [Ferralet 90 Tablet] Albuterol Sulfate [Proair 90 mcg IH PRN PRN #1 aer.pow.ba 05/08/19 06/07/19 Unknown Rx Respiclick] Apixaban [Eliquis] 2.5 mg PO Q12HR #60 tablet 05/08/19 06/07/19 Unknown Rx Pravastatin [Pravachol] 20 mg PO DAILY #30 tablet 05/08/19 06/07/19 Unknown Rx amLODIPine [Norvasc] 10 mg PO DAILY #30 tab 05/08/19 06/07/19 Unknown Rx Famotidine [Pepcid] 10 mg PO BID #30 tablet 06/01/19 06/07/19 Unknown Rx Furosemide [Lasix TAB] 80 mg PO DAILY #30 tablet 06/01/19 06/07/19 Unknown Rx Potassium Chloride [K-Dur] 10 meq PO QDAY #30 tablet 06/01/19 06/07/19 Unknown Rx Active Meds: Active Medications Acetaminophen (Tylenol) 650 mg PO Q4H PRN PRN Reason: Pain MILD(1-3)/Fever >100.5/BASILIO Dextrose (D50w (25gm) Syringe) 50 ml IV PRN PRN PRN Reason: Hypoglycemia Enoxaparin Sodium (Lovenox) 30 mg SUB-Q QDAY TANK Insulin Human Lispro (Humalog) 0 unit SUB-Q ACHS TANK; Protocol Ondansetron HCl (Zofran) 4 mg IV Q8H PRN PRN Reason: Nausea And Vomiting Sodium Chloride (Sodium Chloride Flush Syringe 10 Ml) 10 ml IV BID TANK Sodium Chloride (Sodium Chloride Flush Syringe 10 Ml) 10 ml IV PRN PRN PRN Reason: LINE FLUSH Review of Systems ROS unobtainable: due to mental status Physical Examination Vital Signs Temp Pulse Resp BP Pulse Ox 98.2 F 63 22 131/62 90 06/07/19 00:55 06/07/19 00:55 06/07/19 00:55 06/07/19 00:55 06/07/19 00:55 General appearance: no acute distress Neck: Positive: neck supple, JVD/HJR Cardiac: Positive: Reg Rate and Rhythm Lungs: Positive: Decreased Breath Sounds Abdomen: Positive: Soft Extremities: Present: +1 Edema Results 06/07/19 01:37 06/07/19 01:37 Cardiac Enzymes 06/07/19 06/07/19 Range/Units 01:37 06:43 AST 22 (5-40) units/L CK-MB (CK-2) 3.7 (0.0-4.0) ng/mL Lipids 06/07/19 Range/Units 05:02 Triglycerides 38 (2-149) mg/dL Cholesterol 111 (50-199) mg/dL HDL Cholesterol 61 H (40-59) mg/dL Cholesterol/HDL Ratio 1.81 % CBC 06/07/19 Range/Units 01:37 WBC 4.4 L (4.5-11.0) K/mm3 RBC 2.60 L (3.65-5.03) M/mm3 Hgb 8.1 L (10.1-14.3) gm/dl Hct 24.9 L (30.3-42.9) % Plt Count 190 (140-440) K/mm3 Comprehensive Metabolic Panel 06/07/19 06/07/19 Range/Units 01:37 01:37 Sodium 126 L (137-145) mmol/L Potassium 4.9 (3.6-5.0) mmol/L Chloride 87.1 L (98-107) mmol/L Carbon Dioxide 30 (22-30) mmol/L BUN 32 H (7-17) mg/dL Creatinine 1.6 H (0.7-1.2) mg/dL Glucose 228 H (65-100) mg/dL Calcium 8.9 (8.4-10.2) mg/dL Direct Bilirubin 0.3 H (0-0.2) mg/dL Indirect Bilirubin 0.2 mg/dL AST 22 (5-40) units/L ALT 9 (7-56) units/L Alkaline Phosphatase 87 (35-129) units/L Total Protein 7.0 (6.3-8.2) g/dL Albumin 3.7 L (3.9-5) g/dL Assessment and Plan Chest pain, atypical No ischemia on MPI 05/2019 CXR revealing a small right pleural effusion Cor pulmonale Echocardiogram 04/2019 shows normal left ventricular systolic function, ejection fraction 60%. There is enlargement of the right heart chambers, moderate to severe pulmonary hypertension with a pulmonary artery systolic pressure of 66, suggests cor pulmonale. Chronic renal failure Required transient HD in the past. Hyponatremia Paroxysmal Afib On low dose eliquis as outpatient Rate control strategy Pacemaker present COPD Essential systemic hypertension Maximize medical therapy as blood pressure tolerates Type 2 DM Management per primary Recommendations: No further cardiac work-up is needed Recommend conservative medical management Continue gentle IV diuresis Resume low dose eliquis
[2019-06-07] MEDS: SODIUM CHLORIDE FLUSH SYRINGE 10 ML IV SCH ×2 (10:33→21:00)
--- NOTE | 2019-06-07 11:52 | Consultation ---
History of Present Illness - Reason for Consult Consult date: 06/07/19 acute renal failure, chronic renal failure, hyponatremia - History of Present Illness The patient is an 88 Yo female, who is well known to our service, with history significant for Hypertension, DM type 2, Anemia, CKD, Cor pulmonale, Pulmonary HTN, Paroxysmal A.fib and Cognitive decline who presented with chest pain, short ness of breath and worsening bilateral leg swelling for about 2 days. Patient is a poor historian. She c/o pain over the Pacemaker site. She was admitted with similar presentation and was discharged on 06/01/2019. Patient is not compliant with fluid intake. Patient denies fever, chills, leg pain, hemoptysis., N, V or abd pain. Creatinine is 1.6 and Sodium 126. Nephrology was consulted for further evaluation. Past History Past Medical History: atrial fib, anemia, COPD, diabetes, heart failure, hypertension, renal failure Medications and Allergies Allergies Allergy/AdvReac Type Severity Reaction Status Date / Time No Known Allergies Allergy Verified 05/30/19 16:29 Home Medications Medication Instructions Recorded Confirmed Last Taken Type Cholecalciferol Vit D3 [Vitamin D3 1,000 unit PO QDAY 04/12/19 06/07/19 Unknown History 1,000 UNIT TAB] Iron Carb,Gl/FA/B12/C/Docusate 1 each PO QDAY 05/03/19 06/07/19 Unknown History [Ferralet 90 Tablet] Albuterol Sulfate [Proair 90 mcg IH PRN PRN #1 aer.[email or web address] 05/08/19 06/07/19 Unknown Rx Respiclick] Apixaban [Eliquis] 2.5 mg PO Q12HR #60 tablet 05/08/19 06/07/19 Unknown Rx Pravastatin [Pravachol] 20 mg PO DAILY #30 tablet 05/08/19 06/07/19 Unknown Rx amLODIPine [Norvasc] 10 mg PO DAILY #30 tab 05/08/19 06/07/19 Unknown Rx Famotidine [Pepcid] 10 mg PO BID #30 tablet 06/01/19 06/07/19 Unknown Rx Furosemide [Lasix TAB] 80 mg PO DAILY #30 tablet 06/01/19 06/07/19 Unknown Rx Potassium Chloride [K-Dur] 10 meq PO QDAY #30 tablet 06/01/19 06/07/19 Unknown Rx Active Meds: Active Medications Acetaminophen (Tylenol) 650 mg PO Q4H PRN PRN Reason: Pain MILD(1-3)/Fever >100.5/BASILIO Apixaban (Eliquis) 2.5 mg PO Q12HR [facility]; Protocol Dextrose (D50w (25gm) Syringe) 50 ml IV PRN PRN PRN Reason: Hypoglycemia Furosemide (Lasix) 40 mg IV QDAY [facility] Insulin Human Lispro (Humalog) 0 unit SUB-Q ACHS [facility]; Protocol Last Admin: 06/07/19 08:15 Dose: 3 unit Documented by: Ondansetron HCl (Zofran) 4 mg IV Q8H PRN PRN Reason: Nausea And Vomiting Sodium Chloride (Sodium Chloride Flush Syringe 10 Ml) 10 ml IV BID [facility] Last Admin: 06/07/19 10:33 Dose: 10 ml Documented by: Sodium Chloride (Sodium Chloride Flush Syringe 10 Ml) 10 ml IV PRN PRN PRN Reason: LINE FLUSH Review of Systems ROS unobtainable: due to mental status (Please see HPI.) Exam - Vital Signs Vital signs: Vital Signs Temp Pulse Resp BP Pulse Ox 98.2 F 63 22 131/62 90 06/07/19 00:55 06/07/19 00:55 06/07/19 00:55 06/07/19 00:55 06/07/19 00:55 - General Appearance General appearance: well-developed, appears stated age, other (not in distress) EENT: ATNC, PERRL, hearing intact, vision intact Neck: Present: neck supple, trachea midline Respiratory: Clear to Ascultation Heart: S1S2, no murmurs Gastrointestinal: Present: normoactive bowel sounds. Absent: tenderness, distended Integumentary: no rash, warm and dry Neurologic: no focal deficit, no asterixis, disoriented Musculoskeletal: Present: other (2+ edema of both LEs noted) Results - Lab Results 06/07/19 01:37 06/07/19 13:10 Most recent lab results Calcium 8.9 mg/dL (8.4-10.2) 06/07/19 01:37 Assessment and Plan 1. Acute kidney injury: Likley vasomotor JOSE. Monitor renal function. Avoid nephrotoxic agents. Meds dosage based on GFR. 2. FEN: Hyponatremia, monitor. Volume overload, On IV Lasix. Metabolic alkalosis, Diamox. Monitor lytes. 3. Chest pain: Seen by Cards. 4. Shortness of breath: Chronic symptoms. 5. HFpEF: Followed by Cards. 6. Paroxysmal A.fib: On Eliquis. 7. HTN: Monitor BP. 8. Anemia: POA.
[2019-06-07] MEDS ORDERED: DIAMOX IV ONE (13:30)
[2019-06-07 14:28] LABS: Creatine Kinase MB 3.3 ng/mL (0.0-4.0)
[2019-06-07] MEDS ORDERED: LASIX IV NR (15:55)
--- NOTE | 2019-06-07 16:25 | Event Note ---
Date: 06/07/19
[2019-06-07] MEDS: ELIQUIS PO SCH (21:00)
[2019-06-08 06:06] LABS: Calcium 8.7 mg/dL (8.4-10.2)
--- NOTE | 2019-06-08 09:54 | Progress Note ---
Assessment and Plan (1) Acute exacerbation of CHF (congestive heart failure) Current Visit: Yes Status: Acute Qualifiers: Heart failure type: combined systolic and diastolic Qualified Code(s): I50.43 - Acute on chronic combined systolic (congestive) and diastolic (congestive) heart failure Plan to address problem: COnt Lasix ECHO done recently in April 2019 Cr High Use lasix judiciously Echocardiogram 04/2019 shows normal left ventricular systolic function, ejection fraction 60%. There is enlargement of the right heart chambers, moderate to severe pulmonary hypertension with a pulmonary artery systolic pressure of 66, suggests cor pulmonale. (2) JOSE (acute kidney injury) Current Visit: Yes Status: Acute Plan to address problem: JOSE superimposed on CKD Nephrology consult requested Lasix to be used judiciously Cr to 1.5 at baseline high of 2.3 recently (3) Chest pain Current Visit: Yes Status: Acute Qualifiers: Chest pain type: unspecified Qualified Code(s): R07.9 - Chest pain, unspecified Plan to address problem: Atypical Troponins negative No Stress test Patient of AHA AHA following (4) Afib Current Visit: Yes Status: Chronic Qualifiers: Atrial fibrillation type: chronic Qualified Code(s): I48.2 - Chronic atrial fibrillation Plan to address problem: On Eliquis (5) HTN (hypertension) Current Visit: Yes Status: Chronic Qualifiers: Hypertension type: essential hypertension Qualified Code(s): I10 - Essential (primary) hypertension Plan to address problem: Cont antihypertensives (6) COPD (chronic obstructive pulmonary disease) Current Visit: Yes Status: Chronic Qualifiers: Chronic bronchitis type: unspecified Plan to address problem: On Duonebs prn (7) Pulmonary HTN Current Visit: Yes Status: Chronic Plan to address problem: Patient is not on any Revatio etc (8) DVT prophylaxis Current Visit: Yes Status: Acute Plan to address problem: On Eliquis Subjective Date of service: 06/08/19 Principal diagnosis: CHF exacerbation Interval history: 88 year-old female with history of hypertension, DM, afib, CHF, COPD, CKD was brought to the emergency room with complaints of chest pain in the left chest, constant, intensity 7/10, no radiation. Has a dry cough which has not changed, also complained of shorttness of breath, nausea, no diaphoresis, palpitation. She was discharged from the hospital on June 01, treated for CHf exacerbation. She had a stress test on May 15, normal Objective - Constitutional Vitals: Vital Signs - 12hr 06/08/19 06/08/19 06/08/19 00:05 04:42 08:33 Temperature 98.0 F 98.3 F 97.6 F Pulse Rate 65 65 67 Respiratory 18 18 24 Rate Blood Pressure 142/70 138/73 144/72 O2 Sat by Pulse 100 100 95 Oximetry General appearance: Present: mild distress, well-nourished - EENT Eyes: PERRL, EOM intact ENT: hearing intact, clear oral mucosa Ears: bilateral: normal - Neck Neck: supple, normal ROM - Respiratory Respiratory effort: normal Respiratory: bilateral: CTA - Breasts Breasts: normal - Cardiovascular Heart rate: 88 Rhythm: irregularly irregular Heart Sounds: Present: S1 & S2. Absent: gallop, rub Extremities: pulses intact, No edema, normal color, Full ROM Extremity abnormal: edema (3 plus ) - Gastrointestinal General gastrointestinal: Present: soft, non-tender, non-distended, normal bowel sounds - Genitourinary Female genitourinary: normal - Integumentary Integumentary: clear, warm, dry - Musculoskeletal Musculoskeletal: 1, strength equal bilaterally - Neurologic Neurologic: moves all extremities - Psychiatric Psychiatric: memory intact, appropriate mood/affect, intact judgment & insight - Labs CBC & Chem 7: 06/07/19 01:37 06/08/19 04:34 Labs: Abnormal lab results 06/07/19 06/07/19 06/07/19 Range/Units 12:44 13:10 17:10 Sodium 127 L (137-145) mmol/L Chloride (98-107) mmol/L BUN (7-17) mg/dL Creatinine (0.7-1.2) mg/dL Glucose (65-100) mg/dL POC Glucose 148 H 122 H (70-105) 06/07/19 06/08/19 06/08/19 Range/Units 20:28 04:34 07:43 Sodium 131 L (137-145) mmol/L Chloride 91.0 L (98-107) mmol/L BUN 29 H (7-17) mg/dL Creatinine 1.5 H (0.7-1.2) mg/dL Glucose 149 H (65-100) mg/dL POC Glucose 136 H 144 H (70-105)
[2019-06-08] MEDS ORDERED: NON-FORMULARY (Albuterol Sulfate [Proair Respiclick] 90 MCG) IH PRN (10:12)
[2019-06-08] MEDS ORDERED: IRON CARB GL PO SCH (10:15)
[2019-06-08] MEDS ORDERED: [UNRECOGNIZED DRUG - OTHER] PO SCH (10:15)
[2019-06-08] MEDS ORDERED: DOCUSATE PO SCH (10:15)
[2019-06-08] MEDS ORDERED: B12 PO SCH (10:15)
[2019-06-08] MEDS ORDERED: PROVENTIL IH PRN (10:18)
[2019-06-08] MEDS: HumaLOG SUB-Q SCH ×4 (10:46→22:36)
[2019-06-08] MEDS: SODIUM CHLORIDE FLUSH SYRINGE 10 ML IV SCH ×2 (10:47→22:37)
[2019-06-08] MEDS: LASIX IV SCH (10:47)
[2019-06-08] MEDS: ELIQUIS PO SCH ×2 (10:47→22:36)
[2019-06-08] MEDS: VITAMIN D3 PO SCH (10:49)
[2019-06-08] MEDS: K-DUR PO SCH (10:49)
[2019-06-08] MEDS: PRAVACHOL PO SCH (10:49)
[2019-06-08] MEDS: PEPCID PO SCH ×2 (10:51→22:36)
--- NOTE | 2019-06-08 10:57 | Progress Note ---
Assessment and Plan Chest pain, atypical No ischemia on MPI 05/2019 CXR revealing a small right pleural effusion Cor pulmonale Echocardiogram 04/2019 shows normal left ventricular systolic function, ejection fraction 60%. There is enlargement of the right heart chambers, moderate to severe pulmonary hypertension with a pulmonary artery systolic pressure of 66, suggests cor pulmonale. Chronic renal failure Required transient HD in the past. Hyponatremia Paroxysmal Afib On low dose eliquis as outpatient Rate control strategy Pacemaker present COPD Essential systemic hypertension Maximize medical therapy as blood pressure tolerates Type 2 DM Management per primary Recommendations: No further cardiac work-up is needed Recommend conservative medical management Continue gentle IV diuresis Continue low dose eliquis Consider swallowing study to rule out silent aspiration (patient was chocking while having breakfast this morning) Subjective Date of service: 06/08/19 Principal diagnosis: CHF exacerbation Interval history: Patient is feeling better Patient still has bibasilar crackles on exam and decreased breath sounds Patient was choking while eating this morning Objective Vital Signs Temp Pulse Resp BP Pulse Ox 06/08/19 08:33 97.6 F 67 24 144/72 95 06/08/19 04:42 98.3 F 65 18 138/73 100 06/08/19 00:05 98.0 F 65 18 142/70 100 06/07/19 19:30 65 06/07/19 19:26 97.9 F 65 18 145/68 100 06/07/19 17:02 97.6 F 65 18 122/60 91 06/07/19 12:33 121 H 99 - Physical Examination Neck: Positive: neck supple, trachea midline Cardiac: Positive: Reg Rate and Rhythm Lungs: Positive: Decreased Breath Sounds, Rales Abdomen: Positive: Soft Extremities: Present: +1 Edema - Labs and Meds Cardiac Enzymes 06/07/19 Range/Units 12:53 CK-MB (CK-2) 3.3 (0.0-4.0) ng/mL Comprehensive Metabolic Panel 06/07/19 06/08/19 Range/Units 13:10 04:34 Sodium 127 L 131 L (137-145) mmol/L Potassium 4.1 (3.6-5.0) mmol/L Chloride 91.0 L (98-107) mmol/L Carbon Dioxide 30 (22-30) mmol/L BUN 29 H (7-17) mg/dL Creatinine 1.5 H (0.7-1.2) mg/dL Glucose 149 H (65-100) mg/dL Calcium 8.7 (8.4-10.2) mg/dL - Imaging and Cardiology EKG: image reviewed
[2019-06-08] MEDS ORDERED: ELIQUIS PO SCH (11:00)
--- NOTE | 2019-06-08 11:45 | Progress Note ---
Assessment and Plan 1. Acute kidney injury: Michael vasomotor JOSE. Renal function is improving. Monitor renal function. Avoid nephrotoxic agents. Meds dosage based on GFR. 2. FEN: Hyponatremia, improving. Volume overload, on IV Lasix. Patient is non-compliant with fluid intake. Fluid restriction. Counseled. Metabolic alkalosis, Diamox prn. Monitor lytes. 3. Chest pain: Seen by Cards. 4. Shortness of breath: Chronic symptom. 5. HFpEF: Followed by Cards. 6. Paroxysmal A.fib: On Eliquis. 7. HTN: Monitor BP. 8. Anemia: POA. Subjective Date of service: 06/08/19 Principal diagnosis: CHF exacerbation Interval history: Patient was seen and examined at the bedside. Objective - Vital Signs Vital signs: Vital Signs - 12hr 06/08/19 06/08/19 06/08/19 00:05 04:42 08:33 Temperature 98.0 F 98.3 F 97.6 F Pulse Rate 65 65 67 Respiratory 18 18 24 Rate Blood Pressure 142/70 138/73 144/72 O2 Sat by Pulse 100 100 95 Oximetry - General Appearance General appearance: well-developed, appears stated age, other (no distress) EENT: ATNC, PERRL, hearing diminished Neck: supple Respiratory: Present: Clear to Ascultation Cardiology: regular, S1S2, no murmurs Gastrointestinal: normoactive bowel sounds, no tenderness, no distended Integumentary: no rash Neurologic: no focal deficit, no asterixis, disoriented Musculoskeletal: other (1 to 2+ LE edema) Psychiatric: cooperative - Lab 06/07/19 01:37 06/08/19 04:34 Most recent lab results Calcium 8.7 mg/dL (8.4-10.2) 06/08/19 04:34 Magnesium 2.20 mg/dL (1.7-2.3) 06/08/19 04:34 Medications & Allergies - Medications Allergies/Adverse Reactions: Allergies No Known Allergies Allergy (Verified 05/30/19 16:29) Home Medications: Home Medications Medication Instructions Recorded Confirmed Last Taken Type Cholecalciferol Vit D3 [Vitamin D3 1,000 unit PO QDAY 04/12/19 06/07/19 Unknown History 1,000 UNIT TAB] Iron Carb,Gl/FA/B12/C/Docusate 1 each PO QDAY 05/03/19 06/07/19 Unknown History [Ferralet 90 Tablet] Albuterol Sulfate [Proair 90 mcg IH PRN PRN #1 aer.[email or web address] 05/08/19 06/07/19 Unknown Rx Respiclick] Apixaban [Eliquis] 2.5 mg PO Q12HR #60 tablet 05/08/19 06/07/19 Unknown Rx Pravastatin [Pravachol] 20 mg PO DAILY #30 tablet 05/08/19 06/07/19 Unknown Rx amLODIPine [Norvasc] 10 mg PO DAILY #30 tab 05/08/19 06/07/19 Unknown Rx Famotidine [Pepcid] 10 mg PO BID #30 tablet 06/01/19 06/07/19 Unknown Rx Furosemide [Lasix TAB] 80 mg PO DAILY #30 tablet 06/01/19 06/07/19 Unknown Rx Potassium Chloride [K-Dur] 10 meq PO QDAY #30 tablet 06/01/19 06/07/19 Unknown Rx Active Medications: Generic Name Dose Route Start Last Admin Trade Name Freq PRN Reason Stop Dose Admin Acetaminophen 650 mg 06/07/19 03:26 Tylenol PO Q4H PRN Pain MILD(1-3)/Fever >100.5/BASILIO Albuterol 2.5 mg 06/08/19 10:18 Proventil IH Q4H PRN Shortness Of Breath Apixaban 2.5 mg 06/07/19 22:00 06/08/19 10:47 Eliquis PO 2.5 mg Q12HR [facility] Administration Protocol Cholecalciferol 1,000 unit 06/08/19 11:00 06/08/19 10:49 Vitamin D3 PO 1,000 unit QDAY [facility] Administration Dextrose 50 ml 06/07/19 03:26 D50w (25gm) Syringe IV PRN PRN Hypoglycemia Famotidine 10 mg 06/08/19 11:00 06/08/19 10:51 Pepcid PO 10 mg BID [facility] Administration Furosemide 40 mg 06/08/19 10:00 06/08/19 10:47 Lasix IV 40 mg QDAY [facility] Administration Insulin Human Lispro 0 unit 06/07/19 07:30 06/08/19 10:46 Humalog SUB-Q Not Given ACHS [facility] Protocol Miscellaneous Medication 1 each 06/08/19 10:15 Iron Carb,Gl/Fa/B12/C/Docusate [Ferralet 90 Tablet] PO QDAY [facility] Ondansetron HCl 4 mg 06/07/19 03:26 Zofran IV Q8H PRN Nausea And Vomiting Potassium Chloride 20 meq 06/08/19 11:00 06/08/19 10:49 K-Dur PO 20 meq QDAY [facility] Administration Pravastatin Sodium 20 mg 06/08/19 10:15 06/08/19 10:49 Pravachol PO 20 mg DAILY [facility] Administration Sodium Chloride 10 ml 06/07/19 10:00 06/08/19 10:47 Sodium Chloride Flush Syringe 10 Ml IV 10 ml BID [facility] Administration Sodium Chloride 10 ml 06/07/19 03:26 Sodium Chloride Flush Syringe 10 Ml IV PRN PRN LINE FLUSH
[2019-06-08] MEDS: TYLENOL PO PRN (22:36)
[2019-06-09 04:33] VITALS: BP 111/50
[2019-06-09 05:34] LABS: Hematocrit 24.4 % (30.3-42.9); Hemoglobin 7.9 gm/dl (10.1-14.3); Mean Corpuscular HGB Conc 32 % (30-34); Mean Corpuscular Volume 96 fl (79-97); Platelet Count 183 K/mm3 (140-440); Red Blood Count 2.55 M/mm3 (3.65-5.03); Red Cell Distribution Width 20.7 % (13.2-15.2)
[2019-06-09 05:57] LABS: Albumin 3.1 g/dL (3.9-5); Calcium 8.9 mg/dL (8.4-10.2)
[2019-06-09 08:29] LABS: Basophils % (Manual) 0 % (0.0-1.8); Total Cells Counted 100
[2019-06-09 08:30] LABS: Anisocytosis 1+; Hypochromasia 1+; Platelet Estimate Consistent w Auto
--- NOTE | 2019-06-09 08:43 | Progress Note ---
Assessment and Plan 1. Acute kidney injury: Latishadonna vasomotor JOSE. Renal function is stable. Monitor renal function. Avoid nephrotoxic agents. Meds dosage based on GFR. 2. FEN: Hyponatremia, improving. Volume overload, on IV Lasix. Patient is non-compliant with fluid intake. Fluid restriction. Counseled. Metabolic alkalosis, Diamox prn. Monitor lytes. 3. Chest pain: Seen by Cards. 4. Shortness of breath: Chronic symptom. 5. HFpEF: Followed by Cards. 6. Paroxysmal A.fib: On Eliquis. 7. HTN: Monitor BP. 8. Anemia: POA. Subjective Date of service: 06/09/19 Principal diagnosis: CHF exacerbation Interval history: Patient was seen and examined at the bedside. Continues to eat ice chips. Objective - Vital Signs Vital signs: Vital Signs - 12hr 06/08/19 06/09/19 23:43 03:48 Temperature 98.6 F 98.2 F Pulse Rate 65 66 Respiratory 18 20 Rate Blood Pressure 125/56 111/50 O2 Sat by Pulse 100 100 Oximetry - General Appearance General appearance: well-developed, appears stated age, other (no distress) EENT: ATNC, PERRL, hearing diminished Neck: supple Respiratory: Present: Clear to Ascultation Cardiology: regular, S1S2, no murmurs Gastrointestinal: normoactive bowel sounds, no tenderness, no distended Integumentary: no rash, warm and dry Neurologic: no focal deficit, no asterixis, disoriented Musculoskeletal: other (1 to 2+ edema of both LEs noted) - Lab 06/09/19 04:58 06/09/19 04:58 Most recent lab results Calcium 8.9 mg/dL (8.4-10.2) 06/09/19 04:58 Magnesium 2.20 mg/dL (1.7-2.3) 06/08/19 04:34 Medications & Allergies - Medications Allergies/Adverse Reactions: Allergies No Known Allergies Allergy (Verified 05/30/19 16:29) Home Medications: Home Medications Medication Instructions Recorded Confirmed Last Taken Type Cholecalciferol Vit D3 [Vitamin D3 1,000 unit PO QDAY 04/12/19 06/07/19 Unknown History 1,000 UNIT TAB] Iron Carb,Gl/FA/B12/C/Docusate 1 each PO QDAY 05/03/19 06/07/19 Unknown History [Ferralet 90 Tablet] Albuterol Sulfate [Proair 90 mcg IH PRN PRN #1 aer.[email or web address] 05/08/19 06/07/19 Unknown Rx Respiclick] Apixaban [Eliquis] 2.5 mg PO Q12HR #60 tablet 05/08/19 06/07/19 Unknown Rx amLODIPine [Norvasc] 10 mg PO DAILY #30 tab 05/08/19 06/07/19 Unknown Rx Furosemide [Lasix TAB] 80 mg PO DAILY #30 tablet 06/01/19 06/07/19 Unknown Rx Famotidine [Pepcid] 20 mg PO BID #60 tablet 06/09/19 Unknown Rx Potassium Chloride [K-Dur] 20 meq PO QDAY #30 tablet 06/09/19 Unknown Rx Pravastatin [Pravachol] 20 mg PO DAILY tablet 06/09/19 Unknown Rx Active Medications: Generic Name Dose Route Start Last Admin Trade Name Freq PRN Reason Stop Dose Admin Acetaminophen 650 mg 06/07/19 03:26 06/08/19 22:36 Tylenol PO 650 mg Q4H PRN Administration Pain MILD(1-3)/Fever >100.5/BASILIO Albuterol 2.5 mg 06/08/19 10:18 Proventil IH Q4H PRN Shortness Of Breath Apixaban 2.5 mg 06/07/19 22:00 06/08/19 22:36 Eliquis PO 2.5 mg Q12HR [facility] Administration Protocol Cholecalciferol 1,000 unit 06/08/19 11:00 06/08/19 10:49 Vitamin D3 PO 1,000 unit QDAY [facility] Administration Dextrose 50 ml 06/07/19 03:26 D50w (25gm) Syringe IV PRN PRN Hypoglycemia Famotidine 10 mg 06/08/19 11:00 06/08/19 22:36 Pepcid PO 10 mg BID [facility] Administration Furosemide 40 mg 06/08/19 10:00 06/08/19 10:47 Lasix IV 40 mg QDAY [facility] Administration Insulin Human Lispro 0 unit 06/07/19 07:30 06/08/19 22:36 Humalog SUB-Q 6 unit ACHS [facility] Administration Protocol Miscellaneous Medication 1 each 06/08/19 10:15 Iron Carb,Gl/Fa/B12/C/Docusate [Ferralet 90 Tablet] PO QDAY [facility] Ondansetron HCl 4 mg 06/07/19 03:26 Zofran IV Q8H PRN Nausea And Vomiting Potassium Chloride 20 meq 06/08/19 11:00 06/08/19 10:49 K-Dur PO 20 meq QDAY [facility] Administration Pravastatin Sodium 20 mg 06/08/19 10:15 06/08/19 10:49 Pravachol PO 20 mg DAILY [facility] Administration Sodium Chloride 10 ml 06/07/19 10:00 06/08/19 22:37 Sodium Chloride Flush Syringe 10 Ml IV 10 ml BID [facility] Administration Sodium Chloride 10 ml 06/07/19 03:26 Sodium Chloride Flush Syringe 10 Ml IV PRN PRN LINE FLUSH
[2019-06-09] MEDS: PRAVACHOL PO SCH (09:33)
[2019-06-09] MEDS: VITAMIN D3 PO SCH (09:33)
[2019-06-09] MEDS: ELIQUIS PO SCH (09:34)
[2019-06-09] MEDS: TYLENOL PO PRN (09:34)
[2019-06-09] MEDS: HumaLOG SUB-Q SCH ×3 (09:34→17:55)
[2019-06-09] MEDS: LASIX IV SCH (09:34)
[2019-06-09] MEDS: K-DUR PO SCH (09:34)
[2019-06-09] MEDS: PEPCID PO SCH (09:34)
[2019-06-09] MEDS: SODIUM CHLORIDE FLUSH SYRINGE 10 ML IV SCH (09:35)
--- NOTE | 2019-06-09 10:02 | Progress Note ---
Assessment and Plan Chest pain, atypical No ischemia on MPI 05/2019 CXR revealing a small right pleural effusion Cor pulmonale Echocardiogram 04/2019 shows normal left ventricular systolic function, ejection fraction 60%. There is enlargement of the right heart chambers, moderate to severe pulmonary hypertension with a pulmonary artery systolic pressure of 66, suggests cor pulmonale. Chronic renal failure Required transient HD in the past. Hyponatremia Paroxysmal Afib On low dose eliquis as outpatient Pacemaker present COPD Essential systemic hypertension Type 2 DM Conservative cardiac management. Subjective Date of service: 06/09/19 Principal diagnosis: CHF exacerbation Interval history: Patient is resting comfortably. She denies chest pain. Objective Vital Signs Temp Pulse Resp BP Pulse Ox 06/09/19 03:48 98.2 F 66 20 111/50 100 06/08/19 23:43 98.6 F 65 18 125/56 100 06/08/19 19:31 98.7 F 66 18 130/59 100 06/08/19 19:00 65 06/08/19 17:03 98.2 F 65 20 130/61 100 06/08/19 12:04 97.4 F L 66 20 135/66 97 - Physical Examination General: No Apparent Distress HEENT: Positive: PERRL Neck: Positive: trachea midline Cardiac: Positive: Other (paced) Lungs: Positive: Decreased Breath Sounds Extremities: Present: +1 Edema - Labs and Meds Cardiac Enzymes 06/09/19 Range/Units 04:58 AST 16 (5-40) units/L CBC 06/09/19 Range/Units 04:58 WBC 5.4 (4.5-11.0) K/mm3 RBC 2.55 L (3.65-5.03) M/mm3 Hgb 7.9 L (10.1-14.3) gm/dl Hct 24.4 L (30.3-42.9) % Plt Count 183 (140-440) K/mm3 Comprehensive Metabolic Panel 06/09/19 Range/Units 04:58 Sodium 133 L (137-145) mmol/L Potassium 4.2 (3.6-5.0) mmol/L Chloride 92.9 L (98-107) mmol/L Carbon Dioxide 30 (22-30) mmol/L BUN 31 H (7-17) mg/dL Creatinine 1.6 H (0.7-1.2) mg/dL Glucose 71 (65-100) mg/dL Calcium 8.9 (8.4-10.2) mg/dL AST 16 (5-40) units/L ALT 6 L (7-56) units/L Alkaline Phosphatase 69 (35-129) units/L Total Protein 6.2 L (6.3-8.2) g/dL Albumin 3.1 L (3.9-5) g/dL
--- NOTE | 2019-06-09 16:27 | Discharge Summary ---
Providers - Providers Date of Admission: 06/09/19 13:15 Date of discharge: 06/09/19 Attending physician: TAHMINA VALENCIA 06/07/19 03:26 Consult to Physician [CONS] Routine Comment: Consulting Provider: TERELL MARIE Physician Instructions: Reason For Exam: cp Consult to Physician [CONS] Routine Comment: Consulting Provider: ANDREZ PRABHAKAR Physician Instructions: Reason For Exam: rf Primary care physician: JACQUELYN CARRINGTON Hospitalization Condition: Stable Hospital course: (1) Acute exacerbation of CHF (congestive heart failure) Current Visit: Yes Status: Acute Qualifiers: Heart failure type: combined systolic and diastolic Qualified Code(s): I50.43 - Acute on chronic combined systolic (congestive) and diastolic (congestive) heart failure Plan to address problem: COnt Lasix ECHO done recently in April 2019 Cr High Use lasix judiciously Echocardiogram 04/2019 shows normal left ventricular systolic function, ejection fraction 60%. There is enlargement of the right heart chambers, moderate to severe pulmonary hypertension with a pulmonary artery systolic pressure of 66, suggests cor pulmonale. Stable for discharge (2) JOSE (acute kidney injury) Current Visit: Yes Status: Acute Plan to address problem: JOSE superimposed on CKD Nephrology consult requested Lasix to be used judiciously Cr to 1.5 at baseline high of 2.3 recently (3) Chest pain Current Visit: Yes Status: Acute Qualifiers: Chest pain type: unspecified Qualified Code(s): R07.9 - Chest pain, unspecified Plan to address problem: Atypical Troponins negative No Stress test Patient of AHA AHA following (4) Afib Current Visit: Yes Status: Chronic Qualifiers: Atrial fibrillation type: chronic Qualified Code(s): I48.2 - Chronic atrial fibrillation Plan to address problem: On Eliquis (5) HTN (hypertension) Current Visit: Yes Status: Chronic Qualifiers: Hypertension type: essential hypertension Qualified Code(s): I10 - Essential (primary) hypertension Plan to address problem: Cont antihypertensives (6) COPD (chronic obstructive pulmonary disease) Current Visit: Yes Status: Chronic Qualifiers: Chronic bronchitis type: unspecified Plan to address problem: On Duonebs prn (7) Pulmonary HTN Current Visit: Yes Status: Chronic Plan to address problem: Patient is not on any Revatio etc Disposition: - TO HOME OR SELFCARE Core Measure Documentation - Palliative Care Palliative Care/ Comfort Measures: Not Applicable - Core Measures Any of the following diagnoses?: none Exam - Constitutional Vitals: Temp Pulse Resp BP Pulse Ox 98.2 F 65 20 111/50 100 06/09/19 03:48 06/09/19 10:41 06/09/19 03:48 06/09/19 03:48 06/09/19 03:48 General appearance: Present: no acute distress, well-nourished - EENT Eyes: Present: PERRL ENT: hearing intact, clear oral mucosa - Neck Neck: Present: supple, normal ROM - Respiratory Respiratory effort: normal Respiratory: bilateral: CTA - Cardiovascular Heart Sounds: Present: S1 & S2. Absent: rub, click - Extremities Extremities: pulses symmetrical, No edema Peripheral Pulses: within normal limits - Abdominal General gastrointestinal: Present: soft, non-tender, non-distended, normal bowel sounds Female genitourinary: Present: normal - Integumentary Integumentary: Present: clear, warm, dry - Musculoskeletal Musculoskeletal: gait normal, strength equal bilaterally - Psychiatric Psychiatric: appropriate mood/affect, intact judgment & insight - Neurologic Neurologic: CNII-XII intact, moves all extremities Plan Activity: no restrictions Diet: low fat, low cholesterol, low salt Follow up with: JACQUELYN CARRINGTON MD [Primary Care Provider] - 3-5 Days
== END 2019-06-09 18:45 | disposition home or self-care (01) | DRG 682 ==
LOC: ED 00:29 → 4A 04:05 → OBSVTOIN 06-09 13:15
PROVIDERS: ADMIT Internal Medicine; ATTEND Internal Medicine
DX: N17.9 Acute kidney failure, unspecified (principal); I50.43 Acute on chronic combined systolic (congestive) and diastolic (congestive) heart failure; I13.0 Hypertensive heart and chronic kidney disease with heart failure and stage 1 through stage 4 chronic kidney disease, or unspecified chronic kidney disease; E87.1 Hypo-osmolality and hyponatremia; N18.9 Chronic kidney disease, unspecified; E11.22 Type 2 diabetes mellitus with diabetic chronic kidney disease; D64.9 Anemia, unspecified; I48.0 Paroxysmal atrial fibrillation; I27.20 Pulmonary hypertension, unspecified; R07.89 Other chest pain; J44.9 Chronic obstructive pulmonary disease, unspecified; Z79.51 Long term (current) use of inhaled steroids; Z79.01 Long term (current) use of anticoagulants; Z87.891 Personal history of nicotine dependence; Z82.49 Family history of ischemic heart disease and other diseases of the circulatory system; Z95.0 Presence of cardiac pacemaker; Z79.84 Long term (current) use of oral hypoglycemic drugs
CPT/HCPCS: 36415; 71045; 80048; 80053; 80061; 80076; 82550; 82553; 82962; 83735; 83880; 84295; 84484; 85007; 85025; 87040; 93005; 93010; 94640; G0378; A9270-GY; J1120; J1650; J1815; J1940

== ENCOUNTER 2019-06-16 01:05 | Inpatient (IN) | payer MEDICARE ==
--- NOTE | 2019-06-16 01:44 | Emergency Department Report ---
HPI - General Chief Complaint: Chest Pain Time Seen by Provider: 06/16/19 01:26 - HPI HPI: Room 3 The patient is an 88-year-old female presenting with a chief complaint chest pain. Patient states her chest pain worsened today described as a substernal "hurt." Patient admits to shortness of breath and diaphoresis with her chest pain. Patient is to nausea but denies vomiting. Patient has a history of CHF and states she's been compliant with her Lasix. Family states the patient's last stress test occurred earlier this year but she is not aware of the results. Patient denies bright red blood per rectum or melena Location: [See above] Duration: [See above] Quality: [See above] Severity: [See above] Modifying factors: [see above] Context: [see above] Mode of transportation: [not driving] ED Past Medical Hx - Past Medical History Previous Medical History?: Yes Hx Hypertension: Yes Hx Congestive Heart Failure: Yes Hx Diabetes: Yes Hx Renal Disease: Yes (Chronic renal disease, required HD in past) Hx Arthritis: Yes Hx COPD: Yes Additional medical history: heart failure - Surgical History Past Surgical History?: Yes Hx Pacemaker: Yes Additional Surgical History: pacemaker, diverticulitis - Family History Family history: no significant - Social History Smoking Status: Former Smoker (none 4 years) Substance Use Type: Alcohol (rarely) - Medications Home Medications: Home Medications Medication Instructions Recorded Confirmed Last Taken Type Cholecalciferol Vit D3 [Vitamin D3 1,000 unit PO QDAY 04/12/19 06/07/19 Unknown History 1,000 UNIT TAB] Iron Carb,Gl/FA/B12/C/Docusate 1 each PO QDAY 05/03/19 06/07/19 Unknown History [Ferralet 90 Tablet] Albuterol Sulfate [Proair 90 mcg IH PRN PRN #1 [email or web address] 05/08/19 06/07/19 Unknown Rx Respiclick] Apixaban [Eliquis] 2.5 mg PO Q12HR #60 tablet 05/08/19 06/07/19 Unknown Rx amLODIPine [Norvasc] 10 mg PO DAILY #30 tab 05/08/19 06/07/19 Unknown Rx Furosemide [Lasix TAB] 80 mg PO DAILY #30 tablet 06/01/19 06/07/19 Unknown Rx Famotidine [Pepcid] 20 mg PO BID #60 tablet 06/09/19 Unknown Rx Potassium Chloride [K-Dur] 20 meq PO QDAY #30 tablet 06/09/19 Unknown Rx Pravastatin [Pravachol] 20 mg PO DAILY tablet 06/09/19 Unknown Rx ED Review of Systems ROS: Stated complaint: CHEST PAIN AND INOCENCIO Other details as noted in HPI Constitutional: diaphoresis Eyes: denies: eye pain ENT: denies: throat pain Respiratory: shortness of breath Cardiovascular: chest pain Endocrine: no symptoms reported Gastrointestinal: nausea. denies: vomiting Genitourinary: denies: dysuria Musculoskeletal: denies: back pain Neurological: denies: headache Physical Exam - Physical Exam Vital Signs: Vital Signs 06/16/19 01:19 Temperature 97.7 F Pulse Rate 65 Respiratory 18 Rate Blood Pressure 133/51 O2 Sat by Pulse 99 Oximetry Physical Exam: GENERAL: The patient is well-developed well-nourished female lying on stretcher not appearing to be in acute distress. [] HEENT: Normocephalic. Atraumatic. Extraocular motions are intact. Patient has moist mucous membranes. NECK: Supple. Trachea midline CHEST/LUNGS: Faint crackles at the right base. There is no respiratory distress noted. HEART/CARDIOVASCULAR: Regular. There is no tachycardia. There is no gallop rub or murmur. ABDOMEN: Abdomen is soft, nontender. Patient has normal bowel sounds. There is no abdominal distention. SKIN: There is no rash. There is 2-3+ bilateral lower extremity pitting edema. There is no diaphoresis. NEURO: The patient is awake, alert, and oriented. The patient is cooperative. The patient has normal speech MUSCULOSKELETAL: There is no evidence of acute injury. Rectal: melena, guaiac + ED Course Vital Signs 06/16/19 01:19 Temperature 97.7 F Pulse Rate 65 Respiratory 18 Rate Blood Pressure 133/51 O2 Sat by Pulse 99 Oximetry ED Medical Decision Making - Lab Data Result diagrams: 06/16/19 01:40 06/16/19 01:40 Laboratory Tests 06/16/19 06/16/19 06/16/19 01:40 01:40 01:40 WBC 5.1 RBC 1.82 L Hgb 5.8 L* Hct 17.5 L* MCV 96 MCH 32 MCHC 33 RDW 19.7 H Plt Count 185 Lymph % (Auto) 11.5 L [place] % (Auto) 14.8 H Eos % (Auto) 7.5 H Baso % (Auto) 0.6 Lymph # 0.6 L [place] # 0.8 Eos # 0.4 Baso # 0.1 Seg Neutrophils % 65.9 Seg Neutrophils # 3.4 PT 20.9 H INR 1.85 H APTT 34.1 Sodium 137 Potassium 5.5 H Chloride 97.8 L Carbon Dioxide 30 Anion Gap 15 BUN 55 H Creatinine 1.3 H Estimated GFR 47 BUN/Creatinine Ratio 42 Glucose 254 H Calcium 8.8 Troponin T 0.029 NT-Pro-B Natriuret Pep 06/16/19 01:40 WBC RBC Hgb Hct MCV MCH MCHC RDW Plt Count Lymph % (Auto) [place] % (Auto) Eos % (Auto) Baso % (Auto) Lymph # [place] # Eos # Baso # Seg Neutrophils % Seg Neutrophils # PT INR APTT Sodium Potassium Chloride Carbon Dioxide Anion Gap BUN Creatinine Estimated GFR BUN/Creatinine Ratio Glucose Calcium Troponin T NT-Pro-B Natriuret Pep 3323 H - EKG Data -: EKG Interpreted by Me Rate: normal - EKG Data When compared to previous EKG there are: previous EKG unavailable Interpretation: other (accelerated junctional rhythm at 65 bpm) - Radiology Data Radiology results: image reviewed (chest x-ray) interpreted by me: Chest x-ray- no focal infiltrates, no pneumothorax - Differential Diagnosis ACS, CHF exacerbation, pericarditis, bronchitis Critical care attestation.: If time is entered above; I have spent that time in minutes in the direct care of this critically ill patient, excluding procedure time. ED Disposition Clinical Impression: Chest pain, CHF exacerbation, Symptomatic anemia, GI bleed Disposition: OP ADMIT IP TO THIS HOSP Is pt being admited?: Yes Does the pt Need Aspirin: No Condition: Fair Instructions: Chest Pain (ED) Time of Disposition: 02:48 (hospitalist notified (Geeta))
[2019-06-16 02:02] LABS: Basophils # (Auto) 0.1 K/mm3 (0.0-0.1); Eosinophils # (Auto) 0.4 K/mm3 (0.0-0.4); Eosinophils % (Auto) 7.5 % (0.0-4.3); Monocytes # (Auto) 0.8 K/mm3 (0.0-0.8); Monocytes % (Auto) 14.8 % (0.0-7.3)
[2019-06-16 02:14] LABS: INR 1.85 (0.87-1.13); Partial Thromboplastin Time 34.1 Sec. (24.2-36.6)
[2019-06-16 02:18] LABS: Basophils % (Auto) 0.6 % (0.0-1.8); Lymphocytes # (Auto) 0.6 K/mm3 (1.2-5.4); Lymphocytes % (Auto) 11.5 % (13.4-35.0); Mean Corpuscular HGB Conc 33 % (30-34); Mean Corpuscular Volume 96 fl (79-97); Platelet Count 185 K/mm3 (140-440); Red Cell Distribution Width 19.7 % (13.2-15.2)
[2019-06-16 02:23] LABS: Red Blood Count 1.82 M/mm3 (3.65-5.03)
[2019-06-16 02:24] LABS: Hematocrit 17.5 % (30.3-42.9); Hemoglobin 5.8 gm/dl (10.1-14.3)
--- NOTE | 2019-06-16 02:24 | XRay Report ---
. CHEST 1 VIEW INDICATION / CLINICAL INFORMATION: Chest Pain. COMPARISON: 06/07/2019 FINDINGS: SUPPORT DEVICES: Pacemaker remains in place on the left. HEART / MEDIASTINUM: No significant abnormality. LUNGS / PLEURA: No significant pulmonary or pleural abnormality. No pneumothorax. ADDITIONAL FINDINGS: No significant additional findings. IMPRESSION: 1. No acute findings. Signer Name: Erwin Chavez MD Signed: 06/16/2019 2:20 AM Workstation Name: [id number]
[2019-06-16 02:26] LABS: Calcium 8.8 mg/dL (8.4-10.2)
[2019-06-16] MEDS ORDERED: NACL 0.9% 500 ML 500 ML IV ONE ×2 (02:34→02:53)
[2019-06-16] MEDS ORDERED: SODIUM CHLORIDE FLUSH SYRINGE 10 ML IV PRN ×2 (02:46→02:48)
[2019-06-16] MEDS ORDERED: D50W (25GM) Syringe IV PRN (02:48)
[2019-06-16] MEDS ORDERED: ZOFRAN IV PRN (02:48)
[2019-06-16] MEDS ORDERED: PROVENTIL IH PRN (02:48)
[2019-06-16] MEDS ORDERED: PROTONIX IV ONE (02:49)
[2019-06-16 03:57] LABS: Chol/HDL Ratio 2.07 %
[2019-06-16] MEDS ORDERED: PROTONIX 80 MG in NACL 0.9% 100 ML IV SCH (04:00)
--- NOTE | 2019-06-16 04:19 | History and Physical Report ---
<KVNG JARAMILLO - Last Filed: 06/16/19 05:00> History of Present Illness Date of examination: 06/16/19 Date of admission: 06/16/2019 Chief complaint: Chest pain, shortness of breath History of present illness: 88-year-old -[place] female with history of Cor pulmonale,pacemaker in situ Paroxysmal A.Fib anticoagulated on Eliquis, COPD on home O2, DM, HTN, pulmonary HTN, chronic anemia, arthritis, and bipolar disorder who presents to [facility] ED with complaints of chest pain and worsening shortness of breath for the past day. Pt is a poor historian and is accompanied by her niece, who has assisted in providing history. Pt describes her hest pain as pressure and rates her pain 4/10. She also complains of increase SOB and BLE pitting edema. Pt states that she is complaint with medications and thought that her symptoms were related to CHF exacerbation. Denies: headache, dizziness, n/v/d, abdominal pain, or hematochezia Past History Past Medical History: atrial fib (paroxysmal A. fib anticoagulated on Eliquis), anemia (chronic anemia), arthritis, COPD (on supplemental O2), diabetes, heart failure, hypertension, hyperlipidemia, other (pulmonary hypertension, cor pulmonale, bipolar disorder,) Past Surgical History: Other (pacemaker,) Social history: lives with family, other (former smoker) Family history: no significant family history Medications and Allergies Allergies Allergy/AdvReac Type Severity Reaction Status Date / Time No Known Allergies Allergy Verified 05/30/19 16:29 Home Medications Medication Instructions Recorded Confirmed Last Taken Type Albuterol Sulfate [Proair 90 mcg IH QID PRN 06/16/19 06/16/19 Unknown History Respiclick] Apixaban [Eliquis] 2.5 mg PO BID 06/16/19 06/16/19 Unknown History Cholecalciferol Vit D3 [Vitamin D3 1 tab PO DAILY 06/16/19 06/16/19 Unknown History 1,000 UNIT TAB] Famotidine [Pepcid] 10 mg PO DAILY 06/16/19 06/16/19 Unknown History Furosemide [Lasix TAB] 80 mg PO DAILY 06/16/19 06/16/19 Unknown History Iron Carb,Gl/FA/B12/C/Docusate 1 each PO DAILY 06/16/19 06/16/19 Unknown History [Ferralet 90 Dual-Iron Tablet] Potassium Chloride [K-Dur] 20 meq PO QDAY 06/16/19 06/16/19 Unknown History Propylene Glycol [Systane Complete] 1.5 ml OP BID 06/16/19 06/16/19 Unknown History Tiotropium [place] [Spiriva] 1 puff IH DAILY 06/16/19 06/16/19 Unknown History Active Meds: Active Medications Acetaminophen (Tylenol) 650 mg PO Q4H PRN PRN Reason: Pain MILD(1-3)/Fever >100.5/BASILIO Albuterol (Proventil) 2.5 mg IH Q3HRT PRN PRN Reason: Shortness Of Breath Atorvastatin Calcium (Lipitor) 40 mg PO QHS TANK Budesonide (Pulmicort) 0.5 mg IH Q12HRT [facility] Dextrose (D50w (25gm) Syringe) 50 ml IV PRN PRN PRN Reason: Hypoglycemia Pantoprazole Sodium 80 mg/ (Sodium Chloride) 100 mls @ 10 mls/hr IV DIRECT TANK Insulin Human Lispro (Humalog) 0 unit SUB-Q Q6HR TANK; Protocol Ondansetron HCl (Zofran) 4 mg IV Q8H PRN PRN Reason: Nausea And Vomiting Sodium Chloride (Sodium Chloride Flush Syringe 10 Ml) 10 ml IV PRN PRN PRN Reason: LINE FLUSH Sodium Chloride (Sodium Chloride Flush Syringe 10 Ml) 10 ml IV BID [facility] Review of Systems All systems: negative (refused and no additional multiple complaints except as noted below) Cardiovascular: chest pain, shortness of breath, dyspnea on exertion, leg edema Respiratory: shortness of breath, dyspnea on exertion Gastrointestinal: melena Exam - Physical Exam Narrative exam: Physical exam General appearance: Present: No acute distress, alert and oriented 2, -[place] older adult female - EENT Eyes: Present: PERRL, EOM intact ENT: hearing intact, normal dentition - Neck Neck: Present: supple, normal ROM - Respiratory Respiratory effort: Non-labored Respiratory: bilateral: CTA with diminished bases bilaterally - Cardiovascular Heart rate: 65 (bpm) Rhythm: V paced Heart Sounds: Present: S1 & S2. Absent: rub, click - Extremities Extremities: no ischemia, pulses intact, abnormal (bilateral lower extremity 2+ pitting edema) - Peripheral Assessment Peripheral Pulses: within normal limits - Abdominal General gastrointestinal: soft, non-tender, normal bowel sounds, melena, - Integumentary Integumentary: Present: warm, dry - Musculoskeletal Musculoskeletal: Able to move all extremities, generalized weakness - Psychiatric Psychiatric: cooperative - Constitutional Vitals: Temp Pulse Resp BP Pulse Ox 98.1 F 65 13 104/51 99 06/16/19 02:02 06/16/19 02:02 06/16/19 02:02 06/16/19 02:02 06/16/19 02:02 Results - Labs CBC & Chem 7: 06/16/19 01:40 06/16/19 01:40 Labs: Laboratory Last Values WBC 5.1 K/mm3 (4.5-11.0) 06/16/19 01:40 RBC 1.82 M/mm3 (3.65-5.03) L 06/16/19 01:40 Hgb 5.8 gm/dl (10.1-14.3) L* 06/16/19 01:40 Hct 17.5 % (30.3-42.9) L* 06/16/19 01:40 MCV 96 fl (79-97) 06/16/19 01:40 MCH 32 pg (28-32) 06/16/19 01:40 MCHC 33 % (30-34) 06/16/19 01:40 RDW 19.7 % (13.2-15.2) H 06/16/19 01:40 Plt Count 185 K/mm3 (140-440) 06/16/19 01:40 Lymph % (Auto) 11.5 % (13.4-35.0) L 06/16/19 01:40 [place] % (Auto) 14.8 % (0.0-7.3) H 06/16/19 01:40 Eos % (Auto) 7.5 % (0.0-4.3) H 06/16/19 01:40 Baso % (Auto) 0.6 % (0.0-1.8) 06/16/19 01:40 Lymph # 0.6 K/mm3 (1.2-5.4) L 06/16/19 01:40 [place] # 0.8 K/mm3 (0.0-0.8) 06/16/19 01:40 Eos # 0.4 K/mm3 (0.0-0.4) 06/16/19 01:40 Baso # 0.1 K/mm3 (0.0-0.1) 06/16/19 01:40 Seg Neutrophils % 65.9 % (40.0-70.0) 06/16/19 01:40 Seg Neutrophils # 3.4 K/mm3 (1.8-7.7) 06/16/19 01:40 PT 20.9 Sec. (12.2-14.9) H 06/16/19 01:40 INR 1.85 (0.87-1.13) H 06/16/19 01:40 APTT 34.1 Sec. (24.2-36.6) 06/16/19 01:40 Sodium 137 mmol/L (137-145) 06/16/19 01:40 Potassium 5.5 mmol/L (3.6-5.0) H 06/16/19 01:40 Chloride 97.8 mmol/L (98-107) L 06/16/19 01:40 Carbon Dioxide 30 mmol/L (22-30) 06/16/19 01:40 15 mmol/L 06/16/19 01:40 BUN 55 mg/dL (7-17) H 06/16/19 01:40 1.3 mg/dL (0.7-1.2) H 06/16/19 01:40 Estimated GFR 47 ml/min 06/16/19 01:40 42 % 06/16/19 01:40 Glucose 254 mg/dL (65-100) H 06/16/19 01:40 Calcium 8.8 mg/dL (8.4-10.2) 06/16/19 01:40 0.035 ng/mL (0.00-0.029) H D 06/16/19 03:05 NT-Pro-B Natriuret Pep 3323 pg/mL (0-900) H 06/16/19 01:40 Triglycerides 51 mg/dL (2-149) 06/16/19 03:05 Cholesterol 87 mg/dL (50-199) 06/16/19 03:05 43 mg/dL (50-130) L 06/16/19 03:05 42 mg/dL (40-59) 06/16/19 03:05 2.07 % 06/16/19 03:05 Blood Type O POSITIVE 06/16/19 03:05 Antibody Screen Negative 06/16/19 03:05 Crossmatch See Detail 06/16/19 03:05 - Imaging and Cardiology Chest x-ray: report reviewed ( No significant pulmonary or pleural abnormality. No pneumothorax. ), image reviewed Assessment and Plan Assessment and plan: 88-year-old -[place] female with history of Cor pulmonale,pacemaker in situ Paroxysmal A.Fib anticoagulated on Eliquis, COPD on home O2, DM, HTN, pulmonary HTN, chronic anemia, arthritis, and bipolar disorder who presents to [facility] ED with complaints of chest pain, increased BLE edema, and worsening shortness of breath for the past day. Upper GI bleed -Multiple dark tarry stools -Guaiac-positive -NPO -on Protonix gtt -GI consulted Acute on chronic anemia -Hemoglobin on admission 5.8 -Hemoglobin during previous admission 7.9 (06/09/19) -Ordered 2u PRBC -Continue oral iron supplementation -Continue to monitor Hgb -Transfuse prn JOSE Superimposed CKD -BUN/Cr this admission 55/1.3 -BUN/CR on day of discharge 31/1.6 (06/09/19) -Avoid nephrotoxic agents -Renal dose all meds -Nephrology consulted Hx Paroxysmal A-fib -Anticoagulated on Eliquis -Hold Eliquis given GI bleed and acute anemia -Pacemaker in situ Cor pulmonale -Echocardiogram on 04/2019 showed EF of 60% with normal left ventricular systolic function; enlargement of the right heart chambers Hx Pulmonary HTN -Moderate to severe seen on Echo on 05/01/19 with pulmonary artery systolic pressure of 66 Hx of HTN -Monitor BP -Pt currently normotensive with active GI bleed -Hold antihypertensive meds for now HLD -Continue statin and ASA Insulin-dependent diabetes -POC BG monitoring -SSI coverage COPD on continuous 2L supplemental O2 -Continue Spiriva -Albuterol when necessary -Continue to monitor saturation -Respiratory treatment and assess per protocol DVT PPX -on SCD's -Hold systemic AC d/t upper gi bleed Hx Bipolar disorder Advance Directives: No VTE prophylaxis?: Mechanical Plan of care discussed with patient/family: Yes <MAYANK RED - Last Filed: 06/16/19 06:24> History of Present Illness Date of admission: 06/16/19 02:48 Medications and Allergies Active Meds: Active Medications Acetaminophen (Tylenol) 650 mg PO Q4H PRN PRN Reason: Pain MILD(1-3)/Fever >100.5/BASILIO Albuterol (Proventil) 2.5 mg IH Q3HRT PRN PRN Reason: Shortness Of Breath Budesonide (Pulmicort) 0.5 mg IH Q12HRT [facility] Cholecalciferol (Vitamin D3) 1,000 unit PO DAILY [facility] Dextrose (D50w (25gm) Syringe) 50 ml IV PRN PRN PRN Reason: Hypoglycemia Pantoprazole Sodium 80 mg/ (Sodium Chloride) 100 mls @ 10 mls/hr IV DIRECT TANK Insulin Human Lispro (Humalog) 0 unit SUB-Q Q6HR TANK; Protocol Miscellaneous Medication (Iron Carb,Gl/Fa/B12/C/Docusate [Ferralet 90 Tablet]) 1 each PO DAILY [facility] Ondansetron HCl (Zofran) 4 mg IV Q8H PRN PRN Reason: Nausea And Vomiting Pravastatin Sodium (Pravachol) 20 mg PO DAILY [facility] Sodium Chloride (Sodium Chloride Flush Syringe 10 Ml) 10 ml IV PRN PRN PRN Reason: LINE FLUSH Sodium Chloride (Sodium Chloride Flush Syringe 10 Ml) 10 ml IV BID [facility] Tiotropium [place] (Spiriva) 1 puff IH DAILY [facility] Exam - Constitutional Vitals: Temp Pulse Resp BP Pulse Ox 98 F 65 18 137/65 100 06/16/19 05:00 06/16/19 05:00 06/16/19 05:00 06/16/19 05:00 06/16/19 05:00 Results - Labs CBC & Chem 7: 06/16/19 01:40 06/16/19 01:40 Labs: Laboratory Last Values WBC 5.1 K/mm3 (4.5-11.0) 06/16/19 01:40 RBC 1.82 M/mm3 (3.65-5.03) L 06/16/19 01:40 Hgb 5.8 gm/dl (10.1-14.3) L* 06/16/19 01:40 Hct 17.5 % (30.3-42.9) L* 06/16/19 01:40 MCV 96 fl (79-97) 06/16/19 01:40 MCH 32 pg (28-32) 06/16/19 01:40 MCHC 33 % (30-34) 06/16/19 01:40 RDW 19.7 % (13.2-15.2) H 06/16/19 01:40 Plt Count 185 K/mm3 (140-440) 06/16/19 01:40 Lymph % (Auto) 11.5 % (13.4-35.0) L 06/16/19 01:40 [place] % (Auto) 14.8 % (0.0-7.3) H 06/16/19 01:40 Eos % (Auto) 7.5 % (0.0-4.3) H 06/16/19 01:40 Baso % (Auto) 0.6 % (0.0-1.8) 06/16/19 01:40 Lymph # 0.6 K/mm3 (1.2-5.4) L 06/16/19 01:40 [place] # 0.8 K/mm3 (0.0-0.8) 06/16/19 01:40 Eos # 0.4 K/mm3 (0.0-0.4) 06/16/19 01:40 Baso # 0.1 K/mm3 (0.0-0.1) 06/16/19 01:40 Seg Neutrophils % 65.9 % (40.0-70.0) 06/16/19 01:40 Seg Neutrophils # 3.4 K/mm3 (1.8-7.7) 06/16/19 01:40 PT 20.9 Sec. (12.2-14.9) H 06/16/19 01:40 INR 1.85 (0.87-1.13) H 06/16/19 01:40 APTT 34.1 Sec. (24.2-36.6) 06/16/19 01:40 Sodium 137 mmol/L (137-145) 06/16/19 01:40 Potassium 5.5 mmol/L (3.6-5.0) H 06/16/19 01:40 Chloride 97.8 mmol/L (98-107) L 06/16/19 01:40 Carbon Dioxide 30 mmol/L (22-30) 06/16/19 01:40 15 mmol/L 06/16/19 01:40 BUN 55 mg/dL (7-17) H 06/16/19 01:40 1.3 mg/dL (0.7-1.2) H 06/16/19 01:40 Estimated GFR 47 ml/min 06/16/19 01:40 42 % 06/16/19 01:40 Glucose 254 mg/dL (65-100) H 06/16/19 01:40 Calcium 8.8 mg/dL (8.4-10.2) 06/16/19 01:40 0.035 ng/mL (0.00-0.029) H D 06/16/19 03:05 NT-Pro-B Natriuret Pep 3323 pg/mL (0-900) H 06/16/19 01:40 Triglycerides 51 mg/dL (2-149) 06/16/19 03:05 Cholesterol 87 mg/dL (50-199) 06/16/19 03:05 43 mg/dL (50-130) L 06/16/19 03:05 42 mg/dL (40-59) 06/16/19 03:05 2.07 % 06/16/19 03:05 Blood Type O POSITIVE 06/16/19 03:05 Antibody Screen Negative 06/16/19 03:05 Crossmatch See Detail 06/16/19 03:05 Assessment and Plan Assessment and plan: 88 year old woman with hypertension, diabetes, CHF, Afib, anemia, COPD is being evaluated for chest pain. Her hemoglobin was found to be low with hyperkalemia. She had episodes of diarrhea in the ER. Agree with transfusion, GI consult. Repeat lab now to folow potassium. Abnormal cardiac enzymes most likely demand ischemia. See other plan as discussed above
[2019-06-16 06:29] LABS: Calcium 8.9 mg/dL (8.4-10.2)
[2019-06-16] MEDS: SPIRIVA IH SCH ×2 (07:23→10:43)
[2019-06-16] MEDS: PULMICORT IH SCH ×2 (07:23→20:26)
--- NOTE | 2019-06-16 07:54 | Progress Note ---
Assessment and Plan Assessment and plan: Patient is a 88-year-old -[place] woman with history of CHF EF 60% with Cor pulmonale on 04/2019 ECHO, PPM, Paroxysmal A.Fib anticoagulated on Eliquis, chronic hypoxic respiratory failure due to COPD on home O2, DM, HTN, pulmonary HTN, chronic anemia, Arthritis and bipolar disorder who presents to [facility] ED with complaints of chest pains, increased BLE edema, and worsening shortness of breath for the past day. She was found to have hemoglobin of 5.8, INR 1.85, K+ 5.9 with +FOBT Acute on chronic blood loss anemia, UGI hemorrhage suspected: protonix gtt, GI consulted, CKD stage 3: monitor bmp closely Paroxysmal A-fib, Anticoagulated on Eliquis: Hold Eliquis given GI bleed and acute anemia CHF with cor pulmonale, carefully with fluid/blood Hx of HTN: monitor closely, iv antihypertensives if needed HLD: statin Insulin-dependent diabetes: SSI, ada, accucheck Chronic hypoxic respiratory failure: COPD on continuous 2L supplemental O2 DVT PPX: scd only due to gib Bipolar disorder; continue to monitor Disposition: continue inpatient care, possible scope today History Interval history: Patient was seen and examined. Follow-up on current diagnosis Anemia. No overnight events reported to me. Patient denies any chest pain, shortness breath, nausea/vomiting or severe headaches. Imaging, nursing note, chart, labs and old chart reviewed. Discussed with patient. Hospitalist Physical - Physical exam Narrative exam: Gen: chronically disable and ill appearing, thin, confused HEENT: NCAT, EOMI, PERRL, OP Clear Neck: supple, no adenopathy, no thyromegaly, equivocal JVD CVS/Heart: irregular normal S1S2, pulses present bilaterally Chest/Lungs: diminished bs bilateral Symmetrical chest expansion, good air entry bilaterally GI/Abdomen: soft, NTND, good bowel sounds, no guarding or rebound /Bladder: no suprapubic tenderness, no CVA or paraspinal tenderness Extermity/Skin: leg edema bilateral MSK: doesn't follow commands Neuro: doesn't follow commands Psych: calm but confused - Constitutional Vitals: Temp Pulse Resp BP Pulse Ox 98.1 F 65 18 111/57 92 06/16/19 05:53 06/16/19 05:53 06/16/19 05:53 06/16/19 05:53 06/16/19 05:53 Results - Labs CBC & Chem 7: 06/16/19 01:40 06/16/19 Unknown Labs: Laboratory Last Values WBC 5.1 K/mm3 (4.5-11.0) 06/16/19 01:40 RBC 1.82 M/mm3 (3.65-5.03) L 06/16/19 01:40 Hgb 5.8 gm/dl (10.1-14.3) L* 06/16/19 01:40 Hct 17.5 % (30.3-42.9) L* 06/16/19 01:40 MCV 96 fl (79-97) 06/16/19 01:40 MCH 32 pg (28-32) 06/16/19 01:40 MCHC 33 % (30-34) 06/16/19 01:40 RDW 19.7 % (13.2-15.2) H 06/16/19 01:40 Plt Count 185 K/mm3 (140-440) 06/16/19 01:40 Lymph % (Auto) 11.5 % (13.4-35.0) L 06/16/19 01:40 [place] % (Auto) 14.8 % (0.0-7.3) H 06/16/19 01:40 Eos % (Auto) 7.5 % (0.0-4.3) H 06/16/19 01:40 Baso % (Auto) 0.6 % (0.0-1.8) 06/16/19 01:40 Lymph # 0.6 K/mm3 (1.2-5.4) L 06/16/19 01:40 [place] # 0.8 K/mm3 (0.0-0.8) 06/16/19 01:40 Eos # 0.4 K/mm3 (0.0-0.4) 06/16/19 01:40 Baso # 0.1 K/mm3 (0.0-0.1) 06/16/19 01:40 Seg Neutrophils % 65.9 % (40.0-70.0) 06/16/19 01:40 Seg Neutrophils # 3.4 K/mm3 (1.8-7.7) 06/16/19 01:40 PT 20.9 Sec. (12.2-14.9) H 06/16/19 01:40 INR 1.85 (0.87-1.13) H 06/16/19 01:40 APTT 34.1 Sec. (24.2-36.6) 06/16/19 01:40 Sodium 137 mmol/L (137-145) 06/16/19 Unknown Potassium 5.9 mmol/L (3.6-5.0) H 06/16/19 Unknown Chloride 98.6 mmol/L (98-107) 06/16/19 Unknown Carbon Dioxide 31 mmol/L (22-30) H 06/16/19 Unknown 13 mmol/L 06/16/19 Unknown BUN 54 mg/dL (7-17) H 06/16/19 Unknown 1.3 mg/dL (0.7-1.2) H 06/16/19 Unknown Estimated GFR 47 ml/min 06/16/19 Unknown 42 % 06/16/19 Unknown Glucose 219 mg/dL (65-100) H 06/16/19 Unknown Calcium 8.9 mg/dL (8.4-10.2) 06/16/19 Unknown 0.035 ng/mL (0.00-0.029) H D 06/16/19 03:05 NT-Pro-B Natriuret Pep 3323 pg/mL (0-900) H 06/16/19 01:40 Triglycerides 51 mg/dL (2-149) 06/16/19 03:05 Cholesterol 87 mg/dL (50-199) 06/16/19 03:05 43 mg/dL (50-130) L 06/16/19 03:05 42 mg/dL (40-59) 06/16/19 03:05 2.07 % 06/16/19 03:05 Blood Type O POSITIVE 06/16/19 03:05 Antibody Screen Negative 06/16/19 03:05 Crossmatch See Detail 06/16/19 03:05 Active Medications - Current Medications Current Medications: Generic Name Dose Route Start Last Admin Trade Name Freq PRN Reason Stop Dose Admin Acetaminophen 650 mg 06/16/19 02:48 Tylenol PO Q4H PRN Pain MILD(1-3)/Fever >100.5/BASILIO Albuterol 2.5 mg 06/16/19 02:48 06/16/19 07:23 Proventil IH 2.5 mg Q3HRT PRN Administration Shortness Of Breath Budesonide 0.5 mg 06/16/19 08:00 06/16/19 07:23 Pulmicort IH 0.5 mg Q12HRT TANK Administration Cholecalciferol 1,000 unit 06/16/19 10:00 Vitamin D3 PO DAILY TANK Dextrose 50 ml 06/16/19 02:48 D50w (25gm) Syringe IV PRN PRN Hypoglycemia Pantoprazole Sodium 80 mg/ 100 mls @ 10 mls/hr 06/16/19 04:00 06/16/19 07:18 Sodium Chloride IV 8 mg/hr DIRECT TANK 10 mls/hr Administration 8 MG/HR Insulin Human Lispro 0 unit 06/16/19 06:00 Humalog SUB-Q Q6HR [facility] Protocol Miscellaneous Medication 1 each 06/16/19 10:00 Iron Carb,Gl/Fa/B12/C/Docusate [Ferralet 90 Tablet] PO DAILY [facility] Ondansetron HCl 4 mg 06/16/19 02:48 Zofran IV Q8H PRN Nausea And Vomiting Pravastatin Sodium 20 mg 06/16/19 10:00 Pravachol PO DAILY TANK Sodium Chloride 10 ml 06/16/19 02:46 Sodium Chloride Flush Syringe 10 Ml IV PRN PRN LINE FLUSH Sodium Chloride 10 ml 06/16/19 10:00 Sodium Chloride Flush Syringe 10 Ml IV BID TANK Tiotropium [place] 1 puff 06/16/19 10:00 06/16/19 07:23 Spiriva IH 1 puff DAILY TANK Administration
[2019-06-16 08:23] LABS: Calcium 9.3 mg/dL (8.4-10.2)
[2019-06-16] MEDS: HumaLOG SUB-Q SCH ×3 (09:19→17:28)
[2019-06-16] MEDS: PRAVACHOL PO SCH (09:32)
[2019-06-16] MEDS: VITAMIN D3 PO SCH (09:33)
[2019-06-16] MEDS: SODIUM CHLORIDE FLUSH SYRINGE 10 ML IV SCH ×2 (09:49→21:42)
[2019-06-16] MEDS ORDERED: NACL 0.9% 500 ML 500 ML IV NR (10:00)
[2019-06-16] MEDS ORDERED: B12 PO SCH ×2 (10:00)
[2019-06-16] MEDS ORDERED: DOCUSATE PO SCH ×2 (10:00)
[2019-06-16] MEDS ORDERED: PEPCID PO SCH ×2 (10:00)
[2019-06-16] MEDS ORDERED: IRON CARB GL PO SCH ×2 (10:00)
[2019-06-16] MEDS ORDERED: KIONEX PR ONE (10:00)
[2019-06-16] MEDS ORDERED: VITAMIN D3 PO SCH (10:00)
[2019-06-16] MEDS ORDERED: [UNRECOGNIZED DRUG - OTHER] PO SCH ×2 (10:00)
--- NOTE | 2019-06-16 10:26 | Consultation ---
History of Present Illness Consult date: 06/16/19 Consult reason: chest pain, shortness of breath History of present illness: This is a frail 88-year old woman who presented with generalized weakness, chest pain and shortness of breath found with severe anemia. Hematocrit at 17.5 on presentation. She awaits GI evaluation and workup. A cardiac consultation has been requested for chest pain and shortness of breath. Patient has chronic atrial flutter and fibrillation, on oral anticoagulation with low dose Eliquis. Patient has a dual-chamber pacemaker is in situ. Patient has a history of COPD and chronic cor pulmonale. Her latest echocardiogram reports severe debilitation of the right heart chambers, with severe pulmonary hypertension, pulmonary artery systolic pressure of 66. There was marked dilatation of both atria are included in the left atrium, but left ventricular chamber size and systolic function within normal, ejection fraction 60-65%. Also reported was mild calcific aortic stenosis. Just a month ago she underwent a myocardial perfusion stress test that's reported as normal. Eliquis has since been discontinued. ECG is a ventricular paced rhythm. Chest x- ray shows cardiomegaly but no interstitial edema. Past History Past Medical History: atrial fib (paroxysmal A. fib anticoagulated on Eliquis), anemia (chronic anemia), arthritis, COPD (on supplemental O2), diabetes, heart failure, hypertension, hyperlipidemia, other (pulmonary hypertension, cor pulmonale, bipolar disorder,) Past Surgical History: Other (pacemaker,) Social history: lives with family, other (former smoker) Family history: no significant family history Medications and Allergies Allergies Allergy/AdvReac Type Severity Reaction Status Date / Time No Known Allergies Allergy Verified 05/30/19 16:29 Home Medications Medication Instructions Recorded Confirmed Last Taken Type Albuterol Sulfate [Proair 90 mcg IH QID PRN 06/16/19 06/16/19 Unknown History Respiclick] Apixaban [Eliquis] 2.5 mg PO BID 06/16/19 06/16/19 Unknown History Cholecalciferol Vit D3 [Vitamin D3 1 tab PO DAILY 06/16/19 06/16/19 Unknown History 1,000 UNIT TAB] Famotidine [Pepcid] 10 mg PO DAILY 06/16/19 06/16/19 Unknown History Furosemide [Lasix TAB] 80 mg PO DAILY 06/16/19 06/16/19 Unknown History Iron Carb,Gl/FA/B12/C/Docusate 1 each PO DAILY 06/16/19 06/16/19 Unknown History [Ferralet 90 Dual-Iron Tablet] Potassium Chloride [K-Dur] 20 meq PO QDAY 06/16/19 06/16/19 Unknown History Propylene Glycol [Systane Complete] 1.5 ml OP BID 06/16/19 06/16/19 Unknown History Tiotropium [place] [Spiriva] 1 puff IH DAILY 06/16/19 06/16/19 Unknown History Active Meds: Active Medications Acetaminophen (Tylenol) 650 mg PO Q4H PRN PRN Reason: Pain MILD(1-3)/Fever >100.5/BASILIO Albuterol (Proventil) 2.5 mg IH Q3HRT PRN PRN Reason: Shortness Of Breath Last Admin: 06/16/19 07:23 Dose: 2.5 mg Documented by: Budesonide (Pulmicort) 0.5 mg IH Q12HRT TANK Last Admin: 06/16/19 07:23 Dose: 0.5 mg Documented by: Cholecalciferol (Vitamin D3) 1,000 unit PO DAILY TANK Last Admin: 06/16/19 09:33 Dose: 1,000 unit Documented by: Dextrose (D50w (25gm) Syringe) 50 ml IV PRN PRN PRN Reason: Hypoglycemia Pantoprazole Sodium 80 mg/ (Sodium Chloride) 100 mls @ 10 mls/hr IV DIRECT TANK Last Admin: 06/16/19 07:18 Dose: 8 mg/hr, 10 mls/hr Documented by: Sodium Chloride (Nacl 0.9% 500 Ml) 500 mls @ 0 mls/hr IV ONCE NR Stop: 06/16/19 11:00 Insulin Human Lispro (Humalog) 0 unit SUB-Q Q6HR TANK; Protocol Last Admin: 06/16/19 09:19 Dose: Not Given Documented by: Miscellaneous Medication (Iron Carb,Gl/Fa/B12/C/Docusate [Ferralet 90 Tablet]) 1 each PO DAILY [facility] Ondansetron HCl (Zofran) 4 mg IV Q8H PRN PRN Reason: Nausea And Vomiting Pravastatin Sodium (Pravachol) 20 mg PO DAILY [facility] Last Admin: 06/16/19 09:32 Dose: 20 mg Documented by: Sodium Chloride (Sodium Chloride Flush Syringe 10 Ml) 10 ml IV PRN PRN PRN Reason: LINE FLUSH Sodium Chloride (Sodium Chloride Flush Syringe 10 Ml) 10 ml IV BID [facility] Last Admin: 06/16/19 09:49 Dose: 10 ml Documented by: Tiotropium [place] (Spiriva) 1 puff IH DAILY [facility] Last Admin: 06/16/19 07:23 Dose: 1 puff Documented by: Physical Examination Vital Signs Temp Pulse Resp BP Pulse Ox 97.7 F 65 18 133/51 99 06/16/19 01:19 06/16/19 01:19 06/16/19 01:19 06/16/19 01:19 06/16/19 01:19 General appearance: no acute distress HEENT: Positive: PERRL Neck: Positive: trachea midline Cardiac: Positive: Other (v-paced) Lungs: Positive: Decreased Breath Sounds Results 06/16/19 01:40 06/16/19 Unknown Coagulation 06/16/19 Range/Units 01:40 PT 20.9 H (12.2-14.9) Sec. INR 1.85 H (0.87-1.13) APTT 34.1 (24.2-36.6) Sec. Lipids 06/16/19 Range/Units 03:05 Triglycerides 51 (2-149) mg/dL Cholesterol 87 (50-199) mg/dL HDL Cholesterol 42 (40-59) mg/dL Cholesterol/HDL Ratio 2.07 % CBC 06/16/19 Range/Units 01:40 WBC 5.1 (4.5-11.0) K/mm3 RBC 1.82 L (3.65-5.03) M/mm3 Hgb 5.8 L* (10.1-14.3) gm/dl Hct 17.5 L* (30.3-42.9) % Plt Count 185 (140-440) K/mm3 Lymph # 0.6 L (1.2-5.4) K/mm3 [place] # 0.8 (0.0-0.8) K/mm3 Eos # 0.4 (0.0-0.4) K/mm3 Baso # 0.1 (0.0-0.1) K/mm3 Comprehensive Metabolic Panel 06/16/19 06/16/19 06/16/19 Range/Units 01:40 07:34 Unknown Sodium 137 137 137 (137-145) mmol/L Potassium 5.5 H 6.3 H* 5.9 H (3.6-5.0) mmol/L Chloride 97.8 L 99.4 98.6 (98-107) mmol/L Carbon Dioxide 30 27 31 H (22-30) mmol/L BUN 55 H 54 H 54 H (7-17) mg/dL Creatinine 1.3 H 1.2 1.3 H (0.7-1.2) mg/dL Glucose 254 H 207 H 219 H (65-100) mg/dL Calcium 8.8 9.3 8.9 (8.4-10.2) mg/dL Assessment and Plan Severe Anemia GI bleed Chest pain, atypical No ischemia on MPI 05/15/2019 Cor pulmonale Echocardiogram 04/2019 shows normal left ventricular systolic function, ejection fraction 60%. There is enlargement of the right heart chambers, moderate to severe pulmonary hypertension with a pulmonary artery systolic pressure of 66, suggests cor pulmonale. Chronic renal failure Required transient HD in the past. Paroxysmal Afib eliquis discontinued Pacemaker present COPD Hypertension Type 2 DM
--- NOTE | 2019-06-16 12:17 | Gastroenterology Consultation ---
History of Present Illness - Reason for Consult Consult date: 06/16/19 UGIB? Requesting physician: KVNG JARAMILLO - History of Present Illness Patient is a 88 y/o female with PMH of CHF, pacemaker in situ, Afib (paroxysmal A. fib anticoagulated on Eliquis), Chronic renal failure (required transient HD in the past), chronic anemia, COPD (on supplemental O2), HTN, arthritis, arthritis, bipolar disorder, and DM who presented to ED with c/o CP, increasing SOB, and BLE edema. Upon admission, she was found to have severe anemia with H/H 5.8/17.5 and stool occult positive to which GI has been consult. Patient is previously known to our service with last consult in April of this year for similar symptoms. She underwent an EGD/colonoscopy at that time that showed chastity thematous changes in body/fundus of stomach but no active signs of bleeding (bx results negative). This morning patient was resting in bed w/o acute distress. Reports feeling better with CP now improved s/p blood transfusion. Denies wt loss, abd pain, N/v, hematemesis, or hematochezia. Upon exam rectal revealed black stool, however patient is on a daily iron supplement. Past History Past Medical History: atrial fib (paroxysmal A. fib anticoagulated on Eliquis), anemia (chronic anemia), arthritis, COPD (on supplemental O2), diabetes, heart failure, hypertension, hyperlipidemia, other (pulmonary hypertension, cor pulmonale, bipolar disorder,) Past Surgical History: Other (pacemaker,) Social history: lives with family, other (former smoker) Family history: no significant family history Medications and Allergies Allergies Allergy/AdvReac Type Severity Reaction Status Date / Time No Known Allergies Allergy Verified 05/30/19 16:29 Home Medications Medication Instructions Recorded Confirmed Last Taken Type Albuterol Sulfate [Proair 90 mcg IH QID PRN 06/16/19 06/16/19 Unknown History Respiclick] Apixaban [Eliquis] 2.5 mg PO BID 06/16/19 06/16/19 Unknown History Cholecalciferol Vit D3 [Vitamin D3 1 tab PO DAILY 06/16/19 06/16/19 Unknown History 1,000 UNIT TAB] Famotidine [Pepcid] 10 mg PO DAILY 06/16/19 06/16/19 Unknown History Furosemide [Lasix TAB] 80 mg PO DAILY 06/16/19 06/16/19 Unknown History Iron Carb,Gl/FA/B12/C/Docusate 1 each PO DAILY 06/16/19 06/16/19 Unknown History [Ferralet 90 Dual-Iron Tablet] Potassium Chloride [K-Dur] 20 meq PO QDAY 06/16/19 06/16/19 Unknown History Propylene Glycol [Systane Complete] 1.5 ml OP BID 06/16/19 06/16/19 Unknown History Tiotropium [place] [Spiriva] 1 puff IH DAILY 06/16/19 06/16/19 Unknown History Active Meds: Active Medications Acetaminophen (Tylenol) 650 mg PO Q4H PRN PRN Reason: Pain MILD(1-3)/Fever >100.5/BASILIO Albuterol (Proventil) 2.5 mg IH Q3HRT PRN PRN Reason: Shortness Of Breath Last Admin: 06/16/19 07:23 Dose: 2.5 mg Documented by: Budesonide (Pulmicort) 0.5 mg IH Q12HRT TANK Last Admin: 06/16/19 07:23 Dose: 0.5 mg Documented by: Cholecalciferol (Vitamin D3) 1,000 unit PO DAILY [facility] Last Admin: 06/16/19 09:33 Dose: 1,000 unit Documented by: Dextrose (D50w (25gm) Syringe) 50 ml IV PRN PRN PRN Reason: Hypoglycemia Pantoprazole Sodium 80 mg/ (Sodium Chloride) 100 mls @ 10 mls/hr IV DIRECT TANK Last Admin: 06/16/19 07:18 Dose: 8 mg/hr, 10 mls/hr Documented by: Insulin Human Lispro (Humalog) 0 unit SUB-Q Q6HR [facility]; Protocol Last Admin: 06/16/19 12:01 Dose: Not Given Documented by: Miscellaneous Medication (Iron Carb,Gl/Fa/B12/C/Docusate [Ferralet 90 Tablet]) 1 each PO DAILY [facility] Ondansetron HCl (Zofran) 4 mg IV Q8H PRN PRN Reason: Nausea And Vomiting Pravastatin Sodium (Pravachol) 20 mg PO DAILY [facility] Last Admin: 06/16/19 09:32 Dose: 20 mg Documented by: Sodium Chloride (Sodium Chloride Flush Syringe 10 Ml) 10 ml IV PRN PRN PRN Reason: LINE FLUSH Sodium Chloride (Sodium Chloride Flush Syringe 10 Ml) 10 ml IV BID [facility] Last Admin: 06/16/19 09:49 Dose: 10 ml Documented by: Tiotropium [place] (Spiriva) 1 puff IH DAILY [facility] Last Admin: 06/16/19 10:43 Dose: Not Given Documented by: medications reviewed/updated as required Review of Systems - Review of Systems All systems: negative Gastrointestinal: melena, no abdominal pain, no nausea, no vomiting, no hematemesis, no coffee ground emesis Exam - Constitutional Vital Signs: Temp Pulse Resp BP Pulse Ox 97.9 F 65 18 117/54 100 06/16/19 08:44 06/16/19 08:44 06/16/19 08:44 06/16/19 08:44 06/16/19 08:44 General appearance: no acute distress - Respiratory Respiratory effort: normal - Cardiovascular Rhythm: regular - Gastrointestinal General gastrointestinal: Present: soft, non-tender, non-distended, normal bowel sounds Rectal Exam: other (black stool -newsroom intern present during exam (Brent RN)) - Neurologic Neurological: alert and oriented x3 - Labs CBC & Chem 7: 06/16/19 01:40 06/16/19 Unknown Lab Results: Laboratory Results - last 24 hr 06/16/19 06/16/19 06/16/19 01:40 01:40 01:40 WBC 5.1 RBC 1.82 L Hgb 5.8 L* Hct 17.5 L* MCV 96 MCH 32 MCHC 33 RDW 19.7 H Plt Count 185 Lymph % (Auto) 11.5 L [place] % (Auto) 14.8 H Eos % (Auto) 7.5 H Baso % (Auto) 0.6 Lymph # 0.6 L [place] # 0.8 Eos # 0.4 Baso # 0.1 Seg Neutrophils % 65.9 Seg Neutrophils # 3.4 PT 20.9 H INR 1.85 H APTT 34.1 Sodium 137 Potassium 5.5 H Chloride 97.8 L Carbon Dioxide 30 Anion Gap 15 BUN 55 H Creatinine 1.3 H Estimated GFR 47 BUN/Creatinine Ratio 42 Glucose 254 H POC Glucose Calcium 8.8 Phosphorus Troponin T 0.029 NT-Pro-B Natriuret Pep Triglycerides Cholesterol LDL Cholesterol Direct HDL Cholesterol Cholesterol/HDL Ratio Blood Type Antibody Screen Crossmatch 06/16/19 06/16/19 06/16/19 01:40 03:05 03:05 WBC RBC Hgb Hct MCV MCH MCHC RDW Plt Count Lymph % (Auto) [place] % (Auto) Eos % (Auto) Baso % (Auto) Lymph # [place] # Eos # Baso # Seg Neutrophils % Seg Neutrophils # PT INR APTT Sodium Potassium Chloride Carbon Dioxide Anion Gap BUN Creatinine Estimated GFR BUN/Creatinine Ratio Glucose POC Glucose Calcium Phosphorus Troponin T 0.035 H D NT-Pro-B Natriuret Pep 3323 H Triglycerides 51 Cholesterol 87 LDL Cholesterol Direct 43 L HDL Cholesterol 42 Cholesterol/HDL Ratio 2.07 Blood Type O POSITIVE Antibody Screen Negative Crossmatch See Detail 06/16/19 06/16/19 06/16/19 07:34 07:34 07:34 WBC RBC Hgb Hct MCV MCH MCHC RDW Plt Count Lymph % (Auto) [place] % (Auto) Eos % (Auto) Baso % (Auto) Lymph # [place] # Eos # Baso # Seg Neutrophils % Seg Neutrophils # PT INR APTT Sodium 137 Potassium 6.3 H* Chloride 99.4 Carbon Dioxide 27 Anion Gap 17 BUN 54 H Creatinine 1.2 Estimated GFR 51 BUN/Creatinine Ratio 45 Glucose 207 H POC Glucose Calcium 9.3 Phosphorus 4.10 Troponin T 0.021 NT-Pro-B Natriuret Pep Triglycerides Cholesterol LDL Cholesterol Direct HDL Cholesterol Cholesterol/HDL Ratio Blood Type Antibody Screen Crossmatch 06/16/19 06/16/19 06/16/19 08:15 11:59 Unknown WBC RBC Hgb Hct MCV MCH MCHC RDW Plt Count Lymph % (Auto) [place] % (Auto) Eos % (Auto) Baso % (Auto) Lymph # [place] # Eos # Baso # Seg Neutrophils % Seg Neutrophils # PT INR APTT Sodium 137 Potassium 5.9 H Chloride 98.6 Carbon Dioxide 31 H Anion Gap 13 BUN 54 H Creatinine 1.3 H Estimated GFR 47 BUN/Creatinine Ratio 42 Glucose 219 H POC Glucose 232 H 213 H Calcium 8.9 Phosphorus Troponin T NT-Pro-B Natriuret Pep Triglycerides Cholesterol LDL Cholesterol Direct HDL Cholesterol Cholesterol/HDL Ratio Blood Type Antibody Screen Crossmatch Assessment and Plan 1.GI bleed? 2.acute on chronic anemia -H/H 5.8/17.5-2nd unit of PRBCs pending transfusion -continue to monitor H/H and transfuse as needed -rectal exam revealed black stool, however on daily iron supplement but found to be occult + upon admision -hold blood thinning medications (Eliquis currently on hold) -last EGD/colonoscopy 05/07/19 showed gastropathy, hiatal hernia, prior colon surgery, poor prep, and hemorrhoids -etiology-likely multifactorial -will schedule for repeat EGD today for further evaluation -Keep NPO -continue PPI, iron supplement, and supportive care -will ask Cards to weigh in on the long-term future use of anticoagulation in this patient given advanced age and comorbids -will follow
[2019-06-16] MEDS ORDERED: NACL 0.9% 1000 ML 1,000 ML IV SCH ×2 (13:00→19:00)
--- NOTE | 2019-06-16 13:45 | Consultation ---
History of Present Illness - Reason for Consult Consult date: 06/16/19 hyperkalemia - History of Present Illness The patient is an 88 Yo female, who is well known to our service, with history significant for Hypertension, DM type 2, Anemia, CKD, Cor pulmonale, Pulmonary HTN, Paroxysmal A.fib and Cognitive decline who presented with chest pain and shortness of breath for the past few days. Patient is a poor historian. She was admitted with similar presentation and was discharged on 06/09/2019. Patient is not compliant with fluid intake. Patient denies fever, chills, N, V or abd pain. Creatinine is 1.2, Potassium 6.3 and Hb 5.9. Nephrology was consulted for further evaluation. Past History Past Medical History: atrial fib (paroxysmal A. fib anticoagulated on Eliquis), anemia (chronic anemia), arthritis, COPD (on supplemental O2), diabetes, heart failure, hypertension, hyperlipidemia, other (pulmonary hypertension, cor pulmonale, bipolar disorder,) Past Surgical History: Other (pacemaker,) Social history: lives with family, other (former smoker) Family history: no significant family history Medications and Allergies Allergies Allergy/AdvReac Type Severity Reaction Status Date / Time No Known Allergies Allergy Verified 05/30/19 16:29 Home Medications Medication Instructions Recorded Confirmed Last Taken Type Albuterol Sulfate [Proair 90 mcg IH QID PRN 06/16/19 06/16/19 Unknown History Respiclick] Apixaban [Eliquis] 2.5 mg PO BID 06/16/19 06/16/19 Unknown History Cholecalciferol Vit D3 [Vitamin D3 1 tab PO DAILY 06/16/19 06/16/19 Unknown History 1,000 UNIT TAB] Famotidine [Pepcid] 10 mg PO DAILY 06/16/19 06/16/19 Unknown History Furosemide [Lasix TAB] 80 mg PO DAILY 06/16/19 06/16/19 Unknown History Iron Carb,Gl/FA/B12/C/Docusate 1 each PO DAILY 06/16/19 06/16/19 Unknown History [Ferralet 90 Dual-Iron Tablet] Potassium Chloride [K-Dur] 20 meq PO QDAY 06/16/19 06/16/19 Unknown History Propylene Glycol [Systane Complete] 1.5 ml OP BID 06/16/19 06/16/19 Unknown History Tiotropium [place] [Spiriva] 1 puff IH DAILY 06/16/19 06/16/19 Unknown History Active Meds: Active Medications Acetaminophen (Tylenol) 650 mg PO Q4H PRN PRN Reason: Pain MILD(1-3)/Fever >100.5/BASILIO Albuterol (Proventil) 2.5 mg IH Q3HRT PRN PRN Reason: Shortness Of Breath Last Admin: 06/16/19 07:23 Dose: 2.5 mg Documented by: Budesonide (Pulmicort) 0.5 mg IH Q12HRT TANK Last Admin: 06/16/19 07:23 Dose: 0.5 mg Documented by: Cholecalciferol (Vitamin D3) 1,000 unit PO DAILY [facility] Last Admin: 06/16/19 09:33 Dose: 1,000 unit Documented by: Dextrose (D50w (25gm) Syringe) 50 ml IV PRN PRN PRN Reason: Hypoglycemia Furosemide (Lasix) 20 mg IV ONCE ONE Stop: 06/16/19 14:01 Pantoprazole Sodium 80 mg/ (Sodium Chloride) 100 mls @ 10 mls/hr IV DIRECT TANK Last Admin: 06/16/19 07:18 Dose: 8 mg/hr, 10 mls/hr Documented by: Sodium Chloride (Nacl 0.9% 1000 Ml) 1,000 mls @ 50 mls/hr IV DIRECT TANK Insulin Human Lispro (Humalog) 0 unit SUB-Q Q6HR [facility]; Protocol Last Admin: 06/16/19 12:01 Dose: Not Given Documented by: Miscellaneous Medication (Iron Carb,Gl/Fa/B12/C/Docusate [Ferralet 90 Tablet]) 1 each PO DAILY [facility] Ondansetron HCl (Zofran) 4 mg IV Q8H PRN PRN Reason: Nausea And Vomiting Pravastatin Sodium (Pravachol) 20 mg PO DAILY [facility] Last Admin: 06/16/19 09:32 Dose: 20 mg Documented by: Sodium Chloride (Sodium Chloride Flush Syringe 10 Ml) 10 ml IV PRN PRN PRN Reason: LINE FLUSH Sodium Chloride (Sodium Chloride Flush Syringe 10 Ml) 10 ml IV BID [facility] Last Admin: 06/16/19 09:49 Dose: 10 ml Documented by: Tiotropium [place] (Spiriva) 1 puff IH DAILY [facility] Last Admin: 06/16/19 10:43 Dose: Not Given Documented by: Review of Systems ROS unobtainable: due to mental status Exam - Vital Signs Vital signs: Vital Signs Temp Pulse Resp BP Pulse Ox 97.7 F 65 18 133/51 99 06/16/19 01:19 06/16/19 01:19 06/16/19 01:19 06/16/19 01:19 06/16/19 01:19 - General Appearance General appearance: well-developed, appears stated age, other (no distress) EENT: ATNC, PERRL, hearing diminished Neck: Present: neck supple, trachea midline, JVD/HJR Respiratory: Clear to Ascultation Heart: S1S2, no murmurs Gastrointestinal: Present: normoactive bowel sounds. Absent: tenderness, distended Integumentary: no rash, warm and dry Neurologic: no focal deficit, no asterixis, confused, disoriented Musculoskeletal: Present: other (1+ edema of both LEs noted) Results - Lab Results 06/16/19 16:50 06/16/19 Unknown Most recent lab results Calcium 8.9 mg/dL (8.4-10.2) 06/16/19 Unknown Phosphorus 4.10 mg/dL (2.5-4.5) 06/16/19 07:34 Assessment and Plan 1. Acute kidney injury: Michael vasomotor JOSE. Renal function is better than the previous admission. Monitor renal function. Avoid nephrotoxic agents. Meds dosage based on GFR. 2. FEN: Hyperkalemia, kayexalate and Lasix. Volume overload, IV Lasix. Metabolic alkalosis, monitor. Monitor lytes. 3. Chest pain: Seen by Cards. 4. Severe anemia: Followed by GI to r/o GI bleed. 5. Shortness of breath: Chronic symptom. 6. HFpEF: Followed by Cards. 7. Paroxysmal A.fib: Was on Eliquis. 8. HTN: Monitor BP.
[2019-06-16] MEDS ORDERED: LASIX IV ONE ×2 (14:00)
[2019-06-16] MEDS ORDERED: NACL 0.9% 1000 ML 1,000 ML ONE (17:24)
[2019-06-16] MEDS ORDERED: AMIDATE IV ONE (17:30)
[2019-06-16] MEDS ORDERED: WATER FOR IRRIG STERILE ONE (17:49)
--- NOTE | 2019-06-16 18:15 | Post Operative Note ---
Pre-op diagnosis: GI Bleed Post-op diagnosis: other (Duodenal Polyp) Findings: 1. Pediatric colonoscope used to cannulate to 4th portion of duodenum 2. 1cm pedunculated polyp at jxn 3rd/4th portion - Endoclip x 1 at the base due to adherent heme on the polyp surface - Hot snare used to removed polyp; used to remove polyp in 1 piece 3. Hiatal hernia, small 4. Mild gastritis Procedure: EGD with clip for bleeding control, and hot snare polypectomy Anesthesia: MAC Surgeon: NEWTON JENSEN Estimated blood loss: minimal Pathology: list (1. Duodenum polyp (3rd portion)) Specimen disposition: to lab Condition: stable Disposition: floor (Recs: 1. No xarelto/eliquis for the next 7 days. 2. MVI and protonix daily therapy. 3. Regular diet, and d/c home when blood counts stable.)
--- NOTE | 2019-06-16 19:31 | Operative Report ---
ENDOSCOPY DOCUMENT PROCEDURE PERFORMED: Esophagogastroduodenoscopy with endoscopic clipping for bleeding control, and hot snare polypectomy. PREOPERATIVE DIAGNOSIS: Gastrointestinal bleed. POSTOPERATIVE DIAGNOSES: Duodenal polyp, hiatal hernia, gastritis. ENDOSCOPIST: Austin Shah MD INSTRUMENT: Olympus video endoscope. MEDICATIONS: MAC anesthesia by Anesthesia Services. COMPLICATIONS: No apparent complications. ESTIMATED BLOOD LOSS: Minimal. SPECIMENS: Duodenal polyp from the third portion. IMPLANTS: Endoscopic Resolution clip, 11 mm, x 1. ASSISTANTS: None. CONDITION AT COMPLETION: Stable. TECHNIQUE: The patient was informed of the risks and benefits of the procedure. She signed the informed consent to proceed. She was placed in the left lateral decubitus position. The above sedative medications were given. Her vital signs remained stable throughout the procedure. The pediatric colonoscope was advanced from the mouth to the fourth portion of the duodenum under direct visualization. We used the pediatric colonoscope because of blood was noted refluxing in the small bowel, when using the regular upper endoscope. We lavaged copiously and identified a 1 cm pedunculated polyp at the junction of the third and fourth portion of the duodenum. There was adherent clot to the surface of the polyp, so we were applied an Endoscopic clip x 1 to the base to prevent postoperative bleeding. We then used a hot snare device to remove the polyp, the snare was used to secure the polyp to the end of the endoscope and the endoscope was removed in 1 piece from the patient with the polyp intact. The procedure was then terminated. FINDINGS: 1. Pediatric colonoscope was used to cannulate to the fourth portion of the duodenum given as evidence of recent bleeding with reflux of blood into the distal stomach/first portion. 2. A 1 cm pedunculated polyp at the junction of the third and fourth portion of the duodenum. A: An endoscopic clip x 1 was applied to the base of the polyp due to adherent blood clot on the polyp surface. B: Hot snare cautery was used to remove the polyp in one piece; we used the snare device to secure the polyp to the end of the endoscope and it was removed from the patient one piece. 3. Small hiatal hernia. 4. Mild gastritis. RECOMMENDATIONS: 1. No Xarelto, Eliquis, or other anticoagulants for the next 7 days. 2. Multivitamin and Protonix daily therapy. 3. Regular diet, and discharge the patient home when blood counts are stable. JOB# [id number] TORY/GOPI
[2019-06-17] MEDS: HumaLOG SUB-Q SCH ×4 (00:12→18:26)
[2019-06-17] MEDS: TYLENOL PO PRN ×4 (03:14→20:51)
[2019-06-17 08:27] LABS: Basophils % (Auto) 0.6 % (0.0-1.8); Eosinophils # (Auto) 0.5 K/mm3 (0.0-0.4); Eosinophils % (Auto) 9.2 % (0.0-4.3); Hematocrit 22.8 % (30.3-42.9); Hemoglobin 7.3 gm/dl (10.1-14.3); Lymphocytes # (Auto) 0.7 K/mm3 (1.2-5.4); Lymphocytes % (Auto) 12.9 % (13.4-35.0); Mean Corpuscular HGB Conc 32 % (30-34); Mean Corpuscular Volume 97 fl (79-97); Monocytes # (Auto) 0.8 K/mm3 (0.0-0.8); Monocytes % (Auto) 15.1 % (0.0-7.3); Platelet Count 162 K/mm3 (140-440); Red Blood Count 2.36 M/mm3 (3.65-5.03); Red Cell Distribution Width 18.9 % (13.2-15.2)
[2019-06-17] MEDS: PULMICORT IH SCH ×2 (08:29→19:52)
[2019-06-17] MEDS: THERAGRAN-M Tab PO SCH (09:36)
[2019-06-17] MEDS: PROTONIX PO SCH (09:36)
[2019-06-17] MEDS: VITAMIN D3 PO SCH (09:36)
[2019-06-17] MEDS: PRAVACHOL PO SCH (09:36)
[2019-06-17] MEDS: SODIUM CHLORIDE FLUSH SYRINGE 10 ML IV SCH ×2 (09:36→22:12)
[2019-06-17] MEDS: SPIRIVA IH SCH (09:38)
--- NOTE | 2019-06-17 11:17 | Gastroenterology Progress Note ---
Assessment and Plan 1.GI bleed? 2.acute on chronic anemia -H/H 7.3/22.8 -continue to monitor H/H and transfuse as needed -no active signs of bleeding overnight or this am -EGD/colonoscopy 05/07/19 showed gastropathy, hiatal hernia, prior colon surgery, poor prep, and hemorrhoids -s/p repeat EGD yesterday [facility] pediatric colonoscope used to cannulate 4th po rtion of duodenum that revealed a 1cm pedunculated polyp at jxn 3rd/4th portion (s/p endoclip x 1 at the base due to adherent heme on the polyp surface then hot snare used to remove polyp (in 1 piece)), along with small hiatal hernia, and mild gastritis -clinically, patient is stable w/o GI complaints. Denies abd pain or N/V. Tolerating diet. -continue to hold anticoagulation (xarelto/eliquis) x 7 days -continue MVI and PPI daily -continue trend labs and supportive care -if labs stable in am, okay to be d/c per GI standpoint with f/u in clinic Subjective Date of service: 06/17/19 Principal diagnosis: UGIB Interval history: Patient sitting on the side of the bed this am eating breakfast w/o acute distress. Denies abd pain or active signs of bleeding overnight or this am. Objective - Constitutional Vitals: Temp Pulse Resp BP Pulse Ox 98.0 F 65 16 113/47 100 06/17/19 07:32 06/17/19 08:30 06/17/19 08:30 06/17/19 10:20 06/17/19 07:32 General appearance: no acute distress - Respiratory Respiratory effort: normal - Cardiovascular Rhythm: regular - Gastrointestinal General gastrointestinal: Present: soft, non-tender, non-distended, normal bowel sounds - Neurologic Neurological: alert and oriented x3 - Labs CBC & Chem 7: 06/17/19 08:02 06/17/19 08:02 Labs: Laboratory Results - last 24 hr 06/16/19 06/16/19 06/16/19 03:05 11:59 16:15 WBC RBC Hgb Hct MCV MCH MCHC RDW Plt Count Lymph % (Auto) [place] % (Auto) Eos % (Auto) Baso % (Auto) Lymph # [place] # Eos # Baso # Seg Neutrophils % Seg Neutrophils # Sodium Potassium Chloride Carbon Dioxide Anion Gap BUN Creatinine Estimated GFR BUN/Creatinine Ratio Glucose POC Glucose 213 H 149 H Calcium Blood Type O POSITIVE Antibody Screen Negative Crossmatch See Detail 06/16/19 06/16/19 06/16/19 16:50 16:50 20:57 WBC RBC Hgb 8.0 L Hct 24.0 L D MCV MCH MCHC RDW Plt Count Lymph % (Auto) [place] % (Auto) Eos % (Auto) Baso % (Auto) Lymph # [place] # Eos # Baso # Seg Neutrophils % Seg Neutrophils # Sodium Potassium 4.8 D 4.6 Chloride Carbon Dioxide Anion Gap BUN Creatinine Estimated GFR BUN/Creatinine Ratio Glucose POC Glucose Calcium Blood Type Antibody Screen Crossmatch 06/17/19 06/17/19 06/17/19 06:19 08:02 08:02 WBC 5.3 RBC 2.36 L Hgb 7.3 L Hct 22.8 L MCV 97 MCH 31 MCHC 32 RDW 18.9 H Plt Count 162 Lymph % (Auto) 12.9 L [place] % (Auto) 15.1 H Eos % (Auto) 9.2 H Baso % (Auto) 0.6 Lymph # 0.7 L [place] # 0.8 Eos # 0.5 H Baso # 0.0 Seg Neutrophils % 62.2 Seg Neutrophils # 3.3 Sodium 143 Potassium 4.1 Chloride 102.4 Carbon Dioxide 32 H Anion Gap 13 BUN 49 H Creatinine 1.4 H Estimated GFR 43 BUN/Creatinine Ratio 35 Glucose 98 POC Glucose 95 Calcium 9.0 Blood Type Antibody Screen Crossmatch
--- NOTE | 2019-06-17 11:18 | Progress Note ---
Assessment and Plan Severe Anemia s/p transfusion of PRBCs GI bleed Chest pain, atypical No ischemia on MPI 05/15/2019 Cor pulmonale Echocardiogram 04/2019 shows normal left ventricular systolic function, ejection fraction 60%. There is enlargement of the right heart chambers, moderate to severe pulmonary hypertension with a pulmonary artery systolic pressure of 66, suggests cor pulmonale. Chronic renal failure Required transient HD in the past. Paroxysmal Afib eliquis discontinued due to severe anemia Pacemaker present COPD Hypertension Type 2 DM Recommendations: Due to severe anemia, elderly frail status, patient is not a candidate for further anticoagulation at this time. Medical therapy for paroxysmal atrial fibrillation. Otherwise, conservative cardiac management Subjective Date of service: 06/17/19 Interval history: Patient is sitting up in bed. She has no complaints. Objective Vital Signs Temp Pulse Pulse Pulse Resp Resp Resp 06/17/19 10:20 06/17/19 08:30 65 65 16 16 06/17/19 07:32 98.0 F 65 18 06/17/19 05:19 97.7 F 66 18 06/16/19 23:38 98.1 F 65 20 06/16/19 20:21 98.4 F 65 12 06/16/19 20:00 65 06/16/19 18:35 65 25 H 06/16/19 18:20 65 25 H 06/16/19 18:05 98.2 F 65 25 H 06/16/19 17:15 97.5 F L 65 25 H 06/16/19 16:19 65 06/16/19 15:30 98.1 F 67 19 06/16/19 15:00 98 F 67 18 06/16/19 14:30 97.9 F 65 18 06/16/19 14:01 98 F 65 18 06/16/19 14:00 98 F 65 18 06/16/19 13:42 98 F 65 18 06/16/19 13:29 97.9 F 65 20 06/16/19 13:16 65 06/16/19 13:15 97.8 F 64 19 06/16/19 13:00 98.1 F 66 18 06/16/19 12:45 98.2 F 65 18 06/16/19 12:22 97.9 F 62 22 BP Pulse Ox 06/17/19 10:20 113/47 06/17/19 08:30 06/17/19 07:32 117/56 100 06/17/19 05:19 109/49 99 06/16/19 23:38 130/68 100 06/16/19 20:21 140/59 100 06/16/19 20:00 06/16/19 18:35 152/71 100 06/16/19 18:20 148/68 100 06/16/19 18:05 147/69 100 06/16/19 17:15 160/71 100 06/16/19 16:19 06/16/19 15:30 158/81 99 06/16/19 15:00 158/81 98 06/16/19 14:30 161/80 98 06/16/19 14:01 147/75 100 06/16/19 14:00 147/75 100 06/16/19 13:42 146/68 100 06/16/19 13:29 146/68 95 06/16/19 13:16 06/16/19 13:15 139/69 100 06/16/19 13:00 144/71 100 06/16/19 12:45 122/62 06/16/19 12:22 132/64 100 - Physical Examination General: No Apparent Distress HEENT: Positive: PERRL Neck: Positive: trachea midline Cardiac: Positive: Other (paced) Lungs: Positive: Decreased Breath Sounds Neuro: Positive: Grossly Intact - Labs and Meds CBC 06/16/19 06/17/19 Range/Units 16:50 08:02 WBC 5.3 (4.5-11.0) K/mm3 RBC 2.36 L (3.65-5.03) M/mm3 Hgb 8.0 L 7.3 L (10.1-14.3) gm/dl Hct 24.0 L D 22.8 L (30.3-42.9) % Plt Count 162 (140-440) K/mm3 Lymph # 0.7 L (1.2-5.4) K/mm3 [place] # 0.8 (0.0-0.8) K/mm3 Eos # 0.5 H (0.0-0.4) K/mm3 Baso # 0.0 (0.0-0.1) K/mm3 Comprehensive Metabolic Panel 06/16/19 06/16/19 06/17/19 Range/Units 16:50 20:57 08:02 Sodium 143 (137-145) mmol/L Potassium 4.8 D 4.6 4.1 (3.6-5.0) mmol/L Chloride 102.4 (98-107) mmol/L Carbon Dioxide 32 H (22-30) mmol/L BUN 49 H (7-17) mg/dL Creatinine 1.4 H (0.7-1.2) mg/dL Glucose 98 (65-100) mg/dL Calcium 9.0 (8.4-10.2) mg/dL
--- NOTE | 2019-06-17 14:05 | Progress Note ---
Assessment and Plan 1. Acute kidney injury: Michael vasomotor JOSE. Renal function is overall stable. Monitor renal function. Avoid nephrotoxic agents. Meds dosage based on GFR. 2. FEN: Hyperkalemia, improved. Volume overload, Lasix. Metabolic alkalosis, monitor. Monitor lytes. 3. Chest pain: Seen by Cards. 4. Severe anemia: S/p EGD. Followed by GI. 5. Shortness of breath: Chronic symptom. 6. HFpEF: Followed by Cards. 7. Paroxysmal A.fib: Was on Eliquis. 8. HTN: Monitor BP. Subjective Date of service: 06/17/19 Principal diagnosis: UGIB Interval history: Patient was seen and examined at the bedside. Niece at the bedside. Objective - Vital Signs Vital signs: Vital Signs - 12hr 06/17/19 06/17/19 06/17/19 05:19 07:32 08:30 Temperature 97.7 F 98.0 F Pulse Rate 66 65 Pulse Rate [ 65 Anterior Bilateral Throughout] Pulse Rate [ 65 Posterior Bilateral Throughout] Respiratory 18 18 Rate Respiratory 16 Rate [Anterior Bilateral Throughout] Respiratory 16 Rate [Posterior Bilateral Throughout] Blood Pressure 109/49 117/56 O2 Sat by Pulse 99 100 Oximetry 06/17/19 06/17/19 10:20 11:35 Temperature 97.0 F L Pulse Rate 66 Pulse Rate [ Anterior Bilateral Throughout] Pulse Rate [ Posterior Bilateral Throughout] Respiratory 20 Rate Respiratory Rate [Anterior Bilateral Throughout] Respiratory Rate [Posterior Bilateral Throughout] Blood Pressure 113/47 132/61 O2 Sat by Pulse 100 Oximetry - General Appearance General appearance: well-developed, appears stated age, other (no distress) EENT: ATNC, PERRL, hearing diminished Neck: supple Respiratory: Present: Rales Cardiology: regular, S1S2, no murmurs Gastrointestinal: normoactive bowel sounds, no tenderness, no distended Integumentary: no rash, warm and dry Neurologic: no focal deficit, no asterixis, confused, disoriented Musculoskeletal: other (1+ edema of both LEs noted) - Lab 06/17/19 08:02 06/17/19 08:02 Most recent lab results Calcium 9.0 mg/dL (8.4-10.2) 06/17/19 08:02 Phosphorus 4.10 mg/dL (2.5-4.5) 06/16/19 07:34 Medications & Allergies - Medications Allergies/Adverse Reactions: Allergies No Known Allergies Allergy (Verified 05/30/19 16:29) Home Medications: Home Medications Medication Instructions Recorded Confirmed Last Taken Type Albuterol Sulfate [Proair 90 mcg IH QID PRN 06/16/19 06/16/19 Unknown History Respiclick] Apixaban [Eliquis] 2.5 mg PO BID 06/16/19 06/16/19 Unknown History Cholecalciferol Vit D3 [Vitamin D3 1 tab PO DAILY 06/16/19 06/16/19 Unknown History 1,000 UNIT TAB] Famotidine [Pepcid] 10 mg PO DAILY 06/16/19 06/16/19 Unknown History Furosemide [Lasix TAB] 80 mg PO DAILY 06/16/19 06/16/19 Unknown History Iron Carb,Gl/FA/B12/C/Docusate 1 each PO DAILY 06/16/19 06/16/19 Unknown History [Ferralet 90 Dual-Iron Tablet] Potassium Chloride [K-Dur] 20 meq PO QDAY 06/16/19 06/16/19 Unknown History Propylene Glycol [Systane Complete] 1.5 ml OP BID 06/16/19 06/16/19 Unknown History Tiotropium [place] [Spiriva] 1 puff IH DAILY 06/16/19 06/16/19 Unknown History Active Medications: Generic Name Dose Route Start Last Admin Trade Name Freq PRN Reason Stop Dose Admin Acetaminophen 650 mg 06/16/19 02:48 06/17/19 09:41 Tylenol PO 650 mg Q4H PRN Administration Pain MILD(1-3)/Fever >100.5/BASILIO Albuterol 2.5 mg 06/16/19 02:48 06/16/19 07:23 Proventil IH 2.5 mg Q3HRT PRN Administration Shortness Of Breath Budesonide 0.5 mg 06/16/19 08:00 06/17/19 08:29 Pulmicort IH 0.5 mg Q12HRT TANK Administration Cholecalciferol 1,000 unit 06/16/19 10:00 06/17/19 09:36 Vitamin D3 PO 1,000 unit DAILY TANK Administration Dextrose 50 ml 06/16/19 02:48 D50w (25gm) Syringe IV PRN PRN Hypoglycemia Diphenhydramine HCl 25 mg 06/17/19 10:52 Benadryl PO Q6H PRN Itching Sodium Chloride 1,000 mls @ 50 mls/hr 06/16/19 19:00 Nacl 0.9% 1000 Ml IV DIRECT [facility] Insulin Human Lispro 0 unit 06/16/19 06:00 06/17/19 06:17 Humalog SUB-Q Not Given Q6HR [facility] Protocol Multivitamins/Minerals 1 each 06/17/19 10:00 06/17/19 09:36 Theragran-M Tab PO 1 each QDAY [facility] Administration Ondansetron HCl 4 mg 06/16/19 02:48 Zofran IV Q8H PRN Nausea And Vomiting Pantoprazole Sodium 40 mg 06/17/19 10:00 06/17/19 09:36 Protonix PO 40 mg QDAY [facility] Administration Pravastatin Sodium 20 mg 06/16/19 10:00 06/17/19 09:36 Pravachol PO 20 mg DAILY TANK Administration Sodium Chloride 10 ml 06/16/19 02:46 Sodium Chloride Flush Syringe 10 Ml IV PRN PRN LINE FLUSH Sodium Chloride 10 ml 06/16/19 10:00 06/17/19 09:36 Sodium Chloride Flush Syringe 10 Ml IV 10 ml BID [facility] Administration Tiotropium [place] 1 puff 06/16/19 10:00 06/17/19 09:38 Spiriva IH Not Given DAILY [facility]
[2019-06-17] MEDS: BENADRYL PO PRN ×2 (14:10→20:51)
[2019-06-17] MEDS: LASIX PO SCH (18:26)
[2019-06-18] MEDS: TYLENOL PO PRN ×2 (01:14→10:02)
[2019-06-18] MEDS: HumaLOG SUB-Q SCH ×2 (01:16→05:23)
[2019-06-18] MEDS: BENADRYL PO PRN ×2 (03:34→10:01)
[2019-06-18] MEDS: LASIX PO SCH (05:23)
[2019-06-18] MEDS: PULMICORT IH SCH (07:25)
[2019-06-18 09:17] LABS: Hematocrit 23.6 % (30.3-42.9); Hemoglobin 7.5 gm/dl (10.1-14.3)
[2019-06-18] MEDS: THERAGRAN-M Tab PO SCH (10:01)
[2019-06-18] MEDS: VITAMIN D3 PO SCH (10:01)
[2019-06-18] MEDS: PRAVACHOL PO SCH (10:01)
[2019-06-18] MEDS: PROTONIX PO SCH (10:01)
[2019-06-18] MEDS: SODIUM CHLORIDE FLUSH SYRINGE 10 ML IV SCH (10:02)
--- NOTE | 2019-06-18 10:52 | Progress Note ---
Assessment and Plan 1. Acute kidney injury: Michael vasomotor JOSE. Renal function is overall stable. Monitor renal function. Avoid nephrotoxic agents. Meds dosage based on GFR. 2. FEN: Hyperkalemia, improved. Volume overload, Lasix. Metabolic alkalosis, monitor. Monitor lytes. 3. Chest pain: Seen by Cards. 4. Severe anemia: Followed by GI. 5. HFpEF: Followed by Cards. 6. Paroxysmal A.fib: Was on Eliquis. 7. HTN: Monitor BP. Subjective Date of service: 06/18/19 Principal diagnosis: UGIB Interval history: Patient was seen and examined at the bedside. Objective - Vital Signs Vital signs: Vital Signs - 12hr 06/17/19 06/18/19 06/18/19 23:50 01:14 04:11 Temperature 98.0 F 98.0 F Pulse Rate 66 67 Respiratory 18 18 18 Rate Respiratory Rate [Head] Blood Pressure 127/64 134/63 O2 Sat by Pulse 100 100 Oximetry 06/18/19 06/18/19 06/18/19 07:25 08:38 09:00 Temperature 98.0 F Pulse Rate 65 Respiratory 18 Rate Respiratory 20 Rate [Head] Blood Pressure 128/63 O2 Sat by Pulse 99 98 Oximetry 06/18/19 10:02 Temperature Pulse Rate Respiratory 20 Rate Respiratory Rate [Head] Blood Pressure O2 Sat by Pulse Oximetry - General Appearance General appearance: well-developed, appears stated age, other (no distress) EENT: ATNC, PERRL, hearing diminished Neck: supple Respiratory: Present: Rales Cardiology: S1S2, no murmurs Gastrointestinal: normoactive bowel sounds, no tenderness, no distended Integumentary: no rash, warm and dry Neurologic: no focal deficit, no asterixis, disoriented Musculoskeletal: other (2+ edema of both LEs noted) - Lab 06/18/19 09:12 06/18/19 06:34 Most recent lab results Calcium 9.0 mg/dL (8.4-10.2) 06/18/19 06:34 Phosphorus 4.10 mg/dL (2.5-4.5) 06/16/19 07:34 Medications & Allergies - Medications Allergies/Adverse Reactions: Allergies No Known Allergies Allergy (Verified 05/30/19 16:29) Home Medications: Home Medications Medication Instructions Recorded Confirmed Last Taken Type Albuterol Sulfate [Proair 90 mcg IH QID PRN 06/16/19 06/16/19 Unknown History Respiclick] Cholecalciferol Vit D3 [Vitamin D3 1 tab PO DAILY 06/16/19 06/16/19 Unknown History 1,000 UNIT TAB] Famotidine [Pepcid] 10 mg PO DAILY 06/16/19 06/16/19 Unknown History Iron Carb,Gl/FA/B12/C/Docusate 1 each PO DAILY 06/16/19 06/16/19 Unknown History [Ferralet 90 Tablet] Potassium Chloride [K-Dur] 20 meq PO QDAY 06/16/19 06/16/19 Unknown History Propylene Glycol [Systane Complete] 1.5 ml OP BID 06/16/19 06/16/19 Unknown History Tiotropium [place] [Spiriva] 1 puff IH DAILY 06/16/19 06/16/19 Unknown History Furosemide [Lasix TAB] 40 mg PO 0600,1800 #60 tablet 06/18/19 Unknown Rx Multivitamin Tab W-MINERAL 1 each PO QDAY #30 tablet 06/18/19 Unknown Rx [Multiple Vitamin/Mineral (Theragran M)] Pantoprazole [Protonix TAB] 40 mg PO QDAY #30 tablet 06/18/19 Unknown Rx Pravastatin [Pravachol] 20 mg PO DAILY tablet 06/18/19 Unknown Rx Active Medications: Generic Name Dose Route Start Last Admin Trade Name Freq PRN Reason Stop Dose Admin Acetaminophen 650 mg 06/16/19 02:48 06/18/19 10:02 Tylenol PO 650 mg Q4H PRN Administration Pain MILD(1-3)/Fever >100.5/BASILIO Albuterol 2.5 mg 06/16/19 02:48 06/16/19 07:23 Proventil IH 2.5 mg Q3HRT PRN Administration Shortness Of Breath Budesonide 0.5 mg 06/16/19 08:00 06/18/19 07:25 Pulmicort IH Not Given Q12HRT [facility] Cholecalciferol 1,000 unit 06/16/19 10:00 06/18/19 10:01 Vitamin D3 PO 1,000 unit DAILY [facility] Administration Dextrose 50 ml 06/16/19 02:48 D50w (25gm) Syringe IV PRN PRN Hypoglycemia Diphenhydramine HCl 25 mg 06/17/19 10:52 06/18/19 10:01 Benadryl PO 25 mg Q6H PRN Administration Itching Furosemide 40 mg 06/17/19 16:00 06/18/19 05:23 Lasix PO 40 mg DAILY@0600 TANK Administration Sodium Chloride 1,000 mls @ 50 mls/hr 06/16/19 19:00 Nacl 0.9% 1000 Ml IV DIRECT [facility] Insulin Human Lispro 0 unit 06/16/19 06:00 06/18/19 05:23 Humalog SUB-Q Not Given Q6HR [facility] Protocol Multivitamins/Minerals 1 each 06/17/19 10:00 06/18/19 10:01 Theragran-M Tab PO 1 each QDAY [facility] Administration Ondansetron HCl 4 mg 06/16/19 02:48 Zofran IV Q8H PRN Nausea And Vomiting Pantoprazole Sodium 40 mg 06/17/19 10:00 06/18/19 10:01 Protonix PO 40 mg QDAY [facility] Administration Pravastatin Sodium 20 mg 06/16/19 10:00 06/18/19 10:01 Pravachol PO 20 mg DAILY [facility] Administration Sodium Chloride 10 ml 06/16/19 02:46 Sodium Chloride Flush Syringe 10 Ml IV PRN PRN LINE FLUSH Sodium Chloride 10 ml 06/16/19 10:00 06/18/19 10:02 Sodium Chloride Flush Syringe 10 Ml IV 10 ml BID [facility] Administration Tiotropium [place] 1 puff 06/16/19 10:00 06/17/19 09:38 Spiriva IH Not Given DAILY [facility]
--- NOTE | 2019-06-18 11:08 | Progress Note ---
<MICHAEL UGALDE - Last Filed: 06/18/19 11:06> Assessment and Plan Severe Anemia s/p transfusion of PRBCs GI bleed Chest pain, atypical No ischemia on MPI 05/15/2019 Cor pulmonale Echocardiogram 04/2019 shows normal left ventricular systolic function, ejection fraction 60%. There is enlargement of the right heart chambers, moderate to severe pulmonary hypertension with a pulmonary artery systolic pressure of 66, suggests cor pulmonale. Chronic renal failure Required transient HD in the past. Paroxysmal Afib eliquis discontinued due to severe anemia Pacemaker present COPD Hypertension Type 2 DM Recommendations: Due to severe anemia, elderly frail status, patient is not a candidate for further anticoagulation at this time. Medical therapy for paroxysmal atrial fibrillation. Otherwise, conservative cardiac management Subjective Date of service: 06/18/19 Principal diagnosis: UGIB Interval history: Patient has no complaints. No cardiac events reported. Objective Vital Signs Temp Pulse Pulse Pulse Resp Resp Resp 06/18/19 10:02 20 06/18/19 09:00 20 06/18/19 08:38 98.0 F 65 18 06/18/19 07:25 06/18/19 04:11 98.0 F 67 18 06/18/19 01:14 18 06/17/19 23:50 98.0 F 66 18 06/17/19 22:40 65 18 06/17/19 21:30 18 06/17/19 21:02 18 06/17/19 20:51 18 06/17/19 19:58 06/17/19 19:55 66 18 06/17/19 19:23 65 06/17/19 18:57 98.0 F 65 18 06/17/19 18:14 98.0 F 65 20 06/17/19 14:41 65 18 06/17/19 11:35 97.0 F L 66 20 BP Pulse Ox 06/18/19 10:02 06/18/19 09:00 06/18/19 08:38 128/63 98 06/18/19 07:25 99 06/18/19 04:11 134/63 100 06/18/19 01:14 06/17/19 23:50 127/64 100 06/17/19 22:40 100 06/17/19 21:30 06/17/19 21:02 06/17/19 20:51 06/17/19 19:58 96 06/17/19 19:55 06/17/19 19:23 06/17/19 18:57 137/63 100 06/17/19 18:14 131/62 100 06/17/19 14:41 100 06/17/19 11:35 132/61 100 - Physical Examination General: No Apparent Distress HEENT: Positive: PERRL Neck: Positive: trachea midline Cardiac: Positive: Other (paced) Lungs: Positive: Decreased Breath Sounds Neuro: Positive: Grossly Intact - Labs and Meds CBC 06/18/19 Range/Units 09:12 Hgb 7.5 L (10.1-14.3) gm/dl Hct 23.6 L (30.3-42.9) % Comprehensive Metabolic Panel 06/18/19 Range/Units 06:34 Sodium 145 (137-145) mmol/L Potassium 4.4 (3.6-5.0) mmol/L Chloride 102.3 (98-107) mmol/L Carbon Dioxide 34 H (22-30) mmol/L BUN 46 H (7-17) mg/dL Creatinine 1.4 H (0.7-1.2) mg/dL Glucose 83 (65-100) mg/dL Calcium 9.0 (8.4-10.2) mg/dL <RUTHANN GONZALEZ - Last Filed: 06/18/19 13:00> Assessment and Plan Has seen and evaluated the patient and agree with the assessment and plan. Patient has a history of paroxysmal atrial fibrillation managed by rate control strategy. At this time would recommend the patient stay off anticoagulation due to the presence of severe anemia and high risk for falls. No further recommendations at this time. Thank you for the consult please reconsult as needed. Objective Vital Signs Temp Pulse Pulse Pulse Resp Resp Resp 06/18/19 12:20 97.9 F 71 18 06/18/19 12:19 65 06/18/19 10:02 20 06/18/19 09:00 20 06/18/19 08:38 98.0 F 65 18 06/18/19 07:25 06/18/19 04:11 98.0 F 67 18 06/18/19 01:14 18 06/17/19 23:50 98.0 F 66 18 06/17/19 22:40 65 18 06/17/19 21:30 18 06/17/19 21:02 18 06/17/19 20:51 18 06/17/19 19:58 06/17/19 19:55 66 18 06/17/19 19:23 65 06/17/19 18:57 98.0 F 65 18 06/17/19 18:14 98.0 F 65 20 06/17/19 14:41 65 18 BP Pulse Ox 06/18/19 12:20 92 06/18/19 12:19 91 06/18/19 10:02 06/18/19 09:00 06/18/19 08:38 128/63 98 06/18/19 07:25 99 06/18/19 04:11 134/63 100 06/18/19 01:14 06/17/19 23:50 127/64 100 06/17/19 22:40 100 06/17/19 21:30 06/17/19 21:02 06/17/19 20:51 06/17/19 19:58 96 06/17/19 19:55 06/17/19 19:23 06/17/19 18:57 137/63 100 06/17/19 18:14 131/62 100 06/17/19 14:41 100 - Labs and Meds CBC 06/18/19 Range/Units 09:12 Hgb 7.5 L (10.1-14.3) gm/dl Hct 23.6 L (30.3-42.9) % Comprehensive Metabolic Panel 06/18/19 Range/Units 06:34 Sodium 145 (137-145) mmol/L Potassium 4.4 (3.6-5.0) mmol/L Chloride 102.3 (98-107) mmol/L Carbon Dioxide 34 H (22-30) mmol/L BUN 46 H (7-17) mg/dL Creatinine 1.4 H (0.7-1.2) mg/dL Glucose 83 (65-100) mg/dL Calcium 9.0 (8.4-10.2) mg/dL
--- NOTE | 2019-06-18 13:09 | Gastroenterology Progress Note ---
Assessment and Plan 1.GI bleed? 2.acute on chronic anemia -H/H 7.5/23.6-stable -continue to monitor H/H and transfuse as needed -no active signs of bleeding overnight or this am -EGD/colonoscopy 05/07/19 showed gastropathy, hiatal hernia, prior colon surgery, poor prep, and hemorrhoids -s/p repeat EGD 06/16/19 with pediatric colonoscope used to cannulate 4th portion of duodenum that revealed a 1cm pedunculated polyp at jxn 3rd/4th portion (s/p endoclip x 1 at the base due to adherent heme on the polyp surface then hot snare used to remove polyp (in 1 piece)), along with small hiatal hernia, and mild gastritis -clinically, patient is stable w/o GI complaints. Denies abd pain or N/V. Tolerating diet. -continue to hold anticoagulation (xarelto/eliquis) x 7 days -continue MVI and PPI daily -continue trend labs and supportive care -patient okay to be d/c per our service on current medications with f/u in clinic ~2 weeks -will sign off, please call if needed Subjective Date of service: 06/18/19 Principal diagnosis: UGIB Interval history: Patient sitting on the side of the bed this am eating breakfast w/o acute distress. Denies abd pain or active signs of bleeding overnight or this am. Objective - Constitutional Vitals: Temp Pulse Resp BP Pulse Ox 97.9 F 71 18 128/63 92 06/18/19 12:20 06/18/19 12:20 06/18/19 12:20 06/18/19 08:38 06/18/19 12:20 General appearance: no acute distress - Respiratory Respiratory effort: normal - Gastrointestinal General gastrointestinal: Present: soft, non-tender, non-distended, normal bowel sounds - Neurologic Neurological: alert and oriented x3 - Labs CBC & Chem 7: 06/18/19 09:12 06/18/19 06:34 Labs: Laboratory Results - last 24 hr 06/17/19 06/18/19 06/18/19 18:21 01:17 05:30 Hgb Hct Sodium Potassium Chloride Carbon Dioxide Anion Gap BUN Creatinine Estimated GFR BUN/Creatinine Ratio Glucose POC Glucose 163 H 250 H 125 H Calcium 08/07/19 08/07/19 06:34 09:12 Hgb 7.5 L Hct 23.6 L Sodium 145 Potassium 4.4 Chloride 102.3 Carbon Dioxide 34 H Anion Gap 13 BUN 46 H Creatinine 1.4 H Estimated GFR 43 BUN/Creatinine Ratio 33 Glucose 83 POC Glucose Calcium 9.0
[2019-06-18] MEDS: SPIRIVA IH SCH (13:30)
--- NOTE | 2019-06-18 13:48 | Progress Note ---
Assessment and Plan Assessment and plan: Patient is a 88-year-old -[place] woman with history of CHF EF 60% with Cor pulmonale on 04/2019 ECHO, PPM, Paroxysmal A.Fib anticoagulated on Eliquis, chronic hypoxic respiratory failure due to COPD on home O2, DM, HTN, pulmonary HTN, chronic anemia, Arthritis and bipolar disorder who presents to [facility] with complaints of chest pains, increased BLE edema, and worsening shortness of breath for the past day. She was found to have hemoglobin of 5.8, INR 1.85, K+ 5.9 with +FOBT Acute on chronic blood loss anemia, due to lower GI hemorrhage Status post EGD on colonoscopy which revealed a pedunculated polyp at the junction of the third and fourth portion, status post endoclip slash removal by snare CKD stage 3: monitor bmp closely, stable and improved. Paroxysmal A-fib, Anticoagulated on Eliquis: Hold Eliquis given GI bleed and acute anemia CHF with cor pulmonale, judicious use of with fluid/blood Hx of HTN: monitor closely, iv antihypertensives if needed HLD: statin Insulin-dependent diabetes: SSI, ada, accucheck Chronic hypoxic respiratory failure: COPD on continuous 2L supplemental O2 DVT PPX: scd only due to gib Bipolar disorder; continue to monitor tentative dc tomorrow if continues to improve Hospitalist Physical - Constitutional Vitals: Temp Pulse Resp BP Pulse Ox 97.9 F 71 18 128/63 92 06/18/19 12:20 06/18/19 12:20 06/18/19 12:20 06/18/19 08:38 06/18/19 12:20 General appearance: Present: no acute distress Results - Labs CBC & Chem 7: 06/18/19 09:12 06/18/19 06:34 Labs: Laboratory Last Values WBC 5.3 K/mm3 (4.5-11.0) 06/17/19 08:02 RBC 2.36 M/mm3 (3.65-5.03) L 06/17/19 08:02 Hgb 7.5 gm/dl (10.1-14.3) L 06/18/19 09:12 Hct 23.6 % (30.3-42.9) L 06/18/19 09:12 MCV 97 fl (79-97) 06/17/19 08:02 MCH 31 pg (28-32) 06/17/19 08:02 MCHC 32 % (30-34) 06/17/19 08:02 RDW 18.9 % (13.2-15.2) H 06/17/19 08:02 Plt Count 162 K/mm3 (140-440) 06/17/19 08:02 Lymph % (Auto) 12.9 % (13.4-35.0) L 06/17/19 08:02 Floyd % (Auto) 15.1 % (0.0-7.3) H 06/17/19 08:02 Eos % (Auto) 9.2 % (0.0-4.3) H 06/17/19 08:02 Baso % (Auto) 0.6 % (0.0-1.8) 06/17/19 08:02 Lymph # 0.7 K/mm3 (1.2-5.4) L 06/17/19 08:02 Floyd # 0.8 K/mm3 (0.0-0.8) 06/17/19 08:02 Eos # 0.5 K/mm3 (0.0-0.4) H 06/17/19 08:02 Baso # 0.0 K/mm3 (0.0-0.1) 06/17/19 08:02 Seg Neutrophils % 62.2 % (40.0-70.0) 06/17/19 08:02 Seg Neutrophils # 3.3 K/mm3 (1.8-7.7) 06/17/19 08:02 PT 20.9 Sec. (12.2-14.9) H 06/16/19 01:40 INR 1.85 (0.87-1.13) H 06/16/19 01:40 APTT 34.1 Sec. (24.2-36.6) 06/16/19 01:40 Sodium 145 mmol/L (137-145) 06/18/19 06:34 Potassium 4.4 mmol/L (3.6-5.0) 06/18/19 06:34 Chloride 102.3 mmol/L (98-107) 06/18/19 06:34 Carbon Dioxide 34 mmol/L (22-30) H 06/18/19 06:34 13 mmol/L 06/18/19 06:34 BUN 46 mg/dL (7-17) H 06/18/19 06:34 1.4 mg/dL (0.7-1.2) H 06/18/19 06:34 Estimated GFR 43 ml/min 06/18/19 06:34 33 % 06/18/19 06:34 Glucose 83 mg/dL (65-100) 06/18/19 06:34 POC Glucose 125 (70-105) H 06/18/19 05:30 Calcium 9.0 mg/dL (8.4-10.2) 06/18/19 06:34 Phosphorus 4.10 mg/dL (2.5-4.5) 06/16/19 07:34 0.021 ng/mL (0.00-0.029) 06/16/19 07:34 NT-Pro-B Natriuret Pep 3323 pg/mL (0-900) H 06/16/19 01:40 Triglycerides 51 mg/dL (2-149) 06/16/19 03:05 Cholesterol 87 mg/dL (50-199) 06/16/19 03:05 43 mg/dL (50-130) L 06/16/19 03:05 42 mg/dL (40-59) 06/16/19 03:05 2.07 % 06/16/19 03:05 Blood Type O POSITIVE 06/16/19 03:05 Antibody Screen Negative 06/16/19 03:05 Crossmatch See Detail 06/16/19 03:05 Active Medications - Current Medications Current Medications: Generic Name Dose Route Start Last Admin Trade Name Freq PRN Reason Stop Dose Admin Acetaminophen 650 mg 06/16/19 02:48 06/18/19 10:02 Tylenol PO 650 mg Q4H PRN Administration Pain MILD(1-3)/Fever >100.5/BASILIO Albuterol 2.5 mg 06/16/19 02:48 06/16/19 07:23 Proventil IH 2.5 mg Q3HRT PRN Administration Shortness Of Breath Budesonide 0.5 mg 06/16/19 08:00 06/18/19 07:25 Pulmicort IH Not Given Q12HRT TANK Cholecalciferol 1,000 unit 06/16/19 10:00 06/18/19 10:01 Vitamin D3 PO 1,000 unit DAILY TANK Administration Dextrose 50 ml 06/16/19 02:48 D50w (25gm) Syringe IV PRN PRN Hypoglycemia Diphenhydramine HCl 25 mg 06/17/19 10:52 06/18/19 10:01 Benadryl PO 25 mg Q6H PRN Administration Itching Furosemide 40 mg 06/18/19 18:00 Lasix PO 0600,1800 TANK Sodium Chloride 1,000 mls @ 50 mls/hr 06/16/19 19:00 Nacl 0.9% 1000 Ml IV DIRECT TANK Insulin Human Lispro 0 unit 06/16/19 06:00 06/18/19 05:23 Humalog SUB-Q Not Given Q6HR [facility] Protocol Multivitamins/Minerals 1 each 06/17/19 10:00 06/18/19 10:01 Theragran-M Tab PO 1 each QDAY TANK Administration Ondansetron HCl 4 mg 06/16/19 02:48 06/18/19 11:57 Zofran IV 4 mg Q8H PRN Administration Nausea And Vomiting Pantoprazole Sodium 40 mg 06/17/19 10:00 06/18/19 10:01 Protonix PO 40 mg QDAY TANK Administration Pravastatin Sodium 20 mg 06/16/19 10:00 06/18/19 10:01 Pravachol PO 20 mg DAILY TANK Administration Sodium Chloride 10 ml 06/16/19 02:46 Sodium Chloride Flush Syringe 10 Ml IV PRN PRN LINE FLUSH Sodium Chloride 10 ml 06/16/19 10:00 06/18/19 10:02 Sodium Chloride Flush Syringe 10 Ml IV 10 ml BID TANK Administration Tiotropium [place] 1 puff 06/16/19 10:00 06/18/19 13:30 Spiriva IH 1 puff DAILY TANK Administration
--- NOTE | 2019-06-18 13:55 | Discharge Summary ---
Providers - Providers Date of Admission: 06/16/19 02:48 Attending physician: RIDDHI MAGANA MD 06/16/19 02:46 Consult to Cardiology [CONS] Routine Consulting Provider: TERELL MARIE Reason For Exam: c/o cp &SOB, acute on chronic anemia, est pt 06/16/19 02:48 Consult to Physician [CONS] Routine Comment: Consulting Provider: ANDREZ PRABHAKAR Physician Instructions: Reason For Exam: JOSE ?? vasomotor 06/16/19 02:58 Consult to Physician [CONS] Routine Comment: Consulting Provider: ZAID TANNER Physician Instructions: Reason For Exam: ??upper gi bleed 06/16/19 12:22 Consult to PICC Line RN [CONS] Stat Reason For Exam: need blood transfusion Type Line:: Midline Primary care physician: THEATRICAL TROUPER Hospitalization Condition: Fair Hospital course: Patient is a 88-year-old -[place] woman with history of CHF EF 60% with Cor pulmonale on 04/2019 ECHO, PPM, Paroxysmal A.Fib anticoagulated on Eliquis, chronic hypoxic respiratory failure due to COPD on home O2, DM, HTN, pulmonary HTN, chronic anemia, Arthritis and bipolar disorder who presents to [facility] ED with complaints of chest pains, increased BLE edema, and worsening shortness of breath for the past day. She was found to have hemoglobin of 5.8, INR 1.85, K+ 5.9 with +FOBT Acute on chronic blood loss anemia, due to lower GI hemorrhage Status post EGD on colonoscopy which revealed a pedunculated polyp at the junction of the third and fourth portion, status post endoclip slash removal by snare CKD stage 3: monitor bmp closely, stable and improved. Paroxysmal A-fib, Anticoagulated on Eliquis: Hold Eliquis given GI bleed and acute anemia CHF with cor pulmonale, judicious use of with fluid/blood Hx of HTN: monitor closely, iv antihypertensives if needed HLD: statin Insulin-dependent diabetes: SSI, ada, accucheck Chronic hypoxic respiratory failure: COPD on continuous 2L supplemental O2 DVT PPX: scd only due to gib Bipolar disorder; continue to monitor tentative dc tomorrow if continues to improve Disposition: DC-01 TO HOME OR SELFCARE Time spent for discharge: 33 mins Core Measure Documentation - Palliative Care Palliative Care/ Comfort Measures: Not Applicable - Core Measures Any of the following diagnoses?: none Exam - Constitutional Vitals: Temp Pulse Resp BP Pulse Ox 97.9 F 71 18 128/63 92 06/18/19 12:20 06/18/19 12:20 06/18/19 12:20 06/18/19 08:38 06/18/19 12:20 General appearance: Present: no acute distress, well-nourished - EENT Eyes: Present: PERRL ENT: hearing intact, clear oral mucosa - Neck Neck: Present: supple, normal ROM - Respiratory Respiratory effort: normal Respiratory: bilateral: CTA - Cardiovascular Heart Sounds: Present: S1 & S2. Absent: rub, click - Extremities Extremities: pulses symmetrical, No edema Peripheral Pulses: within normal limits - Abdominal General gastrointestinal: Present: soft, non-tender, non-distended, normal bowel sounds Female genitourinary: Present: normal - Integumentary Integumentary: Present: clear, warm, dry - Musculoskeletal Musculoskeletal: gait normal, strength equal bilaterally - Psychiatric Psychiatric: appropriate mood/affect, intact judgment & insight - Neurologic Neurologic: CNII-XII intact, moves all extremities Plan Follow up with: PRIMARY CARE, [Primary Care Provider] - 7 Days Prescriptions: Furosemide [Lasix TAB] 40 mg PO 0600,1800 #60 tablet Multivitamin Tab W-MINERAL [Multiple Vitamin/Mineral (Theragran M)] 1 each PO QDAY #30 tablet Pantoprazole [Protonix TAB] 40 mg PO QDAY #30 tablet
[2019-06-18 15:54] VITALS: BP 125/61
[2019-06-18] MEDS ORDERED: LASIX PO SCH (18:00)
== END 2019-06-18 17:00 | disposition home or self-care (01) | DRG 377 ==
LOC: ED 01:05 → 4A 02:48
PROVIDERS: ADMIT Internal Medicine; ATTEND Internal Medicine
PROC: 0DB98ZZ Excision of Duodenum, Via Natural or Artificial Opening Endoscopic (ICD-10-PCS; principal; 2019-06-16)
PROC: 0W3P8ZZ Control Bleeding in Gastrointestinal Tract, Via Natural or Artificial Opening Endoscopic (ICD-10-PCS; 2019-06-16)
PROC: 30233N1 Transfusion of Nonautologous Red Blood Cells into Peripheral Vein, Percutaneous Approach (ICD-10-PCS; 2019-06-16)
DX: K29.01 Acute gastritis with bleeding (principal); I50.33 Acute on chronic diastolic (congestive) heart failure; D62 Acute posthemorrhagic anemia; J96.11 Chronic respiratory failure with hypoxia; I13.0 Hypertensive heart and chronic kidney disease with heart failure and stage 1 through stage 4 chronic kidney disease, or unspecified chronic kidney disease; I48.92 Unspecified atrial flutter; E87.3 Alkalosis; N17.9 Acute kidney failure, unspecified; E87.5 Hyperkalemia; E87.70 Fluid overload, unspecified; R07.89 Other chest pain; I27.81 Cor pulmonale (chronic); I50.9 Heart failure, unspecified; I48.0 Paroxysmal atrial fibrillation; J44.9 Chronic obstructive pulmonary disease, unspecified; D53.9 Nutritional anemia, unspecified; M19.90 Unspecified osteoarthritis, unspecified site; F31.9 Bipolar disorder, unspecified; N18.3 Chronic kidney disease, stage 3 (moderate); E11.22 Type 2 diabetes mellitus with diabetic chronic kidney disease; E78.5 Hyperlipidemia, unspecified; K44.9 Diaphragmatic hernia without obstruction or gangrene; Z79.01 Long term (current) use of anticoagulants; Z95.0 Presence of cardiac pacemaker; Z79.4 Long term (current) use of insulin; Z79.899 Other long term (current) drug therapy; Z72.89 Other problems related to lifestyle
CPT/HCPCS: 36415; 71045; 80048; 80061; 82271; 82962; 83880; 84100; 84132; 84484; 85014; 85018; 85025; 85610; 85730; 86850; 86900; 86901; 86920; 87116; 88305; 93005; 93010; 94640; 94760; G0378; A9270-GY; C9113; J1815; J1940; J2405; J7030; J7040; P9016

== ENCOUNTER 2019-06-20 17:19 | Emergency (ER) | payer MEDICARE ==
--- NOTE | 2019-06-20 17:43 | Event Note ---
ED Screening Note Date of service: 06/20/19 Time: 17:41 ED Screening Note: This is a 88 y.o. F. that presents to the ER with shortness of breath and edema for a few days. This initial assessment/diagnostic orders/clinical plan/treatment(s) is/are subject to change based on patients health status, clinical progression and re- assessment by fellow clinical providers in the ED. Further treatment and workup at subsequent clinical providers discretion. Patient/guardian urged not to elope from the ED as their condition may be serious if not clinically assessed and managed. Initial orders include: Labs, EKG, & CXR
--- NOTE | 2019-06-20 18:27 | XRay Report ---
CHEST 1 VIEW INDICATION: edema, SOB. COMPARISON: 4 days prior FINDINGS: Support devices: Cardiac leads are unchanged. Heart: Stable. Lungs/Pleura: There is new right basilar airspace disease. This could be due to infiltrate or atelect asis. There may be a trace right pleural effusion. No left pleural effusion. No pneumothorax. IMPRESSION: 1. New nonspecific right basilar opacities, atelectasis versus infiltrate. Otherwise, no significant change. Signer Name: Jace Clarke MD Signed: 06/20/2019 6:23 PM Workstation Name: [id number]
--- NOTE | 2019-06-20 18:57 | Emergency Department Report ---
ED Shortness of Breath HPI - General Chief Complaint: Dyspnea/Respdistress Stated Complaint: SOB Time Seen by Provider: 06/20/19 17:39 Source: patient Mode of arrival: Wheelchair Limitations: No Limitations - History of Present Illness Initial Comments: 88 yo F with hx CHF, Afib, COPD (chronically on 2L O2), diabetes, HTN presents to ED with complaint of SOB and chest pain. Pt reports she experienced these symptoms last night and this morning, both have currently resolved. Pt states chest pain was in the area of her pacemaker. Reports dry cough and chronic bilateral lower extremity edema. Denies fever. MD Complaint: shortness of breath, chest pain -: Last night Severity: moderate Quality: aching Consistency: now resolved Improves With: nothing Worsens With: nothing Known History Of: COPD, congestive heart failure Associated Symptoms: chest pain, cough - Related Data Home Oxygen Therapy: Yes Home Oxygen Amount: 2 Liters Home Medications Medication Instructions Recorded Confirmed Last Taken Albuterol Sulfate [Proair 90 mcg IH QID PRN 06/16/19 06/16/19 Unknown Respiclick] Cholecalciferol Vit D3 [Vitamin D3 1 tab PO DAILY 06/16/19 06/16/19 Unknown 1,000 UNIT TAB] Famotidine [Pepcid] 10 mg PO DAILY 06/16/19 06/16/19 Unknown Iron Carb,Gl/FA/B12/C/Docusate 1 each PO DAILY 06/16/19 06/16/19 Unknown [Ferralet 90 Tablet] Potassium Chloride [K-Dur] 20 meq PO QDAY 06/16/19 06/16/19 Unknown Propylene Glycol [Systane Complete] 1.5 ml OP BID 06/16/19 06/16/19 Unknown Tiotropium [place] [Spiriva] 1 puff IH DAILY 06/16/19 06/16/19 Unknown Previous Rx's Medication Instructions Recorded Last Taken Type Furosemide [Lasix TAB] 40 mg PO 0600,1800 #60 tablet 06/18/19 Unknown Rx Multivitamin Tab W-MINERAL 1 each PO QDAY #30 tablet 06/18/19 Unknown Rx [Multiple Vitamin/Mineral (Theragran M)] Pantoprazole [Protonix TAB] 40 mg PO QDAY #30 tablet 06/18/19 Unknown Rx Pravastatin [Pravachol] 20 mg PO DAILY tablet 06/18/19 Unknown Rx Benzonatate [Tessalon Perles] 100 mg PO Q8HR PRN #20 capsule 06/20/19 Unknown Rx Ondansetron [Zofran Odt] 4 mg PO Q8HR PRN #20 tab.rapdis 06/20/19 Unknown Rx levoFLOXacin [Levaquin] 750 mg PO QDAY #4 tablet 06/20/19 Unknown Rx Allergies Allergy/AdvReac Type Severity Reaction Status Date / Time No Known Allergies Allergy Verified 06/20/19 17:37 ED Review of Systems ROS: Stated complaint: SOB Other details as noted in HPI Comment: All other systems reviewed and negative Constitutional: denies: chills, fever Respiratory: cough, shortness of breath Cardiovascular: chest pain Gastrointestinal: denies: nausea, vomiting ED Past Medical Hx - Past Medical History Previous Medical History?: Yes Hx Hypertension: Yes Hx Congestive Heart Failure: Yes Hx Diabetes: Yes Hx Renal Disease: Yes (Chronic renal disease, required HD in past) Hx Arthritis: Yes Hx COPD: Yes Additional medical history: heart failure - Surgical History Past Surgical History?: Yes Hx Pacemaker: Yes Additional Surgical History: pacemaker, diverticulitis - Social History Smoking Status: Former Smoker Substance Use Type: None - Medications Home Medications: Home Medications Medication Instructions Recorded Confirmed Last Taken Type Albuterol Sulfate [Proair 90 mcg IH QID PRN 06/16/19 06/16/19 Unknown History Respiclick] Cholecalciferol Vit D3 [Vitamin D3 1 tab PO DAILY 06/16/19 06/16/19 Unknown History 1,000 UNIT TAB] Famotidine [Pepcid] 10 mg PO DAILY 06/16/19 06/16/19 Unknown History Iron Carb,Gl/FA/B12/C/Docusate 1 each PO DAILY 06/16/19 06/16/19 Unknown History [Ferralet 90 Tablet] Potassium Chloride [K-Dur] 20 meq PO QDAY 06/16/19 06/16/19 Unknown History Propylene Glycol [Systane Complete] 1.5 ml OP BID 06/16/19 06/16/19 Unknown History Tiotropium [place] [Spiriva] 1 puff IH DAILY 06/16/19 06/16/19 Unknown History Furosemide [Lasix TAB] 40 mg PO 0600,1800 #60 tablet 06/18/19 Unknown Rx Multivitamin Tab W-MINERAL 1 each PO QDAY #30 tablet 06/18/19 Unknown Rx [Multiple Vitamin/Mineral (Theragran M)] Pantoprazole [Protonix TAB] 40 mg PO QDAY #30 tablet 06/18/19 Unknown Rx Pravastatin [Pravachol] 20 mg PO DAILY tablet 06/18/19 Unknown Rx Benzonatate [Tessalon Perles] 100 mg PO Q8HR PRN #20 capsule 06/20/19 Unknown Rx Ondansetron [Zofran Odt] 4 mg PO Q8HR PRN #20 tab.rapdis 06/20/19 Unknown Rx levoFLOXacin [Levaquin] 750 mg PO QDAY #4 tablet 06/20/19 Unknown Rx ED Physical Exam - General Limitations: No Limitations General appearance: alert, in no apparent distress - Head Head exam: Present: atraumatic, normocephalic - Eye Eye exam: Present: normal appearance, PERRL, EOMI - ENT ENT exam: Present: mucous membranes moist - Neck Neck exam: Present: normal inspection - Respiratory Respiratory exam: Present: normal lung sounds bilaterally. Absent: respiratory distress, wheezes, rales - Cardiovascular Cardiovascular Exam: Present: regular rate, normal rhythm - GI/Abdominal GI/Abdominal exam: Present: soft. Absent: distended, tenderness - Extremities Exam Extremities exam: Present: other (1+ pitting edema BLE) - Neurological Exam Neurological exam: Present: alert, oriented X3 - Psychiatric Psychiatric exam: Present: normal affect, normal mood - Skin Skin exam: Present: warm, dry, intact, normal color ED Course Vital Signs 06/20/19 06/20/19 06/20/19 15:24 15:30 18:30 Temperature 98.5 F Pulse Rate 70 67 85 Respiratory 22 22 17 Rate Blood Pressure 116/74 Blood Pressure 132/68 [Right] O2 Sat by Pulse 95 99 100 Oximetry 06/20/19 06/20/19 06/20/19 18:59 19:31 20:00 Temperature Pulse Rate 65 65 Respiratory 18 29 H 21 Rate Blood Pressure 124/73 159/79 Blood Pressure [Right] O2 Sat by Pulse 100 100 100 Oximetry 06/20/19 06/20/19 06/20/19 20:31 21:00 21:31 Temperature Pulse Rate 65 65 65 Respiratory 25 H 15 15 Rate Blood Pressure 136/75 143/74 144/48 Blood Pressure [Right] O2 Sat by Pulse 100 100 100 Oximetry 06/20/19 22:00 Temperature Pulse Rate 65 Respiratory 25 H Rate Blood Pressure 130/62 Blood Pressure [Right] O2 Sat by Pulse 92 Oximetry ED Medical Decision Making - Lab Data Result diagrams: 06/20/19 18:45 06/20/19 18:45 - EKG Data -: EKG Interpreted by Me - EKG Data Interpretation: no acute changes, other (paced rhythm) - Radiology Data Radiology results: report reviewed, image reviewed - Medical Decision Making 88 yo F w/ CHF, COPD, afib, presents to the ED w/ chest pain and SOB x 1 day which resolved prior to ED arrival. Pt has had 6 admissions over the last 2 months for same complaint. Pt most recently discharged 2 days ago. On 06/09/19, pt diagnosed with atypical chest pain by cardiology. Had normal myocardial stress test also last month May 2019. Pt states her pain today is the same as it has been on her past visits. Pt is comfortable, in no distress, lungs are clear, O2 sats are normal. EKG shows paced rhythm, troponin is 0.03. Slight elevation likely due to her chronic renal insufficiency. CXR today shows nonspecific right basilar opacities, atelectasis vs infiltrate. Pt is afebrile w/ normal WBCs. She does reports frequent cough, so will cover for possible infection with levaquin. Pt and family member feel comfortable with discharge home. Return precautions given. Advised them to f/u with pt's PCP and patternmaker on outpt basis. - Differential Diagnosis COPD, ACS, pneumonia, pulm edema Critical care attestation.: If time is entered above; I have spent that time in minutes in the direct care of this critically ill patient, excluding procedure time. ED Disposition Clinical Impression: Dyspnea, Chest pain Disposition: DC-01 TO HOME OR SELFCARE Is pt being admited?: No Condition: Stable Instructions: Chest Pain (ED), Dyspnea (ED), Pneumonia (ED) Prescriptions: levoFLOXacin [Levaquin] 750 mg PO QDAY #4 tablet Benzonatate [Tessalon Perles] 100 mg PO Q8HR PRN #20 capsule PRN Reason: Cough Ondansetron [Zofran Odt] 4 mg PO Q8HR PRN #20 tab.rapdis PRN Reason: Vomiting Referrals: PRIMARY CARE, [Referring] - 3-5 Days Time of Disposition: 21:46
[2019-06-20 19:06] LABS: Basophils % (Auto) 0.5 % (0.0-1.8); Eosinophils # (Auto) 0.4 K/mm3 (0.0-0.4); Eosinophils % (Auto) 6.9 % (0.0-4.3); Hematocrit 23.2 % (30.3-42.9); Hemoglobin 7.7 gm/dl (10.1-14.3); Lymphocytes # (Auto) 0.6 K/mm3 (1.2-5.4); Lymphocytes % (Auto) 9.6 % (13.4-35.0); Mean Corpuscular HGB Conc 33 % (30-34); Mean Corpuscular Volume 98 fl (79-97); Monocytes # (Auto) 0.8 K/mm3 (0.0-0.8); Monocytes % (Auto) 13.2 % (0.0-7.3); Platelet Count 165 K/mm3 (140-440); Red Blood Count 2.37 M/mm3 (3.65-5.03)
[2019-06-20 19:09] LABS: Red Cell Distribution Width 20.1 % (13.2-15.2)
[2019-06-20 19:33] LABS: Albumin 3.3 g/dL (3.9-5); Calcium 8.9 mg/dL (8.4-10.2)
[2019-06-20] MEDS ORDERED: TYLENOL PO ONE (20:41)
[2019-06-20] MEDS ORDERED: TYLENOL ONE (20:45)
[2019-06-20] MEDS ORDERED: LEVAQUIN PO ONE (21:45)
[2019-06-20 22:21] VITALS: BP 130/62
== END 2019-06-20 22:10 | disposition home or self-care (01) ==
LOC: ED 17:19
DX: R06.00 Dyspnea, unspecified (principal); R07.89 Other chest pain; I13.0 Hypertensive heart and chronic kidney disease with heart failure and stage 1 through stage 4 chronic kidney disease, or unspecified chronic kidney disease; E11.22 Type 2 diabetes mellitus with diabetic chronic kidney disease; N18.9 Chronic kidney disease, unspecified; I50.9 Heart failure, unspecified; M19.90 Unspecified osteoarthritis, unspecified site; J44.9 Chronic obstructive pulmonary disease, unspecified; I48.91 Unspecified atrial fibrillation; Z95.0 Presence of cardiac pacemaker; Z87.891 Personal history of nicotine dependence; Z79.899 Other long term (current) drug therapy
CPT/HCPCS: 36415; 71045; 80053; 83880; 84484; 85025; 93005; 93010; 99284

== ENCOUNTER 2019-07-12 14:57 | Observation (INO) | payer MEDICARE ==
--- NOTE | 2019-07-12 15:17 | Event Note ---
ED Screening Note Date of service: 07/12/19 Time: 15:15 ED Screening Note: 88 y o f presents with cp x today hx of pace maker This initial assessment/diagnostic orders/clinical plan/treatment(s) is/are subject to change based on patients health status, clinical progression and re- assessment by fellow clinical providers in the ED. Further treatment and workup at subsequent clinical providers discretion. Patient/guardian urged not to elope from the ED as their condition may be serious if not clinically assessed and managed. Initial orders include: cp protocol
[2019-07-12 15:51] LABS: Basophils % (Auto) 0.3 % (0.0-1.8); Eosinophils # (Auto) 0.2 K/mm3 (0.0-0.4); Eosinophils % (Auto) 4.4 % (0.0-4.3); Hematocrit 24.2 % (30.3-42.9); Hemoglobin 7.6 gm/dl (10.1-14.3); Lymphocytes # (Auto) 0.4 K/mm3 (1.2-5.4); Lymphocytes % (Auto) 8.9 % (13.4-35.0); Mean Corpuscular HGB Conc 32 % (30-34); Mean Corpuscular Volume 99 fl (79-97); Monocytes # (Auto) 0.5 K/mm3 (0.0-0.8); Monocytes % (Auto) 11.7 % (0.0-7.3); Platelet Count 168 K/mm3 (140-440); Red Blood Count 2.44 M/mm3 (3.65-5.03); Red Cell Distribution Width 17.7 % (13.2-15.2)
--- NOTE | 2019-07-12 16:26 | XRay Report ---
CHEST 2 VIEWS INDICATION / CLINICAL INFORMATION: Chest Pain. COMPARISON: None available. FINDINGS: SUPPORT DEVICES: None. HEART / MEDIASTINUM: Borderline-enlarged. LUNGS / PLEURA: Small right pleural effusion. Patchy consolidation throughout the mid and lower right lung. Signer Name: Anuj Valladares MD Signed: 07/12/2019 4:22 PM Workstation Name: [id number]
--- NOTE | 2019-07-12 17:00 | Emergency Department Report ---
HPI - General Chief Complaint: Chest Pain Time Seen by Provider: 07/12/19 15:15 - HPI HPI: Room 5 The pt is an 88 yo F p/w a cc of CP. The pt was recently d/c from this hospital yd. She states last night she developed intermittent L CP described as sharp in nature and assoc c SOB and nausea. Pt denies vomiting or diaphoresis. Pt denies BRBPR or melena ED Past Medical Hx - Past Medical History Hx Hypertension: Yes Hx Congestive Heart Failure: Yes Hx Diabetes: Yes Hx Renal Disease: Yes (CKD- NO HD) Hx Arthritis: Yes Hx COPD: Yes Additional medical history: heart failure - Surgical History Hx Pacemaker: Yes Additional Surgical History: pacemaker, diverticulitis - Family History Family history: no significant - Social History Smoking Status: Former Smoker (none x 20 years) - Medications Home Medications: Home Medications Medication Instructions Recorded Confirmed Last Taken Type Potassium Chloride [K-Dur] 40 meq PO QDAY 06/16/19 07/08/19 Unknown History Propylene Glycol [Systane Complete] 1.5 ml OP BID 06/16/19 07/08/19 Unknown H istory Tiotropium [place] [Spiriva] 1 puff IH DAILY 06/16/19 07/08/19 Unknown History Multivitamin Tab W-MINERAL 1 each PO QDAY #30 tablet 06/18/19 07/08/19 Unknown Rx [Multiple Vitamin/Mineral (Theragran M)] Ondansetron [Zofran ODT TAB] 4 mg PO Q8HR PRN #20 tab.rapdis 06/20/19 07/08/19 Unknown Rx Pantoprazole [Protonix TAB] 20 mg PO QDAY 07/08/19 07/08/19 Unknown History Albuterol Sulfate [Proair 90 mcg IH QID PRN #1 aer.pow.ba 07/11/19 Unknown Rx Respiclick] Aspirin [Aspirin BABY CHEW TAB] 81 mg PO QDAY #30 tab.chew 07/11/19 Unknown Rx Benzonatate [Tessalon Perles] 100 mg PO Q8HR PRN #30 capsule 07/11/19 Unknown Rx Carvedilol [Coreg] 3.125 mg PO BID #60 tablet 07/11/19 Unknown Rx Cholecalciferol Vit D3 [Vitamin D3 1,000 unit PO DAILY tablet 07/11/19 Unknown Rx 1,000 UNIT TAB] Fe Fumarate/FA/Mv, Min Comb#15 1 each PO QDAY #15 capsule 07/11/19 Unknown Rx [Hemocyte Plus] Furosemide [Lasix TAB] 80 mg PO 0600,1800 #30 tablet 07/11/19 Unknown Rx Furosemide [Lasix TAB] 80 mg PO 0600,1800 #60 tablet 07/11/19 Unknown Rx Iron Carb,Gl/FA/B12/C/Docusate 1 each PO DAILY #30 tablet 07/11/19 Unknown Rx [Ferralet 90 Tablet] Lisinopril [Zestril TAB] 2.5 mg PO QDAY #30 tablet 07/11/19 Unknown Rx Pravastatin [Pravachol] 20 mg PO DAILY #30 tablet 07/11/19 Unknown Rx traMADol [Ultram 50 MG tab] 25 mg PO Q6H PRN #30 tablet 07/11/19 Unknown Rx ED Review of Systems ROS: Stated complaint: HARD TO BREATH Other details as noted in HPI Constitutional: denies: diaphoresis Eyes: denies: eye pain ENT: denies: throat pain Respiratory: shortness of breath Cardiovascular: chest pain Endocrine: no symptoms reported Gastrointestinal: nausea. denies: vomiting Genitourinary: denies: dysuria Musculoskeletal: denies: back pain Neurological: denies: headache Physical Exam - Physical Exam Vital Signs: Vital Signs 07/12/19 15:13 Temperature 98.2 F Pulse Rate 67 Respiratory 20 Rate Blood Pressure 155/76 O2 Sat by Pulse 93 Oximetry Physical Exam: GEN: WD WN F lying on stretcher in NAD HEENT: NCAT Neck: Trachea midline Lungs: coarse sounds and crackles bilat bases CV: rrr Abd:S/NT/ND Skin: no diaphoresis. 2+ bilat LE pitting edema Neuro: GCS 15 MS: no acute injury ED Course Vital Signs 07/12/19 15:13 Temperature 98.2 F Pulse Rate 67 Respiratory 20 Rate Blood Pressure 155/76 O2 Sat by Pulse 93 Oximetry ED Medical Decision Making - Lab Data Result diagrams: 07/12/19 15:25 07/12/19 15:25 Vital Signs 07/12/19 15:13 Temperature 98.2 F Pulse Rate 67 Respiratory 20 Rate Blood Pressure 155/76 O2 Sat by Pulse 93 Oximetry - EKG Data -: EKG Interpreted by Me Rate: normal - EKG Data When compared to previous EKG there are: previous EKG unavailable Interpretation: other (Vent paced rhythym) - Radiology Data Radiology results: report reviewed (CXR), image reviewed (CXR) interpreted by me: CXR- blunted right CP angle c/w pleural effusion. No ptx Findings [facility] [address] [place] [address] XRay Report Signed Patient: KESHIA BROWN MR#: [id number] : 1930 Acct:[id number] Age/Sex: 88 / F ADM Date: 07/12/19 Loc: ED Attending Dr: Ramana shea Physician: ARELI SPENCER Date of Service: 07/12/19 Procedure(s): XR chest routine 2V Accession Number(s): [id number] cc: ARELI SPENCER Fluoro Time In Minutes: CHEST 2 VIEWS INDICATION / CLINICAL INFORMATION: Chest Pain. COMPARISON: None available. FINDINGS: SUPPORT DEVICES: None. HEART / MEDIASTINUM: Borderline-enlarged. LUNGS / PLEURA: Small right pleural effusion. Patchy consolidation throughout the mid and lower right lung. Signer Name: Anuj Valladares MD Signed: 07/12/2019 4:22 PM Workstation Name: [id number] Transcribed By: BC Dictated By: Anuj Valladares MD Electronically Authenticated By: Anuj Valladares MD Signed Date/Time: 07/12/191621 DD/ 162 TD/TT: - Differential Diagnosis pleural effusion, acs, pericarditis, CHF exacerbation Critical care attestation.: If time is entered above; I have spent that time in minutes in the direct care of this critically ill patient, excluding procedure time. ED Disposition Clinical Impression: Chest pain, Pleural effusion, right, Shortness of breath Disposition: OP ADMIT IP TO THIS HOSP Is pt being admited?: Yes Does the pt Need Aspirin: Yes Condition: Fair Instructions: Chest Pain (ED) Referrals: PRIMARY CARE, [Primary Care Provider] - 3-5 Days Time of Disposition: 17:06 (Hospitalist paged (Dr Patiño))
[2019-07-12] MEDS ORDERED: CATAPRES PO ONE (17:05)
[2019-07-12] MEDS ORDERED: LASIX IV ONE (17:05)
[2019-07-12] MEDS ORDERED: NITRO-BID 2% TP ONE (17:05)
[2019-07-12] MEDS ORDERED: ASPIRIN PO ONE (17:06)
[2019-07-12] MEDS ORDERED: PROVENTIL IH PRN (17:53)
[2019-07-12] MEDS ORDERED: SODIUM CHLORIDE FLUSH SYRINGE 10 ML IV PRN (17:53)
[2019-07-12] MEDS ORDERED: TYLENOL PO PRN (17:53)
[2019-07-12] MEDS ORDERED: ZOFRAN IV PRN (17:53)
[2019-07-12] MEDS ORDERED: ZOFRAN ODT PO PRN (17:54)
[2019-07-12] MEDS ORDERED: TESSALON PERLES PO PRN (17:54)
--- NOTE | 2019-07-12 17:58 | History and Physical Report ---
History of Present Illness Chief complaint: My breathing is off History of present illness: 88 YO Female with HTN, DM, Atrial Fib, CHF,COPD, OA, Dementia, Anxiety, Debility presents to ED for evaluation. Pt states that she feels weak and short of breath today. Pt discharged from [facility] on 07/11/19 and represents today. Pt reports acute onset of shortness of breath today. Pt discharged from hospital on 07/11/19. Pt transported to [facility] for further care and reevaluation. Pt seen and evaluated in ED and found to have COPD exacerbation. Pt admitted to [facility] unit and treated with supplemental oxygen, nebulizer therapy and supportive care. 35 minutes additional care time dedicated to discussing end of life care, Hospice and pallative care. Pt and family acknowledge understanding and agreement with care plan. Past History Past Medical History: arthritis, COPD, diabetes, heart failure, hypertension Past Surgical History: bowel surgery, Other (Pacemaker placement) Social history: single. denies: smoking, alcohol abuse, prescription drug abuse Family history: diabetes, hypertension Medications and Allergies Allergies Allergy/AdvReac Type Severity Reaction Status Date / Time No Known Allergies Allergy Verified 06/20/19 17:37 Home Medications Medication Instructions Recorded Confirmed Last Taken Type Potassium Chloride [K-Dur] 40 meq PO QDAY 06/16/19 07/13/19 Unknown History Propylene Glycol [Systane Complete] 1.5 ml OP BID 06/16/19 07/13/19 Unknown History Tiotropium [place] [Spiriva] 1 puff IH DAILY 06/16/19 07/13/19 Unknown History Multivitamin Tab W-MINERAL 1 each PO QDAY #30 tablet 06/18/19 07/13/19 Unknown Rx [Multiple Vitamin/Mineral (Theragran M)] Ondansetron [Zofran ODT TAB] 4 mg PO Q8HR PRN #20 tab.rapdis 06/20/19 07/13/19 Unknown Rx Pantoprazole [Protonix TAB] 20 mg PO QDAY 07/08/19 07/13/19 Unknown History Albuterol Sulfate [Proair 90 mcg IH QID PRN #1 aer.pow.ba 07/11/19 07/13/19 Unknown Rx Respiclick] Aspirin [Aspirin BABY CHEW TAB] 81 mg PO QDAY #30 tab.chew 07/11/19 07/13/19 Unknown Rx Benzonatate [Tessalon Perles] 100 mg PO Q8HR PRN #30 capsule 07/11/19 07/13/19 Unknown Rx Carvedilol [Coreg] 3.125 mg PO BID #60 tablet 07/11/19 07/13/19 Unknown Rx Cholecalciferol Vit D3 [Vitamin D3 1,000 unit PO DAILY tablet 07/11/19 07/13/19 Unknown Rx 1,000 UNIT TAB] Fe Fumarate/FA/Mv, Min Comb#15 1 each PO QDAY #15 capsule 07/11/19 07/13/19 Un known Rx [Hemocyte Plus] Furosemide [Lasix TAB] 80 mg PO 0600,1800 #30 tablet 07/11/19 07/13/19 Unknown Rx Furosemide [Lasix TAB] 80 mg PO 0600,1800 #60 tablet 07/11/19 07/13/19 Unknown Rx Iron Carb,Gl/FA/B12/C/Docusate 1 each PO DAILY #30 tablet 07/11/19 07/13/19 Unknown Rx [Ferralet 90 Tablet] Lisinopril [Zestril TAB] 2.5 mg PO QDAY #30 tablet 07/11/19 07/13/19 Unknown Rx Pravastatin [Pravachol] 20 mg PO DAILY #30 tablet 07/11/19 07/13/19 Unknown Rx traMADol [Ultram 50 MG tab] 25 mg PO Q6H PRN #30 tablet 07/11/19 07/13/19 Unknown Rx Active Meds: Active Medications Acetaminophen (Tylenol) 650 mg PO Q4H PRN PRN Reason: Pain MILD(1-3)/Fever >100.5/BASILIO Albuterol (Proventil) 2.5 mg IH Q4HRT PRN PRN Reason: Shortness Of Breath Aspirin (Baby Aspirin) 81 mg PO QDAY TANK Benzonatate (Tessalon Perles) 100 mg PO Q8HR PRN PRN Reason: Cough Carvedilol (Coreg) 3.125 mg PO BID TANK Cholecalciferol (Vitamin D3) 1,000 unit PO DAILY TANK Furosemide (Lasix) 80 mg PO 0600,1800 TANK Lisinopril (Zestril) 2.5 mg PO QDAY TANK Miscellaneous Medication (Iron Carb,Gl/Fa/B12/C/Docusate [Ferralet 90 Tablet]) 1 each PO DAILY TANK Miscellaneous Medication (Propylene Glycol [Systane Complete]) 1.5 ml OP BID [facility] Multivitamins/Iron (Hemocyte Plus) 1 each PO QDAY [facility] Multivitamins/Minerals (Theragran-M Tab) 1 each PO QDAY [facility] Ondansetron HCl (Zofran) 4 mg IV Q8H PRN PRN Reason: Nausea And Vomiting Ondansetron HCl (Zofran Odt) 4 mg PO Q8HR PRN PRN Reason: Vomiting Oxycodone/Acetaminophen (Percocet 5/325) 1 tab PO Q6H PRN PRN Reason: Pain, Moderate (4-6) Pantoprazole Sodium (Protonix) 20 mg PO QDAY [facility] Potassium Chloride (K-Dur) 40 meq PO QDAY [facility] Pravastatin Sodium (Pravachol) 20 mg PO DAILY [facility] Sodium Chloride (Sodium Chloride Flush Syringe 10 Ml) 10 ml IV BID [facility] Sodium Chloride (Sodium Chloride Flush Syringe 10 Ml) 10 ml IV PRN PRN PRN Reason: LINE FLUSH Tiotropium [place] (Spiriva) 1 puff IH DAILY [facility] Tramadol HCl (Ultram) 25 mg PO Q6H PRN PRN Reason: Pain, Moderate (4-6) Review of Systems Constitutional: weakness, no weight loss, no weight gain, no fever, no chills Ears, nose, mouth and throat: no ear pain, no ear discharge, no tinnitis, no decreased hearing, no nose pain, no nasal congestion Breasts: no change in shape, no swelling Cardiovascular: shortness of breath, no chest pain, no orthopnea, no palpitations Respiratory: shortness of breath, congestion, wheezing, no cough, no cough with sputum, no pain on inspiration Gastrointestinal: no abdominal pain, no nausea, no vomiting, no diarrhea, no constipation, no change in bowel habits Genitourinary Female: no dysmenorrhea, no pelvic pain, no flank pain, no blaine rrhagia, no dysuria Rectal: no pain, no incontinence, no bleeding Musculoskeletal: no neck stiffness, no neck pain, no shooting arm pain, no arm numbness/tingling, no low back pain Integumentary: no rash, no pruritis, no redness, no sores, no wounds Neurological: no paralysis, no weakness, no parathesias, no numbness, no tingling, no seizures, no syncope Psychiatric: no anxiety, no memory loss, no change in sleep habits, no sleep disturbances, no insomnia Endocrine: no cold intolerance, no heat intolerance, no polyphagia, no excessive thirst, no polydipsia, no polyuria Hematologic/Lymphatic: no easy bruising, no easy bleeding, no lymphadenopathy, no lymphedema Allergic/Immunologic: no urticaria, no allergic rhinitis, no wheezing, no persistent infections Exam - Constitutional Vitals: Temp Pulse Resp BP Pulse Ox 98.2 F 65 19 174/88 100 07/12/19 15:13 07/12/19 17:39 07/12/19 17:30 07/12/19 17:39 07/12/19 17:30 General appearance: Present: mild distress - EENT Eyes: Present: PERRL ENT: hearing intact, clear oral mucosa - Neck Neck: Present: supple, normal ROM - Respiratory Respiratory effort: normal Respiratory: bilateral: diminished, rhonchi - Cardiovascular Heart Sounds: Present: S1 & S2. Absent: rub, click - Extremities Extremities: pulses symmetrical, No edema Peripheral Pulses: within normal limits - Abdominal General gastrointestinal: Present: soft, non-tender, non-distended, normal bowel sounds Female genitourinary: Present: normal - Integumentary Integumentary: Present: clear, warm, dry - Musculoskeletal Musculoskeletal: gait normal, strength equal bilaterally - Psychiatric Psychiatric: appropriate mood/affect, intact judgment & insight - Neurologic Neurologic: CNII-XII intact, moves all extremities Results - Labs CBC & Chem 7: 07/13/19 04:16 07/13/19 04:16 Labs: Abnormal lab results 07/12/19 07/12/19 Range/Units 15:25 15:25 WBC 4.3 L (4.5-11.0) K/mm3 RBC 2.44 L (3.65-5.03) M/mm3 Hgb 7.6 L (10.1-14.3) gm/dl Hct 24.2 L (30.3-42.9) % MCV 99 H (79-97) fl RDW 17.7 H (13.2-15.2) % Lymph % (Auto) 8.9 L (13.4-35.0) % [place] % (Auto) 11.7 H (0.0-7.3) % Eos % (Auto) 4.4 H (0.0-4.3) % Lymph # 0.4 L (1.2-5.4) K/mm3 Seg Neutrophils % 74.7 H (40.0-70.0) % Sodium 135 L (137-145) mmol/L Chloride 91.5 L (98-107) mmol/L Carbon Dioxide 32 H (22-30) mmol/L BUN 19 H (7-17) mg/dL Glucose 237 H (65-100) mg/dL Troponin T 0.043 H (0.00-0.029) ng/mL Assessment and Plan - Patient Problems (1) COPD exacerbation Current Visit: Yes Status: Acute Plan to address problem: Supplemental oxygen, nebulizer therapy, pulse oximetry, IV steroid therapy, NIPPV as clinically indicated (2) Advance care planning Current Visit: Yes Status: Acute Plan to address problem: Discussed Hospice care, home health, and pallative care. Pt family acknowledges interest in not returning to hospital for recurrent chronic symptoms. Pt and family informed that no curative options are available. (3) HTN (hypertension) Current Visit: Yes Status: Acute Qualifiers: Hypertension type: essential hypertension Qualified Code(s): I10 - Essential (primary) hypertension Plan to address problem: monitor bp q shift, continue medical management (4) Diabetes Current Visit: Yes Status: Acute Plan to address problem: ADA diet, insulin, accu check, hypoglycemia protocol (5) DVT prophylaxis Current Visit: Yes Status: Acute Plan to address problem: SCD to BLE while in bed.
[2019-07-12] MEDS: PERCOCET 5/325 PO PRN (20:05)
--- NOTE | 2019-07-12 21:21 | Event Note ---
Date: 07/12/19 Pt's family states that pt has negative reaction to contrast . D/c'd CT angiogram chest and ordered V/Q scan will place on therapeutic Lovenox prophylactically. If V/Q scan negative will discontinue therapeutic Lovenox.
[2019-07-12] MEDS ORDERED: PROPYLENE GLYCOL OP SCH (22:00)
[2019-07-12] MEDS: COREG PO SCH (22:41)
[2019-07-12] MEDS: ATIVAN PO SCH (22:42)
[2019-07-12] MEDS: SODIUM CHLORIDE FLUSH SYRINGE 10 ML IV SCH (22:42)
[2019-07-12] MEDS: PRAVACHOL PO SCH (22:42)
[2019-07-12] MEDS: LOVENOX SUB-Q SCH (22:50)
[2019-07-12] MEDS ORDERED: D50W (25GM) Syringe IV PRN (23:25)
[2019-07-13 05:17] LABS: Hematocrit 25.8 % (30.3-42.9); Hemoglobin 8.5 gm/dl (10.1-14.3); Mean Corpuscular HGB Conc 33 % (30-34); Mean Corpuscular Volume 94 fl (79-97); Platelet Count 188 K/mm3 (140-440); Red Blood Count 2.75 M/mm3 (3.65-5.03); Red Cell Distribution Width 17.1 % (13.2-15.2)
[2019-07-13 05:26] LABS: Albumin 2.8 g/dL (3.9-5); BUN/Creatinine Ratio 16; Blood Urea Nitrogen 18 mg/dL (7-17); Hemolysis Index 5
[2019-07-13 05:29] LABS: Alanine Aminotransferase < 5 units/L (7-56)
[2019-07-13] MEDS: LASIX PO SCH ×2 (06:29→17:47)
[2019-07-13] MEDS: HumaLOG SUB-Q SCH ×4 (08:19→21:52)
[2019-07-13] MEDS: SPIRIVA IH SCH (08:20)
[2019-07-13] MEDS ORDERED: IRON CARB GL PO SCH (10:00)
[2019-07-13] MEDS ORDERED: DOCUSATE PO SCH (10:00)
[2019-07-13] MEDS: ZESTRIL PO SCH (10:00)
[2019-07-13] MEDS ORDERED: B12 PO SCH (10:00)
[2019-07-13] MEDS ORDERED: [UNRECOGNIZED DRUG - OTHER] PO SCH (10:00)
[2019-07-13] MEDS: VITAMIN D3 PO SCH (10:02)
--- NOTE | 2019-07-13 10:02 | Progress Note ---
Assessment and Plan Assessment and plan: 88 YO Female with HTN, DM, Atrial Fib, CHF,COPD, OA, Dementia, Anxiety, Debility presents to ED for evaluation. Pt states that she feels weak and short of breath today. Pt discharged from [facility] on 07/11/19 and represents today. Pt reports acute onset of shortness of breath today. Pt discharged from hospital on 07/11/19. Pt transported to [facility] for further care and reevaluation. Pt seen and evaluated in ED and found to have COPD exacerbation. Pt admitted to [facility] unit and treated with supplemental oxygen, nebulizer therapy and supportive care. 35 minutes additional care time dedicated to discussing end of life care, Hospice and pallative care. Pt and family acknowledge understanding and agreement with care plan. - Patient Problems (1) COPD exacerbation Current Visit: Yes Status: Acute Plan to address problem: Supplemental oxygen, nebulizer therapy, pulse oximetry, IV steroid therapy, NIPPV as clinically indicated v/q scan pending (2) Advance care planning Current Visit: Yes Status: Acute Plan to address problem: Discussed Hospice care, home health, and pallative care. Pt family acknowledges interest in not returning to hospital for recurrent chronic symptoms. Pt and family informed that no curative options are available. (3) HTN (hypertension) Current Visit: Yes Status: Acute Qualifiers: Hypertension type: essential hypertension Qualified Code(s): [facility] Plan to address problem: monitor bp q shift, continue medical management (4) Diabetes Current Visit: Yes Status: Acute Plan to address problem: ADA diet, insulin, accu check, hypoglycemia protocol (5) severe anemia Hold of prior ordered full dose lovenox. ? Right lobar Pneumonia aBX therapy for now. MONITOR CULTURES SPEECH FOR SWALLOW EVAL DVT prophylaxis Current Visit: Yes Status: Acute Plan to address problem: SCD to BLE while in bed. discussed with Nursing staff History Interval history: Patient seen and examined, no acute event reported overnight. Stable at this time. No shortness of breath Hospitalist Physical - Physical exam Narrative exam: General appearance: Present: No acute distress - EENT Eyes: Present: PERRL ENT: hearing intact, clear oral mucosa - Neck Neck: Present: supple, normal ROM - Respiratory Respiratory effort: normal Respiratory: bilateral: diminished, rhonchi - Cardiovascular Heart Sounds: Present: S1 & S2. Absent: rub, click - Extremities Extremities: pulses symmetrical, No edema Peripheral Pulses: within normal limits - Abdominal General gastrointestinal: Present: soft, non-tender, non-distended, normal bowel sounds Female genitourinary: Present: normal - Integumentary Integumentary: Present: clear, warm, dry - Musculoskeletal Musculoskeletal: gait normal, strength equal bilaterally - Psychiatric Psychiatric: appropriate mood/affect, intact judgment & insight - Neurologic Neurologic: CNII-XII intact, moves all extremities - Constitutional Vitals: Temp Pulse Resp BP Pulse Ox 98.7 F 65 18 115/62 100 07/13/19 07:34 07/13/19 07:34 07/13/19 07:34 07/13/19 07:34 07/13/19 08:20 General appearance: Present: mild distress Results - Labs CBC & Chem 7: 07/13/19 04:16 07/13/19 04:16 Labs: Laboratory Last Values WBC 4.7 K/mm3 (4.5-11.0) 07/13/19 04:16 RBC 2.75 M/mm3 (3.65-5.03) L 07/13/19 04:16 Hgb 8.5 gm/dl (10.1-14.3) L 07/13/19 04:16 Hct 25.8 % (30.3-42.9) L 07/13/19 04:16 MCV 94 fl (79-97) 07/13/19 04:16 MCH 31 pg (28-32) 07/13/19 04:16 MCHC 33 % (30-34) 07/13/19 04:16 RDW 17.1 % (13.2-15.2) H 07/13/19 04:16 Plt Count 188 K/mm3 (140-440) 07/13/19 04:16 Lymph % (Auto) Chair Lift Operator 07/13/19 04:16 [place] % (Auto) Chair Lift Operator 07/13/19 04:16 Eos % (Auto) Chair Lift Operator 07/13/19 04:16 Baso % (Auto) Chair Lift Operator 07/13/19 04:16 Lymph # Chair Lift Operator 07/13/19 04:16 [place] # Chair Lift Operator 07/13/19 04:16 Eos # Chair Lift Operator 07/13/19 04:16 Baso # Chair Lift Operator 07/13/19 04:16 Seg Neutrophils % Chair Lift Operator 07/13/19 04:16 Seg Neutrophils # Chair Lift Operator 07/13/19 04:16 Sodium 140 mmol/L (137-145) 07/13/19 04:16 Potassium 4.0 mmol/L (3.6-5.0) 07/13/19 04:16 Chloride 96.3 mmol/L (98-107) L 07/13/19 04:16 Carbon Dioxide 35 mmol/L (22-30) H 07/13/19 04:16 13 mmol/L 07/13/19 04:16 BUN 18 mg/dL (7-17) H 07/13/19 04:16 1.1 mg/dL (0.7-1.2) 07/13/19 04:16 Estimated GFR 57 ml/min 07/13/19 04:16 16 % 07/13/19 04:16 Glucose 159 mg/dL (65-100) H 07/13/19 04:16 POC Glucose 149 (70-105) H 07/13/19 07:41 Calcium 9.0 mg/dL (8.4-10.2) 07/13/19 04:16 0.40 mg/dL (0.1-1.2) 07/13/19 04:16 AST 14 units/L (5-40) 07/13/19 04:16 ALT < 5 units/L (7-56) L 07/13/19 04:16 61 units/L (35-129) 07/13/19 04:16 0.043 ng/mL (0.00-0.029) H 07/12/19 15:25 6.4 g/dL (6.3-8.2) 07/13/19 04:16 2.8 g/dL (3.9-5) L 07/13/19 04:16 0.8 % 07/13/19 04:16 Active Medications - Current Medications Current Medications: Generic Name Dose Route Start Last Admin Trade Name Freq PRN Reason Stop Dose Admin Acetaminophen 650 mg 07/12/19 17:53 Tylenol PO Q4H PRN Pain MILD(1-3)/Fever >100.5/BASILIO Albuterol 2.5 mg 07/12/19 17:53 Proventil IH Q4H PRN Shortness Of Breath Aspirin 81 mg 07/13/19 10:00 Baby Aspirin PO QDAY TANK Benzonatate 100 mg 07/12/19 17:54 Tessalon Perles PO Q8H PRN Cough Carvedilol 3.125 mg 07/12/19 22:00 07/12/19 22:41 Coreg PO 3.125 mg BID TANK Administration Cholecalciferol 1,000 unit 07/13/19 10:00 Vitamin D3 PO DAILY TANK Dextrose 50 ml 07/12/19 23:25 D50w (25gm) Syringe IV PRN PRN Hypoglycemia Enoxaparin Sodium 70 mg 07/12/19 22:00 07/12/19 22:50 Lovenox SUB-Q 70 mg Q12HR TANK Administration Furosemide 80 mg 07/13/19 06:00 07/13/19 06:29 Lasix PO 80 mg 0600,1800 [facility] Administration Insulin Human Lispro 0 unit 07/13/19 07:30 07/13/19 08:19 Humalog SUB-Q Not Given ACHS [facility] Protocol Lisinopril 2.5 mg 07/13/19 10:00 Zestril PO QDAY [facility] Lorazepam 0.5 mg 07/12/19 22:00 07/12/19 22:42 Ativan PO 0.5 mg QHS [facility] Administration Methylprednisolone Sodium Succinate 20 mg 07/13/19 10:00 Solu-Medrol IV Q24HR [facility] Miscellaneous Medication 1.5 ml 07/12/19 22:00 Propylene Glycol [Systane Complete] OP BID [facility] Multivitamins/Iron 1 each 07/13/19 10:00 Hemocyte Plus PO QDAY [facility] Multivitamins/Minerals 1 each 07/13/19 10:00 Theragran-M Tab PO QDAY [facility] Ondansetron HCl 4 mg 07/12/19 17:53 Zofran IV Q8H PRN Nausea And Vomiting Ondansetron HCl 4 mg 07/12/19 17:54 Zofran Odt PO Q8H PRN Vomiting Oxycodone/Acetaminophen 1 tab 07/12/19 17:53 07/12/19 20:05 Percocet 5/325 PO 1 tab Q6H PRN Administration Pain, Moderate (4-6) Pantoprazole Sodium 20 mg 07/13/19 10:00 Protonix PO QDAY [facility] Potassium Chloride 40 meq 07/13/19 10:00 K-Dur PO QDAY [facility] Pravastatin Sodium 20 mg 07/12/19 22:00 07/12/19 22:42 Pravachol PO 20 mg QHS TANK Administration Sodium Chloride 10 ml 07/12/19 22:00 07/12/19 22:42 Sodium Chloride Flush Syringe 10 Ml IV 10 ml BID [facility] Administration Sodium Chloride 10 ml 07/12/19 17:53 Sodium Chloride Flush Syringe 10 Ml IV PRN PRN LINE FLUSH Tiotropium [place] 1 puff 07/13/19 09:00 07/13/19 08:20 Spiriva IH Not Given Q24HRT [facility] Tramadol HCl 25 mg 07/12/19 17:54 Ultram PO Q6H PRN Pain, Moderate (4-6)
[2019-07-13] MEDS: BABY ASPIRIN PO SCH (10:03)
[2019-07-13] MEDS: PROTONIX PO SCH (10:03)
[2019-07-13] MEDS: COREG PO SCH ×2 (10:03→21:50)
[2019-07-13] MEDS: K-DUR PO SCH (10:03)
[2019-07-13] MEDS: THERAGRAN-M Tab PO SCH (10:03)
[2019-07-13] MEDS: SODIUM CHLORIDE FLUSH SYRINGE 10 ML IV SCH ×2 (10:04→21:52)
[2019-07-13] MEDS: SOLU-Medrol IV SCH (10:04)
[2019-07-13] MEDS: LOVENOX SUB-Q SCH (10:05)
[2019-07-13] MEDS: ULTRAM PO PRN (10:59)
[2019-07-13] MEDS ORDERED: MAXIPIME/NS 1 GM/100 ML 1 GM/100 ML BAG IV SCH (12:00)
[2019-07-13] MEDS: DUONEB *Not for PRN Use IH SCH ×2 (15:29→20:11)
[2019-07-13] MEDS: HEMOCYTE PLUS PO SCH (17:47)
[2019-07-13] MEDS: PERCOCET 5/325 PO PRN (21:49)
[2019-07-13] MEDS: PRAVACHOL PO SCH (21:50)
[2019-07-13] MEDS: ATIVAN PO SCH (21:50)
[2019-07-13] MEDS: MAXIPIME/NS 1 GM/100 ML 1 GM/100 ML BAG IV SCH (23:18)
[2019-07-14] MEDS: DUONEB *Not for PRN Use IH SCH ×4 (02:02→22:22)
[2019-07-14 05:38] LABS: Hematocrit 26.8 % (30.3-42.9); Hemoglobin 8.7 gm/dl (10.1-14.3); Mean Corpuscular HGB Conc 32 % (30-34); Mean Corpuscular Volume 95 fl (79-97); Platelet Count 196 K/mm3 (140-440); Red Blood Count 2.82 M/mm3 (3.65-5.03); Red Cell Distribution Width 17.2 % (13.2-15.2)
[2019-07-14 05:55] LABS: Calcium 9.2 mg/dL (8.4-10.2)
[2019-07-14] MEDS: LASIX PO SCH ×2 (06:10→17:37)
--- NOTE | 2019-07-14 07:03 | XRay Report ---
CHEST 1 VIEW 07/14/2019 6:37 AM INDICATION / CLINICAL INFORMATION: chest pain. COMPARISON: Chest x-ray 07/12/2019 FINDINGS: SUPPORT DEVICES: Left subclavian pacemaker leads, unchanged. HEART / MEDIASTINUM: Cardiac silhouette remains enlarged. LUNGS / PLEURA: Small right pleural effusion. Patchy airspace disease right mid to lower lung field s uggestive for pneumonia. Left lung is clear. No pneumothorax. ADDITIONAL FINDINGS: No significant additional findings. IMPRESSION: 1. Cardiomegaly with small right pleural effusion. 2. Patchy parenchymal disease right mid to lower lung field characteristic for pneumonia Signer Name: Geovani Ascencio MD Signed: 07/14/2019 6:59 AM Workstation Name: [id number]
[2019-07-14] MEDS: HumaLOG SUB-Q SCH ×4 (07:46→21:55)
[2019-07-14] MEDS: VITAMIN D3 PO SCH (09:14)
[2019-07-14] MEDS: BABY ASPIRIN PO SCH (09:14)
[2019-07-14] MEDS: PROTONIX PO SCH (09:14)
[2019-07-14] MEDS: SPIRIVA IH SCH (09:15)
[2019-07-14] MEDS: THERAGRAN-M Tab PO SCH (09:16)
[2019-07-14] MEDS: SODIUM CHLORIDE FLUSH SYRINGE 10 ML IV SCH ×2 (09:16→21:56)
[2019-07-14] MEDS: SOLU-Medrol IV SCH (09:27)
[2019-07-14] MEDS: K-DUR PO SCH ×2 (09:33→09:47)
[2019-07-14] MEDS: ZESTRIL PO SCH (09:35)
[2019-07-14] MEDS: COREG PO SCH ×2 (09:37→21:54)
[2019-07-14] MEDS: HEMOCYTE PLUS PO SCH (10:03)
--- NOTE | 2019-07-14 11:37 | Nuclear Medicine Report ---
NM lung scan perf/vent INDICATION / CLINICAL INFORMATION: r/o pe. TECHNIQUE: Dose / Agent / Route: 10 mCi of xenon-133 gas was inhaled. 5.1 mCi of technetium 99 MAA was then inje cted intravenously COMPARISON: Chest x-ray from today FINDINGS: Ventilation images show moderate bilateral air trapping. Perfusion images show patchy decreased uptak e bilaterally. IMPRESSION: Moderate bilateral air trapping with patchy decreased uptake bilaterally on the perfusion images. Man dy is intermediate probability for pulmonary embolus Signer Name: Kaiser Awad MD FACR Signed: 07/14/2019 11:33 AM Workstation Name: [id number]
[2019-07-14] MEDS: MAXIPIME/NS 1 GM/100 ML 1 GM/100 ML BAG IV SCH ×3 (11:58→23:15)
[2019-07-14] MEDS: ULTRAM PO PRN (17:23)
[2019-07-14] MEDS: PERCOCET 5/325 PO PRN (21:52)
[2019-07-14] MEDS: ATIVAN PO SCH (21:54)
[2019-07-14] MEDS: PRAVACHOL PO SCH (21:54)
[2019-07-15] MEDS: DUONEB *Not for PRN Use IH SCH ×3 (02:50→17:52)
[2019-07-15] MEDS: PERCOCET 5/325 PO PRN (05:58)
[2019-07-15] MEDS: LASIX PO SCH (05:59)
--- NOTE | 2019-07-15 06:48 | Progress Note ---
Assessment and Plan (1) COPD exacerbation Current Visit: Yes Status: Acute Plan to address problem: Supplemental oxygen, nebulizer therapy, pulse oximetry, IV steroid therapy, NIPPV as clinically indicated (2) Advance care planning Current Visit: Yes Status: Acute Plan to address problem: Discussed Hospice care, home health, and pallative care. Pt family acknowledges interest in not returning to hospital for recurrent chronic symptoms. Pt and family informed that no curative options are available. Discussed Hospice---Patient refuses (3) HTN (hypertension) Current Visit: Yes Status: Acute Qualifiers: Hypertension type: essential hypertension Qualified Code(s): I10 - Essential (primary) hypertension Plan to address problem: monitor bp q shift, continue medical management (4) Diabetes Current Visit: Yes Status: Acute Plan to address problem: ADA diet, insulin, accu check, hypoglycemia protocol (5) severe anemia Hold of prior ordered full dose lovenox. ? Right lobar Pneumonia aBX therapy for now. MONITOR CULTURES SPEECH FOR SWALLOW EVAL DVT prophylaxis Current Visit: Yes Status: Acute Plan to address problem: SCD to BLE while in bed. discussed with Nursing staff History Interval history: Patient seen and examined, no acute event reported overnight. Stable at this time. No shortness of breath Subjective Date of service: 07/14/19 Principal diagnosis: COPD exacerbation Interval history: 88 YO Female with HTN, DM, Atrial Fib, CHF,COPD, OA, Dementia, Anxiety, Debility presents to ED for evaluation. Pt states that she feels weak and short of breath today. Pt discharged from [facility] on 07/11/19 and represents today. Pt reports acute onset of shortness of breath today. Pt discharged from hospital on 07/11/19. Pt transported to [facility] for further care and reevaluation. Pt seen and evaluated in ED and found to have COPD exacerbation. Pt admitted to [facility] unit and treated with supplemental oxygen, nebulizer therapy and supportive care. 35 minutes additional care time dedicated to discussing end of life care, Hospice and pallative care. Pt and family acknowledge understanding and agreement with care plan. Objective - Constitutional Vitals: Vital Signs - 12hr 07/14/19 07/14/19 07/14/19 20:43 21:07 21:14 Temperature 98.7 F Pulse Rate 65 65 Pulse Rate [ 65 Apical] Pulse Rate [ Posterior] Respiratory 18 18 Rate Respiratory Rate [Posterior ] Blood Pressure 165/83 O2 Sat by Pulse 100 96 Oximetry 09/02/19 09/02/19 09/03/19 21:54 22:00 02:29 Temperature 98.5 F Pulse Rate 66 67 Pulse Rate [ Apical] Pulse Rate [ 68 Posterior] Respiratory 18 Rate Respiratory 18 Rate [Posterior ] Blood Pressure 176/75 152/79 O2 Sat by Pulse 96 100 Oximetry 07/15/19 03:48 Temperature Pulse Rate Pulse Rate [ Apical] Pulse Rate [ Posterior] Respiratory Rate Respiratory Rate [Posterior ] Blood Pressure O2 Sat by Pulse 100 Oximetry - Labs CBC & Chem 7: 07/14/19 05:03 07/14/19 05:03 Labs: Abnormal lab results 07/14/19 07/14/19 07/14/19 Range/Units 07:19 11:47 17:09 POC Glucose 166 H 219 H 347 H (70-105) 07/14/19 07/15/19 Range/Units 21:52 00:41 POC Glucose 302 H 268 H (70-105)
[2019-07-15] MEDS: HumaLOG SUB-Q SCH ×3 (08:24→16:51)
[2019-07-15] MEDS: BABY ASPIRIN PO SCH (09:54)
[2019-07-15] MEDS: PROTONIX PO SCH (09:54)
[2019-07-15] MEDS: THERAGRAN-M Tab PO SCH (09:54)
[2019-07-15] MEDS: ZESTRIL PO SCH (09:56)
[2019-07-15] MEDS: VITAMIN D3 PO SCH (09:56)
[2019-07-15] MEDS: HEMOCYTE PLUS PO SCH (09:56)
[2019-07-15] MEDS: SOLU-Medrol IV SCH (09:58)
[2019-07-15] MEDS: SODIUM CHLORIDE FLUSH SYRINGE 10 ML IV SCH (09:59)
[2019-07-15] MEDS: COREG PO SCH (09:59)
[2019-07-15 10:02] LABS: Calcium 9.3 mg/dL (8.4-10.2)
[2019-07-15] MEDS: MAXIPIME/NS 1 GM/100 ML 1 GM/100 ML BAG IV SCH (11:37)
[2019-07-15] MEDS: ULTRAM PO PRN (12:05)
[2019-07-15 13:46] VITALS: BP 179/95
--- NOTE | 2019-07-15 17:33 | Discharge Summary ---
Providers - Providers Date of Admission: 07/12/19 17:53 Date of discharge: 07/15/19 Attending physician: TAHMINA VALENCIA 07/13/19 10:05 Speech Therapy Evaluation and Treat [CONS] Routine Reason For Exam: swallow evaluation 07/15/19 10:35 Physical Therapy Evaluation and Treat [CONS] Routine Comment: Reason For Exam: Weakness Primary care physician: ROSIE HOPKINS DO Hospitalization Condition: Fair Hospital course: 88 YO Female with HTN, DM, Atrial Fib, CHF,COPD, OA, Dementia, Anxiety, Debility presents to ED for evaluation. Pt states that she feels weak and short of breath today. Pt discharged from [facility] on 07/11/19 and represents today. Pt reports acute onset of shortness of breath today. Pt discharged from hospital on 07/11/19. Pt transported to [facility] for further care and reevaluation. Pt seen and evaluated in ED and found to have COPD exacerbation. Pt admitted to [facility] unit and treated with supplemental oxygen, nebulizer therapy and supportive care. 35 minutes additional care time dedicated to discussing end of life care, Hospice and pallative care. Pt and family acknowledge understanding and agreement with care plan. 1) COPD exacerbation Current Visit: Yes Status: Acute Plan to address problem: Supplemental oxygen, nebulizer therapy, pulse oximetry, IV steroid therapy, NIPPV as clinically indicated (2) Advance care planning Current Visit: Yes Status: Acute Plan to address problem: Discussed Hospice care, home health, and pallative care. Pt family acknowledges interest in not returning to hospital for recurrent chronic symptoms. Pt and family informed that no curative options are available. Discussed Hospice---Patient refuses (3) HTN (hypertension) Current Visit: Yes Status: Acute Qualifiers: Hypertension type: essential hypertension Qualified Code(s): I10 - Essential (primary) hypertension Plan to address problem: Cont anti hypertensives (4) Diabetes Current Visit: Yes Status: Acute Plan to address problem: ADA diet Cont Hypoglycemics (5) severe anemia iron supplements (6)Right lobar Pneumonia D/c on Po abx Disposition: TO HOME OR SELFCARE Core Measure Documentation - Palliative Care Palliative Care/ Comfort Measures: Not Applicable - Core Measures Any of the following diagnoses?: none Exam - Constitutional Vitals: Temp Pulse Resp BP Pulse Ox 98.3 F 65 20 179/95 100 07/15/19 13:44 07/15/19 13:44 07/15/19 13:44 07/15/19 13:44 07/15/19 13:44 General appearance: Present: no acute distress, well-nourished - EENT Eyes: Present: PERRL ENT: hearing intact, clear oral mucosa - Neck Neck: Present: supple, normal ROM - Respiratory Respiratory effort: normal Respiratory: bilateral: CTA - Cardiovascular Heart rate: 78 Rhythm: regular Heart Sounds: Present: S1 & S2. Absent: rub, click - Extremities Extremities: no ischemia, pulses intact, pulses symmetrical, No edema Peripheral Pulses: within normal limits - Abdominal General gastrointestinal: Present: soft, non-tender, non-distended, normal bowel sounds Female genitourinary: Present: normal - Integumentary Integumentary: Present: clear, warm, dry - Musculoskeletal Musculoskeletal: gait normal, strength equal bilaterally - Psychiatric Psychiatric: appropriate mood/affect, intact judgment & insight - Neurologic Neurologic: CNII-XII intact, moves all extremities - Allied Health Allied health notes reviewed: nursing, case management Plan Activity: no restrictions Diet: diabetic Follow up with: PRIMARY MD BREANN [Referring] - 3-5 Days CHIP HENNESSY MD [Staff Physician] - 7 Days
== END 2019-07-15 19:40 | disposition home or self-care (01) ==
LOC: ED 14:57 → 2B-ACE 17:53
PROVIDERS: ADMIT Internal Medicine; ATTEND Internal Medicine
DX: J44.1 Chronic obstructive pulmonary disease with (acute) exacerbation (principal); I11.0 Hypertensive heart disease with heart failure; I50.9 Heart failure, unspecified; I48.91 Unspecified atrial fibrillation; E11.9 Type 2 diabetes mellitus without complications; M19.90 Unspecified osteoarthritis, unspecified site
CPT/HCPCS: 36415; 71045; 71046; 78582; 80048; 80053; 82962; 84484; 85025; 85027; 92507; 92610; 93005; 93010; 94640; 94760; 96361; 96365; 96366; 96372; 96375; 96376; 99284; A9270; A9540; A9558; G0378; J0692; J1650; J1940; J2920; J1815